=== PATIENT | male | born 1965 | race Caucasian/White ===

== ENCOUNTER 2020-09-19 09:55 | Emergency (ER) | payer OTHER, SELFPAY ==
[2020-09-19 10:03] VITALS: BP 161/82; PULSE 92; RESP 18; TEMP 36.1; O2SAT 98; BMI 37.6
--- NOTE | 2020-09-19 10:09 | ED.BACK ---
HPI - Back Pain/Injury General Chief Complaint: Extremity Injury, Lower Stated Complaint: LEG PAIN Time Seen by Provider: 09/19/20 09:57 Source: patient Mode of arrival: ambulatory Limitations: no limitations History of Present Illness HPI Narrative: 55 y/o male with history of asthma and morbid obesity who presents with non-traumatic burning left hip pain that radiates down his leg. It states it starts in his left lower back and radiates down the back and side of his leg. Worse with walking, better with rest. Had a recent telehealth visit and was started on a muscle relaxer with no improvement in the pain. He denies tingling, LE weakness, incontinence. No trauma. No lower leg pain. Ambulates with steady gait. MD elicited complaint: back pain and other (LLE pain) Onset (ago): week(s) (3) Timing: intermittent and progressively worsening Severity: severe Similar Symptoms Previously: No Quality: burning Location: left lower back Radiation: buttocks and left upper leg Exacerbating factors: movement and walking Relieving factors: immobilization Context: unknown Associated symptoms: difficulty walking Treatments prior to arrival: other medications Work related injury: No Related Data Previous Rx's Medication Instructions Recorded cyclobenzaprine 10 mg PO TID PRN #10 tab 09/19/20 lidocaine [Lidoderm] 1 patch TOPICAL DAILY #15 ea 09/19/20 naproxen 500 mg PO BID PRN #20 tab 09/19/20 tramadol 50 mg PO Q8H PRN #9 tab 09/19/20 Allergies Allergy/AdvReac Type Severity Reaction Status Date / Time No Known Allergies Allergy Verified 09/19/20 10:05 [No Known Allergies*] Review of Systems Review of Systems: Constitutional: No Fever, No Chills Cardiovascular: No Chest Pain, No SOB Respiratory: No Cough, No Sputum Gastrointestinal: No Nausea, No Vomiting, No Diarrhea, No abdominal Pain Genitourinary: No Dysuria, No Urinary Frequency, No Hematuria Musculoskeletal: + joint pain, + Myalgias Skin: No Skin Lesions, No rash Neuro: No Weakness, + Numbness, No Dizziness, No Headache Heme/Lymph: No Bruising, No Lymphadenopathy Endocrine: No Polyuria, No Polydipsia PMFSH Past Medical History Attestation statement: The following information was validated with the patient. Medical History Asthma High blood pressure Hyperlipemia Social History Social History Advance Directives: No Advance Directives Information Provided: No Physical Exam Vital Signs: Vital Signs: Last Vital Signs Temp 97.0 F 09/19/20 10:03 Pulse 92 09/19/20 10:03 Resp 18 09/19/20 10:03 BP 161/82 H 09/19/20 10:03 Pulse Ox 98 09/19/20 10:03 Body Mass Index 37.6 Appearance: Alert. Oriented X3. No acute distress. HEENT: normal inspection CVS: Normal heart rate and rhythm. Pulses normal. Respiratory: No respiratory distress. Skin: Skin warm and dry. Normal skin color. Normal skin turgor. No rashes. Extremities: Neuro: Oriented X 3. No motor deficit. No sensory deficit. Course Course Course Narrative: 55 y/o morbidly obese male presenting with left hip, leg and back pain for the last 3 weeks. history and physical consistent with sciatica. doubt DVT. Stable for d/c with treatment for sciatica. MDM - Back Pain/Injury Differential Diagnosis Differential diagnosis: Likely lumbar radiculopathy, sciatica and strain of lumbar region Critical Care Time Critical Care Time Critical Care Time: No Discharge Plan Discharge Clinical Impression: Sciatica Qualifiers: Laterality: left Qualified Code(s): M54.32 - Sciatica, left side Patient Disposition: Home, Self-Care Instructions: Sciatica (ED), Lumbar Radiculopathy (ED), Lower Back Exercises (ED) Additional Instructions: Your back and leg pain are due to a condition known as sciatica - information has been provided to you. Take the prescribed medications for pain. Follow up with your doctor this week. You would benefit from Physical Therapy. If you develop worsening pain, numbness, or develop weakness or incontinence come back to the ER for further evalution. Prescriptions: New cyclobenzaprine 10 mg tablet 10 mg PO TID PRN (Reason: muscle spasm) Qty: 10 RF: 0 lidocaine [Lidoderm] 5 % adhesive patch,medicated 1 patch topical DAILY Qty: 15 RF: 0 naproxen 500 mg tablet 500 mg PO BID PRN (Reason: pain) Qty: 20 RF: 0 tramadol 50 mg tablet 50 mg PO Q8H PRN (Reason: pain) Qty: 9 RF: 0 Interventions: ED Discharge Assessment Last Done: 09/19/20 10:34 Discharge Date/Time: 09/19/20 10:35
[2020-09-19] MEDS: Ketorolac Tromethamine 30 MG/ML VIAL IM (10:30)
== END 2020-09-19 10:35 | disposition home or self-care (01) ==
PROVIDERS: Emergency Provider Emergency Medicine; PCP Nurse Practitioner Family
DX: M54.42 Lumbago with sciatica, left side (principal); I10 Essential (primary) hypertension
CPT/HCPCS: 96372; 99282; 99284; J1885

== ENCOUNTER 2020-10-03 13:56 | Outpatient (REF) | payer OTHER, SELFPAY | END 2020-10-03 13:57 | disposition home or self-care (01) | LOC: HO.LAB 13:56 | PROVIDERS: PCP Nurse Practitioner Family; Visit Provider Internal Medicine | DX: Z20.822 Contact with and (suspected) exposure to COVID-19 (principal) | CPT/HCPCS: 36415; C9803; U0003 ==

== ENCOUNTER 2021-09-03 19:44 | Emergency (ER) | payer OTHER, SELFPAY | END 2021-09-03 23:26 | disposition left against medical advice (07) | PROVIDERS: Emergency Provider Emergency Medicine | DX: R06.02 Shortness of breath (principal); J45.909 Unspecified asthma, uncomplicated ==

== ENCOUNTER 2022-01-14 12:41 | Emergency (ER) | payer OTHER, SELFPAY ==
--- NOTE | ~2022-01-14 | XR_ITS ---
EXAMINATION: XR CHEST CLINICAL INFORMATION: Dyspnea. COMPARISON: 04/04/2020 chest radiograph. TECHNIQUE: Frontal view of the chest was obtained. FINDINGS: Asymmetric right pleural thickening is again seen without significant change. Linear markings are also seen in the right mid and lower lung vela without significant change. The left lung is clear. The heart and mediastinal structures are unremarkable. XR/XR chest 1V IMPRESSION: Chronic right pleural and parenchymal findings as detailed above without significant interval change. No acute cardiopulmonary process.
--- NOTE | 2022-01-14 12:43 | ECG_ITS ---
Test Reason : dyspnea Blood Pressure : / mmHG Vent. Rate : 099 BPM Atrial Rate : 099 BPM P-R Int : 156 ms QRS Dur : 098 ms QT Int : 342 ms P-R-T Axes : 053 040 027 degrees QTc Int : 438 ms Normal sinus rhythm Normal ECG When compared with ECG of 04-APR-2020 18:08, No significant change was found Referred By: Generic ED Physician Electronically Signed By:Manuel Reza
[2022-01-14 12:51] VITALS: BP 144/88; PULSE 99; RESP 22; TEMP 36.7; O2SAT 97; BMI 51.6
[2022-01-14 13:34] LABS: MANUAL DIFF FLAG NO
[2022-01-14 13:37] LABS: Basophils Percent Auto 0.5 % (0-2); Eosinophils Percent Auto 0.5 % (0-4); Hematocrit 43.3 % (42.0-52.0); Hemoglobin 13.8 g/dl (14.0-18.0); Imm Gran Abs Auto 0.01 X10*3/uL (0.00-0.03); Imm Gran Pct Auto 0.2 % (0.0-0.4); Lymphocytes Absolute Auto 1.6 X10*3/uL (1.2-4.9); Lymphocytes Percent Auto 34.9 % (20-40); Mean Corpuscular HGB Conc 31.9 g/dl (31.0-36.0); Mean Platelet Volume 9.4 fL (9.4-12.4); Monocytes Absolute Auto 0.9 X10*3/uL (0.1-1.2); Monocytes Percent Auto 19.6 % (2-11); Neutrophils Percent Auto 44.3 % (45-73); Platelet Count 234 X10*3/uL (160-400); Red Blood Count 4.92 X10*6/uL (4.60-5.80); White Blood Count 4.4 X10*3/uL (4.8-10.8)
[2022-01-14 13:55] LABS: Anion Gap 14 (12-20); Blood Urea Nitrogen 17 mg/dL (9-16); Calcium 9.2 mg/dL (8.4-10.2); Carbon Dioxide 23 mmol/L (22-29); Chloride 106 mmol/L (96-108); Creatinine Clr Calc Pharmacy 157.9; Estimated Glomerular Filt Rate > 60; Glucose Random 120 mg/dL (60-115); Potassium 3.9 mmol/L (3.3-5.1); Sodium 139 mmol/L (135-145)
[2022-01-14 13:59] LABS: B Type Natriuretic Peptide < 10 pg/mL (<100); Troponin-I High Sensitivity 4.7 ng/L (<3.5-35.0)
[2022-01-14 14:18] LABS: COVID-19 Test Positive (Negative)
[2022-01-14 14:25] LABS: IDNOW Serial# 08D9AD1C; Influenza A Negative (Negative); Influenza B2 Negative (Negative)
--- NOTE | 2022-01-14 15:16 | ED.SOB ---
HPI - SOB/Dyspnea General Chief Complaint: Dyspnea Stated Complaint: DIFF BREATHING Time Seen by Provider: 01/14/22 13:38 Source: patient Mode of arrival: ambulatory Limitations: no limitations History of Present Illness HPI Narrative: 56 y/o male with history of obesity, ODETTE on CPAP who presents to the ER with 6 days of SOB, productive cough of green phlegm and body aches. He reports taking an at home COVID test and he has 2 lines but he thought it was from the other germs in him with his green phlegm. He is fully vaccinated. He reports SOB with coughing an exertion but he was able to ride his bicycle here. He denies any leg swelling or pain, no chest pain. MD elicited complaint: shortness of breath and cough Onset (ago): day(s) (6) Context: recent illness Timing: intermittent Severity: moderate Exacerbating factors: lying flat, exertion and coughing Relieving factors: rest and upright position Associated symptoms: cough and sputum production Treatment prior to arrival: none Related Data Home oxygen amount: none Previous Rx's Medication Instructions Recorded cyclobenzaprine 10 mg tablet 10 mg PO TID PRN #10 tab 09/19/20 lidocaine 5 % topical patch 1 patch TOPICAL DAILY #15 ea 09/19/20 (Lidoderm) naproxen 500 mg tablet 500 mg PO BID PRN #20 tab 09/19/20 tramadol 50 mg tablet 50 mg PO Q8H PRN #9 tab 09/19/20 Allergies Allergy/AdvReac Type Severity Reaction Status Date / Time No Known Allergies Allergy Verified 01/14/22 12:58 [No Known Allergies*] Review of Systems Review of Systems: Constitutional: No Fever, No Chills ENT/Mouth: + sore throat, No Rhinorrhea Eyes: No Eye Pain, No Swelling, No Redness Cardiovascular: No Chest Pain, No SOB, No Orthopnea, No Edema Respiratory: + Cough, + Sputum, No Wheezing, + dyspnea Gastrointestinal: No Nausea, No Vomiting, No Diarrhea, No abdominal Pain Musculoskeletal: No joint pain, + Myalgias Skin: No Skin Lesions, No rash Neuro: No Weakness, No Numbness, No Dizziness, + Headache Psych: No Anxiety/Panic, No Depression Heme/Lymph: No Bruising, No Lymphadenopathy PMFSH Past Medical History Medical History (Updated 01/14/22 @ 15:24 by BALTAZAR Suero) Asthma High blood pressure High cholesterol Hyperlipemia Sleep apnea Social History Social History (Updated 01/10/22 @ 11:59 by KIRBY Reynolds) Alcohol intake: former Patient Tobacco Use Status: Former Tobacco user Advance Directives: No Advance Directives Information Provided: Yes Current occupational status: employed Current occupation: [employer] Physical Exam Vital Signs: Vital Signs: Last Vital Signs Temp 98.1 F 01/14/22 12:51 Pulse 99 01/14/22 12:51 Resp 22 H 01/14/22 12:51 BP 144/88 H 01/14/22 12:51 Pulse Ox 97 01/14/22 12:51 BMI result Body Mass Index 51.6 Appearance: Alert. Oriented X3. No acute distress. Eyes: Pupils equal, round and reactive to light. ENT: Pharynx normal. No tonsillar swelling or erythema. Neck: Normal inspection. Neck supple. CVS: Normal heart rate and rhythm. Pulses normal. Respiratory: No respiratory distress. Breath sounds normal. Abdomen: Obese, Soft and nontender. +BS x4 Skin: Skin warm and dry. Normal skin color. Normal skin turgor. No rashes. Extremities: No lower extremity edema. No calf tenderness Neuro: Oriented X 3. No motor deficit. No sensory deficit. Course Course Course Narrative: 56 y/o male with morbid obesity, ODETTE on CPAP who presents to the ER with SOB, productive cough and body aches x6 days. Slightly tachypneic on arrival w/ RR 22 but SpO2 97%. He just rode his bicycle here. He has no chest pain and otherwise appears well. Will get CXR, EKG, labs and COVID swab. Suspect all COVID with at home ++ test. Doubt DVT/PE. Reevaluation(s) Reevaluation #1: CXR with some chronic findings, nothing acute. EKG unremarkable. BNP normal. Troponin <5. COVID +. Stable for discharge home with supportive care, encouraged to get an at home pulse oximeter and monitor SPO2 at home. MDM - SOB/Dyspnea Medical Records Attestation: I reviewed the patient's medical records. Lab Data Attestation: I reviewed the patient's lab results. Result diagrams: 01/14/22 13:30 01/14/22 13:30 Labs: Lab Results 01/14/22 01/14/22 01/14/22 Range/Units 13:30 13:30 13:30 WBC 4.4 L (4.8-10.8) X10*3/uL RBC 4.92 (4.60-5.80) X10*6/uL Hgb 13.8 L (14.0-18.0) g/dl Hct 43.3 (42.0-52.0) % MCV 88.0 (80.0-98.0) fL MCH 28.0 (27.0-33.0) pg MCHC 31.9 (31.0-36.0) g/dl RDW 14.0 (11.0-16.0) % Plt Count 234 (160-400) X10*3/uL MPV 9.4 (9.4-12.4) fL Immature Gran % (Auto) 0.2 (0.0-0.4) % Neut % (Auto) 44.3 L (45-73) % Lymph % (Auto) 34.9 (20-40) % Hardy % (Auto) 19.6 H (2-11) % Eos % (Auto) 0.5 (0-4) % Baso % (Auto) 0.5 (0-2) % Lymph # (Auto) 1.6 (1.2-4.9) X10*3/uL Hardy # (Auto) 0.9 (0.1-1.2) X10*3/uL Eos # (Auto) 0.0 (0.0-0.4) X10*3/uL Baso # (Auto) 0.0 (0.0-0.2) X10*3/uL Abs Immat Gran (auto) 0.01 (0.00-0.03) X10*3/uL Absolute Neuts (auto) 2.0 (2.0-8.3) x10*3/uL Absolute Nucleated RBC 0.000 (0.0-0.012) X10*3/uL Nucleated RBC % (auto) 0.0 (0.0-0.2) /100WBC Sodium 139 (135-145) mmol/L Potassium 3.9 (3.3-5.1) mmol/L Chloride 106 (96-108) mmol/L Carbon Dioxide 23 (22-29) mmol/L Anion Gap 14 (12-20) BUN 17 H (9-16) mg/dL Creatinine 0.85 (0.5-1.4) mg/dL Estim Creat Clear Calc 157.9 Estimated GFR > 60 Random Glucose 120 H (60-115) mg/dL Calcium 9.2 (8.4-10.2) mg/dL Troponin I High Sens 4.7 (<3.5-35.0) ng/L B-Natriuretic Peptide < 10 (<100) pg/mL COVID-19 ([facility]) (Negative) COVID-19 Clin Com Influenza Type A ([facility]) (Negative) Influenza Type B ([facility]ONA) (Negative) Influenza A & B Note 01/14/22 01/14/22 Range/Units 13:56 13:56 WBC (4.8-10.8) X10*3/uL RBC (4.60-5.80) X10*6/uL Hgb (14.0-18.0) g/dl Hct (42.0-52.0) % MCV (80.0-98.0) fL MCH (27.0-33.0) pg MCHC (31.0-36.0) g/dl RDW (11.0-16.0) % Plt Count (160-400) X10*3/uL MPV (9.4-12.4) fL Immature Gran % (Auto) (0.0-0.4) % Neut % (Auto) (45-73) % Lymph % (Auto) (20-40) % Hardy % (Auto) (2-11) % Eos % (Auto) (0-4) % Baso % (Auto) (0-2) % Lymph # (Auto) (1.2-4.9) X10*3/uL Hardy # (Auto) (0.1-1.2) X10*3/uL Eos # (Auto) (0.0-0.4) X10*3/uL Baso # (Auto) (0.0-0.2) X10*3/uL Abs Immat Gran (auto) (0.00-0.03) X10*3/uL Absolute Neuts (auto) (2.0-8.3) x10*3/uL Absolute Nucleated RBC (0.0-0.012) X10*3/uL Nucleated RBC % (auto) (0.0-0.2) /100WBC Sodium (135-145) mmol/L Potassium (3.3-5.1) mmol/L Chloride (96-108) mmol/L Carbon Dioxide (22-29) mmol/L Anion Gap (12-20) BUN (9-16) mg/dL Creatinine (0.5-1.4) mg/dL Estim Creat Clear Calc Estimated GFR Random Glucose (60-115) mg/dL Calcium (8.4-10.2) mg/dL Troponin I High Sens (<3.5-35.0) ng/L B-Natriuretic Peptide (<100) pg/mL COVID-19 ([facility]) Positive A (Negative) COVID-19 Clin Com See Note Influenza Type A ([facility]) Negative (Negative) Influenza Type B ([facility]ONA) Negative (Negative) Influenza A & B Note See Note ECG Data Attestation: I personally reviewed and interpreted this ECG as follows: ECG interpretation date: 01/14/22 Interpretation: normal sinus rhythm, HR 99 bpm, normla MA interval, normal QTc, No ST segment elevations or depressions Critical Care Time Critical Care Time Critical Care Time: No Discharge Plan Discharge Clinical Impression: COVID-19 Patient Disposition: Home, Self-Care Instructions: Covid-19 Viral Syndrome and Novel Coronavirus (ED) Hey/Ath Additional Instructions: You were found to be COVID-19 POSITIVE today. Your chest x-ray did now show any pneumonia and oxygen levels were normal. Rest. Drink plenty of fluids. Do not go out in public for the next 5-7 days. Take over the counter cold/flu medications as needed for your symptoms. Take Tylenol and/or Motrin as needed for fevers and body aches. Follow up with your doctor this week. If you shortness of breath worsens, if you develop difficulty breathing or any other concerning symptom come back to the ER for further evaluation. Prescriptions: No Action cyclobenzaprine 10 mg tablet 10 mg PO TID PRN (Reason: muscle spasm) Qty: 10 0RF lidocaine [Lidoderm] 5 % adhesive patch,medicated 1 patch topical DAILY Qty: 15 0RF Rx Instructions: leave on most painful area for up to 12 hrs naproxen 500 mg tablet 500 mg PO BID PRN (Reason: pain) Qty: 20 0RF tramadol 50 mg tablet 50 mg PO Q8H PRN (Reason: pain) Qty: 9 0RF Rx Instructions: for 3 days Interventions: ED Discharge Assessment Last Done: 01/14/22 15:29 Discharge Date/Time: 01/14/22 15:35
== END 2022-01-14 15:35 | disposition home or self-care (01) ==
PROVIDERS: Physician Assistant Medical; Emergency Provider Emergency Medicine
DX: U07.1 COVID-19 (principal); R06.02 Shortness of breath; J45.909 Unspecified asthma, uncomplicated; G47.33 Obstructive sleep apnea (adult) (pediatric); E66.01 Morbid (severe) obesity due to excess calories; Z68.43 Body mass index [BMI] 50.0-59.9, adult; Z99.89 Dependence on other enabling machines and devices
CPT/HCPCS: 36415; 71045; 80048; 83880; 84484; 85025; 87502; 87635; 93005; 99283

== ENCOUNTER → 2022-05-22 10:35 | Outpatient (BNVA) | payer OTHER, SELFPAY | PROVIDERS: Visit Provider Nurse Practitioner Family | DX: R40.0 Somnolence (principal); G47.30 Sleep apnea, unspecified | CPT/HCPCS: 99202 ==

== ENCOUNTER 2022-07-13 13:43 | Outpatient (REF) | payer OTHER, SELFPAY ==
--- NOTE | ~2022-07-13 | XR_ITS ---
EXAMINATION: XR CHEST CLINICAL INFORMATION: Acute respiratory infection. COMPARISON: 01/14/2022 chest radiograph. TECHNIQUE: 2 views of the chest were obtained. FINDINGS: There is a small right pleural effusion/pleural scarring without significant change. Mild linear markings are seen in the right upper lung field. The left lung is clear. The heart and mediastinal structures are unremarkable. XR/XR chest 2V IMPRESSION: Right hip findings are similar to previous studies consistent with chronic right pleural effusion/pleural thickening and right lung linear atelectasis/scarring. No definitive new abnormality.
== END 2022-07-13 13:44 | disposition home or self-care (01) ==
LOC: HO.XRAY 13:43
PROVIDERS: Visit Provider Internal Medicine
DX: J06.9 Acute upper respiratory infection, unspecified (principal)
CPT/HCPCS: 71046

== ENCOUNTER 2022-08-30 08:55 | Emergency (ER) | payer OTHER, SELFPAY ==
--- NOTE | ~2022-08-30 | XR_ITS ---
EXAMINATION: XR CHEST CLINICAL INFORMATION: Difficulty breathing COMPARISON: Chest radiograph 07/13/[address] 08/07/2017 along with chest x-ray dating back to 01/12/2013 TECHNIQUE: Frontal view of the chest was obtained. FINDINGS: Compared to the prior study there's been no interval change. Once again noted is a normal heart and pulmonary vessels. Right-sided pleural thickening/scarring is again seen and unchanged on chest radiographs dating back to 2012. No acute infiltrates, no effusions or lung masses are seen. XR/XR chest 1V IMPRESSION: No acute intrathoracic disease. Unchanged right-sided pleural thickening.
--- NOTE | ~2022-08-30 | CT_ITS ---
EXAMINATION: CT ABDOMEN AND PELVIS WITHOUT CONTRAST CLINICAL INFORMATION: Left flank pain and hematuria COMPARISON: CT abdomen pelvis 04/18/2017 TECHNIQUE: Multidetector volumetric imaging was performed from the superior aspect of the liver through the pubic symphysis. Sagittal and coronal reformatted images were obtained on the technologist's workstation. This CT examination was performed using dose optimization techniques as appropriate, variously including the following: *Automated exposure control *Adjustment of mA and/or kV according to patient size (this includes techniques or standardized protocols for targeted exams where dose is matched to indication/reason for exam; i.e. extremities or head) *Use of iterative reconstruction technique DLP: 1583 mGy-cm FINDINGS: LUNG BASES: There is a perifissural nodules seen in the right lower lobe measuring 7 mm that is unchanged when the study from 04/18/2017 indicative of benignity. Some chronic pleural thickening is again seen with some calcifications. LIVER, GALLBLADDER, AND BILIARY TREE: The liver is normal in size, shape, and attenuation. No focal hepatic lesion or biliary ductal dilatation is present. The gallbladder is unremarkable with no evidence of radiopaque gallstones, gallbladder wall thickening, or obvious pericholecystic inflammatory changes. PANCREAS: Unremarkable. SPLEEN: Unremarkable. ADRENAL GLANDS: Unremarkable. KIDNEYS AND URETERS: The kidneys are normal in size, shape, and attenuation. There is a 3 mm calculus in the left mid kidney with smaller punctate calcification in the upper pole on the left. No right-sided calculi are seen. No hydronephrosis, hydroureter, or ureteral calculi seen. No significant perinephric stranding. BLADDER: Unremarkable. GASTROINTESTINAL TRACT: The small and large bowel are unremarkable. The appendix is unremarkable. ABDOMINAL WALL: There are tiny bilateral inguinal hernias containing only fat. LYMPH NODES: No retroperitoneal lymphadenopathy. VASCULAR: Unremarkable. PELVIC VISCERA: The prostate and seminal vesicles are unremarkable. OSSEOUS STRUCTURES: Degenerative changes are noted throughout the spine. No bony destructive lesions CT/CT abdomen pelvis wo IV con IMPRESSION: 1. Nonobstructing left renal calculi. 2. Other incidental findings as described above. Fleischner guidelines were followed.
[2022-08-30 09:03] VITALS: BP 118/73; PULSE 90; RESP 20; TEMP 35.6; O2SAT 97; BMI 54.2
--- NOTE | 2022-08-30 09:51 | ED.GENADULT ---
HPI - General Adult General Chief complaint: General Medical Stated complaint: diff breathing blood in urine Time Seen by Provider: 08/30/22 09:46 Source: patient Mode of arrival: ambulatory Limitations: no limitations History of Present Illness HPI narrative: 57-year-old male with history of morbid obesity, ODETTE on CPAP, HTN, HLD and asthma who presents to the ER c/o multiple complaints today. He reports for the last couple of days he has had a bronchitis including coughing and wheezing. He has been using nebulizer treatments before he puts on his CPAP at night. He states he is bringing up green phlegm when he coughs. Denies any fever, chills, body aches. He denies any difficulty breathing or chest pain. Patient also reports intermittent hematuria for the last 2 weeks. He has low back pain associated with this. He also reports suprapubic pain and discomfort when he urinates. He feels like he has to strain to urinate at times. He denies any nausea, vomiting, abdominal pain. He feels like he might have an infection. MD complaint: Productive cough and dysuria Onset (ago): day(s) Location: chest, back and abdomen Radiation: non-radiation Severity: moderate Quality: aching Pain Consistency: intermittent Relieving factors: none Exacerbating factors: none Associated symptoms: cough and shortness of breath Treatments prior to arrival: none Related Data Home Medications Medication Instructions Recorded Confirmed cholecalciferol (vitamin D3) 50 50 mcg PO DAILY 05/22/22 05/22/22 mcg (2,000 unit) capsule (Vitamin D3) lisinopril 10 mg tablet 10 mg PO DAILY 05/22/22 05/22/22 pravastatin 40 mg tablet 40 mg PO DAILY PRN 05/22/22 05/22/22 Previous Rx's Medication Instructions Recorded cyclobenzaprine 10 mg tablet 10 mg PO TID PRN muscle spasm #10 09/19/20 tabs naproxen 500 mg tablet 500 mg PO BID PRN pain #20 tabs 09/19/20 tramadol 50 mg tablet 50 mg PO Q8H PRN pain #9 tabs 09/19/20 benzonatate 100 mg capsule 100 mg PO TID PRN cough #30 caps 08/30/22 cefuroxime axetil 250 mg tablet 250 mg PO BID 7 days #14 tabs 08/30/22 prednisone 50 mg tablet 50 mg PO DAILY #5 tabs 08/30/22 Allergies Allergy/AdvReac Type Severity Reaction Status Date / Time No Known Allergies Allergy Verified 01/14/22 12:58 [No Known Allergies*] Review of Systems Review of Systems: Constitutional: No Fever, No Chills ENT/Mouth: No sore throat, No Rhinorrhea, No Swallowing Difficulty Eyes: No Eye Pain, No Swelling, No Redness Cardiovascular: No Chest Pain, + SOB, No Orthopnea, No Edema Respiratory: + Cough, + Sputum, +wheezing, No dyspnea Gastrointestinal: No Nausea, No Vomiting, No Diarrhea, + abdominal Pain (suprapubic) Genitourinary: + Dysuria, + Urinary Frequency, + Hematuria Musculoskeletal: No joint pain, No Myalgias Skin: No Skin Lesions, No rash Neuro: No Weakness, No Numbness, No Dizziness, No Headache Psych: No Anxiety/Panic, No Depression Heme/Lymph: No Bruising, No Lymphadenopathy PMFSH Past Medical History Medical History (Updated 08/30/22 @ 11:32 by BALTAZAR Suero) Asthma High blood pressure High cholesterol Hyperlipemia Sleep apnea Surgical History (Updated 05/22/22 @ 10:47 by KIRBY Quinn) No history of previous surgery Family History Family History Sister Seizures Sister Diabetes Mother Diabetes Father No problems noted. 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 Oriented X3. No acute distress. Eyes: Pupils equal, round and reactive to light. ENT: Pharynx normal. moist mucous membranes. Neck: Normal inspection. Neck supple. CVS: Normal heart rate and rhythm. Pulses normal. Respiratory: No respiratory distress. Breath sounds normal. Upper airway wheezing noted. speaking in complete sentences Abdomen: obese,Soft and nontender. +BS x4 No CVA tenderness bilateral Skin: Skin warm and dry. Normal skin color. Normal skin turgor. No rashes. Extremities: No lower extremity edema. Neuro: Oriented X 3. steady gait, nonfocal Course Course Course Narrative: 57-year-old male with history of morbid obesity, ODETTE on CPAP who presents to the ER for evaluation of 2 separate complaints today including bronchitis - coughing and wheezing for the last few days along with dysuria and intermittent hematuria for the last 2 weeks. on arrival to the ER he is afebrile and saturating well on room air. He is hemodynamically stable. Will check chest x-ray to rule out pneumonia. Will check basic lab workup, CT scan to rule out stones given his back pain. Will check UA, concern for UTI. He does not appear to be septic. Reevaluation(s) Reevaluation #1: Urinalysis consistent with infection. He has no leukocytosis. Renal function is normal. Ceftin and Pyridium ordered. Chest x-ray without pneumonia, negative for flu and COVID. Continues to saturate well on room air. He states he has responded well to steroids in the past when he has had similar symptoms. Will prescribe short course of prednisone. Reevaluation #2: CT scan without any evidence of pyelonephritis, no evidence of obstructing kidney stone. Comfortable discharge home with oral antibiotics and outpatient follow-up. Stable for DC. Medications Administered Discontinued Medications Generic Name Dose Route Start Last Admin Trade Name Flakita PRN Reason Stop Dose Admin Cefuroxime Axetil 500 mg 08/30/22 11:25 08/30/22 11:34 Cefuroxime Axetil 500 Mg Tablet PO 08/30/22 11:26 500 mg ONCE ONE Administration Phenazopyridine HCl 100 mg 08/30/22 11:07 08/30/22 11:34 Phenazopyridine Hcl 100 Mg Tablet PO 08/30/22 11:08 100 mg ONCE ONE Administration Medical Decision Making Lab Data Result Diagrams: 08/30/22 09:58 08/30/22 09:58 Labs: Lab Results 12/15/22 12/15/22 12/15/22 Range/Units 09:58 09:58 10:37 WBC 9.0 (4.8-10.8) X10*3/uL RBC 4.83 (4.60-5.80) X10*6/uL Hgb 14.3 (14.0-18.0) g/dl Hct 43.3 (42.0-52.0) % MCV 89.6 (80.0-98.0) fL MCH 29.6 (27.0-33.0) pg MCHC 33.0 (31.0-36.0) g/dl RDW 13.5 (11.0-16.0) % Plt Count 269 (160-400) X10*3/uL MPV 9.6 (9.4-12.4) fL Immature Gran % (Auto) 0.4 (0.0-0.4) % Neut % (Auto) 67.7 (45-73) % Lymph % (Auto) 17.0 L (20-40) % [place] % (Auto) 12.8 H (2-11) % Eos % (Auto) 1.9 (0-4) % Baso % (Auto) 0.2 (0-2) % Lymph # (Auto) 1.5 (1.2-4.9) X10*3/uL [place] # (Auto) 1.2 (0.1-1.2) X10*3/uL Eos # (Auto) 0.2 (0.0-0.4) X10*3/uL Baso # (Auto) 0.0 (0.0-0.2) X10*3/uL Abs Immat Gran (auto) 0.04 H (0.00-0.03) X10*3/uL Absolute Neuts (auto) 6.1 (2.0-8.3) x10*3/uL Absolute Nucleated RBC 0.000 (0.0-0.012) X10*3/uL Nucleated RBC % (auto) 0.0 (0.0-0.2) /100WBC Sodium 138 (135-145) mmol/L Potassium 4.7 D (3.3-5.1) mmol/L Chloride 105 (96-108) mmol/L Carbon Dioxide 24 (22-29) mmol/L Anion Gap 14 (12-20) BUN 15 (9-16) mg/dL Creatinine 0.76 (0.5-1.4) mg/dL Estim Creat Clear Calc 169.4 Estimated GFR > 60 Random Glucose 111 (60-115) mg/dL Calcium 9.2 (8.4-10.2) mg/dL AST 27 (5-37) U/L ALT 34 (0-40) U/L Alkaline Phosphatase 62 (39-117) U/L Total Protein 7.0 (6.5-8.0) g/dL Albumin 3.8 (3.5-5.0) g/dL Lipase 22 (8-78) U/L Urine Color Urine Appearance Urine pH (5.0-9.0) Ur Specific [place] (1.005-1.025) Urine Protein (Neg-Trace) mg/dL Urine Glucose (UA) (Negative) mg/dL Urine Ketones (Negative) mg/dL Urine Blood (Negative) Urine Nitrite (Negative) Ur Leukocyte Esterase (Negative) Urine RBC (0-2) /HPF Urine WBC (0-5) /HPF Ur Squamous Epith Cells (0-2) /HPF Urine Bacteria (None Seen) Hyaline Casts (0-2) /LPF COVID-19 (CAR[facility]LE) (Negative) COVID-19 Clin Com Influenza Type A (LEONA) Negative (Negative) Influenza Type B (LEONA) Negative (Negative) Influenza A & B Note See Note 08/30/22 08/30/22 Range/Units 10:37 10:37 WBC (4.8-10.8) X10*3/uL RBC (4.60-5.80) X10*6/uL Hgb (14.0-18.0) g/dl Hct (42.0-52.0) % MCV (80.0-98.0) fL MCH (27.0-33.0) pg MCHC (31.0-36.0) g/dl RDW (11.0-16.0) % Plt Count (160-400) X10*3/uL MPV (9.4-12.4) fL Immature Gran % (Auto) (0.0-0.4) % Neut % (Auto) (45-73) % Lymph % (Auto) (20-40) % [place] % (Auto) (2-11) % Eos % (Auto) (0-4) % Baso % (Auto) (0-2) % Lymph # (Auto) (1.2-4.9) X10*3/uL [place] # (Auto) (0.1-1.2) X10*3/uL Eos # (Auto) (0.0-0.4) X10*3/uL Baso # (Auto) (0.0-0.2) X10*3/uL Abs Immat Gran (auto) (0.00-0.03) X10*3/uL Absolute Neuts (auto) (2.0-8.3) x10*3/uL Absolute Nucleated RBC (0.0-0.012) X10*3/uL Nucleated RBC % (auto) (0.0-0.2) /100WBC Sodium (135-145) mmol/L Potassium (3.3-5.1) mmol/L Chloride (96-108) mmol/L Carbon Dioxide (22-29) mmol/L Anion Gap (12-20) BUN (9-16) mg/dL Creatinine (0.5-1.4) mg/dL Estim Creat Clear Calc Estimated GFR Random Glucose (60-115) mg/dL Calcium (8.4-10.2) mg/dL AST (5-37) U/L ALT (0-40) U/L Alkaline Phosphatase (39-117) U/L Total Protein (6.5-8.0) g/dL Albumin (3.5-5.0) g/dL Lipase (8-78) U/L Urine Color Yellow Urine Appearance Cloudy Urine pH 6.0 (5.0-9.0) Ur Specific [place] 1.015 (1.005-1.025) Urine Protein 100 (2+) H (Neg-Trace) mg/dL Urine Glucose (UA) Negative (Negative) mg/dL Urine Ketones Negative (Negative) mg/dL Urine Blood Large (3+) H (Negative) Urine Nitrite Positive H (Negative) Ur Leukocyte Esterase Large (3+) H (Negative) Urine RBC 6-10 H (0-2) /HPF Urine WBC >50 H (0-5) /HPF Ur Squamous Epith Cells 0-2 (0-2) /HPF Urine Bacteria 4+ (None Seen) Hyaline Casts 3-5 (0-2) /LPF COVID-19 (CAR[facility]LE) Negative (Negative) COVID-19 Clin Com See Note Influenza Type A (LEONA) (Negative) Influenza Type B (LEONA) (Negative) Influenza A & B Note Critical Care Time Critical Care Time Critical Care Time: No Discharge Plan Discharge Clinical Impression: Acute UTI, Bronchitis Patient Disposition: Home, Self-Care Instructions: Urinary Tract Infection in Men (ED), Acute Bronchitis (ED) Additional Instructions: Your chest x-ray did not show any evidence of pneumonia. Take the prescribed steroids for your lungs. Complete the entire course. Continue using her albuterol inhaler as needed. Your urine test showed evidence of infection. Take the prescribed antibiotic as directed. Your given 1st dose today in the ER. Your next dose is tonight before bedtime. Make sure you are drinking plenty of water. Your CT scan did not show any kidney stones or kidney infection. Follow-up with your primary care doctor. If you develop new or worsening symptoms call 911 or come back to the ER for further evaluation. Prescriptions: New cefuroxime axetil 250 mg tablet 250 mg PO BID 7 Days Qty: 14 0RF prednisone 50 mg tablet 50 mg PO DAILY Qty: 5 0RF benzonatate 100 mg capsule 100 mg PO TID PRN (Reason: cough) Qty: 30 0RF No Action cyclobenzaprine 10 mg tablet 10 mg PO TID PRN (Reason: muscle spasm) Qty: 10 0RF naproxen 500 mg tablet 500 mg PO BID PRN (Reason: pain) Qty: 20 0RF tramadol 50 mg tablet 50 mg PO Q8H PRN (Reason: pain) Qty: 9 0RF Rx Instructions: for 3 days cholecalciferol (vitamin D3) [Vitamin D3] 50 mcg (2,000 unit) capsule 50 mcg PO DAILY lisinopril 10 mg tablet 10 mg PO DAILY pravastatin 40 mg tablet 40 mg PO DAILY PRN Interventions: ED Discharge Assessment Last Done: 08/30/22 11:38
[2022-08-30 10:03] LABS: MANUAL DIFF FLAG NO
[2022-08-30 10:05] LABS: Basophils Percent Auto 0.2 % (0-2); Eosinophils Absolute Auto 0.2 X10*3/uL (0.0-0.4); Eosinophils Percent Auto 1.9 % (0-4); Hematocrit 43.3 % (42.0-52.0); Hemoglobin 14.3 g/dl (14.0-18.0); Imm Gran Abs Auto 0.04 X10*3/uL (0.00-0.03); Imm Gran Pct Auto 0.4 % (0.0-0.4); Lymphocytes Absolute Auto 1.5 X10*3/uL (1.2-4.9); Mean Corpuscular Hemoglobin 29.6 pg (27.0-33.0); Mean Corpuscular Volume 89.6 fL (80.0-98.0); Mean Platelet Volume 9.6 fL (9.4-12.4); Monocytes Absolute Auto 1.2 X10*3/uL (0.1-1.2); Monocytes Percent Auto 12.8 % (2-11); Neutrophils Absolute Auto 6.1 x10*3/uL (2.0-8.3); Neutrophils Percent Auto 67.7 % (45-73); Platelet Count 269 X10*3/uL (160-400); Red Blood Count 4.83 X10*6/uL (4.60-5.80); Red Cell Distribution Width 13.5 % (11.0-16.0)
[2022-08-30 10:48] LABS: Appearance Urine Cloudy; Color Urine Yellow; Glucose Urine UA Negative (Negative); Leukocyte Esterase Urine Large (3+) (Negative); Nitrite Urine Positive (Negative); Specific Gravity - Urine 1.015 (1.005-1.025); UMIC TRIGGER UACC YES; Urine Blood Large (3+) (Negative); Urine Ketones Negative (Negative); Urine Protein 100 (2+) mg/dL (Neg-Trace)
[2022-08-30 10:57] LABS: Alanine Aminotransferase 34 U/L (0-40); Albumin Level 3.8 g/dL (3.5-5.0); Alkaline Phosphatase 62 U/L (39-117); Anion Gap 14 (12-20); Aspartate Amino Transferase 27 U/L (5-37); Blood Urea Nitrogen 15 mg/dL (9-16); Calcium 9.2 mg/dL (8.4-10.2); Carbon Dioxide 24 mmol/L (22-29); Chloride 105 mmol/L (96-108); Creatinine Clr Calc Pharmacy 169.4; Estimated Glomerular Filt Rate > 60; Glucose Random 111 mg/dL (60-115); Lipase 22 U/L (8-78); Potassium 4.7 mmol/L (3.3-5.1); Sodium 138 mmol/L (135-145)
[2022-08-30 11:01] LABS: COVID-19 Test Negative (Negative); IDNOW Serial# 16C4AD1C
[2022-08-30 11:02] LABS: Bacteria Urine 4+ (None Seen); Squamous Epithelial Cell Urine 0-2 /HPF (0-2); UACC Culture Trigger YES; WBC Urine >50 /HPF (0-5)
[2022-08-30 11:06] LABS: IDNOW Serial# BCCEAD1C; Influenza A Negative (Negative); Influenza B2 Negative (Negative)
[2022-08-30] MEDS: Phenazopyridine HCL 100 MG TABLET PO (11:34)
[2022-08-30 11:49] LABS: Bilirubin Total 0.4 mg/dL (0.0-1.0)
== END 2022-08-30 11:38 | disposition home or self-care (01) ==
PROVIDERS: Emergency Provider Student in an Organized Health Care Education/Training Program
DX: J40 Bronchitis, not specified as acute or chronic (principal); R06.02 Shortness of breath; N39.0 Urinary tract infection, site not specified; Z20.822 Contact with and (suspected) exposure to COVID-19; Z79.899 Other long term (current) drug therapy
CPT/HCPCS: 36415; 71045; 74176; 80053; 81001; 83690; 85025; 87086; 87088; 87186; 87502; 87635; 99284

== ENCOUNTER 2022-09-29 15:18 | Emergency (ER) | payer OTHER, SELFPAY ==
--- NOTE | ~2022-09-29 | XR_ITS ---
EXAMINATION: XR CHEST CLINICAL INFORMATION: Shortness of breath COMPARISON: Chest x-ray 08/30/2022 TECHNIQUE: AP and lateral views of the chest was obtained. FINDINGS: No change in the small to moderate-sized loculated right pleural fluid collection and/or pleural thickening. There is hazy attenuation in the right lung likely due to pleural fluid and/or atelectasis. Some streaky scarring or subsegmental atelectasis in the right mid upper lung, unchanged. No left pleural effusion. Left lung appears clear. Normal cardiomediastinal silhouette. No evidence of pulmonary edema. No acute osseous injury identified. XR/XR chest 1V IMPRESSION: 1. No change in the small to moderate-sized loculated right pleural fluid collection and/or pleural thickening. 2. No new airspace consolidation.
[2022-09-29 15:27] VITALS: BP 193/79; PULSE 107; RESP 18; TEMP 37.7; O2SAT 97; BMI 53.8
--- NOTE | 2022-09-29 15:31 | ED.CHESTPAIN ---
HPI - Chest Pain General Chief Complaint: General Medical <BALTAZAR Nicholas - Last Filed: 09/29/22 15:35> Stated Complaint: chest pain/ sob <BALTAZAR Nicholas - Last Filed: 09/29/22 15:35> Time Seen by Provider: 09/29/22 16:30 <BALTAZAR Nicholas - Last Filed: 09/29/22 15:35> Source: patient <BALTAZAR Anderson - Last Filed: 09/29/22 22:38> Mode of arrival: ambulatory <BALTAZAR Anderson - Last Filed: 09/29/22 22:38> Limitations: no limitations <BALTAZAR Anderson Last Filed: 09/29/22 22:38> History of Present Illness HPI narrative: This is a 57-year-old male asthma, HTN, HLD presenting to the emergency department with complaints of substernal intermittent sharp chest pain nonradiating, shortness of breath both at rest and with exertion, subjective fevers and chills, discomfort/heaviness in the left shoulder, dysuria, urinary frequency and urgency x1 day. Patient tells me he is just not been feeling right. He also reports that he recently started taking Nugenix x 5 days he is not sure if this was contributing to all his new symptoms. He tells me he body it off line to get fit. Patient denies sick contacts. Denies headache, vision changes, dizziness, weakness, nausea, vomiting, abdominal pain. <BALTAZAR Anderson Last Filed: 09/29/22 22:38> Related Data Home Medications: Home Medications Medication Instructions Recorded Confirmed cholecalciferol (vitamin D3) 50 50 mcg PO DAILY 05/22/22 05/22/22 mcg (2,000 unit) capsule (Vitamin D3) lisinopril 10 mg tablet 10 mg PO DAILY 05/22/22 05/22/22 pravastatin 40 mg tablet 40 mg PO DAILY PRN 05/22/22 05/22/22 Previous Rx's Medication Instructions Recorded cyclobenzaprine 10 mg tablet 10 mg PO TID PRN muscle spasm #10 09/19/20 tabs naproxen 500 mg tablet 500 mg PO BID PRN pain #20 tabs 09/19/20 tramadol 50 mg tablet 50 mg PO Q8H PRN pain #9 tabs 09/19/20 benzonatate 100 mg capsule 100 mg PO TID PRN cough #30 caps 08/30/22 cefuroxime axetil 250 mg tablet 250 mg PO BID 7 days #14 tabs 08/30/22 prednisone 50 mg tablet 50 mg PO DAILY #5 tabs 08/30/22 cefuroxime axetil 250 mg tablet 250 mg PO BID 7 days #14 tabs 09/29/22 <BALTAZAR Nicholas - Last Filed: 09/29/22 15:35> Allergies/Adverse Reactions: Allergies Allergy/AdvReac Type Severity Reaction Status Date / Time No Known Allergies Allergy Verified 01/14/22 12:58 [No Known Allergies*] <BALTAZAR Nicholas Last Filed: 09/29/22 15:35> Review of Systems Review of Systems: Constitutional : No Weight loss, No Fever, No Chills, + Fatigue, + Malaise ENT/Mouth : No sore throat, No Rhinorrhea Eyes: No Eye Pain, No Swelling, No Redness Cardiovascular : + Chest Pain, + SOB, No Dyspnea on Exertion, No Orthopnea, No Edema, No Palpitations Respiratory : No Cough, No Sputum, No Wheezing Gastrointestinal : No Nausea, No Vomiting, No Diarrhea, No Constipation, No abdominal Pain, No Hematochezia, No Melena Genitourinary : + Dysuria, + Urinary Frequency, No Hematuria, Musculoskeletal : No joint pain, No Myalgias, No Joint Swelling Skin : No Skin Lesions, No rash Neuro : No Weakness, No Numbness, No Dizziness, No Headache Psych : No Anxiety/Panic, No Depression All other systems reviewed and are negative <BALTAZAR Anderson Last Filed: 09/29/22 22:38> Yes all other systems are reviewed and are negative <BALTAZAR Anderson Last Filed: 09/29/22 22:38> FORMERLY [facility], [facility] Past Medical History Attestation statement: The following information was validated with the patient. <BALTAZAR Anderson Last Filed: 09/29/22 22:38> Source: old records reviewed and nursing notes reviewed <BALTAZAR Anderson Last Filed: 09/29/22 22:38> Medical History: Medical History Asthma High blood pressure High cholesterol Hyperlipemia Sleep apnea <BALTAZAR Nicholas - Last Filed: 09/29/22 15:35> Surgical History: Surgical History No history of previous surgery <BALTAZAR Nicholas - Last Filed: 09/29/22 15:35> Family History Family History: Family History Sister Seizures Sister Diabetes Mother Diabetes Father No problems noted. 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 <BALTAZAR Nicholas - Last Filed: 09/29/22 15:35> Physical Exam Vital Signs: Vital Signs: Last Vital Signs Temp 98.4 F 09/29/22 22:05 Pulse 113 H 09/29/22 22:05 Resp 09/29/22 22:05 BP 141/76 H 09/29/22 22:05 Pulse Ox 97 09/29/22 22:05 O2 Del Method 09/29/22 22:05 BMI result Body Mass Index 53.8 <BALTAZAR Nicholas - Last Filed: 09/29/22 15:35> Vital Signs: Last Vital Signs Temp 98.4 F 09/29/22 22:05 Pulse 113 H 09/29/22 22:05 Resp 09/29/22 22:05 BP 141/76 H 09/29/22 22:05 Pulse Ox 97 09/29/22 22:05 O2 Del Method 09/29/22 22:05 BMI result Body Mass Index 53.8 VSS <BALTAZAR Anderson Last Filed: 09/29/22 22:38> Appearance: Alert.? Oriented X3.? No acute distress.? Head: Normocephalic, atraumatic, no step-offs or deformities Eyes: Pupils equal, round and reactive to light.? ENT: Pharynx normal.??External ears normal, TMs normal bilaterally and EAC's normal. No pain with manipulation of external ears bilaterally. No mastoid tenderness. Neck: Normal inspection.? Neck supple.? CVS: Normal heart rate and rhythm.? Pulses normal.? Respiratory: No respiratory distress.? Breath sounds normal.? Abdomen: Soft and nontender.? Skin: Skin warm and dry.? Normal skin color.? Normal skin turgor.? Extremities: No lower extremity edema.? No calf ttp. 5/5 strength to bilateral upper and lower extremities Back: No CVA tenderness bilaterally Neuro: Oriented X 3.? No motor deficit.? No sensory deficit. CN 2-12 intact <BALTAZAR Anderson Last Filed: 09/29/22 22:38> Course Course Course Narrative: RME-- 62 year old male with past medical history of asthma, HTN, HLD, c/o chest pain, SOB, subjectice fever, chills, L shoulder pain and dysuria x today. Admits started taking Nugenix x 5 days, unsure if this is related to symptoms. EKG, labs, CXR, UA ordered <BALTAZAR Nicholas - Last Filed: 09/29/22 15:35> Reevaluation(s) Reevaluation #1: CBC with slight leukocytosis 11.4, chemistry with no acute findings requiring intervention. Troponin negative, EKG nonischemic unlikely ACS. BNP within normal limits. I am unable to rule out patient using PERC criteria therefore D-dimers currently pending. UA is grossly infected with bacteria and moderate amount of white blood cells. Will start patient on Ceftin. Chest x-ray with an unchanged small to moderate size loculated right pleural fluid collection and or scarring, no new airspace consolidations. <BALTAZAR Anderson Last Filed: 09/29/22 22:38> Time: 16:45 <BALTAZAR Anderson Last Filed: 09/29/22 22:38> Reevaluation #2: D-dimer negative. Second troponin was slightly higher than the 1st however 3rd troponin flat, patient without chest pain his only concern is body aches and pains, morphine will be given. Unlikely that this is ACS. Patient denies chest pain and shortness of breath at this time. No signs of CHF. As stated previously urine infected patient will be sent home on Ceftin. Patient's COVID and influenza negative. Patient's initial EKG showing sinus tachycardia however on my re-evaluation patient's heart rate in mid 90s between 92-94, patient comfortable. Feeling slightly better. Would like to go home. No reason for hospital admission. Symptoms could be caused secondary to viral infection and/or UTI. Educated patient on diagnosis and treatment plan, answered all question, patient verbalizes understanding. At this time patient will be discharged home, advised to return with new or worsening symptoms. Educated on worrisome signs and symptoms and when to return. At this time I feel comfortable discharge home. <BALTAZAR Anderson - Last Filed: 09/29/22 22:38> Time: 22:37 <BALTAZAR Anderson - Last Filed: 09/29/22 22:38> Medications Administered Discontinued Medications Generic Name Dose Route Start Last Admin Trade Name Freq PRN Reason Stop Dose Admin Ketorolac Tromethamine 30 mg 09/29/22 16:45 09/29/22 17:47 Ketorolac Tromethamine 15 Mg/Ml Vial IM 09/29/22 16:46 30 mg ONCE ONE Administration Morphine Sulfate 4 mg 09/29/22 18:42 09/29/22 19:34 Morphine Sulfate 4 Mg/Ml Cartridge IVPUSH 09/29/22 18:43 Not Given ONCE ONE Protocol <BALTAZAR Nicholas - Last Filed: 09/29/22 15:35> Medications Administered Discontinued Medications Generic Name Dose Route Start Last Admin Trade Name Freq PRN Reason Stop Dose Admin Ketorolac Tromethamine 30 mg 09/29/22 16:45 09/29/22 17:47 Ketorolac Tromethamine 15 Mg/Ml Vial IM 09/29/22 16:46 30 mg ONCE ONE Administration Morphine Sulfate 4 mg 09/29/22 18:42 09/29/22 19:34 Morphine Sulfate 4 Mg/Ml Cartridge IVPUSH 09/29/22 18:43 Not Given ONCE ONE Protocol <BALTAZAR Anderson - Last Filed: 09/29/22 22:38> Medical Decision Making Medical Decision Making [facility] Narrative: [id number] 57-year-old male presents with with complaints of substernal intermittent sharp chest pain nonradiating, shortness of breath both at rest and with exertion, subjective fevers and chills, discomfort/heaviness in the left shoulder, dysuria, urinary frequency and urgenct x1 day. Physical exam benign. NIHSS-0 Perc score of 1 due to tachycardia Likely viral in origin. Unlikely ACS, PE,CHF or pneumonia. Plan labs, imaging, viral test <BALTAZAR Anderson - Last Filed: 09/29/22 22:38> Differential Diagnosis Differential Diagnoses: The differential diagnosis associated with the presentation includes <BALTAZAR Anderson - Last Filed: 09/29/22 22:38> Likely viral in origin. Unlikely ACS, PE,CHF or pneumonia. <BALTAZAR Anderson - Last Filed: 09/29/22 22:38> Lab Data Result Diagrams: 09/29/22 15:51 09/29/22 15:52 <BALTAZAR Nicholas - Last Filed: 09/29/22 15:35> Labs: Lab Results 09/29/22 09/29/22 09/29/22 Range/Units 15:51 15:51 15:51 WBC 11.4 H (4.8-10.8) X10*3/uL RBC 4.87 (4.60-5.80) X10*6/uL Hgb 14.1 (14.0-18.0) g/dl Hct 43.2 (42.0-52.0) % MCV 88.7 (80.0-98.0) fL MCH 29.0 (27.0-33.0) pg MCHC 32.6 (31.0-36.0) g/dl RDW 13.4 (11.0-16.0) % Plt Count 230 (160-400) X10*3/uL MPV 9.3 L (9.4-12.4) fL Immature Gran % (Auto) 0.4 (0.0-0.4) % Neut % (Auto) 72.7 (45-73) % Lymph % (Auto) 14.3 L (20-40) % [place] % (Auto) 12.2 H (2-11) % Eos % (Auto) 0.2 (0-4) % Baso % (Auto) 0.2 (0-2) % Lymph # (Auto) 1.6 (1.2-4.9) X10*3/uL [place] # (Auto) 1.4 H (0.1-1.2) X10*3/uL Eos # (Auto) 0.0 (0.0-0.4) X10*3/uL Baso # (Auto) 0.0 (0.0-0.2) X10*3/uL Abs Immat Gran (auto) 0.04 H (0.00-0.03) X10*3/uL Absolute Neuts (auto) 8.3 (2.0-8.3) x10*3/uL Absolute Nucleated RBC 0.000 (0.0-0.012) X10*3/uL Nucleated RBC % (auto) 0.0 (0.0-0.2) /100WBC D-Dimer High Sensitivty NG/ML Sodium (135-145) mmol/L Potassium (3.3-5.1) mmol/L Chloride (96-108) mmol/L Carbon Dioxide (22-29) mmol/L Anion Gap (12-20) BUN (9-16) mg/dL Creatinine (0.5-1.4) mg/dL Estim Creat Clear Calc Estimated GFR Random Glucose (60-115) mg/dL Calcium (8.4-10.2) mg/dL Magnesium (1.6-2.6) mg/dL Total Bilirubin (0.0-1.0) mg/dL Direct Bilirubin (0.0-0.5) mg/dL AST (5-37) U/L ALT (0-40) U/L Alkaline Phosphatase (39-117) U/L Troponin I High Sens 7.3 (<3.5-35.0) ng/L B-Natriuretic Peptide < 10 (<100) pg/mL Total Protein (6.5-8.0) g/dL Albumin (3.5-5.0) g/dL Urine Color Urine Appearance Urine pH (5.0-9.0) Ur Specific [place] (1.005-1.025) Urine Protein (Neg-Trace) mg/dL Urine Glucose (UA) (Negative) mg/dL Urine Ketones (Negative) mg/dL Urine Blood (Negative) Urine Nitrite (Negative) Ur Leukocyte Esterase (Negative) Urine RBC (0-2) /HPF Urine WBC (0-5) /HPF Ur Squamous Epith Cells (0-2) /HPF Urine Bacteria (None Seen) Hyaline Casts (0-2) /LPF COVID-19 (CAROLE) (Negative) COVID-19 Clin Com Influenza Type A (LEONA) (Negative) Influenza Type B (LEONA) (Negative) Influenza A & B Note 09/29/22 09/29/22 09/29/22 Range/Units 15:51 15:52 19:06 WBC (4.8-10.8) X10*3/uL RBC (4.60-5.80) X10*6/uL Hgb (14.0-18.0) g/dl Hct (42.0-52.0) % MCV (80.0-98.0) fL MCH (27.0-33.0) pg MCHC (31.0-36.0) g/dl RDW (11.0-16.0) % Plt Count (160-400) X10*3/uL MPV (9.4-12.4) fL Immature Gran % (Auto) (0.0-0.4) % Neut % (Auto) (45-73) % Lymph % (Auto) (20-40) % [place] % (Auto) (2-11) % Eos % (Auto) (0-4) % Baso % (Auto) (0-2) % Lymph # (Auto) (1.2-4.9) X10*3/uL [place] # (Auto) (0.1-1.2) X10*3/uL Eos # (Auto) (0.0-0.4) X10*3/uL Baso # (Auto) (0.0-0.2) X10*3/uL Abs Immat Gran (auto) (0.00-0.03) X10*3/uL Absolute Neuts (auto) (2.0-8.3) x10*3/uL Absolute Nucleated RBC (0.0-0.012) X10*3/uL Nucleated RBC % (auto) (0.0-0.2) /100WBC D-Dimer High Sensitivty 181 NG/ML Sodium 138 (135-145) mmol/L Potassium 4.4 (3.3-5.1) mmol/L Chloride 102 (96-108) mmol/L Carbon Dioxide 23 (22-29) mmol/L Anion Gap 17 (12-20) BUN 18 H (9-16) mg/dL Creatinine 0.85 (0.5-1.4) mg/dL Estim Creat Clear Calc 150.8 Estimated GFR > 60 Random Glucose 119 H (60-115) mg/dL Calcium 8.8 (8.4-10.2) mg/dL Magnesium 2.0 (1.6-2.6) mg/dL Total Bilirubin 0.6 (0.0-1.0) mg/dL Direct Bilirubin 0.2 (0.0-0.5) mg/dL AST 39 H (5-37) U/L ALT 27 (0-40) U/L Alkaline Phosphatase 73 (39-117) U/L Troponin I High Sens (<3.5-35.0) ng/L B-Natriuretic Peptide (<100) pg/mL Total Protein 7.1 (6.5-8.0) g/dL Albumin 4.0 (3.5-5.0) g/dL Urine Color Yellow Urine Appearance Clear Urine pH 6.5 (5.0-9.0) Ur Specific [place] 1.015 (1.005-1.025) Urine Protein Trace (Neg-Trace) mg/dL Urine Glucose (UA) Negative (Negative) mg/dL Urine Ketones Negative (Negative) mg/dL Urine Blood Negative (Negative) Urine Nitrite Negative (Negative) Ur Leukocyte Esterase Moderate (2+) H (Negative) Urine RBC 0-2 (0-2) /HPF Urine WBC 21-50 H (0-5) /HPF Ur Squamous Epith Cells 0-2 (0-2) /HPF Urine Bacteria 4+ (None Seen) Hyaline Casts 0-2 (0-2) /LPF COVID-19 (CAROLE) (Negative) COVID-19 Clin Com Influenza Type A (LEONA) (Negative) Influenza Type B (LEONA) (Negative) Influenza A & B Note 09/29/22 09/29/22 09/29/22 Range/Units 19:06 19:37 19:37 WBC (4.8-10.8) X10*3/uL RBC (4.60-5.80) X10*6/uL Hgb (14.0-18.0) g/dl Hct (42.0-52.0) % MCV (80.0-98.0) fL MCH (27.0-33.0) pg MCHC (31.0-36.0) g/dl RDW (11.0-16.0) % Plt Count (160-400) X10*3/uL MPV (9.4-12.4) fL Immature Gran % (Auto) (0.0-0.4) % Neut % (Auto) (45-73) % Lymph % (Auto) (20-40) % Talbot % (Auto) (2-11) % Eos % (Auto) (0-4) % Baso % (Auto) (0-2) % Lymph # (Auto) (1.2-4.9) X10*3/uL [place] # (Auto) (0.1-1.2) X10*3/uL Eos # (Auto) (0.0-0.4) X10*3/uL Baso # (Auto) (0.0-0.2) X10*3/uL Abs Immat Gran (auto) (0.00-0.03) X10*3/uL Absolute Neuts (auto) (2.0-8.3) x10*3/uL Absolute Nucleated RBC (0.0-0.012) X10*3/uL Nucleated RBC % (auto) (0.0-0.2) /100WBC D-Dimer High Sensitivty NG/ML Sodium (135-145) mmol/L Potassium (3.3-5.1) mmol/L Chloride (96-108) mmol/L Carbon Dioxide (22-29) mmol/L Anion Gap (12-20) BUN (9-16) mg/dL Creatinine (0.5-1.4) mg/dL Estim Creat Clear Calc Estimated GFR Random Glucose (60-115) mg/dL Calcium (8.4-10.2) mg/dL Magnesium (1.6-2.6) mg/dL Total Bilirubin (0.0-1.0) mg/dL Direct Bilirubin (0.0-0.5) mg/dL AST (5-37) U/L ALT (0-40) U/L Alkaline Phosphatase (39-117) U/L Troponin I High Sens 11.2 D (<3.5-35.0) ng/L B-Natriuretic Peptide (<100) pg/mL Total Protein (6.5-8.0) g/dL Albumin (3.5-5.0) g/dL Urine Color Urine Appearance Urine pH (5.0-9.0) Ur Specific [place] (1.005-1.025) Urine Protein (Neg-Trace) mg/dL Urine Glucose (UA) (Negative) mg/dL Urine Ketones (Negative) mg/dL Urine Blood (Negative) Urine Nitrite (Negative) Ur Leukocyte Esterase (Negative) Urine RBC (0-2) /HPF Urine WBC (0-5) /HPF Ur Squamous Epith Cells (0-2) /HPF Urine Bacteria (None Seen) Hyaline Casts (0-2) /LPF COVID-19 (CAROLE) Negative (Negative) COVID-19 Clin Com See Note Influenza Type A (LEONA) Negative (Negative) Influenza Type B (LEONA) Negative (Negative) Influenza A & B Note See Note 09/29/22 Range/Units 22:04 WBC (4.8-10.8) X10*3/uL RBC (4.60-5.80) X10*6/uL Hgb (14.0-18.0) g/dl Hct (42.0-52.0) % MCV (80.0-98.0) fL MCH (27.0-33.0) pg MCHC (31.0-36.0) g/dl RDW (11.0-16.0) % Plt Count (160-400) X10*3/uL MPV (9.4-12.4) fL Immature Gran % (Auto) (0.0-0.4) % Neut % (Auto) (45-73) % Lymph % (Auto) (20-40) % [place] % (Auto) (2-11) % Eos % (Auto) (0-4) % Baso % (Auto) (0-2) % Lymph # (Auto) (1.2-4.9) X10*3/uL [place] # (Auto) (0.1-1.2) X10*3/uL Eos # (Auto) (0.0-0.4) X10*3/uL Baso # (Auto) (0.0-0.2) X10*3/uL Abs Immat Gran (auto) (0.00-0.03) X10*3/uL Absolute Neuts (auto) (2.0-8.3) x10*3/uL Absolute Nucleated RBC (0.0-0.012) X10*3/uL Nucleated RBC % (auto) (0.0-0.2) /100WBC D-Dimer High Sensitivty NG/ML Sodium (135-145) mmol/L Potassium (3.3-5.1) mmol/L Chloride (96-108) mmol/L Carbon Dioxide (22-29) mmol/L Anion Gap (12-20) BUN (9-16) mg/dL Creatinine (0.5-1.4) mg/dL Estim Creat Clear Calc Estimated GFR Random Glucose (60-115) mg/dL Calcium (8.4-10.2) mg/dL Magnesium (1.6-2.6) mg/dL Total Bilirubin (0.0-1.0) mg/dL Direct Bilirubin (0.0-0.5) mg/dL AST (5-37) U/L ALT (0-40) U/L Alkaline Phosphatase (39-117) U/L Troponin I High Sens 9.4 (<3.5-35.0) ng/L B-Natriuretic Peptide (<100) pg/mL Total Protein (6.5-8.0) g/dL Albumin (3.5-5.0) g/dL Urine Color Urine Appearance Urine pH (5.0-9.0) Ur Specific [place] (1.005-1.025) Urine Protein (Neg-Trace) mg/dL Urine Glucose (UA) (Negative) mg/dL Urine Ketones (Negative) mg/dL Urine Blood (Negative) Urine Nitrite (Negative) Ur Leukocyte Esterase (Negative) Urine RBC (0-2) /HPF Urine WBC (0-5) /HPF Ur Squamous Epith Cells (0-2) /HPF Urine Bacteria (None Seen) Hyaline Casts (0-2) /LPF COVID-19 (CAROLE) (Negative) COVID-19 Clin Com Influenza Type A (LEONA) (Negative) Influenza Type B (LEONA) (Negative) Influenza A & B Note <BALTAZAR Nicholas - Last Filed: 09/29/22 15:35> Lab Results 09/29/22 09/29/22 09/29/22 Range/Units 15:51 15:51 15:51 WBC 11.4 H (4.8-10.8) X10*3/uL RBC 4.87 (4.60-5.80) X10*6/uL Hgb 14.1 (14.0-18.0) g/dl Hct 43.2 (42.0-52.0) % MCV 88.7 (80.0-98.0) fL MCH 29.0 (27.0-33.0) pg MCHC 32.6 (31.0-36.0) g/dl RDW 13.4 (11.0-16.0) % Plt Count 230 (160-400) X10*3/uL MPV 9.3 L (9.4-12.4) fL Immature Gran % (Auto) 0.4 (0.0-0.4) % Neut % (Auto) 72.7 (45-73) % Lymph % (Auto) 14.3 L (20-40) % [place] % (Auto) 12.2 H (2-11) % Eos % (Auto) 0.2 (0-4) % Baso % (Auto) 0.2 (0-2) % Lymph # (Auto) 1.6 (1.2-4.9) X10*3/uL [place] # (Auto) 1.4 H (0.1-1.2) X10*3/uL Eos # (Auto) 0.0 (0.0-0.4) X10*3/uL Baso # (Auto) 0.0 (0.0-0.2) X10*3/uL Abs Immat Gran (auto) 0.04 H (0.00-0.03) X10*3/uL Absolute Neuts (auto) 8.3 (2.0-8.3) x10*3/uL Absolute Nucleated RBC 0.000 (0.0-0.012) X10*3/uL Nucleated RBC % (auto) 0.0 (0.0-0.2) /100WBC D-Dimer High Sensitivty NG/ML Sodium (135-145) mmol/L Potassium (3.3-5.1) mmol/L Chloride (96-108) mmol/L Carbon Dioxide (22-29) mmol/L Anion Gap (12-20) BUN (9-16) mg/dL Creatinine (0.5-1.4) mg/dL Estim Creat Clear Calc Estimated GFR Random Glucose (60-115) mg/dL Calcium (8.4-10.2) mg/dL Magnesium (1.6-2.6) mg/dL Total Bilirubin (0.0-1.0) mg/dL Direct Bilirubin (0.0-0.5) mg/dL AST (5-37) U/L ALT (0-40) U/L Alkaline Phosphatase (39-117) U/L Troponin I High Sens 7.3 (<3.5-35.0) ng/L B-Natriuretic Peptide < 10 (<100) pg/mL Total Protein (6.5-8.0) g/dL Albumin (3.5-5.0) g/dL Urine Color Urine Appearance Urine pH (5.0-9.0) Ur Specific [place] (1.005-1.025) Urine Protein (Neg-Trace) mg/dL Urine Glucose (UA) (Negative) mg/dL Urine Ketones (Negative) mg/dL Urine Blood (Negative) Urine Nitrite (Negative) Ur Leukocyte Esterase (Negative) Urine RBC (0-2) /HPF Urine WBC (0-5) /HPF Ur Squamous Epith Cells (0-2) /HPF Urine Bacteria (None Seen) Hyaline Casts (0-2) /LPF COVID-19 (CAROLE) (Negative) COVID-19 Clin Com Influenza Type A (LEONA) (Negative) Influenza Type B (LEONA) (Negative) Influenza A & B Note 09/29/22 09/29/22 09/29/22 Range/Units 15:51 15:52 19:06 WBC (4.8-10.8) X10*3/uL RBC (4.60-5.80) X10*6/uL Hgb (14.0-18.0) g/dl Hct (42.0-52.0) % MCV (80.0-98.0) fL MCH (27.0-33.0) pg MCHC (31.0-36.0) g/dl RDW (11.0-16.0) % Plt Count (160-400) X10*3/uL MPV (9.4-12.4) fL Immature Gran % (Auto) (0.0-0.4) % Neut % (Auto) (45-73) % Lymph % (Auto) (20-40) % [place] % (Auto) (2-11) % Eos % (Auto) (0-4) % Baso % (Auto) (0-2) % Lymph # (Auto) (1.2-4.9) X10*3/uL [place] # (Auto) (0.1-1.2) X10*3/uL Eos # (Auto) (0.0-0.4) X10*3/uL Baso # (Auto) (0.0-0.2) X10*3/uL Abs Immat Gran (auto) (0.00-0.03) X10*3/uL Absolute Neuts (auto) (2.0-8.3) x10*3/uL Absolute Nucleated RBC (0.0-0.012) X10*3/uL Nucleated RBC % (auto) (0.0-0.2) /100WBC D-Dimer High Sensitivty 181 NG/ML Sodium 138 (135-145) mmol/L Potassium 4.4 (3.3-5.1) mmol/L Chloride 102 (96-108) mmol/L Carbon Dioxide 23 (22-29) mmol/L Anion Gap 17 (12-20) BUN 18 H (9-16) mg/dL Creatinine 0.85 (0.5-1.4) mg/dL Estim Creat Clear Calc 150.8 Estimated GFR > 60 Random Glucose 119 H (60-115) mg/dL Calcium 8.8 (8.4-10.2) mg/dL Magnesium 2.0 (1.6-2.6) mg/dL Total Bilirubin 0.6 (0.0-1.0) mg/dL Direct Bilirubin 0.2 (0.0-0.5) mg/dL AST 39 H (5-37) U/L ALT 27 (0-40) U/L Alkaline Phosphatase 73 (39-117) U/L Troponin I High Sens (<3.5-35.0) ng/L B-Natriuretic Peptide (<100) pg/mL Total Protein 7.1 (6.5-8.0) g/dL Albumin 4.0 (3.5-5.0) g/dL Urine Color Yellow Urine Appearance Clear Urine pH 6.5 (5.0-9.0) Ur Specific [place] 1.015 (1.005-1.025) Urine Protein Trace (Neg-Trace) mg/dL Urine Glucose (UA) Negative (Negative) mg/dL Urine Ketones Negative (Negative) mg/dL Urine Blood Negative (Negative) Urine Nitrite Negative (Negative) Ur Leukocyte Esterase Moderate (2+) H (Negative) Urine RBC 0-2 (0-2) /HPF Urine WBC 21-50 H (0-5) /HPF Ur Squamous Epith Cells 0-2 (0-2) /HPF Urine Bacteria 4+ (None Seen) Hyaline Casts 0-2 (0-2) /LPF COVID-19 (CAROLE) (Negative) COVID-19 Clin Com Influenza Type A (LEONA) (Negative) Influenza Type B (LEONA) (Negative) Influenza A & B Note 09/29/22 09/29/22 09/29/22 Range/Units 19:06 19:37 19:37 WBC (4.8-10.8) X10*3/uL RBC (4.60-5.80) X10*6/uL Hgb (14.0-18.0) g/dl Hct (42.0-52.0) % MCV (80.0-98.0) fL MCH (27.0-33.0) pg MCHC (31.0-36.0) g/dl RDW (11.0-16.0) % Plt Count (160-400) X10*3/uL MPV (9.4-12.4) fL Immature Gran % (Auto) (0.0-0.4) % Neut % (Auto) (45-73) % Lymph % (Auto) (20-40) % [place] % (Auto) (2-11) % Eos % (Auto) (0-4) % Baso % (Auto) (0-2) % Lymph # (Auto) (1.2-4.9) X10*3/uL [place] # (Auto) (0.1-1.2) X10*3/uL Eos # (Auto) (0.0-0.4) X10*3/uL Baso # (Auto) (0.0-0.2) X10*3/uL Abs Immat Gran (auto) (0.00-0.03) X10*3/uL Absolute Neuts (auto) (2.0-8.3) x10*3/uL Absolute Nucleated RBC (0.0-0.012) X10*3/uL Nucleated RBC % (auto) (0.0-0.2) /100WBC D-Dimer High Sensitivty NG/ML Sodium (135-145) mmol/L Potassium (3.3-5.1) mmol/L Chloride (96-108) mmol/L Carbon Dioxide (22-29) mmol/L Anion Gap (12-20) BUN (9-16) mg/dL Creatinine (0.5-1.4) mg/dL Estim Creat Clear Calc Estimated GFR Random Glucose (60-115) mg/dL Calcium (8.4-10.2) mg/dL Magnesium (1.6-2.6) mg/dL Total Bilirubin (0.0-1.0) mg/dL Direct Bilirubin (0.0-0.5) mg/dL AST (5-37) U/L ALT (0-40) U/L Alkaline Phosphatase (39-117) U/L Troponin I High Sens 11.2 D (<3.5-35.0) ng/L B-Natriuretic Peptide (<100) pg/mL Total Protein (6.5-8.0) g/dL Albumin (3.5-5.0) g/dL Urine Color Urine Appearance Urine pH (5.0-9.0) Ur Specific [place] (1.005-1.025) Urine Protein (Neg-Trace) mg/dL Urine Glucose (UA) (Negative) mg/dL Urine Ketones (Negative) mg/dL Urine Blood (Negative) Urine Nitrite (Negative) Ur Leukocyte Esterase (Negative) Urine RBC (0-2) /HPF Urine WBC (0-5) /HPF Ur Squamous Epith Cells (0-2) /HPF Urine Bacteria (None Seen) Hyaline Casts (0-2) /LPF COVID-19 (CAROLE) Negative (Negative) COVID-19 Clin Com See Note Influenza Type A (LEONA) Negative (Negative) Influenza Type B (LEONA) Negative (Negative) Influenza A & B Note See Note 09/29/22 Range/Units 22:04 WBC (4.8-10.8) X10*3/uL RBC (4.60-5.80) X10*6/uL Hgb (14.0-18.0) g/dl Hct (42.0-52.0) % MCV (80.0-98.0) fL MCH (27.0-33.0) pg MCHC (31.0-36.0) g/dl RDW (11.0-16.0) % Plt Count (160-400) X10*3/uL MPV (9.4-12.4) fL Immature Gran % (Auto) (0.0-0.4) % Neut % (Auto) (45-73) % Lymph % (Auto) (20-40) % [place] % (Auto) (2-11) % Eos % (Auto) (0-4) % Baso % (Auto) (0-2) % Lymph # (Auto) (1.2-4.9) X10*3/uL [place] # (Auto) (0.1-1.2) X10*3/uL Eos # (Auto) (0.0-0.4) X10*3/uL Baso # (Auto) (0.0-0.2) X10*3/uL Abs Immat Gran (auto) (0.00-0.03) X10*3/uL Absolute Neuts (auto) (2.0-8.3) x10*3/uL Absolute Nucleated RBC (0.0-0.012) X10*3/uL Nucleated RBC % (auto) (0.0-0.2) /100WBC D-Dimer High Sensitivty NG/ML Sodium (135-145) mmol/L Potassium (3.3-5.1) mmol/L Chloride (96-108) mmol/L Carbon Dioxide (22-29) mmol/L Anion Gap (12-20) BUN (9-16) mg/dL Creatinine (0.5-1.4) mg/dL Estim Creat Clear Calc Estimated GFR Random Glucose (60-115) mg/dL Calcium (8.4-10.2) mg/dL Magnesium (1.6-2.6) mg/dL Total Bilirubin (0.0-1.0) mg/dL Direct Bilirubin (0.0-0.5) mg/dL AST (5-37) U/L ALT (0-40) U/L Alkaline Phosphatase (39-117) U/L Troponin I High Sens 9.4 (<3.5-35.0) ng/L B-Natriuretic Peptide (<100) pg/mL Total Protein (6.5-8.0) g/dL Albumin (3.5-5.0) g/dL Urine Color Urine Appearance Urine pH (5.0-9.0) Ur Specific [place] (1.005-1.025) Urine Protein (Neg-Trace) mg/dL Urine Glucose (UA) (Negative) mg/dL Urine Ketones (Negative) mg/dL Urine Blood (Negative) Urine Nitrite (Negative) Ur Leukocyte Esterase (Negative) Urine RBC (0-2) /HPF Urine WBC (0-5) /HPF Ur Squamous Epith Cells (0-2) /HPF Urine Bacteria (None Seen) Hyaline Casts (0-2) /LPF COVID-19 (CAROLE) (Negative) COVID-19 Clin Com Influenza Type A (LEONA) (Negative) Influenza Type B (LEONA) (Negative) Influenza A & B Note <BALTAZAR Anderson - Last Filed: 09/29/22 22:38> Critical Care Time Critical Care Time Critical Care Time: No <BALTAZAR Anderson - Last Filed: 09/29/22 22:38> Discharge Plan Discharge Clinical Impression: Chest pain, Shortness of breath, Acute UTI, Viral illness <BALTAZAR Nicholas - Last Filed: 09/29/22 15:35> Patient Disposition: Home, Self-Care <BALTAZAR Nicholas - Last Filed: 09/29/22 15:35> Instructions: Chest Pain (ED), Urinary Tract Infection in Men (ED), Shortness of Breath (ED) <BALTAZAR Nicholas Last Filed: 09/29/22 15:35> Additional Instructions: Take your medications as prescribed. If you were prescribed antibiotics today, it is important that you take your medication to their entirety, do not skip any doses, do not finish them early. Follow-up with your primary care provider this week. If symptoms persist you can follow-up with cardiology Return to the emergency department with new or worsening symptoms. Such as fevers, chills, chest pain, shortness of breath, nausea, vomiting, dizziness, headache, vision changes, lethargy In case of emergency call 911 Please stop taking the medication you bought off line, this could be dangerous your kidneys and liver. Take antibiotics for urinary tract infection. For body aches and pains you can take ibuprofen every 6 hours, Tylenol every 4, you can also take this for fevers. Do not exceed maximum daily dose as listed on package. <BALTAZAR Nicholas Last Filed: 09/29/22 15:35> Prescriptions: New cefuroxime axetil 250 mg tablet 250 mg PO BID 7 Days Qty: 14 0RF No Action cyclobenzaprine 10 mg tablet 10 mg PO TID PRN (Reason: muscle spasm) Qty: 10 0RF naproxen 500 mg tablet 500 mg PO BID PRN (Reason: pain) Qty: 20 0RF tramadol 50 mg tablet 50 mg PO Q8H PRN (Reason: pain) Qty: 9 0RF Rx Instructions: for 3 days cefuroxime axetil 250 mg tablet 250 mg PO BID 7 Days Qty: 14 0RF prednisone 50 mg tablet 50 mg PO DAILY Qty: 5 0RF benzonatate 100 mg capsule 100 mg PO TID PRN (Reason: cough) Qty: 30 0RF cholecalciferol (vitamin D3) [Vitamin D3] 50 mcg (2,000 unit) capsule 50 mcg PO DAILY lisinopril 10 mg tablet 10 mg PO DAILY pravastatin 40 mg tablet 40 mg PO DAILY PRN <BALTAZAR Nicholas Last Filed: 09/29/22 15:35> Referrals: [facility] [Provider Group] - 2 days ED Physician,[facility] [Physician] - Center,[facility], [facility] [Primary Care Provider] - 2 days <BALTAZAR Nicholas - Last Filed: 09/29/22 15:35> Stand Alone Forms: Work/School Release <BALTAZAR Nicholas - Last Filed: 09/29/22 15:35>
--- NOTE | 2022-09-29 15:32 | ECG_ITS ---
Test Reason : CP Blood Pressure : / mmHG Vent. Rate : 107 BPM Atrial Rate : 107 BPM P-R Int : 150 ms QRS Dur : 100 ms QT Int : 318 ms P-R-T Axes : 052 040 026 degrees QTc Int : 424 ms Sinus tachycardia Otherwise normal ECG When compared with ECG of 14-JAN-2022 12:41, No significant change was found Referred By: Sharon Mai Electronically Signed By:Manuel Reza
[2022-09-29 16:10] LABS: MANUAL DIFF FLAG NO
[2022-09-29 16:16] LABS: Basophils Percent Auto 0.2 % (0-2); Eosinophils Percent Auto 0.2 % (0-4); Hematocrit 43.2 % (42.0-52.0); Hemoglobin 14.1 g/dl (14.0-18.0); Imm Gran Abs Auto 0.04 X10*3/uL (0.00-0.03); Imm Gran Pct Auto 0.4 % (0.0-0.4); Lymphocytes Absolute Auto 1.6 X10*3/uL (1.2-4.9); Lymphocytes Percent Auto 14.3 % (20-40); Mean Corpuscular HGB Conc 32.6 g/dl (31.0-36.0); Mean Corpuscular Volume 88.7 fL (80.0-98.0); Mean Platelet Volume 9.3 fL (9.4-12.4); Monocytes Absolute Auto 1.4 X10*3/uL (0.1-1.2); Monocytes Percent Auto 12.2 % (2-11); Neutrophils Absolute Auto 8.3 x10*3/uL (2.0-8.3); Neutrophils Percent Auto 72.7 % (45-73); Platelet Count 230 X10*3/uL (160-400); Red Blood Count 4.87 X10*6/uL (4.60-5.80); Red Cell Distribution Width 13.4 % (11.0-16.0); White Blood Count 11.4 X10*3/uL (4.8-10.8)
[2022-09-29 16:21] LABS: Appearance Urine Clear; Color Urine Yellow; Glucose Urine UA Negative (Negative); Leukocyte Esterase Urine Moderate (2+) (Negative); Nitrite Urine Negative (Negative); PH 6.5 (5.0-9.0); Specific Gravity - Urine 1.015 (1.005-1.025); UMIC TRIGGER UACC YES; Urine Blood Negative (Negative); Urine Ketones Negative (Negative); Urine Protein Trace mg/dL (Neg-Trace)
[2022-09-29 16:23] LABS: Bacteria Urine 4+ (None Seen); Hyaline Casts Urine 0-2 /LPF (0-2); RBC Urine 0-2 /HPF (0-2); Squamous Epithelial Cell Urine 0-2 /HPF (0-2); UACC Culture Trigger YES; WBC Urine 21-50 /HPF (0-5)
[2022-09-29 16:36] LABS: Alanine Aminotransferase 27 U/L (0-40); Alkaline Phosphatase 73 U/L (39-117); Anion Gap 17 (12-20); Aspartate Amino Transferase 39 U/L (5-37); Bilirubin Direct 0.2 mg/dL (0.0-0.5); Bilirubin Total 0.6 mg/dL (0.0-1.0); Blood Urea Nitrogen 18 mg/dL (9-16); Calcium 8.8 mg/dL (8.4-10.2); Carbon Dioxide 23 mmol/L (22-29); Chloride 102 mmol/L (96-108); Creatinine Clr Calc Pharmacy 150.8; Estimated Glomerular Filt Rate > 60; Glucose Random 119 mg/dL (60-115); Potassium 4.4 mmol/L (3.3-5.1); Sodium 138 mmol/L (135-145); Total Protein 7.1 g/dL (6.5-8.0)
[2022-09-29 16:41] LABS: B Type Natriuretic Peptide < 10 pg/mL (<100)
[2022-09-29 16:42] LABS: Troponin-I High Sensitivity 7.3 ng/L (<3.5-35.0)
[2022-09-29] MEDS: Ketorolac Tromethamine 15 MG/ML VIAL 30 MG IM (17:47)
[2022-09-29 17:50] VITALS: BP 122/69; PULSE 101; RESP 20; TEMP 37.3; O2SAT 94
[2022-09-29 19:09] VITALS: BP 129/88; PULSE 89; RESP 16; TEMP 37.1; O2SAT 99
[2022-09-29 19:27] LABS: D Dimer High Sensitivity 181 NG/ML
[2022-09-29 19:42] LABS: Troponin-I High Sensitivity 11.2 ng/L (<3.5-35.0)
--- NOTE | 2022-09-29 19:42 | PC.NURSE ---
pt resting on bedside chair at this time, no apparent distress at this time, awaiting lab work
[2022-09-29 20:01] LABS: COVID-19 Test Negative (Negative); IDNOW Serial# 16C4AD1C; IDNOW Serial# BCCEAD1C; Influenza A Negative (Negative); Influenza B2 Negative (Negative)
[2022-09-29 22:05] VITALS: BP 141/76; PULSE 113; RESP 19; TEMP 36.9; O2SAT 97
[2022-09-29 22:32] LABS: Troponin-I High Sensitivity 9.4 ng/L (<3.5-35.0)
[2022-09-29] MEDS: 0.9 % Sodium Chloride 1,000 ML 999 ML IV (22:36)
[2022-09-29] MEDS: Morphine Sulfate 2 MG/ML CARTRIDGE IVPUSH (22:36)
--- NOTE | 2022-09-29 22:40 | PC.NURSE ---
pt reporting he is feeling unwell, BALTAZAR Mckeon aware, fluids and morphine given per MAR
== END 2022-09-29 23:37 | disposition home or self-care (01) ==
PROVIDERS: Physician Assistant; Emergency Provider Internal Medicine
DX: B34.9 Viral infection, unspecified (principal); R07.9 Chest pain, unspecified; R06.02 Shortness of breath; R00.0 Tachycardia, unspecified; N39.0 Urinary tract infection, site not specified; B96.20 Unspecified Escherichia coli [E. coli] as the cause of diseases classified elsewhere; Z20.822 Contact with and (suspected) exposure to COVID-19; I10 Essential (primary) hypertension; E78.5 Hyperlipidemia, unspecified; Z87.891 Personal history of nicotine dependence; Z79.899 Other long term (current) drug therapy; Z79.02 Long term (current) use of antithrombotics/antiplatelets
CPT/HCPCS: 36415; 71045; 80048; 80076; 81001; 83735; 83880; 84484; 85025; 85379; 87086; 87088; 87186; 87502; 87635; 93005; 96361; 96372; 96374; 99284; 99285; J1885; J2270

== ENCOUNTER → 2022-11-30 09:23 | Outpatient (REF) | payer OTHER, SELFPAY | LOC: HO.SL 09:23 | PROVIDERS: Visit Provider Nurse Practitioner Family | DX: G47.33 Obstructive sleep apnea (adult) (pediatric) (principal); R40.0 Somnolence | CPT/HCPCS: 95806 ==

== ENCOUNTER → 2023-01-10 19:30 | Outpatient (REF) | payer OTHER, SELFPAY | LOC: HO.SL 19:30 | PROVIDERS: Visit Provider Nurse Practitioner Family | DX: G47.33 Obstructive sleep apnea (adult) (pediatric) (principal); G47.61 Periodic limb movement disorder | CPT/HCPCS: 95811 ==

== ENCOUNTER 2023-04-10 11:15 | Outpatient (AMB) | payer OTHER, SELFPAY ==
--- NOTE | 2023-04-10 11:21 | MHC.OFFVIS ---
Intake Intake Visit Reasons: Recurrent UTI/frequency Intake Note: New Patient presents for uti Urology Medication:none Blood Thinner: none PVR:11ml's Gmat Instructor Required: No Accompanied by: Self / Same As Patient Allergies No Known Allergies [No Known Allergies*] Allergy (Verified 04/10/23 22:03) Medication List - Last Reconciled 04/10/23 by JUSTA Chino albuterol sulfate 90 mcg/actuation 2 inhalations inhalation Q4-6H PRN benzonatate 100 mg PO TID PRN buspirone 5 mg PO BID cholecalciferol (vitamin D3) (Vitamin D3) 50 mcg PO DAILY cyclobenzaprine 10 mg PO TID PRN lisinopril 10 mg PO DAILY naproxen 500 mg PO BID PRN pravastatin 40 mg PO DAILY PRN sertraline 150 mg PO DAILY tramadol 50 mg PO Q8H PRN HPI HPI Comments History of Present Illness Details Hiram is a very pleasant 58-year-old male patient of Dr. Childs. He has a past medical history of asthma, hypertension, hypercholesteremia, hyperlipidemia, and sleep apnea. He presents to the office today as a new patient for recent urinary tract infection. In discussion with the patient today he reports having had a UTI approximately 2 months ago at which time he was treated with antibiotic therapy that he has since completed. He reports this to have been his only urinary tract infection that he knows of. When asked he denies any issues with his urination. He denies urinary urgency, urinary frequency, incontinence, nocturia, hematuria, dysuria, foul smelling urine, changes to urinary stream, flank pain, fever, and or chills. He is happy with his current voiding parameters. In office urinalysis results reviewed with the patient today. PVR 11 mL. Discussed at length potential causes for urinary tract infection. HASEEB offered however declined. [facility] Medical History (Updated 04/10/23 @ 11:47 by JUSTA Chino) Asthma High blood pressure High cholesterol Hyperlipemia Sleep apnea Surgical History No history of previous surgery Family History Sister Seizures Sister Diabetes Mother Diabetes Father No problems noted. 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 Review of Systems Const Reports as per HPI Eyes Reports no additional complaints ENT Reports no additional complaints Card Reports as per HPI Resp Reports as per HPI GI Reports no additional complaints Reports as per HPI Neuro Reports no additional complaints Psych Reports no additional complaints Endo Reports no additional complaints Physical Exam Const General: cooperative, comfortable, no acute distress, well developed, alert and awake Nutritional Appearance: overweight Orientation/consciousness: patient oriented x3 Limitations: no limitations HEENT Head: Yes normal to inspection, Yes normocephalic and Yes atraumatic Ears: hearing grossly normal bilaterally Eyes General: appearance normal, both eyes and all related structures Neck Neck: Yes normal visual inspection and Yes trachea midline Chest Chest palpation & inspection: normal inspection of the chest Resp Effort & Inspection: normal respiratory effort and able to speak in complete sentences Cardio Rate: regular rate GI Inspection: Yes normal to inspection General: Yes no CVA tenderness Back/Spine/Pelvis Back: no CVA tenderness Skin General skin exam: no rashes or lesions noted Neuro General: patient oriented x3 Extrem General: Yes normal to inspection Psych Appearance: grossly normal and well kempt Mental Status: mental status grossly normal Speech and movement: Normal speech and movement present and Clear speech present Affect: normal affect Attitude: cooperative Thought process: Normal thought process present Thought content: Normal thought content present Insight: Fair insight present (Psych) Judgement: Fair judgement present (Psych) Results AMB Urinalysis, Automated UA Leukoctes 0 Aaron/uL Last Edit by [employer] on 04/10/23 11:38 UA Nitrite Last Edit by [employer] on 04/10/23 11:38 UA Urobilinogen 0.2 mg/dL Last Edit by [employer] on 04/10/23 11:38 UA Protein 0 mg/dL Last Edit by [employer] on 04/10/23 11:38 UA pH 6.0 Last Edit by [employer] on 04/10/23 11:38 UA Blood 0 Willard/uL Last Edit by [employer] on 04/10/23 11:38 UA Specific [place] 1.010 Last Edit by Darryl Bearden on 04/10/23 11:38 UA Ketone Last Edit by Darryl Reddingallen on 04/10/23 11:38 UA Bilirubin 0 mg/dL Last Edit by Darryl Reddingallen on 04/10/23 11:38 UA Glucose 0 mg/dL Last Edit by Darryl Reddingallen on 04/10/23 11:38 Results Reviewed Results Reviewed: Laboratory Last Values Urine pH (Auto) 6.0 04/10/23 11:34 Specific [place] (Auto) 1.010 04/10/23 11:34 Urine Protein (Auto) 0 mg/dL 04/10/23 11:34 Glucose (UA)(Auto) 0 mg/dL 04/10/23 11:34 Urine Blood (Auto) 0 Iwllard/uL 04/10/23 11:34 Urine Bilirubin (Auto) 0 mg/dL 04/10/23 11:34 Urine Urobilinogen (Auto) 0.2 mg/dL 04/10/23 11:34 Leukocyte Esterase (Auto) 0 Aaron/uL 04/10/23 11:34 Assessment & Plan Assessment & Plan (1) Recurrent UTI: Code(s): N39.0 - Urinary tract infection, site not specified Plan In office urinalysis results reviewed with the patient today; as noted above. PVR 11 mL. Discussed at length potential causes for urinary tract infections in male patients. Discussed obtaining retroperitoneal ultrasound for further assessment evaluation. HASEEB offered however decline. Will obtain PSA for further assessment evaluation. Patient denies any bothersome urinary issues or concerns at this time. Follow-up in 1-2 months with imaging and lab to be completed prior; or sooner with any issues, concerns, and or questions. Orders: Orders Prostate Specific Antigen Today N40.0 - Benign prostatic hyperplasia without lower urinary tract symptoms US retroperitoneal comp Today N39.0 - Urinary tract infection, site not specified AMB Urinalysis Automated Today Z13.9 - Encounter for screening, unspecified Patient Instructions: The patient had an opportunity to ask questions regarding the treatment plan. All questions were answered. Physical exam, labs, and imaging were discussed and reviewed in detail. As well as risks, benefits, and discussion of treatment choices. No major barriers to understanding were identified. The patient expressed understanding and agreement with the above treatment plan. The patient was made aware they should contact our office by phone for worsening of their current condition, the appearance of new symptoms, or with any questions or concerns. Compliance is encouraged with any medications and follow up testing that is ordered. It is a privilege to be allowed the opportunity to participate in? your urological care.? Again, if you have any questions or concerns If you have any questions or concerns please do not hesitate to contact me. The office is [phone]. This note is constructed using voice recognition software. While every effort has been made to ensure accuracy manager furniture errors may have been included. Yours sincerely, JUSTA Chino Coding Level of Care Code New Pt Level 3 (07616) Diagnoses Recurrent UTI N39.0
== END 2023-04-10 11:50 | disposition home or self-care (01) ==
PROVIDERS: Visit Provider Nurse Practitioner Family
DX: N39.0 Urinary tract infection, site not specified (principal)
CPT/HCPCS: 99203

== ENCOUNTER → 2023-04-10 11:15 | Outpatient (BNVA) | payer OTHER, SELFPAY | PROVIDERS: Visit Provider Nurse Practitioner Family | DX: N39.0 Urinary tract infection, site not specified (principal) | CPT/HCPCS: 99202 ==

== ENCOUNTER 2023-04-15 12:36 | Outpatient (REF) | payer OTHER, SELFPAY ==
[2023-04-15 15:02] LABS: Prostate Specific Antigen 0.29 ng/mL (<0.05-4.0)
== END 2023-04-15 12:37 | disposition home or self-care (01) ==
LOC: HO.LAB 12:36
PROVIDERS: Visit Provider Nurse Practitioner Family
DX: Z12.5 Encounter for screening for malignant neoplasm of prostate (principal); N40.0 Benign prostatic hyperplasia without lower urinary tract symptoms
CPT/HCPCS: 36415; 84153

== ENCOUNTER 2023-05-15 10:03 | Outpatient (REF) | payer OTHER, SELFPAY ==
--- NOTE | ~2023-05-15 | US_ITS ---
EXAMINATION: US RETROPERITONEAL COMPLETE (RENAL) CLINICAL INFORMATION: Urinary tract infection, site not specified. COMPARISON: CT abdomen and pelvis 08/30/2022 and 04/18/2017. X-ray abdomen KUB 06/05/2017. Ultrasound abdomen 02/19/2014 and 09/27/2009. TECHNIQUE: Real-time imaging of the kidneys and bladder. FINDINGS: RIGHT KIDNEY: 12.3 x 7.0 x 6.4 cm (SAG x AP x TRV). The kidney is normal in size, contour, and echogenicity. Renal cortical thickness is normal. No calculi or focal parenchymal lesions. No hydronephrosis. LEFT KIDNEY: 12.6 x 6.5 x 5.8 cm (SAG x AP x TRV). The kidney is normal in size, contour, and echogenicity. Renal cortical thickness is normal. There are several cystic areas in the region of the renal pyramids, consistent with pelvicaliectasis. There are occasional echogenic foci measuring up to 10 mm, suspicious for nonobstructing intrarenal calculi. An exophytic cyst is seen anteriorly measuring 8 x 8 x 7 mm. BLADDER: Well distended and normal. Bilateral ureteral jets are demonstrated. Prevoid bladder volume is 162.4 mL. Postvoid bladder volume is 5.3 mL. Prostate volume 38.6 mL. US/US retroperitoneal comp IMPRESSION: There is chronic pelvocaliectasis in the left kidney, with evidence of scattered nonobstructing intrarenal calculi. The right kidney appears normal.
== END 2023-05-15 10:04 | disposition home or self-care (01) ==
LOC: HO.US 10:03
PROVIDERS: PCP Nurse Practitioner Primary Care; Visit Provider Nurse Practitioner Family
DX: N39.0 Urinary tract infection, site not specified (principal)
CPT/HCPCS: 76770

== ENCOUNTER 2023-06-04 10:19 | Outpatient (AMB) | payer OTHER, SELFPAY ==
--- NOTE | 2023-06-04 10:19 | MHC.OFFVIS ---
Intake Intake Visit Reasons: follow up/US/Labs(SET) Intake Note: Patient presents for tele visit follow up recurrent uti/ultrasound/PSA lab (imaging 05/15/23) (PSA 0.29) Urology Medication:none Blood Thinner: none Mental Health Technician Required: No Allergies No Known Allergies [No Known Allergies*] Allergy (Verified 06/04/23 10:58) Medication List - Last Reconciled 06/04/23 by AURELIA Chino albuterol sulfate 90 mcg/actuation 2 inhalations inhalation Q4-6H PRN cholecalciferol (vitamin D3) (Vitamin D3) 50 mcg PO DAILY lisinopril 10 mg PO DAILY pravastatin 40 mg PO DAILY PRN semaglutide (Ozempic) mg subcut sertraline 150 mg PO DAILY sildenafil (Viagra) 50 - 100 mg PO DAILY PRN HPI HPI Comments History of Present Illness Details Hiram is a very pleasant 58-year-old male patient of Dr. Childs. He has a past medical history of asthma, hypertension, hypercholesteremia, hyperlipidemia, and sleep apnea. He is being followed up on today via telehealth for his recent urinary tract infection. Of note, patient was seen approximately 2 months ago at which time a retroperitoneal ultrasound and PSA were ordered for further assessment evaluation. These results reviewed with the patient today. Right kidney with no calculi, lesions, and or hydronephrosis noted. Left kidney with echogenic foci measuring up to 10 mm, suspicious for nonobstructing intrarenal calculi. An exophytic cyst is seen anteriorly measuring 8 x 8 x 7 mm. The bladder is well distended and normal. Pre void bladder volume is approximately 160 mL. Postvoid bladder volume is approximately 5 mL. Prostate volume is approximately 39 mL. When asked patient denies having any urinary issues at this time. He denies any UTI like symptoms. He denies urinary urgency, urinary frequency, incontinence, nocturia, hematuria, dysuria, foul smelling urine, changes to urinary stream, flank pain, fever, and or chills. He is happy with his current voiding parameters. Discussed at length potential causes for urinary tract infection as well as nephrolithiasis. Patient discusses his previous surgical history for renal stones. Discussed obtaining CT KUB for further assessment evaluation. He otherwise offers no other issues or concerns at this time. PSA 04/07--0.3. PENDING SALE TO [facility] Medical History High cholesterol Sleep apnea Hyperlipemia High blood pressure Asthma Surgical History No history of previous surgery Family History Sister Seizures Sister Diabetes Mother Diabetes Father No problems noted. 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 Review of Systems Const Reports as per HPI Eyes Reports no additional complaints ENT Reports no additional complaints Card Reports as per HPI Resp Reports as per HPI GI Reports no additional complaints Reports as per HPI Neuro Reports no additional complaints Psych Reports no additional complaints Endo Reports no additional complaints Physical Exam Const General: cooperative Orientation/consciousness: No oriented to place and patient oriented x3 Resp Effort & Inspection: able to speak in complete sentences Neuro General: No oriented to place and patient oriented x3 Psych Mental Status: mental status grossly normal Speech and movement: Clear speech present Affect: normal affect Attitude: cooperative Thought process: Normal thought process present Thought content: Normal thought content present Insight: Fair insight present (Psych) Judgement: Fair judgement present (Psych) Results Reviewed Results Reviewed: Date of Service: 05/15/23 EXAMINATION: US RETROPERITONEAL COMPLETE (RENAL) FINDINGS: RIGHT KIDNEY: 12.3 x 7.0 x 6.4 cm (SAG x AP x TRV). The kidney is normal in size, contour, and echogenicity. Renal cortical thickness is normal. No calculi or focal parenchymal lesions. No hydronephrosis. LEFT KIDNEY: 12.6 x 6.5 x 5.8 cm (SAG x AP x TRV). The kidney is normal in size, contour, and echogenicity. Renal cortical thickness is normal. There are several cystic areas in the region of the renal pyramids, consistent with pelvicaliectasis. There are occasional echogenic foci measuring up to 10 mm, suspicious for nonobstructing intrarenal calculi. An exophytic cyst is seen anteriorly measuring 8 x 8 x 7 mm. BLADDER: Well distended and normal. Bilateral ureteral jets are demonstrated. Prevoid bladder volume is 162.4 mL. Postvoid bladder volume is 5.3 mL. Prostate volume 38.6 mL. IMPRESSION: There is chronic pelvocaliectasis in the left kidney, with evidence of scattered nonobstructing intrarenal calculi. The right kidney appears normal. Assessment & Plan Assessment & Plan (1) Nephrolithiasis: Code(s): N20.0 - Calculus of kidney (2) Renal cyst: Code(s): N28.1 - Cyst of kidney, acquired Plan Recent retroperitoneal ultrasound results reviewed with the patient today; as noted above. Discussed at length potential causes of recurrent urinary tract infections as well as nephrolithiasis. Start vitamin B6 as discussed and prescribed. Discussed obtaining CT KUB for further assessment evaluation. Patient denies any bothersome urinary issues or concerns at this time. Patient reports to be happy with current voiding parameters. Discussed at length importance of drinking plenty of water daily. Discussed adding 1 oz of lemon juice to water daily. Follow-up in 1 month with imaging to be completed prior; or sooner with any issues, concerns, and or questions. Orders: Orders CT kidney stone Today N20.0 - Calculus of kidney, N28.1 - Cyst of kidney, acquired Medications: New pyridoxine (vitamin B6) 100 mg PO DAILY 90 tabs 1RF 90 days N20.0 - Calculus of kidney Patient Instructions: The patient had an opportunity to ask questions regarding the treatment plan. All questions were answered. Physical exam, labs, and imaging were discussed and reviewed in detail. As well as risks, benefits, and discussion of treatment choices. No major barriers to understanding were identified. The patient expressed understanding and agreement with the above treatment plan. The patient was made aware they should contact our office by phone for worsening of their current condition, the appearance of new symptoms, or with any questions or concerns. Compliance is encouraged with any medications and follow up testing that is ordered. It is a privilege to be allowed the opportunity to participate in? your urological care.? Again, if you have any questions or concerns If you have any questions or concerns please do not hesitate to contact me. The office is [phone]. This note is constructed using voice recognition software. While every effort has been made to ensure accuracy hide and skin fleshing machine operator errors may have been included. Yours sincerely, Jimena Chatman [facility] Telehealth Telehealth Location of provider rendering services: practice address Location of patient: address on file Patient Identification confirmed using: Name, : Yes Telehealth method: voice only Patient verbally consented to treatment: Yes Patient verbally consented to billing insurance company: Yes Patient informed of any privacy concerns related to visit: Yes Minutes spent on Phone/Video with Pt.: 15 Coding Level of Care Code Tele Est Pt Level 4 (98724) Diagnoses Nephrolithiasis N20.0 Renal cyst N28.1 Time Spent (min) 15
== END 2023-06-04 16:21 | disposition home or self-care (01) ==
LOC: HO.HUSH 10:19
PROVIDERS: PCP Nurse Practitioner Primary Care; Visit Provider Nurse Practitioner Family
DX: N20.0 Calculus of kidney (principal); N28.1 Cyst of kidney, acquired
CPT/HCPCS: 99442

== ENCOUNTER → 2023-06-04 10:19 | Outpatient (BNVA) | payer OTHER, SELFPAY | PROVIDERS: PCP Nurse Practitioner Primary Care; Visit Provider Nurse Practitioner Family ==

== ENCOUNTER 2023-07-05 08:57 | Outpatient (REF) | payer OTHER, SELFPAY ==
--- NOTE | ~2023-07-05 | CT_ITS ---
STUDY: Unenhanced CT of the abdomen and pelvis INDICATION: Calculus of kidney COMPARISON: 05/15/2023 renal ultrasound, 08/30/[address] TECHNIQUE: Continuous helical imaging obtained through the abdomen and pelvis without IV contrast. Reconstructed images performed in coronal and sagittal planes. This CT examination was performed using dose optimization techniques as appropriate, variously including the following: *Automated exposure control *Adjustment of mA and/or kV according to patient size (this includes techniques or standardized protocols for targeted exams where dose is matched to indication/reason for exam; i.e. extremities or head) *Use of iterative reconstruction technique TOTAL EXAM DLP: 1178 mGy-cm FINDINGS: Supervisor Joiners: Nonobstructive bowel pattern. Midline lower pelvic surgical clip. Lower thorax: Nonenlarged heart. No pericardial effusion. Calcified right pleural thickening. Mild right base atelectasis. Hepatobiliary: Liver is normal in size, shape and attenuation. No hepatic lesions. Decompressed gallbladder. No intra or extrahepatic biliary ductal dilatation. Spleen, pancreas and adrenal glands are unremarkable. Kidneys, ureters and bladder: Kidneys are normal in size, shape and position. Right kidney measures 13.3 cm in longest sagittal projection, left measures 14.1 cm. 8 mm nonobstructing left midpole calculus. Punctate nonobstructing calculus left upper pole. No right renal calculi. No change renal collecting system fullness. 8 mm exophytic left renal cyst seen on recent ultrasound not definitively reproduced on this noncontrast study. No hydroureteronephrosis. Mild nonspecific perinephric stranding. Under distended but otherwise unremarkable urinary bladder. Vessels: Nonaneurysmal aorta with mild atherosclerotic calcifications. Normal caliber inferior vena cava. GASTROINTESTINAL: Under distended stomach. Nonobstructive bowel pattern. Unremarkable appendix. No colonic pathology. Pelvic organs: Unremarkable. Abdominal wall: Tiny fat filled umbilical hernia. Assess filled inguinal hernias, right larger than left. Bones: Multilevel vacuum disc phenomena, degenerative changes. No suspicious osseous lesions. CT/CT kidney stone IMPRESSION: Chronic left pelvocaliectasis. Nonobstructive left renal calculi. Chronic calcified right pleural thickening.
== END 2023-07-05 08:58 | disposition home or self-care (01) ==
LOC: HO.CT 08:57
PROVIDERS: PCP Nurse Practitioner Primary Care; Visit Provider Nurse Practitioner Family
DX: N20.0 Calculus of kidney (principal); N28.1 Cyst of kidney, acquired
CPT/HCPCS: 74176

== ENCOUNTER 2023-07-22 13:19 | Outpatient (AMB) | payer OTHER, SELFPAY ==
--- NOTE | 2023-07-22 13:23 | A.OFFVIS_ITS ---
Intake Intake Visit Reasons: Recurrent UTI- follow up/CTKUB(set) Intake Note: Patient presents for follow up nephrolithiasis/renal cyst/ct scan (imaging 07/05/23) Urology Medication: Vitamin B6, Sildenafil Blood Thinner: none Casting Agent Required: No Accompanied by: Self / Same As Patient Allergies No Known Allergies [No Known Allergies*] Allergy (Verified 07/22/23 13:37) Medication List - Last Reconciled 07/22/23 by AURELIA Chino albuterol sulfate 90 mcg/actuation 2 inhalations inhalation Q4-6H PRN atorvastatin 20 mg PO DAILY buspirone 5 mg PO BID cholecalciferol (vitamin D3) (Vitamin D3) 50 mcg PO DAILY lisinopril 10 mg PO DAILY pravastatin 40 mg PO DAILY PRN pyridoxine (vitamin B6) 100 mg PO DAILY 90 days semaglutide (Ozempic) mg subcut sertraline 150 mg PO DAILY sildenafil (Viagra) 50 - 100 mg PO DAILY PRN HPI HPI Comments History of Present Illness Details Hiram is a very pleasant 58-year-old male patient of Dr. Childs. He has a past medical history of asthma, hypertension, hypercholesteremia, hyperlipidemia, and sleep apnea. He presents to the office today for follow-up of his urinary tract infections and nephrolithiasis. Recent CT KUB results reviewed with the patient today. 8 mm nonobstructing left mid pole calculus. Punctate nonobstructing calculus left upper pole. No right renal calculi noted. 8 mm exophytic left renal cyst seen on recent ultrasound not definitively reproduced on this noncontrast study. No hydroureteronephrosis. When asked patient denies having any urinary issues at this time. He denies any UTI like symptoms. He denies urinary urgency, urinary frequency, incontinence, nocturia, hematuria, dysuria, foul smelling urine, changes to urinary stream, flank pain, fever, and or chills. He is happy with his current voiding parameters. Discussed at length potential causes for urinary tract infection as well as nephrolithiasis. Discussed surgical intervention of nonobstructing 8 mm left mid pole calculus versus surveillance monitoring. Discussed risks and benefits of surgical intervention verses surveillance monitoring. Patient discusses his previous surgical history for renal stones. He otherwise offers no other issues or concerns at this time. PSA 04/07--0.3. In office urinalysis results reviewed with the patient today. [facility] Medical History High cholesterol Sleep apnea Hyperlipemia High blood pressure Asthma Surgical History No history of previous surgery Family History Sister Seizures Sister Diabetes Mother Diabetes Father No problems noted. 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 Review of Systems Const Reports as per HPI Eyes Reports no additional complaints ENT Reports no additional complaints Card Reports as per HPI Resp Reports as per HPI GI Reports no additional complaints Reports as per HPI Neuro Reports no additional complaints Psych Reports no additional complaints Endo Reports no additional complaints Physical Exam Const General: cooperative, comfortable, no acute distress, well developed, alert and awake Nutritional Appearance: obese Orientation/consciousness: oriented to place and patient oriented x3 Limitations: no limitations HEENT Head: Yes normal to inspection, Yes normocephalic and Yes atraumatic Ears: hearing grossly normal bilaterally Eyes General: appearance normal, both eyes and all related structures Neck Neck: Yes normal visual inspection and Yes trachea midline Chest Chest palpation & inspection: normal inspection of the chest Resp Effort & Inspection: able to speak in complete sentences Cardio Rate: regular rate GI Inspection: Yes normal to inspection General: Yes no CVA tenderness Back/Spine/Pelvis Back: no CVA tenderness Skin General skin exam: no rashes or lesions noted Neuro General: oriented to place and patient oriented x3 Extrem General: Yes normal to inspection Psych Appearance: grossly normal and well kempt Mental Status: mental status grossly normal Speech and movement: Clear speech present Affect: normal affect Attitude: cooperative Thought process: Normal thought process present Thought content: Normal thought content present Insight: Fair insight present (Psych) Judgement: Fair judgement present (Psych) Results AMB Urinalysis, Automated UA Leukoctes 0 Aaron/uL Last Edit by Darryl Bearden on 07/22/23 13:51 UA Nitrite Negative Last Edit by Darryl Bearden on 07/22/23 13:51 UA Urobilinogen 0.2 mg/dL Last Edit by Darryl Bearden on 07/22/23 13:51 UA Protein 0 mg/dL Last Edit by Darryl Bearden on 07/22/23 13:51 UA pH 6.0 Last Edit by Darryl Bearden on 07/22/23 13:51 UA Blood 0 Willard/uL Last Edit by Darryl Bearden on 07/22/23 13:51 UA Specific [place] 1.020 Last Edit by Darryl Bearden on 07/22/23 13:51 UA Ketone Negative Last Edit by Darryl Bearden on 07/22/23 13:51 UA Bilirubin 0 mg/dL Last Edit by Darryl Bearden on 07/22/23 13:51 UA Glucose 0 mg/dL Last Edit by Darryl Bearden on 07/22/23 13:51 Results Reviewed Results Reviewed: Date of Service: 07/05/23 Procedure(s): CT kidney stone FINDINGS: Pediatric Physician Assistant: Nonobstructive bowel pattern. Midline lower pelvic surgical clip. Lower thorax: Nonenlarged heart. No pericardial effusion. Calcified right pleural thickening. Mild right base atelectasis. Hepatobiliary: Liver is normal in size, shape and attenuation. No hepatic lesions. Decompressed gallbladder. No intra or extrahepatic biliary ductal dilatation. Spleen, pancreas and adrenal glands are unremarkable. Kidneys, ureters and bladder: Kidneys are normal in size, shape and position. Right kidney measures 13.3 cm in longest sagittal projection, left measures 14.1 cm. 8 mm nonobstructing left midpole calculus. Punctate nonobstructing calculus left upper pole. No right renal calculi. No change renal collecting system fullness. 8 mm exophytic left renal cyst seen on recent ultrasound not definitively reproduced on this noncontrast study. No hydroureteronephrosis. Mild nonspecific perinephric stranding. Under distended but otherwise unremarkable urinary bladder. Vessels: Nonaneurysmal aorta with mild atherosclerotic calcifications. Normal caliber inferior vena cava. GASTROINTESTINAL: Under distended stomach. Nonobstructive bowel pattern. Unremarkable appendix. No colonic pathology. Pelvic organs: Unremarkable. Abdominal wall: Tiny fat filled umbilical hernia. Assess filled inguinal hernias, right larger than left. Bones: Multilevel vacuum disc phenomena, degenerative changes. No suspicious osseous lesions. IMPRESSION: Chronic left pelvocaliectasis. Nonobstructive left renal calculi. Chronic calcified right pleural thickening. Assessment & Plan Assessment & Plan (1) Nephrolithiasis: Code(s): N20.0 - Calculus of kidney (2) Recurrent UTI: Code(s): N39.0 - Urinary tract infection, site not specified (3) Renal cyst: Code(s): N28.1 - Cyst of kidney, acquired Plan In office urinalysis results reviewed with the patient today; as noted above. Patient denies any bothersome urinary issues or concerns at this time. Patient reports be happy with current voiding parameters. Recent CT KUB results reviewed with the patient today; as noted above. Discussed at length potential causes of nephrolithiasis and recurrent urinary tract infections. Discussed surveillance monitoring versus surgical intervention of left-sided 8 mm nonobstructing renal calculi identified on CT KUB; discussed risks and benefits of these interventions. Discussed, educated, encouraged on the importance of drinking plenty of water daily. Discussed further nephrolithiasis workup with 24 hour urine collection and labs Renal ultrasound in 6 months; for surveillance monitoring of nephrolithiasis as well as renal cyst Follow-up in 6 months with imaging to be completed prior; or sooner with any issues, concerns, and or questions. Orders: Orders US renal BI 6 Months N20.0 - Calculus of kidney, N28.1 - Cyst of kidney, acquired AMB Urinalysis Automated Today Z13.9 - Encounter for screening, unspecified Patient Instructions: The patient had an opportunity to ask questions regarding the treatment plan. All questions were answered. Physical exam, labs, and imaging were discussed and reviewed in detail. As well as risks, benefits, and discussion of treatment choices. No major barriers to understanding were identified. The patient expressed understanding and agreement with the above treatment plan. The patient was made aware they should contact our office by phone for worsening of their current condition, the appearance of new symptoms, or with any questions or concerns. Compliance is encouraged with any medications and follow up testing that is ordered. It is a privilege to be allowed the opportunity to participate in? your urological care.? Again, if you have any questions or concerns If you have any questions or concerns please do not hesitate to contact me. The office is [phone]. This note is constructed using voice recognition software. While every effort has been made to ensure accuracy strategic planning analyst errors may have been included. Yours sincerely, AIDE Chino-BC Coding Level of Care Code Est Pt Level 3 (76643) Diagnoses Nephrolithiasis N20.0 Recurrent UTI N39.0 Renal cyst N28.1
== END 2023-07-22 13:53 | disposition home or self-care (01) ==
LOC: HO.HUSH 13:19
PROVIDERS: PCP Nurse Practitioner Primary Care; Visit Provider Nurse Practitioner Family
DX: N20.0 Calculus of kidney (principal); N39.0 Urinary tract infection, site not specified; N28.1 Cyst of kidney, acquired; Z13.9 Encounter for screening, unspecified
CPT/HCPCS: 99213

== ENCOUNTER → 2023-07-22 13:19 | Outpatient (BNVA) | payer OTHER, SELFPAY | PROVIDERS: PCP Nurse Practitioner Primary Care; Visit Provider Nurse Practitioner Family | DX: N20.0 Calculus of kidney (principal); N28.1 Cyst of kidney, acquired; N39.0 Urinary tract infection, site not specified | CPT/HCPCS: 81003; 99212 ==

== ENCOUNTER 2023-09-08 01:03 | Emergency (ER) | payer OTHER, SELFPAY ==
[2023-09-08 01:24] VITALS: BP 145/106; PULSE 79; RESP 19; TEMP 36.8; O2SAT 98; BMI 53.7
--- NOTE | 2023-09-08 01:40 | ED_ITS ---
HPI - Abdominal Pain General Chief Complaint: Abdominal Pain Stated Complaint: ABD PAIN Time Seen by Provider: 09/08/23 01:40 Source: patient Mode of arrival: ambulatory Limitations: no limitations History of Present Illness HPI narrative: Patient obese with history of sleep apnea COPD hypertension morbidly obese on Ozempic for last 6 months complaining of pain in abdomen for last couple of months had a CT scan done on 07/05/2023 which was negative for acute had nonobstructive kidney stone comes here for pain getting worse is diffuse pain with nausea no vomiting no diarrhea no fever or chills has strong odor in the urine Related Data Home Medications Medication Instructions Recorded Confirmed cholecalciferol (vitamin D3) 50 50 mcg PO DAILY 05/22/22 07/22/23 mcg (2,000 unit) capsule (Vitamin D3) lisinopril 10 mg tablet 10 mg PO DAILY 05/22/22 07/22/23 pravastatin 40 mg tablet 40 mg PO DAILY PRN 05/22/22 07/22/23 sertraline 100 mg tablet 150 mg PO DAILY 04/10/23 07/22/23 semaglutide 0.25 mg or 0.5 mg (2 mg subcut 06/04/23 07/22/23 mg/3 mL) subcutaneous pen injector (Ozempic) sildenafil 100 mg tablet (Viagra) 50 - 100 mg PO DAILY PRN 06/04/23 07/22/23 atorvastatin 20 mg tablet 20 mg PO DAILY 07/22/23 07/22/23 buspirone 5 mg tablet 5 mg PO BID 07/22/23 07/22/23 Previous Rx's Medication Instructions Recorded albuterol sulfate 90 mcg/actuation 2 inh inhalation Q4-6H PRN 09/29/22 breath activated powder inhaler shortness of breath or wheezing #1 ea pyridoxine (vitamin B6) 100 mg 100 mg PO DAILY 90 days #90 tabs 06/04/23 tablet dicyclomine 20 mg tablet 20 mg PO Q8-10H PRN abdominal 09/08/23 pain #20 tabs Allergies Allergy/AdvReac Type Severity Reaction Status Date / Time No Known Allergies Allergy Verified 07/22/23 13:37 [No Known Allergies*] Review of Systems Review of Systems Yes all other systems are reviewed and are negative PMFSH Past Medical History Medical History High cholesterol Sleep apnea Hyperlipemia High blood pressure Asthma Surgical History No history of previous surgery Family History Family History Sister Seizures Sister Diabetes Mother Diabetes Father No problems noted. 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 Oriented X3. No acute distress. Eyes: No pallor or icterus ENT: Pharynx normal. Oral Mucosa moist Neck: Normal inspection. Neck supple. CVS: Normal heart rate and rhythm. Pulses normal. Respiratory: No respiratory distress. Equal air entry bilateral, no wheezing/rales/rhonchi Abdomen: Soft and nontender. Bowel sounds are present, no mass palpable, no CVA tenderness Skin: Skin warm and dry. Normal skin color. Normal skin turgor. Extremities: No lower extremity edema. No calf tenderness Neuro: Oriented X 3. Medical Decision Making Medical Decision Making MDM Narrative: Patient nonspecific abdominal pain with recent CT scan negative for acute urine negative labs are stable likely patient has possible IBS discharge patient home on dicyclomine Lab Data [facility] Lab Attestation statement: I reviewed the patient's lab results. 09/08/23 01:49 09/08/23 01:49 Labs: Lab Results 09/08/23 09/08/23 Range/Units 01:49 02:37 WBC 6.6 (4.8-10.8) X10*3/uL RBC 4.73 (4.60-5.80) X10*6/uL Hgb 13.9 L (14.0-18.0) g/dl Hct 41.9 L (42.0-52.0) % MCV 88.6 (80.0-98.0) fL MCH 29.4 (27.0-33.0) pg MCHC 33.2 (31.0-36.0) g/dl RDW 13.4 (11.0-16.0) % Plt Count 225 (160-400) X10*3/uL MPV 9.0 L (9.4-12.4) fL Immature Gran % (Auto) 0.2 (0.0-0.4) % Neut % (Auto) 56.7 (45-73) % Lymph % (Auto) 30.9 (20-40) % [place] % (Auto) 10.5 (2-11) % Eos % (Auto) 1.4 (0-4) % Baso % (Auto) 0.3 (0-2) % Lymph # (Auto) 2.0 (1.2-4.9) X10*3/uL [place] # (Auto) 0.7 (0.1-1.2) X10*3/uL Eos # (Auto) 0.1 (0.0-0.4) X10*3/uL Baso # (Auto) 0.0 (0.0-0.2) X10*3/uL Abs Immat Gran (auto) 0.01 (0.00-0.03) X10*3/uL Absolute Neuts (auto) 3.7 (2.0-8.3) x10*3/uL Absolute Nucleated RBC 0.000 (0.0-0.012) X10*3/uL Nucleated RBC % (auto) 0.0 (0.0-0.2) /100WBC Sodium 139 (135-145) mmol/L Potassium 4.2 (3.3-5.1) mmol/L Chloride 105 (96-108) mmol/L Carbon Dioxide 24 (22-29) mmol/L Anion Gap 14 (12-20) BUN 23 H (9-16) mg/dL Creatinine 0.85 (0.5-1.4) mg/dL Estim Creat Clear Calc 148.8 Estimated GFR > 60 Random Glucose 109 (60-115) mg/dL Calcium 9.4 D (8.4-10.2) mg/dL Total Bilirubin 0.2 (0.0-1.0) mg/dL Direct Bilirubin < 0.2 (0.0-0.5) mg/dL AST 30 (5-37) U/L ALT 44 H (0-40) U/L Alkaline Phosphatase 71 (39-117) U/L Total Protein 7.2 (6.5-8.0) g/dL Albumin 4.1 (3.5-5.0) g/dL Lipase 24 (8-78) U/L Urine Color Yellow Urine Appearance Clear Urine pH 6.0 (5.0-9.0) Ur Specific [place] 1.020 (1.005-1.025) Urine Protein Negative (Neg-Trace) mg/dL Urine Glucose (UA) Negative (Negative) mg/dL Urine Ketones Negative (Negative) mg/dL Urine Blood Negative (Negative) Urine Nitrite Negative (Negative) Ur Leukocyte Esterase Negative (Negative) Medications Administered Discontinued Medications Generic Name Dose Route Start Last Admin Trade Name Freq PRN Reason Stop Dose Admin Dicyclomine HCl 20 mg 09/08/23 02:38 09/08/23 02:41 Dicyclomine Hcl 10 Mg Capsule PO 09/08/23 02:39 20 mg ONCE ONE Administration Discharge Plan Discharge Clinical Impression: Abdominal pain Patient Disposition: Home, Self-Care Instructions: Chronic Abdominal Pain (ED) Additional Instructions: Drink plenty of fluid Take pain medication as prescribed Follow with PCP Prescriptions: New dicyclomine 20 mg tablet 20 mg PO Q8-10H PRN (Reason: abdominal pain) Qty: 20 0RF No Action albuterol sulfate 90 mcg/actuation aerosol powdr breath activated 2 inh inhalation Q4-6H PRN (Reason: shortness of breath or wheezing) Qty: 1 0RF cholecalciferol (vitamin D3) [Vitamin D3] 50 mcg (2,000 unit) capsule 50 mcg PO DAILY lisinopril 10 mg tablet 10 mg PO DAILY pravastatin 40 mg tablet 40 mg PO DAILY PRN sildenafil [Viagra] 100 mg tablet 50 - 100 mg PO DAILY PRN Ozempic 0.25 mg or 0.5 mg (2 mg/3 mL) pen injector subcut pyridoxine (vitamin B6) 100 mg tablet 100 mg PO DAILY 90 Days Qty: 90 1RF atorvastatin 20 mg tablet 20 mg PO DAILY buspirone 5 mg tablet 5 mg PO BID sertraline 100 mg tablet 150 mg PO DAILY
[2023-09-08 01:42] VITALS: BP 141/78; PULSE 78; RESP 19; TEMP 36.4; O2SAT 97
[2023-09-08 01:53] LABS: MANUAL DIFF FLAG NO
[2023-09-08 01:54] LABS: Basophils Percent Auto 0.3 % (0-2); Eosinophils Absolute Auto 0.1 X10*3/uL (0.0-0.4); Eosinophils Percent Auto 1.4 % (0-4); Hematocrit 41.9 % (42.0-52.0); Hemoglobin 13.9 g/dl (14.0-18.0); Imm Gran Abs Auto 0.01 X10*3/uL (0.00-0.03); Imm Gran Pct Auto 0.2 % (0.0-0.4); Lymphocytes Percent Auto 30.9 % (20-40); Mean Corpuscular HGB Conc 33.2 g/dl (31.0-36.0); Mean Corpuscular Hemoglobin 29.4 pg (27.0-33.0); Mean Corpuscular Volume 88.6 fL (80.0-98.0); Monocytes Absolute Auto 0.7 X10*3/uL (0.1-1.2); Monocytes Percent Auto 10.5 % (2-11); Neutrophils Absolute Auto 3.7 x10*3/uL (2.0-8.3); Neutrophils Percent Auto 56.7 % (45-73); Platelet Count 225 X10*3/uL (160-400); Red Blood Count 4.73 X10*6/uL (4.60-5.80); Red Cell Distribution Width 13.4 % (11.0-16.0); White Blood Count 6.6 X10*3/uL (4.8-10.8)
[2023-09-08 02:13] LABS: Alanine Aminotransferase 44 U/L (0-40); Albumin Level 4.1 g/dL (3.5-5.0); Alkaline Phosphatase 71 U/L (39-117); Anion Gap 14 (12-20); Aspartate Amino Transferase 30 U/L (5-37); Bilirubin Direct < 0.2 mg/dL (0.0-0.5); Bilirubin Total 0.2 mg/dL (0.0-1.0); Blood Urea Nitrogen 23 mg/dL (9-16); Calcium 9.4 mg/dL (8.4-10.2); Carbon Dioxide 24 mmol/L (22-29); Chloride 105 mmol/L (96-108); Creatinine Clr Calc Pharmacy 148.8; Estimated Glomerular Filt Rate > 60; Glucose Random 109 mg/dL (60-115); Lipase 24 U/L (8-78); Potassium 4.2 mmol/L (3.3-5.1); Sodium 139 mmol/L (135-145); Total Protein 7.2 g/dL (6.5-8.0)
[2023-09-08 02:18] VITALS: BP 128/72; PULSE 72; RESP 14; TEMP 36.7; O2SAT 98
[2023-09-08] MEDS: Dicyclomine HCl 10 MG CAPSULE 20 MG PO (02:41)
[2023-09-08 03:01] LABS: Appearance Urine Clear; Color Urine Yellow; Glucose Urine UA Negative (Negative); Leukocyte Esterase Urine Negative (Negative); Nitrite Urine Negative (Negative); Urine Blood Negative (Negative); Urine Ketones Negative (Negative); Urine Protein Negative (Neg-Trace)
== END 2023-09-08 03:25 | disposition home or self-care (01) ==
PROVIDERS: Emergency Provider Internal Medicine; PCP Nurse Practitioner Primary Care
DX: R10.9 Unspecified abdominal pain (principal); I10 Essential (primary) hypertension; J44.9 Chronic obstructive pulmonary disease, unspecified; E66.01 Morbid (severe) obesity due to excess calories
CPT/HCPCS: 36415; 80048; 80076; 81003; 83690; 85025; 99283; 99284

== ENCOUNTER 2023-09-26 09:59 | Outpatient (AMB) | payer OTHER, SELFPAY ==
--- NOTE | 2023-09-26 10:05 | A.OFFVIS_ITS ---
Intake Vital Signs 09/26/23 10:07 Height 5 ft 9 in Weight 361 lb 8.929 oz BMI 53.4 BP 131/65 Blood Pressure Location Lt brachial Position Sitting Pulse 80 Intake Visit Reasons: Chronic Constipation Intake Note: Hiram presents in the office as a new patient chronic constipation. CC: He is having pains in the stomach and constipation. Pains in the stomach started when he started Ozempic and he has this pain in his shoulder and neck a nd feels like a lump is in there. Optometric Technologist Required: No Allergies No Known Allergies [No Known Allergies*] Allergy (Verified 09/26/23 10:07) Medication List - Last Reconciled 09/26/23 by Jo Ann Alaniz PA-C albuterol sulfate 90 mcg/actuation 2 inhalations inhalation Q4-6H PRN atorvastatin 20 mg PO DAILY buspirone 10 mg PO BID cholecalciferol (vitamin D3) (Vitamin D3) 50 mcg PO DAILY dicyclomine 20 mg PO Q8-10H PRN lisinopril 10 mg PO DAILY melatonin mg PO pravastatin 40 mg PO DAILY PRN psyllium husk (aspartame) 3.4 gram (Metamucil Fiber Singles) PO pyridoxine (vitamin B6) 100 mg PO DAILY 90 days sertraline 150 mg PO DAILY sildenafil (Viagra) 50 - 100 mg PO DAILY PRN HPI HPI Comments History of Present Illness Details 58-year-old male referred for chronic co nstipation, he has abdominal cramping he notes began once he started Ozempic for weight loss- about 6 months ago-.He also has left shoulder pain- and numbness- he has a massage machine-PCP Dinora Childs- d/cd Ozempic a few days back- He expresses his desire to get more healthy he is [place]- abdominal pain has improved since stopped ozempic- but has cramps before BM- resolves shortly after BM-no rectal bleeding Passing gas, has not been a problem. He does not eat fiber - Colonoscopy ay [facility] about 3 years ago= normal no polyps No nausea, vomiting, hematemesis, hematochezia fever or chills PFSH Medical History High cholesterol Sleep apnea Hyperlipemia High blood pressure Asthma Surgical History No history of previous surgery Family History Sister Seizures Sister Diabetes Mother Diabetes Father No problems noted. 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 Review of Systems Const All systems reviewed & are unremarkable except as noted in HPI and below Reports body aches, Denies chills, Reports daytime sleepiness, Reports difficulty sleeping and Denies fever(s) Card Denies chest pain and Denies dyspnea Resp Denies dyspnea GI Reports abdominal pain, Reports constipation, Denies heartburn, Reports nausea (intermittent) and Denies vomiting Psych Reports anxiety, Reports depression, Denies homicidal ideation and Denies suicidal ideation Physical Exam Vital Signs: Last Vital Signs Pulse 80 09/26/23 10:07 BP 131/65 09/26/23 10:07 BMI result Body Mass Index 53.4 Const General: cooperative, comfortable and no acute distress Nutritional Appearance: obese Orientation/consciousness: patient oriented x3 Limitations: no limitations Eyes Sclerae: sclerae normal Resp Effort & Inspection: normal respiratory effort and able to speak in complete sentences Auscultation: clear to auscultation bilaterally (Distant breath sounds), no rales, no rhonchi and no wheezes Cardio Rate: regular rate Rhythm: regular rhythm Heart sounds: S1 normal heart sound present and S2 normal heart sound present GI Other: Difficult to assess due to body habitus Soft nontender Palpation (GI): Soft to palpation, nontender and no guarding Percussion: Yes normal to percussion Auscultation: normal bowel sounds Skin General skin exam: no rashes or lesions noted Neuro General: patient oriented x3 Extrem General: Yes full ROM Psych Mental Status: mental status grossly normal Speech and movement: Clear speech present Affect: normal affect Attitude: cooperative Thought process: Normal thought process present Thought content: Normal thought content present Results Reviewed Results Reviewed: CT/CT kidney stone IMPRESSION: Chronic left pelvocaliectasis. Nonobstructive left renal calculi. Chronic calcified right pleural thickening. 09/08/23- labs- Assessment & Plan Assessment & Plan (1) Chronic constipation: Comment: Needs consistent bowel regimen Stay well hydrated High-fiber Code(s): K59.09 - Other constipation Plan: Consistent bowel regimen HFD Good hydration (2) Nephrolithiasis: Comment: HX- Code(s): N20.0 - Calculus of kidney Plan: CT- (3) Abdominal pain: Comment: Nontender on exam Good bowel sounds all 4 quadrants Code(s): R10.9 - Unspecified abdominal pain Plan: CBC Plan CBC Bowel regimen worsening sx- ED F/U progress Orders: Orders Complete Blood Count Auto Diff Today R10.9 - Unspecified abdominal pain Ferritin Today D64.9 - Anemia, unspecified Medications: New bisacodyl (Dulcolax (bisacodyl)) 10 mg [place] DAILY PRN 20 ea 0RF constipation polyethylene glycol 3350 (Miralax) 17 grams PO DAILY 510 grams 6RF sennosides (senna) 8.6 mg PO DAILY 30 caps 1RF constipation 30 days Patient Instructions: CBC Consistent Bowel regimen Stay well hydrated High-fiber diet worsening sx- ED F/U progress Coding Level of Care Code New Pt Level 3 (87792) Diagnoses Chronic constipation K59.09 Nephrolithiasis N20.0 Abdominal pain R10.9 Time Spent (min) 35
[2023-09-26 10:07] VITALS: BP 131/65; PULSE 80; BMI 53.4
== END 2023-09-26 10:42 | disposition home or self-care (01) ==
PROVIDERS: PCP Nurse Practitioner Primary Care; Visit Provider Physician Assistant
DX: K59.09 Other constipation (principal); N20.0 Calculus of kidney; R10.9 Unspecified abdominal pain
CPT/HCPCS: 99203

== ENCOUNTER 2023-09-26 09:59 | Outpatient (REF) | payer OTHER, SELFPAY ==
[2023-09-26 11:13] LABS: MANUAL DIFF FLAG NO
[2023-09-26 11:59] LABS: Basophils Percent Auto 0.2 % (0-2); Eosinophils Absolute Auto 0.1 X10*3/uL (0.0-0.4); Eosinophils Percent Auto 1.3 % (0-4); Hematocrit 43.3 % (42.0-52.0); Hemoglobin 14.3 g/dl (14.0-18.0); Imm Gran Abs Auto 0.02 X10*3/uL (0.00-0.03); Imm Gran Pct Auto 0.3 % (0.0-0.4); Lymphocytes Absolute Auto 2.1 X10*3/uL (1.2-4.9); Lymphocytes Percent Auto 35.8 % (20-40); Mean Corpuscular Hemoglobin 29.4 pg (27.0-33.0); Mean Corpuscular Volume 89.1 fL (80.0-98.0); Mean Platelet Volume 9.6 fL (9.4-12.4); Monocytes Absolute Auto 0.7 X10*3/uL (0.1-1.2); Monocytes Percent Auto 10.9 % (2-11); Neutrophils Absolute Auto 3.1 x10*3/uL (2.0-8.3); Neutrophils Percent Auto 51.5 % (45-73); Platelet Count 247 X10*3/uL (160-400); Red Blood Count 4.86 X10*6/uL (4.60-5.80); Red Cell Distribution Width 13.4 % (11.0-16.0)
[2023-09-26 13:02] LABS: Ferritin 67 ng/mL (20-250)
== END 2023-09-26 10:00 | disposition home or self-care (01) ==
LOC: HO.LAB 09:59
PROVIDERS: PCP Nurse Practitioner Primary Care; Visit Provider Physician Assistant
DX: R10.9 Unspecified abdominal pain (principal); K59.09 Other constipation; N20.0 Calculus of kidney; D64.9 Anemia, unspecified
CPT/HCPCS: 36415; 82728; 85025; 99202

== ENCOUNTER 2023-10-29 09:41 | Emergency (ER) | payer OTHER, SELFPAY ==
--- NOTE | ~2023-10-29 | XR_ITS ---
EXAMINATION: XR CHEST CLINICAL INFORMATION: SOB COMPARISON: None available. TECHNIQUE: 2 views of the chest were obtained. FINDINGS: The lungs are well-expanded with mild haziness right lung base with blunting of CP angle and soft tissue density along the right lateral lung likely loculated effusion. Minimal right basilar atelectasis suspected. Heart size and pulmonary vascularity is normal. No gross bony abnormality seen. XR/XR chest 2V IMPRESSION: 1. Suspect loculated right pleural effusion with minimal right basilar atelectasis. 2. No acute pneumonic process seen.
[2023-10-29 09:53] VITALS: BP 124/76; PULSE 85; RESP 20; TEMP 35.6; O2SAT 97; BMI 55.2
--- NOTE | 2023-10-29 10:02 | ECG_ITS ---
Test Reason : sob Blood Pressure : / mmHG Vent. Rate : 078 BPM Atrial Rate : 078 BPM P-R Int : 168 ms QRS Dur : 098 ms QT Int : 362 ms P-R-T Axes : 039 030 017 degrees QTc Int : 412 ms Normal sinus rhythm Normal ECG When compared with ECG of 29-SEP-2022 15:41, No significant change was found Referred By: Generic ED Physician Electronically Signed By:Manuel Reza
[2023-10-29 10:26] LABS: MANUAL DIFF FLAG NO
[2023-10-29 10:33] LABS: Basophils Percent Auto 0.4 % (0-2); Eosinophils Absolute Auto 0.1 X10*3/uL (0.0-0.4); Eosinophils Percent Auto 1.8 % (0-4); Hematocrit 42.8 % (42.0-52.0); Imm Gran Abs Auto 0.01 X10*3/uL (0.00-0.03); Imm Gran Pct Auto 0.2 % (0.0-0.4); Lymphocytes Absolute Auto 1.8 X10*3/uL (1.2-4.9); Lymphocytes Percent Auto 32.4 % (20-40); Mean Corpuscular HGB Conc 32.7 g/dl (31.0-36.0); Mean Corpuscular Hemoglobin 29.4 pg (27.0-33.0); Mean Corpuscular Volume 89.9 fL (80.0-98.0); Mean Platelet Volume 9.1 fL (9.4-12.4); Monocytes Absolute Auto 0.6 X10*3/uL (0.1-1.2); Monocytes Percent Auto 11.2 % (2-11); Platelet Count 241 X10*3/uL (160-400); Red Blood Count 4.76 X10*6/uL (4.60-5.80); Red Cell Distribution Width 13.4 % (11.0-16.0); White Blood Count 5.5 X10*3/uL (4.8-10.8)
[2023-10-29 10:48] LABS: Alanine Aminotransferase 31 U/L (0-40); Albumin Level 3.8 g/dL (3.5-5.0); Alkaline Phosphatase 69 U/L (39-117); Anion Gap 10 (12-20); Aspartate Amino Transferase 23 U/L (5-37); Bilirubin Direct 0.2 mg/dL (0.0-0.5); Bilirubin Total 0.3 mg/dL (0.0-1.0); Blood Urea Nitrogen 16 mg/dL (9-16); Calcium 9.1 mg/dL (8.4-10.2); Carbon Dioxide 27 mmol/L (22-29); Chloride 109 mmol/L (96-108); Creatinine Clr Calc Pharmacy 181.1; Estimated Glomerular Filt Rate > 60; Glucose Random 114 mg/dL (60-115); Lipase 23 U/L (8-78); Potassium 3.9 mmol/L (3.3-5.1); Sodium 142 mmol/L (135-145); Total Protein 6.9 g/dL (6.5-8.0)
[2023-10-29 10:51] LABS: B Type Natriuretic Peptide 15 pg/mL (<100)
[2023-10-29 10:59] LABS: Troponin-I High Sensitivity < 2.7 ng/L (<3.5-35.0)
[2023-10-29 11:01] LABS: IDNOW Serial# 9DB6401D; Influenza A Negative (Negative); Influenza B2 Negative (Negative)
== END 2023-10-29 14:16 | disposition left against medical advice (07) ==
PROVIDERS: Emergency Provider Emergency Medicine; PCP Nurse Practitioner Primary Care
DX: R06.02 Shortness of breath (principal); M54.2 Cervicalgia; Z79.899 Other long term (current) drug therapy
CPT/HCPCS: 71046; 80048; 80076; 83690; 83880; 84484; 85025; 87502; 93005; 99283

== ENCOUNTER → 2023-10-29 10:02 | Outpatient (BNV) | payer OTHER, SELFPAY | PROVIDERS: Emergency Provider Emergency Medicine; PCP Nurse Practitioner Primary Care; Visit Provider Internal Medicine Cardiovascular Disease | DX: R06.02 Shortness of breath (principal) | CPT/HCPCS: 93010 ==

== ENCOUNTER 2023-11-21 10:54 | Outpatient (REF) | payer OTHER, SELFPAY ==
--- NOTE | ~2023-11-21 | XR_ITS ---
EXAMINATION: XR SHOULDER, LEFT CLINICAL INFORMATION: Pain in left shoulder. COMPARISON: Chest of 10/29/2023. TECHNIQUE: 4 views of the left shoulder. FINDINGS: Mild degenerative changes in the acromioclavicular joint with joint space narrowing and hypertrophic change. Degenerative changes with hypertrophic change along the glenoid. Degenerative changes in the imaged upper thoracic spine. XR/XR shoulder LT min 2V IMPRESSION: Mild degenerative changes in the acromioclavicular joint.
== END 2023-11-21 10:55 | disposition home or self-care (01) ==
LOC: HO.XRAY 10:54
PROVIDERS: PCP Nurse Practitioner Primary Care; Visit Provider Physician Assistant
DX: M25.512 Pain in left shoulder (principal)
CPT/HCPCS: 73030; 99212

== ENCOUNTER 2023-11-21 10:54 | Outpatient (AMB) | payer OTHER, SELFPAY ==
--- NOTE | 2023-11-21 11:06 | MHC.OFFVIS ---
Intake Vital Signs 11/21/23 11:15 Height 5 ft 9 in Weight 363 lb 12.203 oz BMI 53.7 BP 141/81 H Blood Pressure Location Lt brachial Position Sitting Pulse 84 Intake Visit Reasons: 8 week follow up Intake Note: Hiram presents in the office as a 8 week follow up. CC: States hes gets pains in his stomach and in his left shoulder. When he eats he gets lot of nausea. Pulmonary Function Technologist Required: No Allergies No Known Allergies [No Known Allergies*] Allergy (Verified 11/21/23 11:16) Medication List - Last Reconciled 11/21/23 by Jo Ann Alaniz PA-C albuterol sulfate 90 mcg/actuation 2 inhalations inhalation Q4-6H PRN atorvastatin 20 mg PO DAILY bisacodyl (Dulcolax (bisacodyl)) 10 mg DC DAILY PRN buspirone 10 mg PO BID cholecalciferol (vitamin D3) (Vitamin D3) 50 mcg PO DAILY dicyclomine 20 mg PO Q8-10H PRN docusate sodium 100 mg PO BID fluticasone propionate 220 mcg/actuation inhalation lisinopril 10 mg PO DAILY loratadine 10 mg PO DAILY melatonin mg PO melatonin mg PO BEDTIME polyethylene glycol 3350 (Miralax) 17 grams PO DAILY pravastatin 40 mg PO DAILY PRN psyllium husk (aspartame) 3.4 gram (Metamucil Fiber Singles) PO pyridoxine (vitamin B6) 100 mg PO DAILY 90 days sennosides (senna) 8.6 mg PO DAILY 30 days sertraline 150 mg PO DAILY sildenafil (Viagra) 50 - 100 mg PO DAILY PRN HPI HPI Comments History of Present Illness Details 58-year-old male Hong , seen initially with chronic constipation, nausea, left shoulder pain follows up for progress He was using a massage machine for the shoulder We had discussed and plan may a bowel regimen encouraged him to be consistent. Here today for follow-up he continues to complain of nausea QD- pepto no better, typically does not eat greasy foods denies acid reflux, no vomiting-chronic left shoulder pain- disrupts his sleep-he associates all sx to to Hong-was prescribed for wt loss-seeing pcp this month- not eating greasy He expresses his dislike for Ozempic he never should have taken it this is what he knows this caused all his problems. No heartburn- Constipation resolved with regimen- [facility] Medical History High cholesterol Sleep apnea Hyperlipemia High blood pressure Asthma Surgical History No history of previous surgery Family History Sister Seizures Sister Diabetes Mother Diabetes Father No problems noted. 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 Review of Systems Const All systems reviewed & are unremarkable except as noted in HPI and below Card Denies chest pain and Denies dyspnea Resp Denies dyspnea GI Denies abdominal pain, Denies hematochezia, Denies change in bowel habits, Denies early satiety, Denies heartburn, Denies diarrhea, Reports nausea and Denies vomiting Musc Denies abnormal gait and Reports other (Left shoulder) Neuro Denies abnormal gait Physical Exam Vital Signs: Last Vital Signs Pulse 84 11/21/23 11:15 BP 141/81 H 11/21/23 11:15 BMI result Body Mass Index 53.7 Const General: cooperative and no acute distress Nutritional Appearance: obese Orientation/consciousness: patient oriented x3 Limitations: no limitations Eyes Sclerae: sclerae normal Resp Effort & Inspection: normal respiratory effort and able to speak in complete sentences Auscultation: clear to auscultation bilaterally, no rales, no rhonchi and no wheezes Cardio Rate: regular rate Rhythm: regular rhythm Heart sounds: S1 normal heart sound present and S2 normal heart sound present GI Inspection: Yes Abdominal panniculus present and Yes obesity Palpation (GI): Soft to palpation and nontender Auscultation: normal bowel sounds Neuro General: patient oriented x3 Extrem Left lower extremity: full ROM; no cyanosis and no edema Psych Speech and movement: Clear speech present Affect: Animated affect present Attitude: cooperative Thought process: Normal thought process present Thought content: Normal thought content present Assessment & Plan Assessment & Plan (1) Left shoulder pain: Comment: Has upcoming appointment with PCP however will schedule as very in hopes this offer some reassurance Physical exam full ROM Code(s): M25.512 - Pain in left shoulder Plan: In left shoulder x-ray will sent to PCP (2) Chronic nausea: Comment: Nausea intermittent, associates with shoulder pain Code(s): R11.0 - Nausea Plan: Ondansetron p.r.n. Try to identify culprits Plan Abdominal ultrasound, assess gallbladder as well as liver likely fatty liver Shoulder x-ray will send PCP, will call with results Orders: Orders XR shoulder LT min 2V Today M25.512 - Pain in left shoulder US abdomen complete Today R11.0 - Nausea Medications: New ondansetron 4 mg PO DAILY 20 tabs 0RF Patient Instructions: Left shoulder x-ray Schedule abdominal ultrasound assess gallbladder Give trial to ondansetron Try to identify culprits Any worsening symptoms go to ED Follow-up with PCP as scheduled Coding Level of Care Code Est Pt Level 3 (80469) Diagnoses Left shoulder pain M25.512 Chronic nausea R11.0 Time Spent (min) 30
[2023-11-21 11:15] VITALS: BP 141/81; PULSE 84; BMI 53.7
== END 2023-11-21 11:52 | disposition home or self-care (01) ==
PROVIDERS: PCP Nurse Practitioner Primary Care; Visit Provider Physician Assistant
DX: M25.512 Pain in left shoulder (principal); R11.0 Nausea
CPT/HCPCS: 99213

== ENCOUNTER 2023-12-13 08:54 | Outpatient (REF) | payer OTHER, SELFPAY ==
--- NOTE | ~2023-12-13 | US_ITS ---
EXAMINATION: US ABDOMEN COMPLETE CLINICAL INFORMATION: Nausea. COMPARISON: CT abdomen and pelvis 07/05/2023, ultrasound renal 05/15/2023. TECHNIQUE: Real-time imaging of the abdominal viscera. FINDINGS: PANCREAS: The pancreas appears unremarkable, without masses or ductal dilatation, with the exception of the tail which is obscured by bowel gas. ABDOMINAL AORTA: The proximal, mid, and distal segments are normal in caliber. INFERIOR VENA CAVA: There is a linear echogenic structure in the IVC of questionable significance which could only be seen in the supine position and not in the decubitus position. I suspect that this is artifactual. No abnormality was seen in the IVC with the patient in the decubitus position. LIVER: The liver is normal in size. The liver contour is normal. There is diffuse increased liver parenchymal echogenicity, consistent with hepatic steatosis. No focal hepatic lesion. There is no intrahepatic biliary duct dilatation seen. GALLBLADDER: The gallbladder is physiologically distended without evidence of stones, sludge, polyps, wall thickening or pericholecystic fluid. COMMON BILE DUCT: Normal in caliber measuring 0.6 cm in diameter. LEFT KIDNEY: There is an echogenic focus in the mid kidney measuring 7 x 6 x 8 mm that is consistent with a nonobstructing calculus seen on the 07/05/2023 CT scan. There is some mild prominence of the collecting system similar to the prior CT but no gross hydronephrosis. No focal parenchymal lesions. The kidney measures 14.1 cm in maximum dimension. RIGHT KIDNEY: Normal. No hydronephrosis. A benign 0.8 cm mid renal Bosniak class I renal cyst is noted which requires no additional imaging or followup. No solid renal masses are seen. No renal calculi. The kidney measures 12.0 cm in maximum dimension. SPLEEN: The spleen is mildly enlarged measuring 12.6 cm in maximum dimension. FREE FLUID: None. US/US abdomen complete IMPRESSION: 1. Hepatic steatosis. 2. Nonobstructing left renal calculus. 3. Mild splenomegaly.
== END 2023-12-13 08:55 | disposition home or self-care (01) ==
LOC: HO.US 08:54
PROVIDERS: PCP Nurse Practitioner Primary Care; Visit Provider Physician Assistant
DX: R11.0 Nausea (principal)
CPT/HCPCS: 76700

== ENCOUNTER 2024-01-21 10:02 | Outpatient (AMB) | payer OTHER, SELFPAY ==
--- NOTE | 2024-01-21 10:15 | MHC.OFFVIS ---
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 Required: No Accompanied by: Self / Same As Patient Allergies No Known Allergies [No Known Allergies*] Allergy (Verified 01/21/24 11:00) Medication List - Last Reconciled 01/21/24 by AURELIA Chino albuterol sulfate 90 mcg/actuation 2 inhalations inhalation Q4-6H PRN atorvastatin 20 mg PO DAILY bisacodyl (Dulcolax (bisacodyl)) 10 mg AR DAILY PRN buspirone 10 mg PO BID cholecalciferol (vitamin D3) (Vitamin D3) 50 mcg PO DAILY dicyclomine 20 mg PO Q8-10H PRN docusate sodium 100 mg PO BID fluticasone propionate 220 mcg/actuation inhalation lisinopril 10 mg PO DAILY loratadine 10 mg PO DAILY melatonin mg PO melatonin mg PO BEDTIME ondansetron 4 mg PO DAILY polyethylene glycol 3350 (Miralax) 17 grams PO DAILY pravastatin 40 mg PO DAILY PRN psyllium husk (aspartame) 3.4 gram (Metamucil Fiber Singles) PO pyridoxine (vitamin B6) 100 mg PO DAILY 90 days sennosides (senna) 8.6 mg PO DAILY 30 days sertraline 150 mg PO DAILY sildenafil (Viagra) 50 - 100 mg PO DAILY PRN HPI Comments Details: Hiram is a very pleasant 58-year-old male patient of Dr. Childs. He has a past medical history of asthma, hypertension, hypercholesteremia, hyperlipidemia, and sleep apnea. He presents to the office today for follow-up of his urinary tract infections and nephrolithiasis. Renal ultrasound was ordered for further assessment evaluation however patient did not have this completed as he has had recent abdominal ultrasound due to ongoing nausea he has been experiencing since starting Ozempic. He reports following up with Gastroenterology. He has since stopped Ozempic. Bilateral kidneys with no hydronephrosis. Left kidney with 7 mm nonobstructing calculus. No right renal calculi noted. He currently denies any bothersome urinary issues or concerns. When asked patient denies having any urinary issues at this time. He denies any UTI like symptoms. He denies urinary urgency, urinary frequency, incontinence, nocturia, hematuria, dysuria, foul smelling urine, changes to urinary stream, flank pain, fever, and or chills. He is happy with his current voiding parameters. Discussed at length potential causes for urinary tract infection as well as nephrolithiasis. Discussed surgical intervention of nonobstructing 87mm left mid pole calculus versus surveillance monitoring. Discussed risks and benefits of surgical intervention verses surveillance monitoring. Patient discusses his previous surgical history for renal stones. He otherwise offers no other issues or concerns at this time. PSA 04/07--0.3. In office urinalysis results reviewed with the patient today. [facility] Medical History High cholesterol Sleep apnea Hyperlipemia High blood pressure Asthma Surgical History No history of previous surgery Family History Sister Seizures Sister Diabetes Mother Diabetes Father No problems noted. 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 Review of Systems Const Reports as per HPI Eyes Reports no additional complaints ENT Reports no additional complaints Card Reports as per HPI Resp Reports as per HPI GI Reports no additional complaints Reports as per HPI Neuro Reports no additional complaints Psych Reports no additional complaints Endo Reports no additional complaints Physical Exam Const General: cooperative, comfortable, no acute distress, well developed, alert and awake Nutritional Appearance: obese Orientation/consciousness: patient oriented x3 Limitations: no limitations HEENT Head: Yes normal to inspection, Yes normocephalic and Yes atraumatic Ears: hearing grossly normal bilaterally Eyes General: appearance normal, both eyes and all related structures Neck Neck: Yes normal visual inspection and Yes trachea midline Chest Chest palpation & inspection: normal inspection of the chest Resp Effort & Inspection: able to speak in complete sentences Cardio Rate: regular rate GI Inspection: Yes normal to inspection General: Yes no CVA tenderness Back/Spine/Pelvis Back: no CVA tenderness Skin General skin exam: no rashes or lesions noted Neuro General: patient oriented x3 Extrem General: Yes normal to inspection Psych Appearance: grossly normal and well kempt Mental Status: mental status grossly normal Speech and movement: Clear speech present Affect: normal affect Attitude: cooperative Thought process: Normal thought process present Thought content: Normal thought content present Insight: Fair insight present (Psych) Judgement: Fair judgement present (Psych) Results AMB Urinalysis, Automated UA Leukoctes 0 Aaron/uL Last Edit by ArthaYantra on 01/21/24 10:38 UA Nitrite Last Edit by ArthaYantra on 01/21/24 10:38 UA Urobilinogen 0.2 mg/dL Last Edit by ArthaYantra on 01/21/24 10:38 UA Protein 15 mg/dL Last Edit by ArthaYantra on 01/21/24 10:38 UA pH 7.0 Last Edit by ArthaYantra on 01/21/24 10:38 UA Blood 0 Willard/uL Last Edit by ArthaYantra on 01/21/24 10:38 UA Specific [place] 1.015 Last Edit by ArthaYantra on 01/21/24 10:38 UA Ketone Last Edit by ArthaYantra on 01/21/24 10:38 UA Bilirubin 0 mg/dL Last Edit by ArthaYantra on 01/21/24 10:38 UA Glucose 0 mg/dL Last Edit by ArthaYantra on 01/21/24 10:38 Results Reviewed Results Reviewed: Laboratory Last Values Urine pH (Auto) 7.0 01/21/24 10:18 Specific [place] (Auto) 1.015 01/21/24 10:18 Urine Protein (Auto) 15 mg/dL 01/21/24 10:18 Glucose (UA)(Auto) 0 mg/dL 01/21/24 10:18 Urine Blood (Auto) 0 Willard/uL 01/21/24 10:18 Urine Bilirubin (Auto) 0 mg/dL 01/21/24 10:18 Urine Urobilinogen (Auto) 0.2 mg/dL 01/21/24 10:18 Leukocyte Esterase (Auto) 0 Aaron/uL 01/21/24 10:18 Date of Service: 12/13/23 EXAMINATION: US ABDOMEN COMPLETE FINDINGS: PANCREAS: The pancreas appears unremarkable, without masses or ductal dilatation, with the exception of the tail which is obscured by bowel gas. ABDOMINAL AORTA: The proximal, mid, and distal segments are normal in caliber. INFERIOR VENA CAVA: There is a linear echogenic structure in the IVC of questionable significance which could only be seen in the supine position and not in the decubitus position. I suspect that this is artifactual. No abnormality was seen in the IVC with the patient in the decubitus position. LIVER: The liver is normal in size. The liver contour is normal. There is diffuse increased liver parenchymal echogenicity, consistent with hepatic steatosis. No focal hepatic lesion. There is no intrahepatic biliary duct dilatation seen. GALLBLADDER: The gallbladder is physiologically distended without evidence of stones, sludge, polyps, wall thickening or pericholecystic fluid. COMMON BILE DUCT: Normal in caliber measuring 0.6 cm in diameter. LEFT KIDNEY: There is an echogenic focus in the mid kidney measuring 7 x 6 x 8 mm that is consistent with a nonobstructing calculus seen on the 07/05/2023 CT scan. There is some mild prominence of the collecting system similar to the prior CT but no gross hydronephrosis. No focal parenchymal lesions. The kidney measures 14.1 cm in maximum dimension. RIGHT KIDNEY: Normal. No hydronephrosis. A benign 0.8 cm mid renal Bosniak class I renal cyst is noted which requires no additional imaging or followup. No solid renal masses are seen. No renal calculi. The kidney measures 12.0 cm in maximum dimension. SPLEEN: The spleen is mildly enlarged measuring 12.6 cm in maximum dimension. FREE FLUID: None. IMPRESSION: 1. Hepatic steatosis. 2. Nonobstructing left renal calculus. 3. Mild splenomegaly. Assessment & Plan Assessment & Plan (1) Nephrolithiasis: Comment: HX- Code(s): N20.0 - Calculus of kidney Category: Medical (2) Recurrent UTI: Code(s): N39.0 - Urinary tract infection, site not specified Category: Medical (3) Renal cyst: Code(s): N28.1 - Cyst of kidney, acquired Category: Medical Plan In office urinalysis results reviewed with the patient today; as noted above. Patient denies any bothersome urinary issues or concerns at this time. Patient reports be happy with current voiding parameters. Recent abdominal ultrasound results reviewed with the patient today; as noted above. Discussed at length potential causes of nephrolithiasis and recurrent urinary tract infections. Discussed surveillance monitoring versus surgical intervention of left-sided 7 mm nonobstructing renal calculi Discussed, educated, encouraged on the importance of drinking plenty of water daily. Discussed further nephrolithiasis workup with 24 hour urine collection and labs; however patient declines at this time. Renal ultrasound in 6 months; for surveillance monitoring of nephrolithiasis as well as renal cyst Follow-up in 6 months with imaging to be completed prior; or sooner with any issues, concerns, and or questions. Orders: Orders AMB Urinalysis Automated Today Z13.9 - Encounter for screening, unspecified Patient Instructions: The patient had an opportunity to ask questions regarding the treatment plan. All questions were answered. Physical exam, labs, and imaging were discussed and reviewed in detail. As well as risks, benefits, and discussion of treatment choices. No major barriers to understanding were identified. The patient expressed understanding and agreement with the above treatment plan. The patient was made aware they should contact our office by phone for worsening of their current condition, the appearance of new symptoms, or with any questions or concerns. Compliance is encouraged with any medications and follow up testing that is ordered. It is a privilege to be allowed the opportunity to participate in? your urological care.? Again, if you have any questions or concerns If you have any questions or concerns please do not hesitate to contact me. The office is [phone]. This note is constructed using voice recognition software. While every effort has been made to ensure accuracy talent acquisition operations manager errors may have been included. Yours sincerely, JUSTA Chino Coding Level of Care Code Est Pt Level 3 (10546) Diagnoses Nephrolithiasis N20.0 Recurrent UTI N39.0 Renal cyst N28.1
== END 2024-01-21 11:05 | disposition home or self-care (01) ==
PROVIDERS: PCP Nurse Practitioner Primary Care; Visit Provider Nurse Practitioner Family
DX: N20.0 Calculus of kidney (principal); N39.0 Urinary tract infection, site not specified; N28.1 Cyst of kidney, acquired; Z13.9 Encounter for screening, unspecified
CPT/HCPCS: 99213

== ENCOUNTER → 2024-01-21 10:02 | Outpatient (BNVA) | payer OTHER, SELFPAY | PROVIDERS: PCP Nurse Practitioner Primary Care; Visit Provider Nurse Practitioner Family | DX: N20.0 Calculus of kidney (principal); N39.0 Urinary tract infection, site not specified; N28.1 Cyst of kidney, acquired | CPT/HCPCS: 81003; 99212 ==

== ENCOUNTER → 2024-04-15 07:55 | Outpatient (REF) | payer OTHER, SELFPAY ==
--- NOTE | ~2024-04-15 | NM_ITS ---
EXAMINATION: HI RADIONUCLIDE SOLID FOOD GASTRIC EMPTYING 4-HOUR STUDY CLINICAL INFORMATION: Persistent nausea for 6 months. Worse with eating. COMPARISON: Abdominal ultrasound done on 12/13/2023. TECHNIQUE: A standard meal consisting of 4 oz of Egg Beaters brand tagged with 9:30 microcuries Tc-99m Sulfur Colloid, 8 oz water and 2 slices of toast with jelly was administered orally to the patient. Images were obtained using a dual head gamma camera in the anterior and posterior projections over of the stomach immediately post ingestion and at hourly intervals up to 4 hours post ingestion. The anterior and posterior counts at each time interval were averaged using the geometric mean and expressed as percentage of the immediate post ingestion counts. FINDINGS: There is good visualization of activity in the stomach immediately post ingestion. As the study progresses, there is good clearance of activity from the stomach and visualization of progressively increasing small bowel activity. By the end of the study, there is almost no retention noted in the stomach. Retention in the stomach at each time interval was: 1 hour 74% (normal 37%-90%) 2 hours 52% (normal 30%-60%) 3 hours 29% 4 hours 2% (normal 0%-10%) HI/HI gastric emptying study IMPRESSION: Normal 4-hour solid food gastric emptying study. For solid meal, rapid gastric emptying is less than 30% at 60 minutes. Delayed gastric emptying criteria is more than 60% remaining at 120 minutes or more than 10% at 240 minutes. The 4-hour value is the best discriminator of a normal or abnormal result). Gastric emptying study grading per JNMT Consensus Recommendations in 2008 (https://tech.snmjournals.org/content/36/44) Grade 1 (mild retention): 11-20% at 4h Grade 2 (moderate retention): 21-35% at 4h Grade 3 (severe retention): 36-50% at 4h Grade 4 (very severe retention): >50% retention at 4h
== END ==
LOC: HO.NUCMED 07:55
PROVIDERS: PCP Nurse Practitioner Primary Care; Visit Provider Family Medicine
DX: R10.84 Generalized abdominal pain (principal)
CPT/HCPCS: 78264; A9541

== ENCOUNTER 2024-05-23 07:10 | Emergency (ER) | payer OTHER, SELFPAY ==
--- NOTE | ~2024-05-23 | XR_ITS ---
EXAMINATION: XR CHEST CLINICAL INFORMATION: Cough COMPARISON: Previous chest x-rays with last chest x-ray of 10/29/2023 TECHNIQUE: Frontal view of the chest was obtained. FINDINGS: Cardiomediastinal silhouette is stable and within normal limits for given technique. Pleural widening along the right lateral chest wall with blunting of the right lateral costophrenic sulcus and tenting of the right hemidiaphragm laterally and chronic stable findings. There is stable chronic findings of right lung volume loss. Streaky densities in the right mid lung zone are again noted likely reflecting scarring/chronic atelectasis. No focal consolidation, changes of congestion, left pleural effusion or pneumothorax are seen. XR/XR chest 1V IMPRESSION: No convincing radiographic evidence of pneumonia. Stable chronic findings in the right hemithorax. No acute pulmonary process. Electronically signed by: Sheila Dewitt MD 05/23/2024 08:20 AM EDT
[2024-05-23 07:20] VITALS: BP 143/77; PULSE 88; RESP 20; TEMP 36.4; O2SAT 97; BMI 53.8
[2024-05-23 07:29] VITALS: BP 143/77; PULSE 88; RESP 20; TEMP 36.4; O2SAT 97
[2024-05-23 07:34] VITALS: O2SAT 97
--- NOTE | 2024-05-23 07:38 | PC.NURSE ---
Pt comes to ED today with c/o SOB and productive cough x7 days. States he took COVID tests at home, all negative. Reports Hx of Bronchitis on an annual basis and is usually treated with steroids and Abx. VSS, A&Ox3, and afebrile. Pt sats at 97% RA. CXR completed--results pending.
--- NOTE | 2024-05-23 07:55 | ED.URI ---
HPI - URI/Sore Throat General Chief Complaint: Upper Respiratory Symptoms Stated Complaint: bronchitis Time Seen by Provider: 05/23/24 07:42 Source: patient Mode of arrival: ambulatory Limitations: no limitations History of Present Illness ED Provider: Dr. Otis Mckeon HPI Narrative: 59-year-old male with a history of asthma who presents emergency department for evaluation of cough, chest tightness, headache, hot and cold flashes, shortness of breath x2 days. Patient states he has a cough which is productive of thick yellow sputum with no blood in his sputum. He states he has been using his inhaler and nebulizer frequently with no relief his symptoms. He denied nausea, vomiting, diarrhea, myalgias arthralgias. Related Data Home Medications ?Medication ?Instructions ?Recorded ?Confirmed cholecalciferol (vitamin D3) 50 50 mcg PO DAILY 05/22/22 07/22/23 mcg (2,000 unit) capsule (Vitamin D3) lisinopril 10 mg tablet 10 mg PO DAILY 05/22/22 07/22/23 pravastatin 40 mg tablet 40 mg PO DAILY PRN 05/22/22 07/22/23 sertraline 100 mg tablet 150 mg PO DAILY 04/10/23 07/22/23 sildenafil 100 mg tablet (Viagra) 50 - 100 mg PO DAILY PRN 06/04/23 07/22/23 atorvastatin 20 mg tablet 20 mg PO DAILY 07/22/23 07/22/23 buspirone 10 mg tablet 10 mg PO BID 09/26/23 melatonin 5 mg tablet mg PO 09/26/23 psyllium husk (aspartame) 3.4 gram PO 09/26/23 oral powder packet (Metamucil Fiber Singles) docusate sodium 100 mg capsule 100 mg PO BID 11/21/23 fluticasone propionate 220 inhalation 11/21/23 mcg/actuation HFA aerosol inhaler loratadine 10 mg tablet 10 mg PO DAILY 11/21/23 melatonin 10 mg tablet mg PO BEDTIME 11/21/23 Previous Rx's ?Medication ?Instructions ?Recorded albuterol sulfate 90 mcg/actuation 2 inh inhalation Q4-6H PRN 09/29/22 breath activated powder inhaler shortness of breath or wheezing #1 ea dicyclomine 20 mg tablet 20 mg PO Q8-10H PRN abdominal 09/08/23 pain #20 tabs bisacodyl 10 mg rectal suppository 10 mg UT DAILY PRN constipation 09/26/23 (Dulcolax (bisacodyl)) #20 ea polyethylene glycol 3350 17 17 g PO DAILY #510 grams 09/26/23 gram/dose oral powder (Miralax) sennosides 8.6 mg capsule (senna) 8.6 mg PO DAILY constipation 30 09/26/23 days #30 caps ondansetron 4 mg disintegrating 4 mg PO DAILY #20 tabs 12/18/23 tablet amoxicillin 500 mg capsule 1,000 mg (2 x 500 mg) PO TID 5 05/23/24 days #30 caps doxycycline hyclate 100 mg tablet 100 mg PO Q12H 10 days #20 tabs 05/23/24 prednisone 20 mg tablet 60 mg (3 x 20 mg) PO DAILY 5 days 05/23/24 #15 tabs pyridoxine (vitamin B6) 100 mg 100 mg PO DAILY 90 days #90 tabs 05/25/24 tablet Allergies Allergy/AdvReac Type Severity Reaction Status Date / Time No Known Allergies Allergy Verified 05/23/24 07:21 [No Known Allergies*] Review of Systems Review of Systems: Yes all other systems are reviewed and are negative [facility] Past Medical History [facility] Narrative: Social history: He denies tobacco, alcohol and drug use Medical History High cholesterol Sleep apnea Hyperlipemia High blood pressure Asthma Surgical History No history of previous surgery Family History Family History Sister Seizures Sister Diabetes Mother Diabetes Father No problems noted. Social History Social History Household Members: Spouse Household Members Other:: , pet dog Alcohol intake: former Patient Tobacco Use Status: Former Tobacco user Smoked in Last 30 Days: No Use of substances other than those prescribed or required for medical reasons: No Advance Directives: No Advance Directives Information Provided: No Do you have a plan to hurt others: No Plan Current occupational status: employed Current occupation: [employer] Physical Exam Vital Signs: Vital Signs: Last Vital Signs Temp 97.6 F 05/23/24 08:20 Pulse 78 05/23/24 08:20 Resp 20 05/23/24 08:20 BP 147/68 H 05/23/24 08:20 Pulse Ox 97 05/23/24 08:20 O2 Del Method Room Air 05/23/24 08:20 BMI result Body Mass Index 53.8 Vital signs revealed an elevated blood pressure of 147/68 and an elevated respiratory rate of 20, otherwise unremarkable Exam: General: Awake, alert in no distress Head: Normocephalic, atraumatic EENT: PERRL, Lids normal, sclera normal, conjunctiva normal, nose normal , ears normal, throat without erythema or exudates Neck: Supple, no adenopathy Lung: breath sounds symmetric, no wheezing, rales or rhonchi Chest: symmetric movement, nontender Heart: regular rate and rhythm, normal S1, S2 no murmurs or rubs Abdomen: soft, non-tender, nondistended, normal bowel sounds Back: no vertebral tenderness, no CVAT Extremities: no deformities, moves all extremities symmetrically Neuro: Awake, alert, oriented, normal speech, cranial nerves intact, moves all extremities symmetrically Psych: Pleasant, cooperative Medications Administered Discontinued Medications Generic Name Dose Route Start Last Admin Trade Name Freq PRN Reason Stop Dose Admin Amoxicillin 1,000 mg 05/23/24 07:58 05/23/24 08:18 Amoxicillin 500 Mg Capsule PO 05/23/24 07:59 1,000 mg ONCE ONE Administration Doxycycline Monohydrate 100 mg 05/23/24 07:58 05/23/24 08:18 Doxycycline Monohydrate 100 Mg Capsule PO 05/23/24 07:59 100 mg ONCE ONE Administration Medical Decision Making Medical Decision Making [facility] Narrative: 59-year-old male with a history of asthma who presents emergency department for evaluation of cough, chest tightness, headache, hot and cold flashes, shortness of breath x2 days. Patient states he has a cough which is productive of thick yellow sputum with no blood in his sputum. He states he has been using his inhaler and nebulizer frequently with no relief his symptoms. He denied nausea, vomiting, diarrhea, myalgias arthralgias. Patient's vital signs revealed an elevated blood pressure otherwise unremarkable. Physical examination was unremarkable. Differential diagnosis: ?Includes but is not limited to acute bronchitis, pneumonia, asthma exacerbation, COVID-19, RSV, influenza Following evaluation was ordered: Chest x-ray one view, COVID-19, RSV, influenza Patient was initially treated with the following: Amoxicillin 1000 mg orally, doxycycline 100 mg orally Course: Patient's chest x-ray did reveal an elevated right hemidiaphragm with a very subtle right lower lobe infiltrate. Given the patient's present rotation and symptoms I suspect the patient has an early pneumonia and I did discuss this with him. Patient was started on amoxicillin 1000 mg 3 times a day for 5 days and doxycycline 100 mg 3 times a day for 5 days. He was given printed and verbal instructions and discharged home. Lab Data MDM Lab Attestation statement: I reviewed the patient's lab results. My interpretation patient's laboratory evaluation is as follows: COVID-19, influenza and RSV were negative Labs: Lab Results 05/23/24 Range/Units 07:47 Influenza Type A (PCR) NEGATIVE (Negative) Influenza Type B (PCR) NEGATIVE (Negative) RSV RNA Qual (PCR) NEGATIVE (Negative) SARS-CoV-2 RNA (RT-PCR) NEGATIVE (Negative) Independent Interpretation I performed an independent interpretation of an: Plain X-Ray Interpretation: My independent interpretation of the patient's one-view chest x-ray is as follows, elevated right hemidiaphragm which is chronic, patient has a subtle right lower lobe infiltrate Radiology Impression Discussion of test interpretation with radiology: I have reviewed the radiologist's reading. Radiologist Impression: XR chest 1V IMPRESSION: No convincing radiographic evidence of pneumonia. Stable chronic findings in the right hemithorax. No acute pulmonary process. Electronically signed by: Sheila Dewitt MD 05/23/2024 08:20 AM EDT Dictated By: Sheila Dewitt MD Prescription Management I considered prescription management with: Antibiotic (Amoxicillin and doxycycline) Chronic Conditions Patient?s care impacted by: Other (Asthma) Discharge Plan Discharge Clinical Impression: Pneumonia Patient Disposition: Home, Self-Care Instructions: Community Acquired Pneumonia (ED) Additional Instructions: Your symptoms and chest x-ray are consistent with pneumonia. Take amoxicillin 500 mg pills, 2 pills, every 6 hours (3 times a day) for 5 days. Take doxycycline 100 mg, 1 pill every 12 hours for 7 days Take prednisone 20 mg pills, 3 pills once a day for 5 days. While you ?are taking prednisone, do not take any NSAIDs (Motrin, Advil, ibuprofen, Aleve, naproxen). Continue to use your inhalers and nebulizer machine as prescribed by your provider. Take Tylenol (acetaminophen) 500 mg pills, 2 pills every 6 hours as needed for pain or fever. Follow-up with your doctor in 2 days. Please return to the emergency department if your symptoms get worse or if you develop any symptoms that are concerning to you. I will call you with your COVID-19, RSV and influenza results. Prescriptions: New amoxicillin 500 mg capsule 1,000 mg PO TID 5 Days Qty: 30 0RF prednisone 20 mg tablet 60 mg PO DAILY 5 Days Qty: 15 0RF doxycycline hyclate 100 mg tablet 100 mg PO Q12H 10 Days Qty: 20 0RF No Action ondansetron 4 mg tablet,disintegrating 4 mg PO DAILY Qty: 20 0RF pyridoxine (vitamin B6) 100 mg tablet 100 mg PO DAILY 90 Days Qty: 90 1RF albuterol sulfate 90 mcg/actuation aerosol powdr breath activated 2 inh inhalation Q4-6H PRN (Reason: shortness of breath or wheezing) Qty: 1 0RF dicyclomine 20 mg tablet 20 mg PO Q8-10H PRN (Reason: abdominal pain) Qty: 20 0RF cholecalciferol (vitamin D3) [Vitamin D3] 50 mcg (2,000 unit) capsule 50 mcg PO DAILY lisinopril 10 mg tablet 10 mg PO DAILY pravastatin 40 mg tablet 40 mg PO DAILY PRN sildenafil [Viagra] 100 mg tablet 50 - 100 mg PO DAILY PRN atorvastatin 20 mg tablet 20 mg PO DAILY buspirone 10 mg tablet 10 mg PO BID melatonin 5 mg tablet PO Metamucil Fiber Singles 3.4 gram powder in packet PO bisacodyl [Dulcolax (bisacodyl)] 10 mg suppository 10 mg UT DAILY PRN (Reason: constipation) Qty: 20 0RF polyethylene glycol 3350 [Miralax] 17 gram/dose powder 17 g PO DAILY Qty: 510 6RF senna 8.6 mg capsule 8.6 mg PO DAILY 30 Days Qty: 30 1RF fluticasone propionate 220 mcg/actuation HFA aerosol inhaler inhalation melatonin 10 mg tablet PO BEDTIME loratadine 10 mg tablet 10 mg PO DAILY docusate sodium 100 mg capsule 100 mg PO BID sertraline 100 mg tablet 150 mg PO DAILY Interventions: ED Discharge Assessment Last Done: 05/23/24 08:20 Discharge Date/Time: 05/23/24 08:22 Print Language: Kiswahili
[2024-05-23] MEDS: Amoxicillin 500 MG CAPSULE 1000 MG PO (08:18)
[2024-05-23] MEDS: Doxycycline Monohydrate 100 MG CAPSULE PO (08:18)
[2024-05-23 08:20] VITALS: BP 147/68; PULSE 78; RESP 20; TEMP 36.4; O2SAT 97
[2024-05-23 08:28] LABS: Influenza A PCR NEGATIVE (Negative); Influenza B PCR NEGATIVE (Negative); Resp Syncy Virus RNA Qual PCR NEGATIVE (Negative); SARS COV2 PCR INHOUSE NEGATIVE (Negative)
== END 2024-05-23 08:22 | disposition home or self-care (01) ==
LOC: HO.ED 08:08
PROVIDERS: Emergency Provider Emergency Medicine Emergency Medical Services; PCP Nurse Practitioner Primary Care
DX: J18.9 Pneumonia, unspecified organism (principal); Z03.818 Encounter for observation for suspected exposure to other biological agents ruled out; J45.909 Unspecified asthma, uncomplicated; E78.5 Hyperlipidemia, unspecified; Z87.891 Personal history of nicotine dependence
CPT/HCPCS: 0241U; 71045; 99283; 99284

== ENCOUNTER 2024-07-17 12:19 | Outpatient (REF) | payer OTHER, SELFPAY | END 2024-07-17 12:20 | disposition home or self-care (01) | LOC: HO.US 12:19 | PROVIDERS: PCP Nurse Practitioner Primary Care; Visit Provider Nurse Practitioner Family | DX: N20.0 Calculus of kidney (principal) | CPT/HCPCS: 76775 ==

== ENCOUNTER 2024-07-20 14:09 | Outpatient (REF) | payer OTHER, SELFPAY ==
--- NOTE | ~2024-07-20 | XR_ITS ---
EXAMINATION: XR KNEE, RIGHT CLINICAL INFORMATION: Right knee pain. COMPARISON: Right knee radiographs dated 12/18/2016. TECHNIQUE: AP, oblique, and lateral views of the right knee. FINDINGS: No acute fracture or dislocation. Moderate tricompartmental joint space narrowing with marginal osteophytes. No osseous erosion. No abnormal soft tissue calcification. Moderate joint effusion. Loose body within the popliteal tendon sheath measuring up to 1.1 cm. XR/XR knee RT 2V IMPRESSION: Moderate tricompartmental osteoarthritis, progressed when compared to the prior radiographs. Moderate joint effusion. Loose body within the popliteal tendon sheath measuring up to 1.1 cm. Electronically signed by: Ayden Hare MD 07/20/2024 04:00 PM [facility]
== END 2024-07-20 14:10 | disposition home or self-care (01) ==
LOC: HO.HHCX 14:09
PROVIDERS: Visit Provider Nurse Practitioner Primary Care
DX: M17.11 Unilateral primary osteoarthritis, right knee (principal)
CPT/HCPCS: 73560

== ENCOUNTER 2024-08-02 20:31 | Emergency (ER) | payer OTHER, SELFPAY ==
[2024-08-02 20:35] VITALS: BP 144/90; BP 152/82; PULSE 81; PULSE 82; RESP 18; TEMP 36.6; O2SAT 98; O2SAT 99; BMI 54.0
[2024-08-02 20:45] VITALS: BP 109/59; PULSE 78; RESP 16; TEMP 36.8; O2SAT 98
[2024-08-02] MEDS: Lidocaine HCl 1%/Epi 1:100,000 10 ML VIAL INFILTRATI (21:01)
--- NOTE | 2024-08-02 21:22 | ED.WOUNDLAC ---
HPI - Wound/Laceration General Chief Complaint: Wound/Laceration Stated Complaint: laceration to RUQ Time Seen by Provider: 08/02/24 20:47 Source: patient Limitations: no limitations History of Present Illness ED Provider: Lindsey Snell PA-C HPI narrative: 59-year-old man presents with laceration. Patient states he was attempting to cut an apple, he was holding the fruit against his abdomen, the knife slipped and he lacerated the skin. Wound not bleeding, tetanus is up-to-date. Related Data Home Medications ?Medication ?Instructions ?Recorded ?Confirmed cholecalciferol (vitamin D3) 50 50 mcg PO DAILY 05/22/22 07/22/23 mcg (2,000 unit) capsule (Vitamin D3) lisinopril 10 mg tablet 10 mg PO DAILY 05/22/22 07/22/23 pravastatin 40 mg tablet 40 mg PO DAILY PRN 05/22/22 07/22/23 sertraline 100 mg tablet 150 mg PO DAILY 04/10/23 07/22/23 sildenafil 100 mg tablet (Viagra) 50 - 100 mg PO DAILY PRN 06/04/23 07/22/23 atorvastatin 20 mg tablet 20 mg PO DAILY 07/22/23 07/22/23 buspirone 10 mg tablet 10 mg PO BID 09/26/23 melatonin 5 mg tablet mg PO 09/26/23 psyllium husk (aspartame) 3.4 gram PO 09/26/23 oral powder packet (Metamucil Fiber Singles) docusate sodium 100 mg capsule 100 mg PO BID 11/21/23 fluticasone propionate 220 inhalation 11/21/23 mcg/actuation HFA aerosol inhaler loratadine 10 mg tablet 10 mg PO DAILY 11/21/23 melatonin 10 mg tablet mg PO BEDTIME 11/21/23 Previous Rx's ?Medication ?Instructions ?Recorded albuterol sulfate 90 mcg/actuation 2 inh inhalation Q4-6H PRN 09/29/22 breath activated powder inhaler shortness of breath or wheezing #1 ea dicyclomine 20 mg tablet 20 mg PO Q8-10H PRN abdominal 09/08/23 pain #20 tabs bisacodyl 10 mg rectal suppository 10 mg IA DAILY PRN constipation 09/26/23 (Dulcolax (bisacodyl)) #20 ea polyethylene glycol 3350 17 17 g PO DAILY #510 grams 09/26/23 gram/dose oral powder (Miralax) sennosides 8.6 mg capsule (senna) 8.6 mg PO DAILY constipation 30 09/26/23 days #30 caps ondansetron 4 mg disintegrating 4 mg PO DAILY #20 tabs 12/18/23 tablet amoxicillin 500 mg capsule 1,000 mg (2 x 500 mg) PO TID 5 05/23/24 days #30 caps doxycycline hyclate 100 mg tablet 100 mg PO Q12H 10 days #20 tabs 05/23/24 prednisone 20 mg tablet 60 mg (3 x 20 mg) PO DAILY 5 days 05/23/24 #15 tabs pyridoxine (vitamin B6) 100 mg 100 mg PO DAILY 90 days #90 tabs 06/17/24 tablet Allergies Allergy/AdvReac Type Severity Reaction Status Date / Time No Known Allergies Allergy Verified 08/02/24 20:40 [No Known Allergies*] Review of Systems Review of Systems: Yes all other systems are reviewed and are negative Constitutional: Constitutional: Denies fatigue and Denies fever(s) Endocrine: Endocrine: Denies fatigue [facility] Past Medical History Attestation statement: The following information was validated with the patient. Medical History High cholesterol Sleep apnea Hyperlipemia High blood pressure Asthma Surgical History No history of previous surgery Family History Family History Sister Seizures Sister Diabetes Mother Diabetes Father No problems noted. Social History Social History Household Members: Spouse Household Members Other:: , pet dog Alcohol intake: former Patient Tobacco Use Status: Former Tobacco user Smoked in Last 30 Days: No Use of substances other than those prescribed or required for medical reasons: No Advance Directives: No Advance Directives Information Provided: No Do you have a plan to hurt others: No Plan Current occupational status: employed Current occupation: [employer] Physical Exam Vital Signs: Vital Signs: Last Vital Signs Temp 98.3 F 08/02/24 20:45 Pulse 78 08/02/24 20:45 Resp 16 08/02/24 20:45 BP 109/59 L 08/02/24 20:45 Pulse Ox 98 08/02/24 20:45 O2 Del Method Room Air 08/02/24 20:45 BMI result Body Mass Index 54.0 Const: Other: Alert, well-appearing Orientation/consciousness: patient oriented x3 Resp: Other: Nonlabored respiration Cardio: Other: Normal peripheral perfusion Skin: Other: 3 cm linear superficial laceration noted over left upper abdominal wall, not bleeding Neuro: General: patient oriented x3, no focal motor deficits and CN's II-XI intact bilaterally Psych: Other: Calm cooperative Medications Administered Discontinued Medications Generic Name Dose Route Start Last Admin Trade Name Freq PRN Reason Stop Dose Admin Lidocaine/Epinephrine 10 ml 08/02/24 20:54 08/02/24 21:01 Lidocaine Hcl 1%/Epi 1:100,000 10 Ml Vial INFILTRATI 08/02/24 20:55 10 ml ONCE ONE Administration Medical Decision Making Medical Decision Making MDM Narrative: 59-year-old man presents with laceration. Patient states he was attempting to cut an apple, he was holding the fruit against his abdomen, the knife slipped and he lacerated the skin. Wound not bleeding, tetanus is up-to-date. No relevant chronic issues History: Per patient I have considered the following differential diagnoses: Laceration, puncture wound, abrasion, contusion Plan: Laceration will require simple repair no indication for labs or imaging Procedures Laceration Laceration 1: Site: other (Abdomen) Side (If applicable): left Size (cm): 3 Description: linear and clean Depth: simple, single layer Local Anesthetic: lidocaine 1% and with epi Amount of anesthesia used (mL): 5 Pre-repair: irrigated extensively Skin layer closed with: nylon Size (cm): 3-0 Number of sutures: 6 Technique: simple, interrupted Discharge Plan Discharge Clinical Impression: Laceration of abdominal wall Patient Disposition: Home, Self-Care Instructions: Laceration (ED) Additional Instructions: The laceration was repaired with 6 stitches. They can be removed in 7 days, you can return to the emergency department to do so. Keep the area clean and dry, do not go in a pool, hot tub or sit in a tub. You can shower normally. Watch for signs of infection which would include redness, swelling or pus draining from the site or fever. Prescriptions: No Action ondansetron 4 mg tablet,disintegrating 4 mg PO DAILY Qty: 20 0RF pyridoxine (vitamin B6) 100 mg tablet 100 mg PO DAILY 90 Days Qty: 90 1RF albuterol sulfate 90 mcg/actuation aerosol powdr breath activated 2 inh inhalation Q4-6H PRN (Reason: shortness of breath or wheezing) Qty: 1 0RF dicyclomine 20 mg tablet 20 mg PO Q8-10H PRN (Reason: abdominal pain) Qty: 20 0RF amoxicillin 500 mg capsule 1,000 mg PO TID 5 Days Qty: 30 0RF prednisone 20 mg tablet 60 mg PO DAILY 5 Days Qty: 15 0RF doxycycline hyclate 100 mg tablet 100 mg PO Q12H 10 Days Qty: 20 0RF cholecalciferol (vitamin D3) [Vitamin D3] 50 mcg (2,000 unit) capsule 50 mcg PO DAILY lisinopril 10 mg tablet 10 mg PO DAILY pravastatin 40 mg tablet 40 mg PO DAILY PRN sildenafil [Viagra] 100 mg tablet 50 - 100 mg PO DAILY PRN atorvastatin 20 mg tablet 20 mg PO DAILY buspirone 10 mg tablet 10 mg PO BID melatonin 5 mg tablet PO Metamucil Fiber Singles 3.4 gram powder in packet PO bisacodyl [Dulcolax (bisacodyl)] 10 mg suppository 10 mg IA DAILY PRN (Reason: constipation) Qty: 20 0RF polyethylene glycol 3350 [Miralax] 17 gram/dose powder 17 g PO DAILY Qty: 510 6RF senna 8.6 mg capsule 8.6 mg PO DAILY 30 Days Qty: 30 1RF fluticasone propionate 220 mcg/actuation HFA aerosol inhaler inhalation melatonin 10 mg tablet PO BEDTIME loratadine 10 mg tablet 10 mg PO DAILY docusate sodium 100 mg capsule 100 mg PO BID sertraline 100 mg tablet 150 mg PO DAILY Print Language: Irish
[2024-08-02 21:40] VITALS: BP 109/59; PULSE 78; RESP 16; TEMP 36.8; O2SAT 98
== END 2024-08-02 21:41 | disposition home or self-care (01) ==
PROVIDERS: Emergency Provider Emergency Medicine Emergency Medical Services; PCP Nurse Practitioner Primary Care
DX: S31.110A Laceration without foreign body of abdominal wall, right upper quadrant without penetration into peritoneal cavity, initial encounter (principal); W26.0XXA Contact with knife, initial encounter; Y93.89 Activity, other specified; Y92.89 Other specified places as the place of occurrence of the external cause; Y99.8 Other external cause status
CPT/HCPCS: 12032; 99284; J2004

== ENCOUNTER 2024-10-08 09:29 | Outpatient (REF) | payer OTHER, SELFPAY ==
--- NOTE | ~2024-10-08 | XR_ITS ---
EXAMINATION: XR CHEST CLINICAL INFORMATION: 1-week duration of cough and congestion. COMPARISON: 05/23/2024, 10/29/2023. TECHNIQUE: 2 views of the chest were obtained. FINDINGS: The cardiac, hilar, and mediastinal contours are normal. Mild prominence of the aortic root is likely from mild right rotation. Lungs demonstrate stable parenchymal scarring and pleural thickening/calcification in the right hemithorax with mild volume loss. This has a stable appearance from multiple prior radiographs. The left lung is clear. No new definite effusions or pneumothoraces. There is no focal osseous or soft tissue abnormality. Mild spinal degenerative changes. XR/XR chest 2V IMPRESSION: No active pulmonary disease. Chronic findings right lung and pleural without significant interval change. Electronically signed by: Eliazar Pace MD 10/08/2024 10:14 AM [facility]
== END 2024-10-08 09:30 | disposition home or self-care (01) ==
LOC: HO.HHCX 09:29
PROVIDERS: Visit Provider Family Medicine
DX: J06.9 Acute upper respiratory infection, unspecified (principal)
CPT/HCPCS: 71046

== ENCOUNTER → 2024-10-08 09:29 | Outpatient (BNV) | payer OTHER, SELFPAY | PROVIDERS: Visit Provider Radiology Diagnostic Radiology | DX: R05.9 Cough, unspecified (principal); R09.89 Other specified symptoms and signs involving the circulatory and respiratory systems | CPT/HCPCS: 71046 ==

== ENCOUNTER 2024-11-26 13:40 | Outpatient (REF) | payer OTHER, SELFPAY ==
--- NOTE | ~2024-11-26 | XR_ITS ---
EXAMINATION: XR LUMBOSACRAL SPINE CLINICAL INFORMATION: worsening L lower leg pain COMPARISON: 09/30/2019. TECHNIQUE: Three views of the lumbosacral spine. FINDINGS: Study somewhat limited by patient habitus. No scoliosis. Mild straightening of the normal lordosis. No fracture, compression deformity, or suspicious bone lesion. There is a minimal degenerative type retrolisthesis of L1 on L2. There is a trace degenerative anterolisthesis of L3 on L4. Severe multilevel disc degeneration is present with relative sparing of L3-4. There is associated disc osteophytic spurring. There is normal facet alignment. There are multilevel degenerative facet changes, most notable L3-S1. Sacrum and SI joints appear normal. No discrete soft tissue abnormality. XR/XR lumbar spine 2-3V IMPRESSION: 1. Moderate to advanced multilevel spondylosis. No acute findings. Electronically signed by: Eliazar aPce MD 11/27/2024 08:23 AM EDT
--- NOTE | ~2024-11-26 | US_ITS ---
EXAMINATION: US LOWER EXTREMITY VEINS LIMITED FOLLOW UP LEFT HISTORY: Left lower leg swelling and pain, r/o DVT COMPARISON: There are no prior studies for comparison. TECHNIQUE: Duplex and color Doppler sonographic examination of the deep venous system of the left lower extremity was performed. FINDINGS: The common femoral, superficial femoral, and popliteal veins are patent demonstrating normal compressibility, spontaneous flow, and augmentation. There is a normal color and spectral Doppler waveform appearance of the visualized deep venous system above the knee. The posterior tibial veins are patent. The peroneal veins are not well visualized. US/US venous duplex LE LT IMPRESSION: No evidence of acute DVT in the left lower extremity. Electronically signed by: Ian Angela MD 11/26/2024 02:46 PM EDT
--- OUTSIDE RECORDS SUMMARY | 2024-11-26 17:16 | XMS_ITS | Data Portability ---
Author Organization [facility], Or in - N(i)² Address [address] [place] [address] Care Team Providers Care System Operation Superintendent Name Role Phone [facility] Referring Provider [facility] Referring Provider Assessment Encounter Date Assessment Date Assessment LastModified by Organization Details LastModified Time 01/21/2023 01/21/2023 Mr. Hiram Castro is a 57yoM who is seen today for further evaluation of dysuria. Mr. Castro reports that he was diagnosed with a UTI in December (chart review 01/06) and given a 3 day course of bactrim, which he completed. He states that he has had ongoing dysuria, suprapubic pressure/pain , and frequency that has not resolved. He endorses mild b/l flank pain but denies fevers, nausea/vomiti ng, or any other concerns. VSS. Field Case Manager on site reports mild b/l flank pain. Urine dip with + LE, + blood. Review of chart shows culture with + e.coli most sensitive to bactrim. Will trial longer course of bactrim and reculture. Encouraged patient to f/u with PCP to ensure improvement. Primary team, Mr. Castro would benefit from f/u in the next 7-10 days to make sure he's improving. [email or web address] Not available 01/21/2023 17:42:41 Plan of Treatment Reminders Order Date Submit Date Provider Last Modified By Organization Details Last Modified Time Details Appointments None recorded. Lab culture, urine - clean catch urine 2022 023 KIMMIE [facility] (Centralized Electronic Ordering - All Locations), Patient Can Go To The Location Of Their Choice, [id number] 08:07:30 Referral None recorded. Procedures None recorded. Surgeries None recorded. Imaging None recorded. Medication Orders ketorolac 15 mg/mL injection solution 2023 024 [facility], [address], [place], [id number], 4 15:43:09 cyclobenzap rine 5 mg tablet 2023 024 [facility], [address], [place], [id number], 4 17:25:27 diclofenac 1 % topical gel 2023 024 [facility], [address], [place], [id number], 4 17:25:27 Bactrim DS 800 mg-160 mg tablet 2022 023 [facility], [address] [place] [address], [id number], 3 17:51:28 Patient TargetsNo targets recorded. Patient InstructionsNo instructions recorded. Reason for Referral None Reported. Results Created Date Observation Date Name Description Value Unit Range Abnormal Flag Note LastModifiedBy Organization Detail LastModifiedTime 01/22/2001/22/2023 URINE CULTU RE specimen description URINE Not Available [facility] (Centralized Electronic Ordering - All Locations) Patient Can Go To The Location Of Their Choice, 01/24/2023 08:07:30 01/22/2001/22/2023 URINE CULTU RE special requests NONE Not Available [facility] (Centralized Electronic Ordering - All Locations) Patient Can Go To The Location Of Their Choice, 01/24/2023 08:07:30 01/22/2001/24/2023 URINE CULTU RE culture abnormal 10-50 ,000 COL/M L ESCHE REUBEN A COLI This isola te was ident ified using Maldi -TOF syste m These AST resul ts were perfo rmed on the Micro scan ID and AST syste m Not Available [facility] (Centralized Electronic Ordering - All Locations) Patient Can Go To The Location Of Their Choice, 01/24/2023 08:07:30 01/22/2001/24/2023 URINE CULTU RE report status FINAL 2022 Not Available [facility] (Centralized Electronic Ordering - All Locations) Patient Can Go To The Location Of Their Choice, 01/24/2023 08:07:30 01/22/2001/24/2023 URINE CULTU RE organism ORGAN ISM 10-50 ,000 COL/M L ESCHE REUBEN A COLI This isola te was ident ified using Maldi -TOF syste m These AST resul ts were perfo rmed on the Micro scan ID and AST syste m Not Available [facility] (Centralized Electronic Ordering - All Locations) Patient Can Go To The Location Of Their Choice, 01/24/2023 08:07:30 01/22/2001/24/2023 URINE CULTU RE method METHOD MIN. INHIB. CONC. (MCG/M L) Not Available [facility] (Centralized Electronic Ordering - All Locations) Patient Can Go To The Location Of Their Choice, 01/24/2023 08:07:30 01/22/2001/24/2023 URINE CULTU RE ampicillin AMPICI LLIN SUSCEP TIBLE susceptib le Not Available [facility] (Centralized Electronic Ordering - All Locations) Patient Can Go To The Location Of Their Choice, 01/24/2023 08:07:30 01/22/2001/24/2023 URINE CULTU RE ampicillin/s ulbactam AMPICI LLIN/S ULBACT AM SUSCEP TIBLE susceptib le Not Available [facility] (Centralized Electronic Ordering - All Locations) Patient Can Go To The Location Of Their Choice, 01/24/2023 08:07:30 01/22/2001/24/2023 URINE CULTU RE amoxicillin/ clavulanic acid AMOXIC ILLIN/ CLAVUL AN SUSCEP TIBLE susceptib le Not Available [facility] (Centralized Electronic Ordering - All Locations) Patient Can Go To The Location Of Their Choice, 01/24/2023 08:07:30 01/22/2001/24/2023 URINE CULTU RE cefazolin CEFAZO ENEIDA SUSCEP TIBLE susceptib le Not Available [facility] (Centralized Electronic Ordering - All Locations) Patient Can Go To The Location Of Their Choice, 01/24/2023 08:07:30 01/22/20 01/24/2023 URINE CULTU RE cefepime CEFEPI ME SUSCEP TIBLE susceptib le Not Available [facility] (Centralized Electronic Ordering - All Locations) Patient Can Go To The Location Of Their Choice, 01/24/2023 08:07:30 01/22/2001/24/2023 URINE CULTU RE ceftriaxone CEFTRI AXONE SUSCEP TIBLE susceptib le Not Available [facility] (Centralized Electronic Ordering - All Locations) Patient Can Go To The Location Of Their Choice, 01/24/2023 08:07:30 01/22/2001/24/2023 URINE CULTU RE ciprofloxaci n CIPROF LOXACI N SUSCEP TIBLE susceptib le Not Available [facility] (Centralized Electronic Ordering - All Locations) Patient Can Go To The Location Of Their Choice, 01/24/2023 08:07:30 01/22/2001/24/2023 URINE CULTU RE ertapenem ERTAPE NEM SUSCEP TIBLE susceptib le Not Available [facility] (Centralized Electronic Ordering - All Locations) Patient Can Go To The Location Of Their Choice, 01/24/2023 08:07:30 01/22/2001/24/2023 URINE CULTU RE gentamicin GENTAM ICIN SUSCEP TIBLE susceptib le Not Available [facility] (Centralized Electronic Ordering - All Locations) Patient Can Go To The Location Of Their Choice, 01/24/2023 08:07:30 01/22/2001/24/2023 URINE CULTU RE levofloxacin LEVOFL OXACIN SUSCEP TIBLE susceptib le Not Available [facility] (Centralized Electronic Ordering - All Locations) Patient Can Go To The Location Of Their Choice, 01/24/2023 08:07:30 01/22/2001/24/2023 URINE CULTU RE meropenem MEROPE NEM SUSCEP TIBLE susceptib le Not Available [facility] (Centralized Electronic Ordering - All Locations) Patient Can Go To The Location Of Their Choice, 01/24/2023 08:07:30 01/22/2001/24/2023 URINE CULTU RE nitrofuranto in NITROF URANTO IN SUSCEP TIBLE susceptib le Not Available [facility] (Centralized Electronic Ordering - All Locations) Patient Can Go To The Location Of Their Choice, 01/24/2023 08:07:30 01/22/2001/24/2023 URINE CULTU RE piperacillin /tazobactam PIPERA CILLIN /TAZOB AC SUSCEP TIBLE susceptib le Not Available [facility] (Centralized Electronic Ordering - All Locations) Patient Can Go To The Location Of Their Choice, 01/24/2023 08:07:30 01/22/2001/24/2023 URINE CULTU RE trimeth/sulf amethox TRIMET H/SULF AMETHO X SUSCEP TIBLE susceptib le Not Available [facility] (Centralized Electronic Ordering - All Locations) Patient Can Go To The Location Of Their Choice, 01/24/2023 08:07:30 01/22/2001/24/2023 URINE CULTU RE tetracycline TETRAC YCLINE SUSCEP TIBLE susceptib le Not Available [facility] (Centralized Electronic Ordering - All Locations) Patient Can Go To The Location Of Their Choice, 01/24/2023 08:07:30 Result Notes None recorded. Medical Equipment None Reported. Medications Name Sig Start Date Stop Date Status Note LastModified by Organization Details LastModified Time ketorolac 15 mg/mL injection solution 15 mgIM x1 now 2023 active Not Available Not Available Not Avai lable amoxicillin 500 mg capsule TAKE 1 CAPSULE BY MOUTH 3 TIMES A DAY FOR 4 DAYS active Not Available Not Available N ot Available buspirone 5 mg tablet TAKE 1 TABLET BY MOUTH TWICE DAILY NEEDED FOR ANXIETY active Not Available Not Available No t Available cefuroxime axetil 250 mg tablet TAKE 1 TABLET BY MOUTH TWICE A DAY active Not Available Not Available No t Available atorvastatin 20 mg tablet TAKE 1 TABLET BY MOUTH ONCE DAILY DIRECTED. active Not Available Not Available No t Available albuterol sulfate 2.5 mg/3 mL (0.083 %) solution for nebulization INHALE 1 AMPULE USING A NEBULIZER THREE TIMES DAILY active Not Available Not Available No t Available trazodone 50 mg tablet TAKE 1 TABLET BY MOUTH AT BEDTIME active Not Available Not Available No t Available azithromycin 250 mg tablet TAKE 2 TABLETS BY MOUTH ON DAY 1, THEN TAKE 1 TABLET DAILY ON DAYS 2-5 active Not Available Not Available No t Available pravastatin 40 mg tablet TAKE 1 TABLET BY MOUTH AT BEDTIME active Not Available Not Available No t Available senna 8.6 mg tablet TAKE 1 TABLET BY MOUTH EVERY DAY FOR CONSTIPATIO N active Not Available Not Available No t Available prednisone 20 mg tablet TAKE 2 TABLETS BY MOUTH EVERY MORNING FOR 5 DAYS active Not Available Not Available No t Available sertraline 100 mg tablet TAKE 2 TABLETS BY MOUTH EVERY DAY active Not Available Not Available No t Available ciprofloxaci n 250 mg tablet TAKE 1 TABLET BY MOUTH TWICE DAILY FOR 5 DAYS active Not Available Not Available No t Available sulfamethoxa zole 800 mg-trimethop rim 160 mg tablet TAKE 1 TABLET BY MOUTH EVERY TWELVE HOURS FOR 10 DAYS active Not Available Not Available No t Available acetaminophe n 500 mg tablet TAKE 2 TABLETS BY MOUTH THREE TIMES A DAY NEEDED FOR PAIN active Not Available Not Available No t Available dicyclomine 20 mg tablet TAKE 1 TABLET ORALLY EVERY 8 TO 10 HOURS NEEDED FOR ABDOMINAL PAIN active Not Available Not Available No t Available Proctozone-H C 2.5 % topical cream perineal applicator APPLY RECTALLY TWICE DAILY DIRECTED FOR UP TO 7 DAYS active Not Available Not Available No t Available bisacodyl 10 mg rectal suppository INSERT 1 SUPPOSITORY RECTALLY DAILY NEEDED FOR CONSTIPATIO N active Not Available Not Available No t Available pantoprazole 40 mg tablet,delay ed release TAKE 1 TABLET BY MOUTH EVERY MORNING active Not Available Not Available No t Available buspirone 10 mg tablet TAKE 1 TABLET BY MOUTH TWICE DAILY NEEDED FOR ANXIETY active Not Available Not Available No t Available clotrimazole -betamethaso ne 1 %-0.05 % topical cream APPLY TO THE AFFECTED AREA(S) EVERY TWELVE HOURS active Not Available Not Available No t Available lisinopril 10 mg tablet TAKE 1 TABLET BY MOUTH EVERY DAY active Not Available Not Available No t Available prednisone 50 mg tablet TAKE 1 TABLET BY MOUTH EVERY DAY active Not Available Not Available No t Available ibuprofen 200 mg tablet TAKE 2 TABLETS BY MOUTH EVERY 8 HOURS NEEDED FOR PAIN active Not Available Not Available No t Available docusate sodium 100 mg capsule TAKE 1 CAPSULE BY MOUTH TWICE DAILY active Not Available Not Available No t Available sertraline 25 mg tablet TAKE 1 TABLET BY MOUTH EVERY DAY active Not Available Not Available No t Available Banophen 25 mg capsule TAKE 2 CAPSULES BY MOUTH EVERY 4 TO 6 HOURS NEEDED FOR ITCHING active Not Available Not Available No t Available pyridoxine (vitamin B6) 100 mg tablet TAKE 1 TABLET BY MOUTH EVERY DAY active Not Available Not Available No t Available gabapentin 100 mg capsule TAKE 2 CAPSULES BY MOUTH THREE TIMES DAILY active Not Available Not Available Not Available nystatin 100,000 unit/gram topical powder APPLY TO THE AFFECTED AREA(S) TOPICALLY TWICE DAILY active Not Available Not Available Not Available Viagra 100 mg tablet TAKE 1/2 TO 1 TABLET BY MOUTH EVERY DAY NEEDED active Not Available Not Available No t Available sertraline 50 mg tablet TAKE 1 TABLET BY MOUTH EVERY DAY active Not Available Not Available No t Available loratadine 10 mg tablet TAKE 1 TABLET BY MOUTH EVERY DAY NEEDED active Not Available Not Available No t Available amoxicillin 875 mg-potassium clavulanate 125 mg tablet TAKE 1 TABLET BY MOUTH EVERY 12 HOURS FOR 7 DAYS active Not Available Not Available N ot Available Ventolin HFA 90 mcg/actuatio n aerosol inhaler INHALE 2 PUFFS BY MOUTH FOUR TIMES DAILY active Not Available Not Available Not Available bupropion HCl SR 200 mg tablet,12 hr sustained-re lease TAKE 1 TABLET BY MOUTH TWICE DAILY active Not Available Not Available No t Available cyclobenzapr ine 5 mg tablet TAKE 1 TABLET BY MOUTH EVERY DAY AT BEDTIME FOR 10 DAYS active Not Available Not Available No t Available Flovent HFA 110 mcg/actuatio n aerosol inhaler INHALE 2 PUFFS BY MOUTH TWICE DAILY. RINSE MOUTH AFTER USING. active Not Available Not Available No t Available Flovent HFA 220 mcg/actuatio n aerosol inhaler INHALE 1 PUFF BY MOUTH TWICE DAILY RINSE MOUTH AFTER USING. active Not Available Not Available No t Available diclofenac 1 % topical gel APPLY 2 GRAMS TOPICALLY TO THE AFFECTED AREA FOUR TIMES A DAY FOR 10 DAYS active Not Available Not Available Not Available melatonin 5 mg tablet TAKE 2 TABLETS (10mg) BY MOUTH EVERY DAY AT BEDTIME NEEDED FOR SLEEP active Not Available Not Available No t Available Gavilax 17 gram/dose oral powder MIX 17G WITH 8 OUNCES OF FLUID AND DRINK DAILY active Not Available Not Available Not Available Metamucil Fiber Singles 3.4 gram oral powder packet MIX 1 PACKET WITH 8 OUNCES OF WATER AND DRINK EVERY MORNING active Not Available Not Available No t Available Vitamin D3 50 mcg (2,000 unit) capsule TAKE 1 CAPSULE BY MOUTH EVERY DAY active Not Available Not Available No t Available lidocaine 5 % topical ointment APPLY TO THE AFFECTED AREA(S) 1-4 TIMES PER DAY NEEDED active Not Available Not Available No t Available Ozempic 0.25 mg or 0.5 mg (2 mg/3 mL) subcutaneous pen injector INJECT 0.5 MG SUBCUTANEOU SLY ONCE PER WEEK active Not Available Not Available No t Available Vitals Date Recorded Oxygen saturation Oxygen saturation in Arterial blood by Pulse oximetry Heart rate Respiratory rate Systolic blood pressure Diastolic blood pressure Provider Name and Address Organization Details Last Updated DateTime 4 98 % 98 % 97 /min 18 /min 128 mm[Hg] 72 mm[Hg] Not Available [facility] 4 15:37:29 Date Recorded Body temperature Heart rate Respiratory rate Oxygen saturation Oxygen saturation in Arterial blood by Pulse oximetry Systolic blood pressure Diastolic blood pressure Provider Name and Address Organization Details Last Updated DateTime 2 98.4 [degF] 78 /min 18 /min 95.99 % 95.99 % 144 mm[Hg] 84 mm[Hg] Toshia Morris MD [address] [place] [address],[address], [place], [phone] [place] [address] [facility] 2 22:08:32 Date Recorded Oxygen saturation Oxygen saturation in Arterial blood by Pulse oximetry Body weight Heart rate Body temperature Respiratory rate Systolic blood pressure Diastolic blood pressure Provider Name and Address Organization Details Last Updated DateTime 3 99 % 99 % 740840. 08 g 86 /min 96.6 [degF] 16 /min 130 mm[Hg] 86 mm[Hg] Not Available [email or web address] [email or web address] 3 17:24:50 Social History None recorded. Functional Status None recorded. Mental Status None recorded. Family History Nothing Reported. Medical History No medical history recorded. Past Encounters Encounter ID Performer Location Encounter Start Date Encounter Closed Date Diagnosis/Indication Diagnosis SNOMED-CT Code Diagnosis ICD10 Code Diagnosis Note [id number] Toshia Morris MD [facility] N(i)² [address] [place] [phone] 12/11/2021 18:54:22 05/08/2022 16:02:06 Exposure to carbon monoxide 86065367 Z77.128 Patient and evaluated for intermitte nt symptoms in conjunctio n with CO detector alarm sounding periodical ly. Alarm currently not sounding, patient currently asymptomat ic and vital signs are normal on today's evaluation . Counseling provided regarding safety steps if alarm should sound again in the future. In interim patient is safe to remain at home. [id number] Josee Meadows MD [facility] [address] [place] [phone] 01/21/2023 17:24:44 01/22/2023 13:18:43 Acute urinary tract infection 891123277 N39.0 [id number] ERYN MONTES MD [facility] [address] [place] [phone] 10/08/2023 15:37:26 10/08/2023 22:18:45 Neck pain 11096366 M54.2 Evaluation in the field was performed by my special events manager colleague, as noted above, I provided real-time direction and supervisio n for this visit. The evaluation revealed a 58-year-ol d male who was taking Ozempic for weight loss, denying diabetes, and developed what he believes are side effects of Ozempic. The patient reports that on 08/22, he developed left shoulder pain with radiation to the neck and muscle tightness in his neck. He sought medical attention at [facility], where no interventi on was provided. Subsequent ly, he discontinu ed Ozempic and initiated self-treat ment with Ibuprofen and Tylenol, but experience d no relief, prompting him to discontinu e them as well.The patient describes the pain originatin g in the left shoulder, accompanie d by pruritus but no rash. The discomfort travels up the left side of the neck, and he reports feeling like he has a knot in his neck. He denies chest pain, shortness of breath, and any associatio n with exertion. The pain is disruptive to his sleep at night.Left shoulder with FROM. Denies numbness on the arm, hand. Impression :Muscular vs radiculopa thy neck and left shoulder pain Plan:Ketor olac 15 mg IM x1 now. Advised not to take any Advil, ibuprofen, Aleve, Motrin at least until tomorrowTr ial of flexeril for muscle spasms.He will benefit for cervical spine/ left shoulder imaging and possible Physical therapy. Primary care, consider: Please consider cervical spine imaging and PT if pain doesn't improve or worse. Dispositio n: We discussed the diagnostic uncertaint y of home visits and the risk associated with this. In this case, the patient and I felt this to be an acceptable and reasonable amount of risk given the benefit of avoiding an ED visit. We discussed the need to seek care urgently/e mergently in the setting of any new or worsening serious symptoms, particular ly CP, SOB, weakness or any other concerns. Health Concerns Section Related Observation LastModified by Organization Detai ls LastModified Time None Recorded Concern Status LastModified by Organization Details LastModified Time None Recorded Advance Directives Directive None Recorded Payers Encounter Date Sequence Insurance Name Policy Number Policy Ortiz Covered Member ID Ortiz Member ID Guarantor Name 12/11/2021 1 [facility] - DOS PRIOR TO 2022 - DUAL ELIGIBLE (MEDICARE REPLACEMENT/AD VANTAGE - HMO) Hiram Castro [id number] Hiram Castro 01/21/2023 1 [facility] - DOS PRIOR TO 2022 - DUAL ELIGIBLE (MEDICARE REPLACEMENT/AD VANTAGE - HMO) Hiram Castro [id number] Hiram Castro 10/08/2023 1 [facility] - DOS ON OR AFTER 2022 - DUAL ELIGIBLE - LONG-TERM OPTIONS AND ONE CARE (MEDICARE REPLACEMENT/AD VANTAGE - HMO) Hiram Castro [id number] Hiram Castro Notes Date Note Type Note Provider Name and Address Organization Details Recorded Time 12/11/2021 text/html Request notes:Evaluate patient for reported nausea, headache and weakness. Patient concerned with housing as cause of exposure to something causing symptoms. Per special events manager evaluation, noted to have intermittent symptoms for months, in concert with who is also having the same symptoms, that seem correlated to the carbon monoxide detector alarming periodically. Toshia Morris MD [address] [place] [address],[address], [place], [phone], [facility] 12/11/2021 22:11:23 01/21/2023 text/html HPI: ALLERGIES; None known. Hx prediabetes. Treated 01/07/23 Urine + Nitrates , Leukocytes 1+, Bacteria (many)20-40 Trace protein. Given Bactrim DS 1 PO BID x three days. Started 01/11-01/14 per note. Final Culture > 100K per [facility] resulted 01/10/23. Remains symptomatic at this time. Pain in lower pelvis painful urination and pressure. Home evaluation and treatment for unresolved UTI symptoms. Completed 3 day course of Bactrim DS BID with no effect. ................... ................... ................... ................... ................... ................... ................... ........ CRC Nursing Assessment: Comments: CRC RN did not require any additional information to process this visit. ................... ................... ................... ................... ................... ................... ................... ........ Field Case Manager Note From Rosendo Waters: pt requesting f/u after being treated twice for a complex uti that has been on going for approximately 4 months according to the pt. pt able to produce urine upon arrival, urine dip performed and culture. urine dip was positive for HAYLEY/PRO/BLO. Vitals assessed. Pt states he has painful urination, burning sensation when urinating, pressure in the bladder as well as flank pain. Pt denies n/v/d/t/sob/cp. Pt was previously on bactrim for 3 days with no effect. [facility] contacted. [facility] prescribed bactrim for 10 days. [facility] special events manager gave pt first dose at visit. Pt educated on s/s warranting a 911 call/trip to the hospital. pt advised to f/u with PCP. ................... ................... ................... ................... ................... ................... ................... ........ Disposition: Dustin Meadows MD [address] [facility],[address], [place], [phone], [employer] 01/21/2023 18:08:48 10/08/2023 text/html HPI: HX sleep apnea and hyperlipidemia. Patient with 3 day history or left sided neck pain. No accident or injury. No chest pain no numbness. Feels a tight ball in the back of the neck that comes and goes . ................... ................... ................... ................... ................... ................... ................... ........ CRC Nurse Triage Notes (Vimal Glass): Comments: HPI was reviewed by this literary writer - No further information needed at this time. Ghada CHRISTIANSEN ................... ................... ................... ................... ................... ................... ................... ........ Field Case Manager Note From Miriam Kearns: Upon arrival it was lying in bed. A/O x4, pt stated he? s been having neck pain since he started taking a weight loss drug. Pt stopped his weight loss medication on August 22 but the neck pain still has not subsided. Pt is pink/warm/dry and not in any immediate respiratory distress. Pt denies CP, dizziness, and SOB but states he has had some nausea. Pt pain is located in his left shoulder that radiates to his neck. Pt describes it as a lightening feeling or numbness. No pain upon palpation. Pt also states the area intensely itches. Complete range of motion is in tact. Pt stated he went to [facility] for the same issue and ? they didn? t do nothing.? Vitals as noted. [facility] contacted and pt was administered 15mg of toradol in left arm w/o incident. Pt was sent prescription for flexeril. Pt was told that is he became SOB or starting feeling pain in his chest, to immediately call 911. Pt stated he understood. Call was then cleared. ................... ................... ................... ................... ................... ................... ................... ........ Disposition: Dustin MONTES MD [address] [facility],[address], [place], [phone], [facility] 10/08/2023 16:05:27
--- OUTSIDE RECORDS SUMMARY | 2024-11-26 17:16 | XMS_ITS | Encounter Summary ---
Author Organization [employer] Address 75 [facility] 7t [place] [address] Care Team Providers Care Court Manager Name Role Phone Dinora Childs Primary Care Provider [phone] Reason for Visit * Reason Comments Med Refill Encounter Details Date Type Department Care Team (Late st Contact Info) Description 05/23/2023 Refill [facility] MED[facility] [address] [place] [address] Dinora Childs ANP [address] [place] [address] [phone] Prediabetes; BMI 50.0-59.9, adult (CMS/HCC); Class 3 severe obesity with serious comorbidity and body mass index (BMI) of 50.0 to 59.9 in adult, unspecified obesity type (CMS/HCC) Social History Tobacco Use Types Packs/Day Years Used Date Smoking Tobacco: Never Smokeless Tobacco: Never Alcohol Use Standard Drinks/Week Comments Not Currently 0 (1 standard drink = 0.6 oz pur e alcohol) Depression Answer Date Recorded Patient Health Questionnaire-9 Score 9 02/18/2023 Depression Answer Date Recorded Patient Health Questionnaire-2 Score 2 02/18/2023 Sex and Gender Information Value Date Recorded Sex Assigned at Male 07/16/2022 10:19 AM EDT Legal Sex Male 10:19 AM EDT Gender Identity Male 07/16/2022 10:19 AM EDT Sexual Orientation Straight 07/16/2022 10 :19 AM EDT documented as of this encounter Plan of Treatment Upcoming Encounters Date Type Department Care Team (Late st Contact Info) Description 12/22/2024 11:15 AM EDT Office Visit [facility] [address] [place] [address] Dinora Childs ANP [address] [place] [address] documented as of this encounter Visit Diagnoses Diagnosis Prediabetes Other abnormal glucose BMI 50.0-59.9, adult (CMS/[facility]) Class 3 severe obesity with serious comorbidity and body mass index (BMI) of 50.0 to 59.9 in adult, unspecified obesity type ([facility]) documented in this encounter Additional Health Concerns Assessment Noted Time PHQ-9 Depression Total Score: 9 02/19/20 23 1:40 PM EDT documented as of this encounter Care Teams Court Manager Relationship Specialty Start Date End Date Dinora Childs ANP [address] [place] [address] PCP - General Family Medicine 10/04/21 documented as of this encounter
--- OUTSIDE RECORDS SUMMARY | 2024-11-26 17:16 | XMS_ITS | Encounter Summary ---
Author Organization [employer] Address 75 [facility] 7t [place] [address] Care Team Providers Care Trial Examiner Name Role Phone Dinora Childs Primary Care Provider [phone] Reason for Visit * Reason Comments Med Refill Encounter Details Date Type Department Care Team ([facility] st Contact Info) Description 07/13/2023 Refill [facility] [address] [place] [address] Dinora Childs ANP [address] [place] [address] Social History Tobacco Use Types Packs/Day Years Used Date Smoking Tobacco: Former Cigarettes Smokeless Tobacco: Never Alcohol Use Standard Drinks/Week Comments Not Currently 0 (1 standard drink = 0.6 oz pur e alcohol) Depression Answer Date Recorded Patient Health Questionnaire-9 Score 9 02/18/2023 Housing Stability Answer Date Recorded What is your housing situation today? I have andrewlissette patterson 07/10/[address] you li ve. Do you have problems with any of the following? None of the above 07/10/2023 Food Insecurity Answer Date Recorded Within the past 12 months, y ou worried that your food would run out before you got money to buy more: Never True 07/10/2023 Within the past 12 months,th e food you bought just didn't last and you didn't have enough money to get more: Never True Transportation Answer Date Recorded In the past 12 months, has l ack of transportation kept you from medical appts, meetings, work or from getting things needed for daily living? No 07/10/2023 Utilities Answer Date Recorded In the past 12 months, has t he electric, gas, oil or water company threatened to shut off services in your home? No 07/10/2023 Depression Answer Date Recorded Patient Health Questionnaire-2 [...] Description 12/22/2024 11:15 AM EDT Office Visit [facility] [address] [place] [address] Dinora Childs ANP [address] [place] [address] documented as of this encounter Visit Diagnoses Not on filedocumented in this encounter Additional Health Concerns Assessment Noted Time PHQ-9 Depression Total Score: 9 02/19/20 23 1:40 PM EDT documented as of this encounter Care Teams Trial Examiner Relationship Specialty Start Date End Date Dinora Childs ANP [address] [place] [address] PCP - General Family Medicine 10/04/21 documented as of this encounter
--- OUTSIDE RECORDS SUMMARY | 2024-11-26 17:16 | XMS_ITS | Encounter Summary ---
Author Organization [employer] [facility] Address 75 [facility] 7t [place] [address] Care Team Providers Care Cnc Grinder Name Role Phone Dinora Childs Primary Care Provider [phone] Reason for Visit * Reason Comments Med Refill Encounter Details Date Type Department Care Team (Late st Contact Info) Description 06/19/2023 Refill [facility] MED[facility] [address] [place] [address] Dinora Childs ANP [address] [place] [address] Hemorrhoids, unspecified hemorrhoid type Social History Tobacco Use Types Packs/Day Years [...] Description 12/22/2024 11:15 AM EDT Office Visit [facility] MED[facility] [address] [place] [address] Dinora Childs ANP [address] [place], [place] [phone] documented as of this encounter Visit Diagnoses Diagnosis Hemorrhoids, unspecified hemorrhoid type documented in this encounter Additional Health Concerns Assessment Noted Time PHQ-9 Depression Total Score: 9 02/19/20 23 1:40 PM EDT documented as of this encounter Care Teams Cnc Grinder Relationship Specialty Start Date End Date Dinora Childs ANP [address] [place] [address] PCP - General Family Medicine 10/04/21 documented as of this encounter
--- OUTSIDE RECORDS SUMMARY | 2024-11-26 17:17 | XMS_ITS | Encounter Summary ---
Author Organization [employer] Address 75 [facility] 7t [place] [address] Care Team Providers Care Crusher Tender Name Role Phone Dinora Childs Primary Care Provider [phone] Encounter Details Date Type Department Care Team (Late st Contact Info) Description 01/11/2023 Orders Only [facility] MED[facility]INE [address] [place] [address] Vida Burgos MD [address] [place] [address] [phone] Social History Tobacco Use Types Packs/Day Years Used Date Smoking Tobacco: Never Smokeless Tobacco: Never Alcohol Use Standard Drinks/Week Comments Not Currently 0 (1 standard drink = 0.6 oz pur e alcohol) Sex and Gender Information Value Date Recorded Sex Assigned at Male 07/16/2022 10:19 AM EDT Legal Sex Male 10:19 AM EDT Gender Identity Male 07/16/2022 10:19 AM EDT Sexual Orientation Straight 07/16/2022 10 :19 AM EDT COVID-19 Exposure Response Date Recorded In the last 10 days, have yo u been in contact with someone who was confirmed or suspected to have Coronavirus/COVID-19? No / Unsure 01/07/2023 2:09 PM EDT documented as of this encounter Plan of Treatment Upcoming Encounters Date Type Department Care Team (Late st Contact Info) Description 12/22/2024 11:15 AM EDT Office Visit [facility] [address] [place] [address] Dinora Childs ANP [address] [place], [place] [phone] documented as of this encounter Visit Diagnoses Not on filedocumented in this encounter Care Teams Crusher Tender Relationship Specialty Start Date End Date Dinora Childs ANP [address] [place] [address] PCP - General Family Medicine 10/04/21 documented as of this encounter
--- OUTSIDE RECORDS SUMMARY | 2024-11-26 17:17 | XMS_ITS | Encounter Summary ---
Author Organization [employer] Address 75 [facility] 7t [place] [address] Care Team Providers Care Asphalt Layer Name Role Phone Dinora Childs [place] Primary Care Provider [phone] Reason for Referral * Imaging (Routine) - Authorized Specialty Diagnoses / Procedures Referred By Jordy bartlett Referred To Contact Cardiology Diagnoses Left leg pain Procedures Vascular US lower extremity arterial duplex bilateral with EM Dotty Troy DO [address] [place] [address] Phone: tel: fax: [address] Phone: tel: fax: Referral ID Status Reason Start Date Expiration Date Visits Requested Visits Authorized [id number] Authorized Perform Procedure 11/26/2024 11/26/2025 1 1 * Neurology (Routine) - Authorized Specialty Diagnoses / Procedures Referred By Jordy bartlett Referred To Contact Diagnoses Left leg pain Procedures Nerve conduction test Dotty Troy DO [address] [place] [address] Phone: tel: fax: [address] Phone: tel: fax: Referral ID Status Reason Start Date Expiration Date V isits Requested Visits Authorized [id number] Authorized 11/26/2024 11/26/2025 1 1 * Neurology (Routine) - Authorized Specialty Diagnoses / Procedures Referred By Contac t Referred To Contact Diagnoses Left leg pain Procedures EMG Dotty Troy DO [address] [place] [address] Phone: tel: fax: [address] Phone: tel: fax: Referral ID Status Reason Start Date Expiration Date V isits Requested Visits Authorized [id number] Authorized 11/26/2024 11/26/2025 1 1 * Imaging (STAT) - Closed Specialty Diagnoses / Procedures Referred By Contac t Referred To Contact Cardiology Diagnoses Left leg pain Procedures VASC US Lower Extremity Venous Duplex Left Dotty Troy DO [address] [place] [address] Phone: tel: fax: [address] Phone: tel: fax: Referral ID Status Reason Start Date Expiration Date V isits Requested Visits Authorized [id number] Closed Perform Procedure 11/26/2024 11/26/2025 1 1 Reason for Visit * Reason Comments Leg Pain Back Pain Encounter Details Date Type Department Care Team (Late st Contact Info) Description 11/26/2024 9:20 AM EDT Office Visit [facility] [address] [place] [address] Left leg pain (Primary Dx); Essential hypertension; Pain Social History Tobacco Use Types Packs/Day Years Used Date Smoking Tobacco: Former Cigarettes Smokeless Tobacco: Never Alcohol Use Standard Drinks/Week Comments Not Currently 0 (1 standard drink = 0.6 oz pur e alcohol) Depression Answer Date Recorded Patient Health Questionnaire-9 Score 0 02/04/2024 Patient Health Questionnaire-9 Score 0 02/04/2024 Last PHQ-9: Questionnaire Data Not on file 0 02/04/2024 Housing Stability Answer Date Recorded What is your housing situation today? I have andrew patterson 11/28/[address] you li ve. Do you have problems with any of the following? Pests such as bugs, ants, or mice 11/28/2023 Food Insecurity Answer Date Recorded Within the past 12 months, y ou worried that your food would run out before you got money to buy more: Often true 11/28/2023 Within the past 12 months,th e food you bought just didn't last and you didn't have enough money to get more: Often true Transportation Answer Date Recorded In the past [...] Answer Date Recorded Patient Health Questionnaire-2 Score 0 02/04/2024 Internet Access Answer Date Recorded Internet Access Q1 Yes 07/09/2024 Internet Access Q2 Not on file 07/09/2024 Sex and Gender Information Value Date Recorded Sex Assigned at Male 07/16/2022 10:19 AM EDT Legal Sex Male 10:19 AM EDT Gender Identity Male 07/16/2022 10:19 AM EDT Sexual Orientation Straight 07/16/2022 10 :19 AM EDT documented as of this encounter Last Filed Vital Signs Vital Sign Reading Time Taken Comments Blood Pressure 156/96 11/26/2024 9:19 AM EDT Pulse 87 11/26/2024 9:19 AM EDT Temperature 36.7 ??C (98 ??F) 11/26/2024 9:19 AM EDT Respiratory Rate 20 11/26/2024 9:19 AM EDT Oxygen Saturation 98% 11/26/2024 9:19 AM EDT Inhaled Oxygen Concentration - - Weight 165 kg (364 lb) 11/26/2024 9:19 AM EDT Height - - Body Mass Index 53.75 07/20/2024 1:13 PM EST documented in this encounter Plan of Treatment Upcoming Encounters Date Type Department Care Team (Late st Contact Info) Description 12/22/2024 11:15 AM EDT Office Visit [facility] MEDICINE [address] [place] [address] Dinora Childs ANP [address] [place] [address] Scheduled Orders Name Type Priority Associated Diagnoses Orde r Schedule XR Lumbar Spine 2-3 Views Imaging Routine Left leg pain Expected: 11/26/2024, Expires: 11/26/2025 EMG Neurology Routine Left leg pain Expected: 11/26/2024 (Approximate), Expires: 11/26/2025 Nerve conduction test Neurology Routine Left leg pain Expected: 11/26/2024 (Approximate), Expires: 11/26/2025 documented as of this encounter Visit Diagnoses Diagnosis Left leg pain- Primary Pain in soft tissues of limb Essential hypertension Unspecified essential hypertension Pain Generalized pain documented in this encounter Additional Health Concerns Assessment Noted Time PHQ-9 Depression Total Score: 0 02/04/20 24 11:04 AM EDT documented as of this encounter Care Teams Asphalt Layer Relationship Specialty Start Date End Date Dinora Childs ANP [address] [place] [address] PCP - General Family Medicine 10/04/21 documented as of this encounter
--- OUTSIDE RECORDS SUMMARY | 2024-11-26 17:17 | XMS_ITS | Encounter Summary ---
Author Organization [employer] Address 75 [facility] 7t [place] [address] Care Team Providers Care Lead Oxide Mill Tender Name Role Phone Dinora Childs Primary Care Provider Reason for Visit * Reason Onset Date Comments Med Refill 11/09/2024 Encounter Details Date Type Department Care Team (Late st Contact Info) Description 11/09/2024 Refill [facility] & PED[facility] [address] [place], [place] [phone] Dinora Childs ANP [address] [place] [address] Vitamin D deficiency; Morbid obesity with BMI of 50.0-59.9, adult (CMS/HCC) Social History Tobacco Use Types Packs/Day [...] AM EDT documented as of this encounter Miscellaneous Notes * Telephone Encounter - [place]IN Calero - 11/09/2024 5:25 PM EST Zepbound dose increase documented in this encounter Plan of Treatment Upcoming Encounters Date Type Department Care Team (Late st Contact Info) Description 12/22/2024 11:15 AM EDT Office Visit [facility] MEDICINE [address] [place] [address] Dinora Childs ANP [address] [place] [address] documented as of this encounter Visit Diagnoses Diagnosis Vitamin D deficiency Morbid obesity with BMI of 50.0-59.9, adult (CMS/HCC) documented in this encounter Additional Health Concerns Assessment Noted Time PHQ-9 Depression Total Score: 0 02/04/20 11:04 AM EDT documented as of this encounter Care Teams Lead Oxide Mill Tender Relationship Specialty Start Date End Date Dinora Childs ANP [address] [place] [address] PCP - General Family Medicine 10/04/21 documented as of this encounter
--- OUTSIDE RECORDS SUMMARY | 2024-11-26 17:17 | XMS_ITS | Encounter Summary ---
Author Organization [employer] Address 75 [facility] 7t [place] [address] Care Team Providers Care Medical Doctor Nuclear Medicine Name Role Phone Dinora Childs Primary Care Provider [phone] Encounter Details Date Type Department Care Team (Late st Contact Info) Description 10/02/2022 Orders Only [facility] [address] [place] [address] Dotty Herron LPN Social History Tobacco Use Types Packs/Day Years Used Date Smoking Tobacco: Never Assessed Sex and Gender Information Value Date Recorded Sex Assigned at Male 07/16/2022 10:19 AM EDT Legal Sex Male 10:19 AM EDT Gender Identity Male 07/16/2022 10:19 AM EDT Sexual Orientation Straight 07/16/2022 10 :19 AM EDT documented as of this encounter Plan of Treatment Upcoming Encounters Date Type Department Care Team (Late st Contact Info) Description 12/22/2024 11:15 AM EDT Office Visit [facility] [address] [place] [address] Dinora Childs ANP [address] [place] [address] documented as of this encounter Visit Diagnoses Not on filedocumented in this encounter Care Teams Medical Doctor Nuclear Medicine Relationship Specialty Start Date End Date Dinora Childs ANP [address] [place] [address] PCP - General Family Medicine 10/04/21 documented as of this encounter
--- OUTSIDE RECORDS SUMMARY | 2024-11-26 17:17 | XMS_ITS | Encounter Summary ---
Author Organization [email or web address] Address [address] [facility] [address] 7t [place] [address] Care Team Providers Care Surveillance Agent Name Role Phone Dinora Childs Primary Care Provider [phone] Encounter Details Date Type Department Care Team (Late st Contact Info) Description 11/26/2024 Orders Only [facility] MEDICINE [address] [place], [place] [phone] Dotty Troy DO [address] [place], [place] [phone] Social History Tobacco Use Types Packs/Day Years [...] Description 12/22/2024 11:15 AM EDT Office Visit [facility] [address] [place] [address] Dinora Childs ANP [address] [place] [address] documented as of this encounter Procedures Procedure Name Priority Date/Time Associated Diagnosis Comments US VENOUS DUPLEX LE LT Routine 11/26/2024 2:12 PM EDT documented in this encounter Results * US VENOUS DUPLEX LE LT (11/26/2024 2:12 PM EDT) Anatomical Region Laterality Modality Abdomen Ultrasound 11/26/2024 2:12 PM EDT Narrative 11/26/2024 2:49 PM EDT ? [facility] ?[address] ?[place] [address] ? Ultrasound Report ? Signed ? Patient: Matthew,Melo ?MR#: [id number] ?? [id number] ? : 1965 ?Acct:[id number] ? Age/Sex: 59 / M ?ADM Date: 03/13/25 ? Loc: HO.US ? Attending Dr: Dotty Troy DO ? Ordering Physician: Dotty Troy DO ?? Date of Service: 11/26/24 ?? Procedure(s): US venous duplex LE LT ?? Accession Number(s): [id number] ? cc: Dotty Troy DO ? EXAMINATION: ??US LOWER EXTREMITY VEINS LIMITED FOLLOW UP LEFT ? HISTORY: Left lower leg swelling and pain, r/o DVT ? COMPARISON: There are no prior studies for comparison. ? TECHNIQUE: ??Duplex and color Doppler sonographic examination of the ?? deep venous system of the left lower extremity was performed. ? FINDINGS: ? The common femoral, superficial femoral, and popliteal veins are patent ?? demonstrating normal compressibility, spontaneous flow, and ?? augmentation. ??There is a normal color and spectral Doppler waveform ?? appearance of the visualized deep venous system above the knee. ??The ?? posterior tibial veins are patent. The peroneal veins are not well ?? visualized. ? / venous duplex LE LT ?? IMPRESSION: ?? No evidence of acute DVT in the left lower extremity. ? Electronically signed by: ??Ian Angela MD ??11/26/2024 02:46 PM EDT ? Dictated By: ?Ian Angela MD ? Signed By: ?<Electronically signed by Ian Angela MD in OV> ?11/26/24 1446 ? DD/ 1412 ? TD/TT: 11/26/24 1424 ? Aqua Ammonia Operator: ? Procedure Note Dajuan, Image - 11/26/2024 [place] [id number] Ultrasound Report Signed Patient: Hiram Castro LMR#: [id number] : 1965Acct:[id number] Age/Sex: 59 / MADM Date: 11/26/24 Loc: HO.US Attending Dr: Dotty Troy DO Ordering Physician: Dotty Troy DO Date of Service: 11/26/24 Procedure(s): US venous duplex LE LT Accession Number(s): [id number] cc: Dotty Troy DO EXAMINATION: US LOWER EXTREMITY VEINS LIMITED FOLLOW UP LEFT HISTORY: Left lower leg swelling and pain, r/o DVT COMPARISON: There are no prior studies for comparison. TECHNIQUE: Duplex and color Doppler sonographic examination of the deep venous system of the left lower extremity was performed. FINDINGS: The common femoral, superficial femoral, and popliteal veins are patent demonstrating normal compressibility, spontaneous flow, and augmentation. There is a normal color and spectral Doppler waveform appearance of the visualized deep venous system above the knee. The posterior tibial veins are patent. The peroneal veins are not well visualized. US/US venous duplex LE LT IMPRESSION: No evidence of acute DVT in the left lower extremity. Electronically signed by: Ian Angela MD 11/26/2024 02:46 PM EDT RP Dictated By: Ian Angela MD Signed By: <Electronically signed by Ian Angela MD in OV> 11/26/24 1446 DD/ 1412 TD/TT: 11/26/24 1424 Aqua Ammonia Operator: us Dotty Troy DO IMG US PROCEDURES Edited Res ult - Final documented in this encounter Visit Diagnoses Not on filedocumented in this encounter Additional Health Concerns Assessment Noted Time PHQ-9 Depression Total Score: 0 02/04/20 24 11:04 AM EDT documented as of this encounter Care Teams Surveillance Agent Relationship Specialty Start Date End Date Dinora Childs ANP [address] [place] [address] PCP - General Family Medicine 10/04/21 documented as of this encounter
--- OUTSIDE RECORDS SUMMARY | 2024-11-26 17:17 | XMS_ITS | Encounter Summary ---
Author Organization [employer] Address [address] [facility] [address] 7t [place] [address] Care Team Providers Care Director Of Extension Work Name Role Phone Dinora Childs Primary Care Provider [phone] Reason for Visit * Reason Comments Med Refill Encounter Details Date Type Department Care Team ([facility] st Contact Info) Description 09/11/2024 Refill [facility] [address] [place], [place] [phone] Dinora Childs ANP [address] [place] [address] Wheezing Social History Tobacco Use Types Packs/Day Years [...] Description 12/22/2024 11:15 AM EDT Office Visit [facility] MED[facility]INE [address] [place] [address] Dinora Childs ANP [address] [place] [address] documented as of this encounter Visit Diagnoses Diagnosis Wheezing documented in this encounter Additional Health Concerns Assessment Noted Time PHQ-9 Depression Total Score: 0 02/04/20 11:04 AM EDT documented as of this encounter Care Teams Director Of Extension Work Relationship Specialty Start Date End Date Dinora Childs ANP [address] [place] [address] PCP - General Family Medicine 10/04/21 documented as of this encounter
--- OUTSIDE RECORDS SUMMARY | 2024-11-26 17:17 | XMS_ITS | Encounter Summary ---
Author Organization [employer] Address 75 [facility] 7t [place] [address] Care Team Providers Care E Tailer Name Role Phone Dinora Childs Primary Care Provider [phone] Encounter Details Date Type Department Care Team (Late Contact Info) Description 11/12/2022 Orders Only [facility] [address] [place] [address] Dotty Herron LPN Social History Tobacco Use [...] suspected to have Coronavirus/COVID-19? No / Unsure 10/16/2022 10:45 AM EST documented as of this encounter Plan of Treatment Upcoming Encounters Date Type Department Care Team (Late st Contact Info) Description 12/22/2024 11:15 AM EDT Office Visit [facility] [address] [place] [address] Dinora Childs ANP [address] [place] [address] documented as of this encounter Visit Diagnoses Not on filedocumented in this encounter Care Teams E Tailer Relationship Specialty Start Date End Date Dinora Childs ANP [address] [place] [address] PCP - General Family Medicine 10/04/21 documented as of this encounter
--- OUTSIDE RECORDS SUMMARY | 2024-11-26 17:17 | XMS_ITS | Encounter Summary ---
Author Organization [employer] Address [address] [facility] [address] [place] [address] Care Team Providers Care Anesthetic Assistant Name Role Phone Dinora Childs Primary Care Provider [phone] Reason for Visit * Reason Comments Med Refill Encounter Details Date Type Department Care Team ([facility] st Contact Info) Description 06/05/2024 Refill [facility] [address] [place] [address] Dinora Childs ANP [address] [place] [address] Social History Tobacco Use Types Packs/Day Years [...] Recorded Patient Health Questionnaire-2 Score 0 02/04/2024 Sex and Gender Information Value Date Recorded Sex Assigned at Male 07/16/2022 10:19 AM EDT Legal Sex Male 10:19 AM EDT Gender Identity Male 07/16/2022 10:19 AM EDT Sexual Orientation Straight 07/16/2022 10 :19 AM EDT documented as of this encounter Plan of Treatment Upcoming Encounters Date Type Department Care Team (Late st Contact Info) Description 12/22/2024 11:15 AM EDT Office Visit [facility] [address] [place] [phone] Dinora Childs ANP [address] [place] [address] documented as of this encounter Visit Diagnoses Not on filedocumented in this encounter Additional Health Concerns Assessment Noted Time PHQ-9 Depression Total Score: 0 02/04/20 24 11:04 AM EDT documented as of this encounter Care Teams Anesthetic Assistant Relationship Specialty Start Date End Date Dinora Childs ANP [address] [place] [phone] PCP - General Family Medicine 10/04/21 documented as of this encounter
--- OUTSIDE RECORDS SUMMARY | 2024-11-26 17:17 | XMS_ITS | Encounter Summary ---
Author Organization [employer] Address [address] [facility] [address] [place] [address] Care Team Providers Care Door Builder Name Role Phone Dinora Childs Primary Care Provider [phone] Reason for Visit * Reason Onset Date Comments call back 10/22/2022 Encounter Details Date Type Department Care Team (Late Contact Info) Description 10/22/2022 Telephone [facility] [address] [place] [address] Dinora Childs ANP [address] [place] [address] call back Social History Tobacco Use Types Packs/Day Years [...] AM EST documented as of this encounter Miscellaneous Notes * Telephone Encounter - Deejay Whittaker - 10/22/2022 10:23 AM EST Tc from pt returning call. Pt is requesting a call back documented in this encounter Plan of Treatment Upcoming Encounters Date Type Department Care Team (Late st Contact Info) Description 12/22/2024 11:15 AM EDT Office Visit [facility] [address] [place] [address] Dinora Childs ANP [address] [place] [address] documented as of this encounter Visit Diagnoses Not on filedocumented in this encounter Care Teams Door Builder Relationship Specialty Start Date End Date Dinora Childs ANP [address] [place] [address] PCP - General Family Medicine 10/04/21 documented as of this encounter
--- OUTSIDE RECORDS SUMMARY | 2024-11-26 17:17 | XMS_ITS | Clinical Summary ---
Author Organization [employer] Address [address] [facility] [address] [place] [address] Care Team Providers Care Digital Research Analyst Name Role Phone Dinora Childs Primary Care Provider [phone] Allergies No known active allergies Medications * This document contains information received from the source organization and may not represent a complete record from that organization. busPIRone (Buspar) 5 MG tablet TAKE 1 TABLET BY MOUTH TWICE DAILY FOR ANXIETY 023 Active melatonin 5 MG tablet TAKE 2 TABLETS BY MOUTH AT BEDTIME NEEDED FOR SLEEP 023 Active sertraline (Zoloft) 100 MG tablet TAKE 1 AND 1/2 TABLETS BY MOUTH EVERY DAY 023 Active albuterol (2.5 MG/3ML) 0.083% nebulizer solutionIndicati ons:Mild persistent asthma without complication INHALE 1 AMPULE USING A NEBULIZER THREE TIMES DAILY 90 mL 023 Active Proctozone-HC 2.5 % rectal creamIndications :Hemorrhoids, unspecified hemorrhoid type APPLY RECTALLY TWICE DAILY DIRECTED FOR UP TO 7 DAYS 30 g 2 023 Active diphenhydrAMINE (Banophen) 25 MG capsule TAKE 2 CAPSULES BY MOUTH EVERY 4 TO 6 HOURS NEEDED FOR ITCHING Active atorvastatin (Lipitor) 20 MG tabletIndication s:Hyperlipidemia , unspecified hyperlipidemia type TAKE 1 TABLET BY MOUTH ONCE DAILY DIRECTED. 30 tablet 11 024 Active Nebulizer misc 1 each Every 4-6 hours as needed (SOB, wheezing). 1 each 024 Active docusate sodium (Colace) 100 MG capsule Take 1 capsule (100 mg) by mouth 2 times daily. 60 capsule 11 024 Active polycarbophil (FiberCon) 625 MG tablet Take 1 tablet (625 mg) by mouth 2 times daily. 60 tablet 11 024 2024 Active polyethylene glycol, PEG, 3350 (MiraLax) 17 GM/SCOOP powder Take 17 g by mouth if needed each day (constipation). 527 g 3 024 2024 Active budesonide-formo terol (Symbicort) 160-4.5 MCG/ACT inhalerIndicatio ns:Moderate persistent asthma without complication Inhale 2 puffs in the morning and at bedtime. Rinse mouth with water after use to reduce aftertaste and incidence of candidiasis. Do not swallow. 1 each 11 024 2024 Active Spacer/Aero-Hold ing Chambers (OptiChamber Criss) misc 1 each every 4 (four) hours if needed (asthma). 1 each 024 Active loratadine (Claritin) 10 MG tablet TAKE 1 TABLET BY MOUTH EVERY DAY NEEDED 90 tablet 024 Active senna (Senokot) 8.6 MG tablet Take 1 tablet (8.6 mg) by mouth at bedtime. 120 tablet 024 Active ondansetron (Zofran) 4 MG tablet TAKE 1 TABLET BY MOUTH EVERY 8 HOURS NEEDED FOR NAUSEA AND VOMITING 20 tablet 1 024 Active naproxen (Naprosyn) 500 MG tabletIndication s:Primary osteoarthritis of right knee TAKE 1 TABLET BY MOUTH TWICE DAILY 60 tablet 024 Active traZODone (Desyrel) 50 MG tablet TAKE 1/2 TO 1 TABLET BY MOUTH AT BEDTIME NEEDED for SLEEP 024 Active buPROPion (Wellbutrin) 75 MG tablet TAKE 1 TABLET BY MOUTH EVERY MORNING FOR DEPRESSION 024 Active busPIRone (Buspar) 10 MG tablet TAKE 1 TABLET BY MOUTH TWICE DAILY FOR ANXIETY Active Ventolin HFA 108 (90 Base) MCG/ACT inhalerIndicatio ns:Wheezing INHALE 2 PUFFS BY MOUTH EVERY 4 HOURS NEEDED FOR WHEEZING OR SHORTNESS OF BREATH 18 g 2 024 Active lisinopril 10 MG tabletIndication s:Essential hypertension TAKE 1 TABLET BY MOUTH EVERY DAY 90 tablet 3 025 Active sildenafil (Viagra) 100 MG tabletIndication s:Erectile dysfunction, unspecified erectile dysfunction type TAKE 1/2 TO 1 TABLET BY MOUTH EVERY DAY 30 MINUTES BEFORE SEXUAL ACTIVITY 20 tablet 1 025 Active pantoprazole (ProtoNix) 40 MG EC tabletIndication s:Generalized abdominal pain TAKE 1 TABLET BY MOUTH EVERY MORNING 30 tablet 1 025 Active cholecalciferol (D3 Super Strength) 50 MCG (2000 UT) capsuleIndicatio ns:Vitamin D deficiency Take 1 capsule (50 mcg) by mouth Once per day. 30 capsule 11 025 Active Tirzepatide-Weig ht Management (Zepbound) 7.5 MG/0.5ML solution auto-injectorInd ications:Morbid obesity with BMI of 50.0-59.9, adult (CMS/[facility]) Inject 0.5 mL (7.5 mg) under the skin 1 (one) time per week. 2 mL 025 Active gabapentin (Neurontin) 300 MG capsule Take 1 capsule (300 mg) by mouth 3 times daily. 90 capsule 3 025 2025 Active baclofen (Lioresal) 10 MG tablet Take 1 tablet (10 mg) by mouth if needed in the morning, at noon, and at bedtime for muscle spasms. 60 tablet 3 025 2025 Active acetaminophen (Tylenol 8 Hour) 650 MG ER tablet Take 1 tablet (650 mg) by mouth every 8 (eight) hours if needed for mild pain. Do not crush, chew, or split. 40 tablet 1 025 2024 Active Diclofenac Sodium 1 % gelIndications:P ain Apply 2 g topically if needed in the morning, at noon, in the evening, and at bedtime (pain). 150 g 3 Active traMADol (Ultram) 50 MG tabletIndication s:Left leg pain Take 1 tablet (50 mg) by mouth every 6 (six) hours if needed for severe pain for up to 5 days. 15 tablet 025 2024 Active Diclofenac Sodium 1 % gelIndications:P ain APPLY 2 GRAMS AFFECTED AREA(S) FOUR TIMES DAILY 100 g 2 03/21/2 023 2024 Discontinued(R eorder (will not trigger notification to Pharmacy)) gabapentin (Neurontin) 100 MG capsule Take 2 capsules by mouth 3 times daily. 2024 Discontinued cholecalciferol (D3 Super Strength) 50 MCG (2000 UT) capsuleIndicatio ns:Vitamin D deficiency Take 1 capsule (50 mcg) by mouth in the morning. 30 capsule 11 024 2024 Discontinued(R eorder (will not trigger notification to Pharmacy)) azithromycin (Zithromax) 250 MG tabletIndication s:Acute cough 500 mg on day 1, 250 mg day 2 through 5 6 tablet 024 2024 Discontinued pantoprazole (ProtoNix) 40 MG EC tabletIndication s:Generalized abdominal pain TAKE 1 TABLET BY MOUTH EVERY DAY IN THE MORNING 30 tablet 1 024 2024 Discontinued Zepbound 5 MG/0.5ML solution auto-injectorInd ications:Morbid obesity with BMI of 50.0-59.9, adult ([facility]) INJECT 5 MG SUBCUTANEOUSLY EVERY WEEK 2 mL 1 024 2024 Discontinued(D ose adjustment) Active Problems Problem Noted Date Diagnosed Date GERD (gastroesophageal reflux disease) Migraine headache 12/18/2023 Morbid obesity with BMI of 50.0-59.9, adult 11/2023 Swelling of knee joint 01/04/2023 Mild persistent asthma without complication 09/18 Assessment & Plan (12/18/2023 12:58 PM EDT): -tx with prednisone daily x 5 days -change flovent to asmanex BID -cont albuterol prn -advised RTC or go to ED if no improvement or sx worsen Primary osteoarthritis of right knee 01/08/2018 Essential hypertension 06/30/2015 Hyperlipidemia 06/30/2015 Obstructive sleep apnea syndrome 06/30/2015 Impaired glucose tolerance 06/30/2015 Lung nodule, solitary 06/30/2015 Erectile dysfunction 06/30/2015 Encounters Date Type Department Care Team Description 11/26/2024 9:20 AM EDT Office Visit [facility] [address] [phone] Left leg pain (Primary Dx); Essential hypertension; Pain 11/26/2024 Orders Only [facility] [address] [place] [phone] Dotty Troy DO 11/09/2024 Telephone [facility] [address] [place] [phone] Dinora Childs ANP Med Refill 11/09/2024 Refill [facility] [address] [place] [address] Dinora Childs ANP Vitamin D deficiency; Morbid obesity with BMI of 50.0-59.9, adult ([facility]) 11/04/2024 Refill [facility] [address] [place] [phone] Dinora Childs ANP Generalized abdominal pain 11/02/2024 Refill [facility] [address] [place] [phone] Dinora Childs ANP Morbid obesity with BMI of 50.0-59.9, adult ([facility]) 10/19/2024 Refill [facility] [address] [place] [phone] Dinora Childs ANP Essential hypertension; Erectile dysfunction, unspecified erectile dysfunction type 10/08/2024 8:40 AM EST Office Visit [facility] [address] [place] [phone] Hasmukh Truong MD Viral URI with cough 09/14/2024 Telephone [facility] [address] [place] [phone] Kiah Jackson [place] reschedule appt (Tried calling pt to reschedule todays visit ,seem like pt hung up ,tried to call again but no answer.) 09/11/2024 Refill [facility] [address] [place] [phone] Dinora Childs ANP Morbid obesity with BMI of 50.0-59.9, adult ([facility]) 09/11/2024 Refill [facility] [address] [place] [phone] Dinora Childs ANP Wheezing 09/10/2024 Telephone [facility] [address] [place] [phone] Dorothy Juan RN Results 09/10/2024 Orders Only [facility] [address] [facility] [place] [address] Dinora Childs ANP Loose body in knee, right knee (Primary Dx) 09/09/2024 Refill [facility] [address] [facility] [place] [address] Dinora Childs ANP Generalized abdominal pain from Last 3 Months Immunizations Name Administration Dates Next Due Hep A, Adult 02/24/2018,03/12/2016 Hep B, adult 09/17/2018,02/24/2018,03/12/2016 Influenza Injectable Quadriv alant Preservative Free IIV4 MDCK 05/18/2022,09/30/2020,05/21/2019 Influenza injectable quadriv alent IIV4 with preservative 05/31/2016,05/31/2015 Influenza injectable quadriv alent preservative free 06/28/2023,10/16/2022,06/23/2021,10/06,06/09/2018 Influenza, IIV3, injectable 07/23/2014, 1,11/24/2009 Influenza, Injectable, MDCK, preservative free 06/08/2024 Influenza, Split (incl. korey fied surface antigen) 06/15/2013,05/29/2012 Influenza, seasonal, injecta ble, preservative free 05/06/2017 Moderna Covid-19 Vaccine 12+ 08/17/2021,11/25/19 21,10/28/2020 Pneumococcal Conjugate PCV 20 07/20/2024 Pneumococcal Polysaccharide PPSV23 02/03/2007 TD (adult), 2 Lf tetanus tox oid, preservative free, adsorbed 07/20/2024,02/03/2007 Td (adult), 5 Lf tetanus tox oid, preservative free, adsorbed 07/28/2014 Tdap 05/29/2012 Zoster, Recombinant 04/07/2020,10/06/2019 Family History Medical History Relation Name Comments Diabetes Mother Hypertension Mother Brain cancer Sister Diabetes Sister Hypertension Sister Seizures Sister Stroke Sister Relation Name Status Comments Mother Sister Social History Tobacco Use Types Packs/Day Years [...] Orientation Straight 07/16/2022 10 :19 AM EDT Last Filed Vital Signs Vital Sign Reading Time Taken Comments Blood Pressure 156/96 11/26/2024 9:19 AM EDT Pulse 87 11/26/2024 9:19 AM EDT Temperature 36.7 ??C (98 ??F) 11/26/2024 9:19 AM EDT Respiratory Rate 20 11/26/2024 9:19 AM EDT Oxygen Saturation 98% 11/26/2024 9:19 AM EDT Inhaled Oxygen Concentration - - Weight 165 kg (364 lb) 11/26/2024 9:19 AM EDT Height 175.3 cm (5' 9 ) 07/20/2024 1:13 PM EST Body Mass Index 53.75 07/20/2024 1:13 PM EST Plan of Treatment Upcoming Encounters Date Type Department Care Team (Late st Contact Info) Description 12/22/2024 11:15 AM EDT Office Visit [facility] [address] [place] [phone] Dinora Childs, ANP [address] [place] [address] Health Maintenance Due Date Last Done Comments CT Colonography 1967 FIT DNA/Cologuard 1967 FIT 1967 FOBT 1965 Sigmoidoscopy 1967 Alcohol/Substance Use Screening 1979 Hepatitis C Screening 1985 SDOH Screening 11/27/2024 11/28/2023 Depression Screening 02/03/2025 02/04/2024, 02/04/20 24 Tobacco Screening 08/03/2025 08/03/2024 Lipid Panel 02/23/2028 02/22/2023, 09/18, 10/31/2021, Additional history exists Colonoscopy 04/17/2028 04/17/2018 Colorectal Cancer Screening 04/17/2028 DTaP/Tdap/Td Vaccines (4 - Td or Tdap) 07/20/2034 07/20/2024, 07/28/2014, 05/29/2012, Additional history exists RSV Patients and Patients Aged 60 years or older (1 - 1-dose 75+ series) 2042 Hepatitis A Vaccines Completed 02/24/2018, 03/12/20 16 Hepatitis B Vaccines Completed 09/17/2018, 02/24/2018, 03/12/2016 Zoster Vaccines Completed 04/07/2020, 10/06/2019 HIV Screening Completed 10/16/2022, 10/27/2019 COVID-19 Vaccine Completed 06/08/2024, , 06/13/2022, Additional history exists Influenza Vaccine Completed 06/08/2024, , 10/16/2022, Additional history exists Pneumococcal Vaccine: 50+ Years Completed 07/20/2024, 02/03/2007 HIB Vaccines Aged Out No longer eligi ble based on patient's age to complete this topic HPV Vaccines Aged Out No longer eligi ble based on patient's age to complete this topic IPV Vaccines Aged Out No longer eligi ble based on patient's age to complete this topic Meningococcal Vaccine Aged Out No teofilo tia eligible based on patient's age to complete this topic RSV under 20 months Aged Out No longe r eligible based on patient's age to complete this topic Rotavirus Vaccines Aged Out No longer eligible based on patient's age to complete this topic Procedures Procedure Name Priority Date/Time Associated Diagnosis Comments US VENOUS DUPLEX LE LT Routine 11/26/2024 2:12 PM EDT XR CHEST 2 VIEWS Routine 10/08/2024 9:29 AM EST Viral URI with cough POCT INFLUENZA B (ID NOW RAPID MOLECULAR) Routine 10/08/2024 9:14 AM EST Viral URI with cough POCT INFLUENZA A (ID NOW RAPID MOLECULAR) Routine 10/08/2024 9:14 AM EST Viral URI with cough POCT RAPID COVID ANTIGEN Routine 10/08/2024 8:54 AM EST Viral URI with cough LIPID PANEL, STANDARD Routine 02/22/2023 9:43 AM EDT Hyperlipidemia, unspecified hyperlipidemia type HIV 1/2 ANTIGEN/ANTIBODY, FOURTH GENERATION W/RFL Routine 10/16/2022 12:51 PM EST Numbness and tingling of both legs HM COLONOSCOPY Routine 04/17/2018 from Last 3 Months or Most Recently Relevant to Health Maintenance Results * US VENOUS DUPLEX LE LT (11/26/2024 2:12 PM EDT) Anatomical Region Laterality Modality Abdomen Ultrasound 11/26/2024 2:12 PM EDT Narrative 11/26/2024 2:49 PM EDT ? [facility] ?[address] ?[place] [address] ? Ultrasound Report ? Signed ? Patient: Matthew,Melo ?MR#: [id number] ?? [id number] ? : 1965 ?Acct:[id number] ? Age/Sex: 59 / M ?ADM Date: 11/26/24 ? Loc: HO.US ? Attending Dr: Dotty Troy DO ? Ordering Physician: Dotty Troy DO ?? Date of Service: 11/26/24 ?? Procedure(s): US venous duplex LE LT ?? Accession Number(s): [id number] ? cc: Dotty Troy DO ? EXAMINATION: [...] veins are not well ?? visualized. ? US/US venous duplex LE LT ?? IMPRESSION: ?? No evidence of acute DVT in the left lower extremity. ? Electronically signed by: ??Ian Angela MD ??11/26/2024 02:46 PM EDT ?? RP ? Dictated By: ?Ian Angela MD ? Signed By: ?<Electronically signed by Ian Angela MD in OV> ?11/26/24 1446 ? DD/ 1412 ? TD/TT: 11/26/24 1424 ? Scientific Process Operator: ? Procedure Note Dajuan, Image - 11/26/[address] [address] Ultrasound Report Signed Patient: Hiram Castro LMR#: [id number] : 1965Acct:[id number] Age/Sex: 59 / MADM Date: 11/26/24 Loc: HO.US Attending Dr: Dotty Troy DO Ordering Physician: Dotty Troy DO Date of Service: 11/26/24 Procedure(s): US venous duplex LE LT Accession Number(s): [id number] cc: Dotty Troy DO EXAMINATION: US LOWER [...] Ian Angela MD 11/26/2024 02:46 PM EDT Dictated By: Ian Angela MD Signed By: <Electronically signed by Ian Angela MD in OV> 11/26/24 1446 DD/ 1412 TD/TT: 11/26/24 1424 Scientific Process Operator: us Dotty Troy DO IMG US PROCEDURES Edited Res ult - Final * XR Chest 2 Views (10/08/2024 9:29 AM EST) Anatomical Region Laterality Modality Chest Radiographic Yessenia ging 10/08/2024 9:29 AM EST Narrative 10/08/2024 10:16 AM EST ?[place] [facility] ?[address] ?[place] [address] ?XRay Report ? Signed ? Patient: Matthew,Melo ?MR#: [id number] ?? [id number] ? : 1965 ?Acct:[id number] ? Age/Sex: 59 / M ?ADM Date: 10/08/24 ? Loc: HO.HHCX ? Attending Dr: Hasmukh Truong MD ? Ordering Physician: Hasmukh Truong MD ?? Date of Service: 10/08/24 ?? Procedure(s): XR chest 2V ?? Accession Number(s): [id number] ? cc: Hasmukh Truong MD ? EXAMINATION: ?? XR CHEST ? CLINICAL INFORMATION: ?? 1-week duration of cough and congestion. ? COMPARISON: ?? 05/23/2024, 10/29/2023. ? TECHNIQUE: ?? 2 views of the chest were obtained. ? FINDINGS: ?? The cardiac, hilar, and mediastinal contours are normal. Mild ?? prominence of the aortic root is likely from mild right rotation. ? Lungs demonstrate stable parenchymal scarring and pleural ?? thickening/calcification in the right hemithorax with mild volume loss. ?? This has a stable appearance from multiple prior radiographs. ?? The left lung is clear. ?? No new definite effusions or pneumothoraces. ? There is no focal osseous or soft tissue abnormality. Mild spinal ?? degenerative changes. ? XR/XR chest 2V ?? IMPRESSION: ?? No active pulmonary disease. Chronic findings right lung and pleural ?? without significant interval change. ? Electronically signed by: ??Eliazar Pace MD ??10/08/2024 10:14 AM EST RP ?? Workstation: [id number] ? Dictated By: ?Eliazar Pace MD ? Signed By: ?<Electronically signed by Eliazar Pace MD in OV> ?10/08/24 1014 ? DD/ 09 ? TD/TT: 10/08/24 0950 ? Scientific Process Operator: ? Procedure Note Andrea Graff - 10/08/[address] [address] XRay Report Signed Patient: Hiram Castro R#: [id number] : 1965Acct:[id number] Age/Sex: 59 / MADM Date: 10/08/24 Loc: HO.HHCX Attending Dr: Hasmukh Truong MD Ordering Physician: Hasmukh Truong MD Date of Service: 10/08/24 Procedure(s): XR chest 2V Accession Number(s): [id number] cc: Hasmukh Truong MD EXAMINATION: XR CHEST CLINICAL INFORMATION: 1-week duration of cough and congestion. COMPARISON: 05/23/2024, 10/29/2023. TECHNIQUE: 2 views of the chest were obtained. FINDINGS: The cardiac, hilar, and mediastinal contours are normal. Mild prominence of the aortic root is likely from mild right rotation. Lungs demonstrate stable parenchymal scarring and pleural thickening/calcification in the right hemithorax with mild volume loss. This has a stable appearance from multiple prior radiographs. The left lung is clear. No new definite effusions or pneumothoraces. There is no focal osseous or soft tissue abnormality. Mild spinal degenerative changes. XR/XR chest 2V IMPRESSION: No active pulmonary disease. Chronic findings right lung and pleural without significant interval change. Electronically signed by: Eliazar Pace MD 10/08/2024 10:14 AM EST Dictated By: Eliazar Pace MD Signed By: <Electronically signed by Eliazar Pace MD in OV> 10/08/24 1014 DD/ 0929 TD/TT: 10/08/24 0950 Scientific Process Operator: Hasmukh Truong MD IMG XR PROCEDURES Final Result * Influenza B (ID NOW Rapid Molecular) (10/08/2024 9:14 AM EST) Influenza B Negative Negative, Indeterminate [facility] Swab 10/08/2024 9:14 AM EST Hasmukh Truong MD POINT OF CARE TEST ENTER/EDIT OR DERABLES Final Result [facility] [address] [place] [phone] * Influenza A (ID NOW Rapid Molecular) (10/08/2024 9:14 AM EST) Influenza A Negative Negative, Indeterminate [facility] Swab 10/08/2024 9:14 AM EST us Hasmukh Truong MD POINT OF CARE TEST ENTER/EDIT OR DERABLES Final Result [facility] [address] [place] [phone] * POCT Rapid COVID Ag (10/08/2024 8:54 AM EST) [facility] Rapid COVID Ag Negative Swab 10/08/2024 8:54 AM EST Hasmukh Truong MD POINT OF CARE TEST ENTER/EDIT OR DERABLES Final Result * Lipid Panel, Standard (02/22/2023 9:43 AM EDT) [facility] Cholesterol, Total 127 <200 mg/dL [facility] HDL Cholesterol 46 > OR = 40 mg/dL [facility] Triglycerides 71 <150 mg/dL [facility] LDL Cholesterol 66 mg/dL (calc) [facility] Comment: Reference range: <100 Desirable range <100 mg/dL for primary prevention; ?? <70 mg/dL for patients with CHD or diabetic patients with > or = 2 CHD risk factors. LDL-C is now calculated using the Telma calculation, which is a validated novel method providing better accuracy than the Friedewald equation in the estimation of LDL-C. Lazaro CHINO et al. ALVARADO. 2013;310(19): 8491-7109 (http://education.Screenz.[employer]/faq/PLA841) Chol/HDLC Ratio 2.8 <5.0 (calc) [facility] Non-HDL Cholesterol 81 <130 mg/dL (calc) [facility] Comment: For patients with diabetes plus 1 major ASCVD risk factor, treating to a non-HDL-C goal of <100 mg/dL (LDL-C of <70 mg/dL) is considered a therapeutic option. Blood Venous blood specimen / Unknown 02/22/2023 9:43 AM EDT 02/22/2023 9:44 AM EDT Narrative [facility] - 02/23/2023 10:15 AM EDT FASTING:YES FASTING: YES us Dinora Childs ANP LAB BLOOD ORDERABLES Final Resul t Performing Organization Address [facility] de Phone Number [address] [phone] [facility] [address] * HIV-1/2 Antigen and Antibodies, Fourth Generation, with Reflexes (10/16/2022 12:51 PM EST) [facility] HIV Antigen/Antibody, 4th Generation NON-REAC TIVE NON-REAC TIVE [facility] Comment: HIV-1 antigen and HIV-1/HIV-2 antibodies were not detected. There is no laboratory evidence of HIV infection. PLEASE NOTE: This information has been disclosed to you from records whose confidentiality may be protected by state law. ??If your state requires such protection, then the state law prohibits you from making any further disclosure of the information without the specific written consent of the person to whom it pertains, or as otherwise permitted by law. A general authorization for the release of medical or other information is NOT sufficient for this purpose. ?? For additional information please refer to http://education.StreamBase Systems/faq/BJR570 (This link is being provided for informational/ educational purposes only.) The performance of this assay has not been clinically validated in patients less than 2 years old. Blood Venous blood specimen / Unknown 10/16/2022 12:51 PM EST 10/16/2022 12:52 PM EST Narrative [facility] - 10/17/2022 9:18 AM EST FASTING:NO FASTING: NO us Dinora Childs ANP LAB BLOOD ORDERABLES Final Resul t Performing Organization Address [facility]/ZIP Co de Phone Number [address] [place] [address] [facility] [address] ([address]) [place] [address] * Colonoscopy (04/17/2018) Colonoscopy Normal Normal us Historical Provider MD HEALTH MAINTENANCE Final Result from Last 3 Months or Most Recently Relevant to Health Maintenance Insurance [facility] Care Teams Digital Research Analyst Relationship Specialty Start Date End Date Dinora Childs ANP [address] [place] [address] PCP - General Family Medicine 10/04/21
--- OUTSIDE RECORDS SUMMARY | 2024-11-26 17:17 | XMS_ITS | Encounter Summary ---
Author Organization [email or web address] Address [address] [facility] 7t [place] [address] Care Team Providers Care Clay Artisan Name Role Phone Dinora Childs Primary Care Provider [phone] Reason for Visit * Reason Comments Med Refill Encounter Details Date Type Department Care Team ([facility] st Contact Info) Description 11/04/[address] [facility] [address] [place], [place] [phone] Dinora Childs ANP [address] [place] [address] Generalized abdominal pain Social History Tobacco Use Types Packs/Day Years [...] Description 12/22/2024 11:15 AM EDT Office Visit [facility] [address] [place] [phone] Dinora Childs ANP [address] [place] [address] documented as of this encounter Visit Diagnoses Diagnosis Generalized abdominal pain Abdominal pain, generalized documented in this encounter Additional Health Concerns Assessment Noted Time PHQ-9 Depression Total Score: 0 02/04/20 11:04 AM EDT documented as of this encounter Care Teams Clay Artisan Relationship Specialty Start Date End Date Dinora Childs ANP [address] [place] [address] PCP - General Family Medicine 10/04/21 documented as of this encounter
--- OUTSIDE RECORDS SUMMARY | 2024-11-26 17:17 | XMS_ITS | Encounter Summary ---
Author Organization [employer] [facility] Address [address] [facility] 7t [place] [address] Care Team Providers Care Head Bander And Liner Operator Name Role Phone Dinora Childs Primary Care Provider [phone] Encounter Details Date Type Department Care Team (Late st Contact Info) Description 09/14/2022 Orders Only [facility] 230 [place] [address] Johanny Garza, ЕЛЕНА Social History Tobacco Use Types Packs/Day Years [...] Description 12/22/2024 11:15 AM EDT Office Visit [facility] [address] [place] [address] Dinora Childs ANP 230 [place] [address] documented as of this encounter Visit Diagnoses Not on filedocumented in this encounter Care Teams Head Bander And Liner Operator Relationship Specialty Start Date End Date Dinora Childs ANP [address] [place] [address] PCP - General Family Medicine 10/04/21 documented as of this encounter
--- OUTSIDE RECORDS SUMMARY | 2024-11-26 17:17 | XMS_ITS | Encounter Summary ---
Author Organization [employer] Address [address] [facility] 7t [place] [address] Care Team Providers Care Chicken Vaccinator Name Role Phone Dinora Childs Primary Care Provider [phone] Reason for Visit * Reason Onset Date Comments Med Refill 11/09/2024 Encounter Details Date Type Department Care Team ([facility] st Contact Info) Description 11/09/2024 Telephone [facility] 230 [place] [address] Dinora Childs ANP [address] [place] [address] Med Refill Social History Tobacco Use Types Packs/Day Years [...] encounter Miscellaneous Notes * Telephone Encounter - Zuleyma Garza LPN - 11/09/2024 12:58 PM EST Duplicate request * Telephone Encounter - Jose Lui - 11/09/2024 12:56 PM EST TC from pt requesting medication refill. Medications needing refill :Zepbound 5 MG/0.5ML solution auto-injector To be sent to: [facility] pharmacy documented in this encounter Plan of Treatment Upcoming Encounters Date Type Department Care Team (Late st Contact Info) Description 12/22/2024 11:15 AM EDT Office Visit [facility] [address] [place] [address] Dinora Chilsd ANP [address] [place] [address] documented as of this encounter Visit Diagnoses Not on filedocumented in this encounter Additional Health Concerns Assessment Noted Time PHQ-9 Depression Total Score: 0 02/04/20 11:04 AM EDT documented as of this encounter Care Teams Chicken Vaccinator Relationship Specialty Start Date End Date Dinora Childs ANP [address] [place] [address] PCP - General Family Medicine 10/04/21 documented as of this encounter
--- OUTSIDE RECORDS SUMMARY | 2024-11-26 17:17 | XMS_ITS | Encounter Summary ---
Author Organization [employer] Address [address] [facility] 7t [place] [address] Care Team Providers Care Straight Cutter Machine Name Role Phone Dinora Childs Primary Care Provider [phone] Reason for Visit * Reason Comments Med Refill Encounter Details Date Type Department Care Team ([facility] st Contact Info) Description 11/02/2024 Refill [facility] 230 [place], [place] [phone] Dinora Childs ANP [address] [place] [address] Morbid obesity with BMI of 50.0-59.9, adult (CMS/[facility]) Social History Tobacco Use Types Packs/Day Years [...] Description 12/22/2024 11:15 AM EDT Office Visit [facility] [address] [place] [address] Dinora Childs ANP [address] [place] [address] documented as of this encounter Visit Diagnoses Diagnosis Morbid obesity with BMI of 50.0-59.9, adult (CMS/HCC) documented in this encounter Additional Health Concerns Assessment Noted Time PHQ-9 Depression Total Score: 0 02/04/20 24 11:04 AM EDT documented as of this encounter Care Teams Straight Cutter Machine Relationship Specialty Start Date End Date Dinora Childs ANP [address] [place] [address] PCP - General Family Medicine 10/04/21 documented as of this encounter
--- OUTSIDE RECORDS SUMMARY | 2024-11-26 17:17 | XMS_ITS | Encounter Summary ---
Author Organization [employer] Address [address] [facility] 7t [place] [address] Care Team Providers Care Graphics Manager Name Role Phone Dinora Childs Primary Care Provider [phone] Encounter Details Date Type Department Care Team (Late st Contact Info) Description 12/27/2022 Orders Only [facility] [address] [place] [address] Dotty Herron LPN Social History Tobacco Use [...] Description 12/22/2024 11:15 AM EDT Office Visit [facility] [address] [place] [address] Dinora Childs ANP [address] [place] [address] documented as of this encounter Visit Diagnoses Not on filedocumented in this encounter Care Teams Graphics Manager Relationship Specialty Start Date End Date Dinora Childs ANP [address] [place] [address] PCP - General Family Medicine 10/04/21 documented as of this encounter
--- OUTSIDE RECORDS SUMMARY | 2024-11-26 17:17 | XMS_ITS | Encounter Summary ---
Author Organization [employer] [facility] Address [address] [facility] 7t [place] [address] Care Team Providers Care Consulting Technical Manager Name Role Phone Dinora Childs Primary Care Provider [phone] Encounter Details Date Type Department Care Team (Late st Contact Info) Description 09/26/[address] [facility] [address] [place] [address] Zuleyma Garza LPN Social History Tobacco Use Types Packs/Day [...] 12/22/2024 11:15 AM EDT Office [address] [facility] [address] [place] [address] Dinora Childs ANP [address] [place] [address] documented as of this encounter Visit Diagnoses Not on filedocumented in this encounter Care Teams Consulting Technical Manager Relationship Specialty Start Date End Date Dinora Childs ANP [address] [place] [address] PCP - General Family Medicine 10/04/21 documented as of this encounter
== END 2024-11-26 13:41 | disposition home or self-care (01) ==
LOC: HO.US 13:40
PROVIDERS: PCP Family Medicine; Visit Provider Family Medicine
DX: M47.26 Other spondylosis with radiculopathy, lumbar region (principal); M79.605 Pain in left leg
CPT/HCPCS: 72100; 93971

== ENCOUNTER → 2024-11-26 14:12 | Outpatient (BNV) | payer OTHER, SELFPAY | PROVIDERS: PCP Family Medicine; Visit Provider Radiology Diagnostic Radiology | DX: M79.605 Pain in left leg (principal) | CPT/HCPCS: 72100; 93971 ==

== ENCOUNTER 2024-12-08 09:09 | Outpatient (REF) | payer OTHER, SELFPAY ==
--- NOTE | 2024-12-08 09:12 | EMG_ITS ---
Left tibial and peroneal motor studies were performed. Left superficial peroneal, sural, and median and lateral mixed plantar sensory studies were performed. Tibial H-reflex was obtained and paraspinal muscles were tested with a needle. IMPRESSION: Moderately severe axonal sensory motor peripheral neuropathy. MD CLAUS Hernandez/MOL / [id number]
--- OUTSIDE RECORDS SUMMARY | 2024-12-08 10:07 | XMS_ITS | Data Portability ---
Author Organization [employer] Address [address] [place] [phone] Care Team Providers Care Store Clerk Cashier Name Role Phone [facility] Referring Provider [facility] Referring Provider [phone] Assessment Encounter Date Assessment Date Assessment LastModified [...] nausea/vomiti ng, or any other concerns. VSS. Template Fitter on site reports mild b/l flank pain. [...] Go To The Location Of Their Choice, [address] 08:07:30 Referral None recorded. Procedures None recorded. Surgeries None recorded. Imaging None recorded. Medication Orders ketorolac 15 mg/mL injection solution 2023 024 [facility], [address] [place], [place], [id number], 4 15:43:09 cyclobenzap rine 5 mg tablet 2023 024 [facility], [address] [place], [place], [id number], 4 17:25:27 diclofenac 1 % topical gel 2023 024 [facility], [address] [place], [place], [id number], 4 17:25:27 Bactrim DS 800 mg-160 mg tablet 2022 023 [facility], [address] [place] [address], [id number], 3 17:51:28 Patient TargetsNo targets recorded. Patient [...] 144 mm[Hg] 84 mm[Hg] Toshia Morris MD [address] [place] [address],[address], [place], [phone] [place] [address] [employer] [facility] 2 22:08:32 Date Recorded Oxygen saturation Oxygen saturation in Arterial blood by Pulse oximetry Body weight Heart rate Body temperature Respiratory rate Systolic blood pressure Diastolic blood pressure Provider Name and Address Organization Details Last Updated DateTime 3 99 % 99 % 210824. 08 g 86 /min 96.6 [degF] 16 /min 130 mm[Hg] 86 mm[Hg] Not Available [employer] 3 17:24:50 Social History None recorded. Functional Status None recorded. Mental Status None recorded. Family History Nothing Reported. Medical History No medical history recorded. Past Encounters Encounter ID Performer Location Encounter Start Date Encounter Closed Date Diagnosis/Indication Diagnosis SNOMED-CT Code Diagnosis ICD10 Code Diagnosis Note [id number] Toshia Morris MD [facility] [employer] [address] [place] [phone] 12/11/2021 18:54:22 05/08/2022 16:02:06 Exposure to carbon monoxide 46712815 Z77.128 Patient and evaluated for intermitte nt symptoms in conjunctio n with CO detector alarm sounding periodical ly. Alarm currently not sounding, patient currently asymptomat ic and vital signs are normal on today's evaluation . Counseling provided regarding safety steps if alarm should sound again in the future. In interim patient is safe to remain at home. [id number] Josee Meadows MD [facility] [address] [place] [phone] 01/21/2023 17:24:44 01/22/2023 13:18:43 Acute urinary tract infection 954868199 N39.0 [id number] ERYN MONTES MD [facility] [address] [place] [phone] 10/08/2023 15:37:26 10/08/2023 22:18:45 Neck pain 81550202 M54.2 Evaluation in the field was performed by my professor of economics colleague, as noted above, I provided real-time [...] his neck. He sought medical attention at [place] [facility], where no interventi on was provided. [...] Ortiz Member ID Guarantor Name 12/11/[address] [facility] - DOS PRIOR TO 2022 - DUAL ELIGIBLE (MEDICARE REPLACEMENT/AD VANTAGE - HMO) Hiram Castro [id number] Hiram Catsro 01/21/[address] [facility] - DOS PRIOR TO 2022 - DUAL ELIGIBLE (MEDICARE REPLACEMENT/AD VANTAGE - HMO) Hiram Castro [id number] Hiram Castro 10/08/2023 1 [facility] - DOS ON OR AFTER 2022 - DUAL ELIGIBLE - PENITENTIARY OPTIONS AND ONE CARE (MEDICARE REPLACEMENT/AD VANTAGE - HMO) Hiram Castro [id number] Hiram Castro Notes Date Note Type Note Provider Name and Address Organization Details Recorded Time 12/11/2021 text/html Request notes:Evaluate patient for reported nausea, headache and weakness. Patient concerned with housing as cause of exposure to something causing symptoms. Per professor of economics evaluation, noted to have intermittent symptoms for months, in concert with who is also having the same symptoms, that seem correlated to the carbon monoxide detector alarming periodically. Toshia Morris MD [address] [place] [address],[address], [place], [phone], [employer] 12/11/2021 22:11:23 01/21/2023 text/html HPI: ALLERGIES; None [...] ................... ................... ................... ................... ................... ................... ........ Template Fitter Note From Rosendo Waters: pt requesting f/u [...] bactrim for 3 days with no effect. [facility] contacted. [facility] prescribed bactrim for 10 days. [facility] professor of economics gave pt first dose at visit. Pt educated on s/s warranting a 911 call/trip to the hospital. pt advised to f/u with PCP. ................... ................... ................... ................... ................... ................... ................... ........ Disposition: Dustin Meadows MD [address] [facility],[address], [place], [phone], [employer] 01/21/2023 18:08:48 10/08/2023 text/html HPI: HX sleep [...] Glass): Comments: HPI was reviewed by this teletypewriter operator - No further information needed at this time. Ghada CHRISTIANSEN ................... ................... ................... ................... ................... ................... ................... ........ Template Fitter Note From Miriam Kearns: Upon arrival it [...] in tact. Pt stated he went to [facility] for the same issue and ? they didn? t do nothing.? Vitals as noted. [facility] contacted and pt was administered 15mg of toradol in left arm w/o incident. Pt was sent prescription for flexeril. Pt was told that is he became SOB or starting feeling pain in his chest, to immediately call 911. Pt stated he understood. Call was then cleared. ................... ................... ................... ................... ................... ................... ................... ........ Disposition: Dustin MONTES MD [address] [facility],[address], [place], [phone], [employer] 10/08/2023 16:05:27
== END 2024-12-08 09:10 | disposition home or self-care (01) ==
LOC: HO.NEURO 09:09
PROVIDERS: PCP Nurse Practitioner Primary Care; Visit Provider Family Medicine
DX: M79.605 Pain in left leg (principal)
CPT/HCPCS: 95886; 95910

== ENCOUNTER 2024-12-09 11:12 | Outpatient (AMB) | payer OTHER, SELFPAY ==
--- NOTE | 2024-12-09 11:14 | A.OFFVIS_ITS ---
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 Required: No Accompanied by: Self / Same As Patient Allergies No Known Allergies [No Known Allergies*] Allergy (Verified 12/09/24 11:30) Medication List - Last Reconciled 12/09/24 by AIDE [place]- albuterol sulfate 90 mcg/actuation 2 inhalations inhalation Q4-6H PRN amoxicillin 1,000 mg (2 x 500 mg) PO TID 5 days atorvastatin 20 mg PO DAILY bisacodyl (Dulcolax (bisacodyl)) 10 mg HI DAILY PRN buspirone 10 mg PO BID cholecalciferol (vitamin D3) (Vitamin D3) 50 mcg PO DAILY dicyclomine 20 mg PO Q8-10H PRN docusate sodium 100 mg PO BID doxycycline hyclate 100 mg PO Q12H 10 days fluticasone propionate 220 mcg/actuation inhalation lisinopril 10 mg PO DAILY loratadine 10 mg PO DAILY melatonin mg PO melatonin mg PO BEDTIME ondansetron 4 mg PO DAILY polyethylene glycol 3350 (Miralax) 17 grams PO DAILY pravastatin 40 mg PO DAILY PRN prednisone 60 mg (3 x 20 mg) PO DAILY 5 days psyllium husk (aspartame) 3.4 gram (Metamucil Fiber Singles) PO pyridoxine (vitamin B6) 100 mg PO DAILY 90 days sennosides (senna) 8.6 mg PO DAILY 30 days sertraline 150 mg PO DAILY sildenafil (Viagra) 50 - 100 mg PO DAILY PRN HPI Comments Details: Hiram is a very pleasant 59-year-old male patient of Dr. Childs. He has a past medical history of asthma, hypertension, hypercholesteremia, hyperlipidemia, and sleep apnea. He presents to the office today for follow-up of his urinary tract infections, nephrolithiasis, and ED. In discussion with the patient today he reports having recently follow-up with a provider regarding ongoing low-back pain that radiates to his left leg. He denies having had any bothersome urinary issues or concerns since his last office visit here. He reports feeling p.r.n. sildenafil has been helpful in maintaining his erections. Recent renal imaging results reviewed with the patient today. 08/09 right kidney with no hydronephrosis or renal calculi. Left kidney with redemonstration of mild left pelviectasis. Nonobstructing Left renal 6 mm and 4 mm calculi. He denies having had any UTIs and or UTI like symptoms since his last office visit here. He reports compliance with vitamin B6 daily as well as drinking plenty of water daily. He denies urinary urgency, urinary frequency, incontinence, nocturia, hematuria, dysuria, foul smelling urine, changes to urinary stream, flank pain, fever, and or chills. He is happy with his current voiding parameters. Discussed at length potential causes for urinary tract infection,nephrolithiasis and erectile dysfunction. In office urinalysis r esults reviewed with the patient today. We discussed the importance of weight loss in relation to ED as well as overall health and well-being. PSA 04/07 0.3. Plan Management for left renal calculi involves hydration, vitamin B6 supplementation, and dietary lemon to inhibit stone growth. A metabolic workup with a home-based 24-hour urine collection will further assess risk factors for targeted prevention. Regarding erectile dysfunction, medications remain effective though usage is selective due to partner health. The patient is informed of potential effects and consents to ongoing monitoring of his condition, with follow-up scheduled to reassess progress and treatment efficacy. Patient was informed and verbally consented to the use of an ambient scribe for clinic note documentation during this visit. Discussion Notes I reviewed with the patient the confirmed diagnosis of left renal calculi per ultrasound results and the plan to initiate a 24-hour urine collection to guide future prevention efforts. The rationale for conservative management given the calculi size was explained, with emphasis placed on lifestyle modifications including diet and hydration. Regarding erectile dysfunction, we discussed the use of medications, their efficacy, and the importance of usage being aligned with personal circumstances. The patient expressed understanding and agreement with the management plan and consented to future follow-ups to monitor and adjust treatment as required. FORMERLY [facility] Medical History High cholesterol Sleep apnea Hyperlipemia High blood pressure Asthma Surgical History No history of previous surgery Family History Sister Seizures Sister Diabetes Mother Diabetes Father No problems noted. 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 Review of Systems Const Reports as per HPI Eyes Reports no additional complaints ENT Reports no additional complaints Card Reports as per HPI Resp Reports as per HPI GI Reports no additional complaints Reports as per HPI Neuro Reports no additional complaints Psych Reports no additional complaints Endo Reports no additional complaints Physical Exam Const General: cooperative, comfortable, no acute distress, well developed, alert and awake Nutritional Appearance: obese Orientation/consciousness: patient oriented x3 Limitations: no limitations HEENT Head: Yes normal to inspection, Yes normocephalic and Yes atraumatic Ears: hearing grossly normal bilaterally Eyes General: appearance normal, both eyes and all related structures Neck Neck: Yes normal visual inspection and Yes trachea midline Chest Chest palpation & inspection: normal inspection of the chest Resp Effort & Inspection: able to speak in complete sentences Cardio Rate: regular rate GI Inspection: Yes normal to inspection General: Yes no CVA tenderness Back/Spine/Pelvis Back: no CVA tenderness Skin General skin exam: no rashes or lesions noted Neuro General: patient oriented x3 Extrem General: Yes normal to inspection Psych Appearance: grossly normal and well kempt Mental Status: mental status grossly normal Speech and movement: Clear speech present Affect: normal affect Attitude: cooperative Thought process: Normal thought process present Thought content: Normal thought content present Insight: Fair insight present (Psych) Judgement: Fair judgement present (Psych) Results AMB Urinalysis, Automated UA Leukoctes 0 Aaron/uL Last Edit by Rachel Concepcion on 12/09/24 11:27 UA Nitrite Negative Last Edit by Rachel Concepcion on 12/09/24 11:27 UA Urobilinogen 17 mg/dL Last Edit by Rachel Concepcion on 12/09/24 11:27 UA Protein 0.3 mg/dL Last Edit by Rachel Concepcion on 12/09/24 11:27 UA pH 6.0 Last Edit by Rachel Concepcion on 12/09/24 11:27 UA Blood 0 Willard/uL Last Edit by Rachel Concepcion on 12/09/24 11:27 UA Specific [place] 1.025 Last Edit by Rachel Concepcion on 12/09/24 11:27 UA Ketone Positive Last Edit by Rachel Concepcion on 12/09/24 11:27 UA Bilirubin 17 mg/dL Last Edit by Rachel Concepcion on 12/09/24 11:27 UA Glucose 0 mg/dL Last Edit by Rachel Concepcion on 12/09/24 11:27 Results Reviewed Results Reviewed: Laboratory Last Values Urine pH (Auto) 6.0 12/09/24 11:13 Specific [place] (Auto) 1.025 12/09/24 11:13 Urine Protein (Auto) 0.3 mg/dL 12/09/24 11:13 Glucose (UA)(Auto) 0 mg/dL 12/09/24 11:13 Urine Ketones (Auto) Positive 12/09/24 11:13 Urine Blood (Auto) 0 [place]/uL 12/09/24 11:13 Urine Nitrite (Auto) Negative 12/09/24 11:13 Urine Bilirubin (Auto) 17 mg/dL 12/09/24 11:13 Urine Urobilinogen (Auto) 17 mg/dL 12/09/24 11:13 Leukocyte Esterase (Auto) 0 Aaron/uL 12/09/24 11:13 Date of Service: 07/17/24 Procedure(s): US renal BI FINDINGS: RIGHT KIDNEY: 0.3 x 5.6 x 6.1 cm (SAG x AP x TRV). No hydronephrosis. No renal calculi. Renal cortical thickness is normal. Limited visualization. LEFT KIDNEY: 12.4 x 7.3 x 4.0 cm (SAG x AP x TRV). Redemonstration of mild LEFT pelvocaliectasis. LEFT renal 0.6 cm mid pole and 0.4 cm upper pole calculi. Renal cortical thickness is normal. Limited visualization. US/US renal BI IMPRESSION: Redemonstration of mild LEFT pelvocaliectasis. LEFT renal 0.6 cm mid pole and 0.4 cm upper pole calculi. Assessment & Plan Assessment & Plan (1) Nephrolithiasis: Comment: HX- Code(s): N20.0 - Calculus of kidney Category: Medical (2) Recurrent UTI: Code(s): N39.0 - Urinary tract infection, site not specified Category: Medical (3) Renal cyst: Code(s): N28.1 - Cyst of kidney, acquired Category: Medical Plan In office urinalysis results reviewed with the patient today; as noted above. Patient denies any bothersome urinary issues or concerns at this time. Patient reports be happy with current voiding parameters. Recent renal ultrasound results reviewed with the patient today; as noted above. Discussed at length potential causes of nephrolithiasis, recurrent urinary tract infections, and erectile dysfunction. We discussed further metabolic workup to include 24 hour urine collection. Continue vitamin B6 Discussed, educated, encouraged on the importance of drinking plenty of water daily. We discussed importance of weight loss in relation to erectile dysfunction as well as overall health and well-being. Follow-up in 3 months with imaging to be completed prior; or sooner with any issues, concerns, and or questions. Orders: Orders AMB Post Void Residual by ultrasound Today N39.0 - Urinary tract infection, site not specified AMB Urinalysis Automated Today Z13.9 - Encounter for screening, unspecified Medications: Discontinued doxycycline hyclate Discontinued Reason: Patient Completed Course 100 mg PO Q12H 10 days 20 tabs 0RF amoxicillin Discontinued Reason: Patient Completed Course 1,000 mg (2 x 500 mg) PO TID 5 days 30 caps 0RF prednisone Discontinued Reason: Patient Completed Course 60 mg (3 x 20 mg) PO DAILY 5 days 15 tabs 0RF Patient Instructions: The patient had an opportunity to ask questions regarding the treatment plan. All questions were answered. Physical exam, labs, and imaging were discussed and reviewed in detail. As well as risks, benefits, and discussion of treatment choices. No major barriers to understanding were identified. The patient expressed understanding and agreement with the above treatment plan. The patient was made aware they should contact our office by phone for worsening of their current condition, the appearance of new symptoms, or with any questions or concerns. Compliance is encouraged with any medications and follow up testing that is ordered. It is a privilege to be allowed the opportunity to participate in? your urological care.? Again, if you have any questions or concerns If you have any questions or concerns please do not hesitate to contact me. The office is [phone]. This note is constructed using voice recognition software. While every effort has been made to ensure accuracy product merchandiser errors may have been included. Yours sincerely, JUSTA [place] Coding Level of Care Code Est Pt Level 3 (42843) Diagnoses Nephrolithiasis N20.0 Recurrent UTI N39.0 Renal cyst N28.1
--- OUTSIDE RECORDS SUMMARY | 2024-12-09 13:28 | XMS_ITS | Encounter Summary ---
Author Organization [employer] Address [address] [facility] [address] [place] [address] Care Team Providers Care Chick Sexer Name Role Phone Dinora Childs [place] Primary Care Provider [phone] Reason for Referral * Imaging (Routine) - Authorized Specialty Diagnoses / Procedures Referred By Jordy bartlett Referred To Contact Cardiology Diagnoses Left leg pain Procedures Vascular US lower extremity arterial duplex bilateral with EM Dotty Troy DO [address] [place] [address] Phone: tel: fax: [address] Phone: tel: fax: Referral ID Status Reason Start Date Expiration Date Visits Requested Visits Authorized [id number] Authorized Perform Procedure 11/26/2024 11/26/2025 1 1 * Neurology (Routine) - Closed Specialty Diagnoses / Procedures Referred By Jordy bartlett Referred To Contact Diagnoses Left leg pain Procedures Nerve conduction test Dotty Troy DO [address] [place] [address] Phone: tel: fax: [address] Phone: tel: fax: Referral ID Status Reason Start Date Expiration Date Visits Re quested Visits Authorized [id number] Closed 11/26/2024 11/26/2025 1 1 * Neurology (Routine) - Closed Specialty Diagnoses / Procedures Referred By Contac t Referred To Contact Diagnoses Left leg pain Procedures EMG Dotty Troy DO [address] [place] [address] Phone: tel: fax: [address] Phone: tel: fax: Referral ID Status Reason Start Date Expiration Date Visits Re quested Visits Authorized [id number] Closed 11/26/2024 11/26/2025 1 * Imaging (STAT) - Closed Specialty Diagnoses / Procedures Referred By Contac t Referred To Contact Cardiology Diagnoses Left leg pain Procedures VASC US Lower Extremity Venous Duplex Left Dotty Troy DO [address] [place] [address] Phone: tel: fax: [address] Phone: tel: fax: Referral ID Status Reason Start Date Expiration Date V isits Requested Visits Authorized [id number] Closed Perform Procedure 11/26/2024 11/26/2025 1 1 Reason for Visit * Reason Comments Leg Pain Back Pain Encounter Details Date Type Department Care Team (Late st Contact Info) Description 11/26/2024 9:20 AM EDT Office Visit [facility] [address] [place] [address] Left leg pain (Primary Dx); Essential hypertension; [...] Description 12/22/2024 11:15 AM EDT Office Visit [facility] [address] [facility] [place] [address] Dinora Childs ANP [address] [facility] [place] [address] Scheduled Orders Name Type Priority Associated Diagnoses Orde r Schedule EMG Neurology Routine Left leg pain Expected: 11/26/2024 (Approximate), Expires: 11/26/2025 Nerve conduction test Neurology Routine Left leg pain Expected: 11/26/2024 (Approximate), Expires: 11/26/2025 documented as of this encounter Procedures Procedure Name Priority Date/Time Associated Diagnosis Comments XR LUMBAR SPINE 2-3 VIEWS Routine 11/26/2024 2:34 PM EDT Left leg pain documented in this encounter Results * XR Lumbar Spine 2-3 Views (11/26/2024 2:34 PM EDT) Anatomical Region Laterality Modality Spine, L-spine Radiographic Yessenia ging 11/26/2024 2:34 PM EDT Narrative 11/27/2024 8:26 AM EDT ? [facility] ?[address] ?[place] [address] ?XRay Report ? Signed ? Patient: Matthew,Melo ?MR#: [id number] ?? [id number] ? : 1965 ?Acct:[id number] ? Age/Sex: 59 / M ?ADM Date: 11/26/24 ? Loc: HO.US ? Attending Dr: Dotty Troy DO ? Ordering Physician: Dotty Troy DO ?? Date of Service: 11/26/24 ?? Procedure(s): XR lumbar spine 2-3V ?? Accession Number(s): [id number] ? cc: Dotty Troy DO ? EXAMINATION: ?? XR LUMBOSACRAL SPINE ? CLINICAL INFORMATION: ?? worsening L lower leg pain ? COMPARISON: ?? 09/30/2019. ? TECHNIQUE: ?? Three views of the lumbosacral spine. ? FINDINGS: ?? Study somewhat limited by patient habitus. ?? No scoliosis. Mild straightening of the normal lordosis. ?? No fracture, compression deformity, or suspicious bone lesion. ?? There is a minimal degenerative type retrolisthesis of L1 on L2. There ?? is a trace degenerative anterolisthesis of L3 on L4. ?? Severe multilevel disc degeneration is present with relative sparing of ?? L3-4. There is associated disc osteophytic spurring. ?? There is normal facet alignment. There are multilevel degenerative ?? facet changes, most notable L3-S1. ? Sacrum and SI joints appear normal. ?? No discrete soft tissue abnormality. ? XR/XR lumbar spine 2-3V ?? IMPRESSION: ?? 1. Moderate to advanced multilevel spondylosis. No acute findings. ? Electronically signed by: ??Eliazar Pace MD ??11/27/2024 08:23 AM EDT RP ?? Work[facility]: [id number] ? Dictated By: ?Eliazar Pace MD ? Signed By: ?<Electronically signed by Eliazar Pace MD in OV> ?11/27/24 0823 ? DD/ 1434 ? TD/TT: 11/26/24 1444 ? Traffic Engineering Director: ? Procedure Note Dajuan, Image - 11/27/2024 [place] [address] XRay Report Signed Patient: Hiram Castro LMR#: [id number] : 1965Acct:[id number] Age/Sex: 59 / MADM Date: 11/26/24 Loc: HO.US Attending Dr: Dotty Troy DO Ordering Physician: Dotty Troy DO Date of Service: 11/26/24 Procedure(s): XR lumbar spine 2-3V Accession Number(s): [id number] cc: Dotty Troy DO EXAMINATION: XR LUMBOSACRAL SPINE CLINICAL INFORMATION: worsening L lower leg pain COMPARISON: 09/30/2019. TECHNIQUE: Three views of the lumbosacral spine. FINDINGS: Study somewhat limited by patient habitus. No scoliosis. Mild straightening of the normal lordosis. No fracture, compression deformity, or suspicious bone lesion. There is a minimal degenerative type retrolisthesis of L1 on L2. There is a trace degenerative anterolisthesis of L3 on L4. Severe multilevel disc degeneration is present with relative sparing of L3-4. There is associated disc osteophytic spurring. There is normal facet alignment. There are multilevel degenerative facet changes, most notable L3-S1. Sacrum and SI joints appear normal. No discrete soft tissue abnormality. XR/XR lumbar spine 2-3V IMPRESSION: 1. Moderate to advanced multilevel spondylosis. No acute findings. Electronically signed by: Eliazar Pace MD 11/27/2024 08:23 AM EDT RP Dictated By: Eliazar Pace MD Signed By: <Electronically signed by Eliazar Pace MD in OV> 11/27/24 0823 DD/ 1434 TD/TT: 11/26/24 1444 Traffic Engineering Director: Dotty Troy DO IMG XR PROCEDURES Final Resu lt documented in this encounter Visit Diagnoses Diagnosis Left leg pain- Primary Pain in soft tissues of limb Essential hypertension Unspecified essential hypertension Pain Generalized pain documented in this encounter Additional Health Concerns Assessment Noted Time PHQ-9 Depression Total Score: 0 02/04/20 24 11:04 AM EDT documented as of this encounter Care Teams Chick Sexer Relationship Specialty Start Date End Date Dinora Childs ANP [address] [place] [id number] PCP - General Family Medicine 10/04/21 documented as of this encounter
--- OUTSIDE RECORDS SUMMARY | 2024-12-09 13:28 | XMS_ITS | Data Portability ---
Author Organization [employer] Address [address] [place] [address] Care Team Providers Care Mysql Developer Name Role Phone [facility] Referring Provider [facility] Referring Provider [phone] Assessment Encounter Date Assessment Date Assessment LastModified [...] nausea/vomiti ng, or any other concerns. VSS. Network Design Architect on site reports mild b/l flank pain. [...] Go To The Location Of Their Choice, [address] 08:07:30 Referral None recorded. Procedures None recorded. Surgeries None recorded. Imaging None recorded. Medication Orders ketorolac 15 mg/mL injection solution 2023 024 [facility], [address] [place], [place], [id number], 4 15:43:09 cyclobenzap rine 5 mg tablet 2023 024 [facility], [address] [place], [place], [id number], 4 17:25:27 diclofenac 1 % topical gel 2023 024 [facility], [address] [place], [place], [id number], 4 17:25:27 Bactrim DS 800 mg-160 mg tablet 2022 023 [facility], [address] [place] [address], [id number], 3 17:51:28 Patient TargetsNo targets recorded. Patient [...] 144 mm[Hg] 84 mm[Hg] Toshia Morris MD [address] [place] [address],[address], [place], [phone] [place] [address] [facility] 2 22:08:32 Date Recorded Oxygen saturation Oxygen saturation in Arterial blood by Pulse oximetry Body weight Heart rate Body temperature Respiratory rate Systolic blood pressure Diastolic blood pressure Provider Name and Address Organization Details Last Updated DateTime 3 99 % 99 % 201411. 08 g 86 /min 96.6 [degF] 16 /min 130 mm[Hg] 86 mm[Hg] Not Available [employer] [facility] [employer] 3 17:24:50 Social History None recorded. Functional Status None recorded. Mental Status None recorded. Family History Nothing Reported. Medical History No medical history recorded. Past Encounters Encounter ID Performer Location Encounter Start Date Encounter Closed Date Diagnosis/Indication Diagnosis SNOMED-CT Code Diagnosis ICD10 Code Diagnosis Note [id number] Toshia Morris MD [facility] [employer] [address] [place] [phone] 12/11/2021 18:54:22 05/08/2022 16:02:06 Exposure to carbon monoxide 65063180 Z77.128 Patient and evaluated for intermitte nt symptoms in conjunctio n with CO detector alarm sounding periodical ly. Alarm currently not sounding, patient currently asymptomat ic and vital signs are normal on today's evaluation . Counseling provided regarding safety steps if alarm should sound again in the future. In interim patient is safe to remain at home. [id number] Josee Meadows MD [facility] [address] [place] [phone] 01/21/2023 17:24:44 01/22/2023 13:18:43 Acute urinary tract infection 952129557 N39.0 [id number] ERYN MONTES MD [facility] [address] [place] [id number] 10/08/2023 15:37:26 10/08/2023 22:18:45 Neck pain 44990775 M54.2 Evaluation in the field was performed by my steel tier colleague, as noted above, I provided real-time [...] his neck. He sought medical attention at [facility], where no interventi on was provided. [...] Ortiz Member ID Guarantor Name 12/11/2021 1 [facility] - DOS PRIOR TO 2022 - DUAL ELIGIBLE (MEDICARE REPLACEMENT/AD VANTAGE - HMO) Hiram Castro [id number] Hiram Castro 01/21/2023 1 [facility] - DOS PRIOR TO 2022 - DUAL ELIGIBLE (MEDICARE REPLACEMENT/AD VANTAGE - HMO) Hiram Castro [id number] Hiram Castro 10/08/2023 1 [facility] - DOS ON OR AFTER 2022 - DUAL ELIGIBLE - INTERMEDIATE OPTIONS AND ONE CARE (MEDICARE REPLACEMENT/AD VANTAGE - HMO) Hiram Castro [id number] Hiram Castro Notes Date Note Type Note Provider Name and Address Organization Details Recorded Time 12/11/2021 text/html Request notes:Evaluate patient for reported nausea, headache and weakness. Patient concerned with housing as cause of exposure to something causing symptoms. Per steel tier evaluation, noted to have intermittent symptoms for months, in concert with who is also having the same symptoms, that seem correlated to the carbon monoxide detector alarming periodically. Toshia Morris MD [address] [place] [address],[address], [place], [phone], [employer] 12/11/2021 22:11:23 01/21/2023 text/html HPI: ALLERGIES; None [...] ................... ................... ................... ................... ................... ................... ........ Network Design Architect Note From Rosendo Waters: pt requesting f/u [...] bactrim for 3 days with no effect. [facility] contacted. [facility] prescribed bactrim for 10 days. [facility] steel tier gave pt first dose at visit. Pt educated on s/s warranting a 911 call/trip to the hospital. pt advised to f/u with PCP. ................... ................... ................... ................... ................... ................... ................... ........ Disposition: Dustin Meadows MD [address] [facility],[address], [place], [phone], [employer] [facility]?REL 01/21/2023 18:08:48 10/08/2023 text/html HPI: HX sleep [...] Glass): Comments: HPI was reviewed by this service writer - No further information needed at this time. Ghada CHRISTIANSEN ................... ................... ................... ................... ................... ................... ................... ........ Network Design Architect Note From Miriam Kearns: Upon arrival it [...] in tact. Pt stated he went to [facility] for the same issue and ? they didn? t do nothing.? Vitals as noted. [facility] contacted and pt was administered 15mg of toradol in left arm w/o incident. Pt was sent prescription for flexeril. Pt was told that is he became SOB or starting feeling pain in his chest, to immediately call 911. Pt stated he understood. Call was then cleared. ................... ................... ................... ................... ................... ................... ................... ........ Disposition: Dustin MONTES MD [address] [facility],[address], [place], [address], [employer] 10/08/2023 16:05:27
--- OUTSIDE RECORDS SUMMARY | 2024-12-09 13:28 | XMS_ITS | Encounter Summary ---
Author Organization [employer] Address [address] [facility] [facility] [address] 7[address] [place] [address] Care Team Providers Care Transit Bus Operator Name Role Phone Dinora Childs Primary Care Provider Encounter Details Date Type Department Care Team (Late st Contact Info) Description 11/26/2024 Orders Only [facility] [address] [place], [place] [phone] Dotty Troy DO [address] [place], [place] [phone] Social History Tobacco Use Types Packs/Day Years [...] Description 12/22/2024 11:15 AM EDT Office Visit [facility] [address] [place] [address] Dinroa Childs ANP [address] [place] [address] documented as of this encounter Procedures Procedure Name Priority Date/Time Associated Diagnosis Comments US VENOUS DUPLEX LE LT Routine 11/26/2024 2:12 PM EDT documented in this encounter Results * US VENOUS DUPLEX LE LT (11/26/2024 2:12 PM EDT) Anatomical Region Laterality Modality Abdomen Ultrasound 11/26/2024 2:12 PM EDT Narrative 11/26/2024 2:49 PM EDT ? [facility] ?[address] ?[place] [address] ? Ultrasound Report ? Signed ? Patient: Matthew,Melo ?MR#: [id number] ?? [id number] ? : 1965 ?Acct:[id number] ? Age/Sex: 59 / M ?ADM Date: 03/13/25 ? Loc: HO.US ? Attending Dr: Dotty Troy DO ? Ordering Physician: Dotty Troy DO ?? Date of Service: 11/26/24 ?? Procedure(s): US venous duplex LE LT ?? Accession Number(s): [id number] ? cc: Dotty Troy DO ? EXAMINATION: [...] DD/ 1412 ? TD/TT: 11/26/24 1424 ? Tax Examining Technician: ? Procedure Note Dajuan, Image - 11/26/2024 [place] [address] Ultrasound Report Signed Patient: Hiram Castro LMR#: [id number] : 1965Acct:[id number] Age/Sex: 59 / MADM Date: 11/26/24 Loc: HO.US Attending Dr: Dotty Troy DO Ordering Physician: Dotty Troy DO Date of Service: 11/26/24 Procedure(s): US venous duplex LE LT Accession Number(s): [id number] cc: Dotty Troy DO EXAMINATION: US LOWER [...] 02:46 PM EDT RP Dictated By: Ian Anglea MD Signed By: <Electronically signed by Ian Angela MD in OV> 11/26/24 1446 DD/ 1412 TD/TT: 11/26/24 1424 Tax Examining Technician: us Dotty Troy DO IMG US PROCEDURES Edited Res ult - Final documented in this encounter Visit Diagnoses Not on filedocumented in this encounter Additional Health Concerns Assessment Noted Time PHQ-9 Depression Total Score: 0 02/04/20 24 11:04 AM EDT documented as of this encounter Care Teams Transit Bus Operator Relationship Specialty Start Date End Date Dinora Childs ANP [address] [place] [phone] PCP - General Family Medicine 10/04/21 documented as of this encounter
--- OUTSIDE RECORDS SUMMARY | 2024-12-09 13:28 | XMS_ITS | Encounter Summary ---
Author Organization [employer] Address [address] [facility] 7t [place] [address] Care Team Providers Care Contact Lens Inspector Name Role Phone Dinora Childs Primary Care Provider [phone] Reason for Visit * Reason Onset Date Comments Med Refill 11/09/2024 Encounter Details Date Type Department Care Team ([facility] st Contact Info) Description 11/09/2024 Telephone [facility] MEDICINE [address] [place] [address] Dinora Childs ANP [address] [place] [address] Med Refill Social History Tobacco Use Types [...] MG/0.5ML solution auto-injector To be sent to: [facility] pharmacy documented in this encounter Plan of Treatment Upcoming Encounters Date Type Department Care Team (Late st Contact Info) Description 12/22/2024 11:15 AM EDT Office Visit [facility] MED[facility]INE [address] [place] [address] Dinora Childs ANP [address] [place] [address] documented as of this encounter Visit Diagnoses Not on filedocumented in this encounter Additional Health Concerns Assessment Noted Time PHQ-9 Depression Total Score: 0 02/04/20 11:04 AM EDT documented as of this encounter Care Teams Contact Lens Inspector Relationship Specialty Start Date End Date Dinora Childs ANP [address] [place] [address] PCP - General Family Medicine 10/04/21 documented as of this encounter
--- OUTSIDE RECORDS SUMMARY | 2024-12-09 13:28 | XMS_ITS | Encounter Summary ---
Author Organization [employer] Address [address] [facility] 7t [place] [address] Care Team Providers Care Car Icer Name Role Phone Dinora Childs Primary Care Provider [phone] Reason for Visit * Reason Onset Date Comments Med Refill 11/09/2024 Encounter Details Date Type Department Care Team (Late st Contact Info) Description 11/09/2024 Refill [facility] MED & PEDS [address] [place], [place] [phone] Dinora Childs ANP [address] [place] [address] Vitamin D deficiency; Morbid obesity with BMI [...] 11:15 AM EDT Office Visit [facility] MEDICINE [address] [place] [address] Dinora Childs ANP [address] [place] [address] documented as of this encounter Visit Diagnoses Diagnosis Vitamin D deficiency Morbid obesity with BMI of 50.0-59.9, adult (CMS/HCC) documented in this encounter Additional Health Concerns Assessment Noted Time PHQ-9 Depression Total Score: 0 02/04/20 11:04 AM EDT documented as of this encounter Care Teams Car Icer Relationship Specialty Start Date End Date Dinora Childs ANP [address] [place] [phone] PCP - General Family Medicine 10/04/21 documented as of this encounter
--- OUTSIDE RECORDS SUMMARY | 2024-12-09 13:28 | XMS_ITS | Encounter Summary ---
Author Organization [employer] [facility] Address [address] [facility] 7t [place] [address] Care Team Providers Care Broom Bundler Name Role Phone Dinora Childs Primary Care Provider [phone] Reason for Visit * Reason Comments Med Refill Encounter Details Date Type Department Care Team (Late st Contact Info) Description 06/19/2023 Refill [facility] MEDICINE [address] [place] [address] Dinora Childs ANP [address] [place] [address] Hemorrhoids, unspecified hemorrhoid type Social History Tobacco [...] Description 12/22/2024 11:15 AM EDT Office Visit [facility] [address] [place] [address] Dinora Childs ANP [address] [place], [place] [phone] documented as of this encounter Visit Diagnoses Diagnosis Hemorrhoids, unspecified hemorrhoid type documented in this encounter Additional Health Concerns Assessment Noted Time PHQ-9 Depression Total Score: 9 02/19/20 23 1:40 PM EDT documented as of this encounter Care Teams Broom Bundler Relationship Specialty Start Date End Date Dinora Childs ANP [address] [place] [address] PCP - General Family Medicine 10/04/21 documented as of this encounter
--- OUTSIDE RECORDS SUMMARY | 2024-12-09 13:28 | XMS_ITS | Encounter Summary ---
Author Organization [employer] Address [address] [facility] 7t [place] [address] Care Team Providers Care Environmental Services Tech Name Role Phone Dinora Childs Primary Care Provider [phone] Reason for Visit * Reason Comments Med Refill Encounter Details Date Type Department Care Team ([facility] st Contact Info) Description 07/13/2023 Refill [facility] MEDICINE [address] [place] [address] Dinora Childs ANP [address] [place] [address] Social History Tobacco Use Types Packs/Day Years [...] Description 12/22/2024 11:15 AM EDT Office Visit [facility] MEDICINE [address] [place] [address] Dinora Childs ANP [address] [place] [address] documented as of this encounter Visit Diagnoses Not on filedocumented in this encounter Additional Health Concerns Assessment Noted Time PHQ-9 Depression Total Score: 9 02/19/20 23 1:40 PM EDT documented as of this encounter Care Teams Environmental Services Tech Relationship Specialty Start Date End Date Dinora Childs ANP [address] [place] [address] PCP - General Family Medicine 10/04/21 documented as of this encounter
--- OUTSIDE RECORDS SUMMARY | 2024-12-09 13:28 | XMS_ITS | Encounter Summary ---
Author Organization [employer] Address [address] [facility] 7t [place] [address] Care Team Providers Care Grinding Operator Name Role Phone Dinora Childs Primary Care Provider [phone] Reason for Visit * Reason Comments Med Refill Encounter Details Date Type Department Care Team ([facility] st Contact Info) Description 11/02/2024 Refill [facility] MEDICINE [address] [place], [place] [phone] Dinora Chidls ANP [address] [place] [address] Morbid obesity with BMI of 50.0-59.9, adult (CMS/[facility]) Social History Tobacco Use Types Packs/Day [...] 11:15 AM EDT Office Visit [facility] MEDICINE [address] [place] [address] Dinora Childs ANP [address] [place] [address] documented as of this encounter Visit Diagnoses Diagnosis Morbid obesity with BMI of 50.0-59.9, adult (CMS/HCC) documented in this encounter Additional Health Concerns Assessment Noted Time PHQ-9 Depression Total Score: 0 02/04/20 24 11:04 AM EDT documented as of this encounter Care Teams Grinding Operator Relationship Specialty Start Date End Date Dinora Childs ANP [address] [place] [address] PCP - General Family Medicine 10/04/21 documented as of this encounter
--- OUTSIDE RECORDS SUMMARY | 2024-12-09 13:28 | XMS_ITS | Encounter Summary ---
Author Organization [employer] Address [address] [facility] 7t [place] [address] Care Team Providers Care Dust Puller Name Role Phone Dinora Childs Primary Care Provider [phone] Reason for Visit * Reason Comments Med Refill Encounter Details Date Type Department Care Team (Late st Contact Info) Description 05/23/2023 Refill [facility] MEDICINE [address] [place] [address] Dinora Childs ANP [address] [place] [phone] Prediabetes; BMI 50.0-59.9, adult (CMS/HCC); Class 3 [...] 11:15 AM EDT Office Visit [facility] MEDICINE [address] [place] [address] Dinora Childs ANP [address] [place] [address] documented as of this encounter Visit Diagnoses Diagnosis Prediabetes Other abnormal glucose BMI 50.0-59.9, adult (CMS/[facility]) Class 3 severe obesity with serious comorbidity and body mass index (BMI) of 50.0 to 59.9 in adult, unspecified obesity type ([facility]) documented in this encounter Additional Health Concerns Assessment Noted Time PHQ-9 Depression Total Score: 9 02/19/20 23 1:40 PM EDT documented as of this encounter Care Teams Dust Puller Relationship Specialty Start Date End Date Dinora Childs ANP [address] [place] [address] PCP - General Family Medicine 10/04/21 documented as of this encounter
--- OUTSIDE RECORDS SUMMARY | 2024-12-09 13:29 | XMS_ITS | Encounter Summary ---
Author Organization [employer] Address [address] [facility] 7t [place] [address] Care Team Providers Care Mutual Fund Sales Agent Name Role Phone Dinora Childs Primary Care Provider [phone] Encounter Details Date Type Department Care Team (Late st Contact Info) Description 12/27/2022 Orders Only [facility] MED & PEDS [address] [place] [address] Dotty Herron LPN Social History Tobacco Use [...] Description 12/22/2024 11:15 AM EDT Office Visit [facility] MEDICINE [address] [place] [address] Dinora Childs ANP [address] [place] [address] documented as of this encounter Visit Diagnoses Not on filedocumented in this encounter Care Teams Mutual Fund Sales Agent Relationship Specialty Start Date End Date Dinora Childs ANP [address] [place] [address] PCP - General Family Medicine 10/04/21 documented as of this encounter
--- OUTSIDE RECORDS SUMMARY | 2024-12-09 13:29 | XMS_ITS | Encounter Summary ---
Author Organization [employer] Address [address] [facility] 7t [place] [address] Care Team Providers Care Agriculture Inspector Name Role Phone Dinora Childs Primary Care Provider [phone] Reason for Visit * Reason Comments Med Refill Encounter Details Date Type Department Care Team ([facility] st Contact Info) Description 06/05/[address] [facility] MEDICINE [address] [place] [address] Dinora Childs ANP [address] [place] [address] Social History Tobacco Use Types Packs/Day Years [...] 11:15 AM EDT Office Visit [facility] MEDICINE [address] [place] [address] Dinora Childs ANP [address] [place] [address] documented as of this encounter Visit Diagnoses Not on filedocumented in this encounter Additional Health Concerns Assessment Noted Time PHQ-9 Depression Total Score: 0 02/04/20 24 11:04 AM EDT documented as of this encounter Care Teams Agriculture Inspector Relationship Specialty Start Date End Date Dinora Childs ANP [address] [place] [address] PCP - General Family Medicine 10/04/21 documented as of this encounter
--- OUTSIDE RECORDS SUMMARY | 2024-12-09 13:29 | XMS_ITS | Encounter Summary ---
Author Organization [employer] Address [address] [facility] [address]t [place] [address] Care Team Providers Care Hanger Name Role Phone Dinora Childs Primary Care Provider [phone] Reason for Visit * Reason Comments Med Refill Encounter Details Date Type Department Care Team ([facility] st Contact Info) Description 09/11/2024 Refill [facility] [address] [place], [place] [phone] Dinora Childs ANP [address] [place] [address] Wheezing Social History Tobacco Use Types Packs/Day [...] Description 12/22/2024 11:15 AM EDT Office Visit [facility] MEDICINE [address] [place] [address] Dinora Childs ANP [address] [place] [address] documented as of this encounter Visit Diagnoses Diagnosis Wheezing documented in this encounter Additional Health Concerns Assessment Noted Time PHQ-9 Depression Total Score: 0 02/04/20 11:04 AM EDT documented as of this encounter Care Teams Hanger Relationship Specialty Start Date End Date Dinora Childs ANP [address] [place] [phone] PCP - General Family Medicine 10/04/21 documented as of this encounter
--- OUTSIDE RECORDS SUMMARY | 2024-12-09 13:29 | XMS_ITS | Clinical Summary ---
Author Organization [employer] Address 75 [facility] 7t [place] [address] Care Team Providers Care Principle Software Engineer Name Role Phone Dinora Childs Primary Care Provider [phone] Allergies No known active allergies Medications * [...] TO 6 HOURS NEEDED FOR ITCHING Active Nebulizer misc 1 each Every 4-6 [...] of candidiasis. Do not swallow. 1 each 024 2024 Active Spacer/Aero-Hold ing Chambers (OptiChamber [...] MINUTES BEFORE SEXUAL ACTIVITY 20 tablet 1 10/20/2 025 Active pantoprazole (ProtoNix) 40 MG EC tabletIndication s:Generalized abdominal pain TAKE 1 TABLET BY MOUTH EVERY MORNING 30 tablet 025 Active cholecalciferol (D3 Super Strength) 50 MCG (2000 UT) capsuleIndicatio ns:Vitamin D deficiency Take 1 capsule (50 mcg) by mouth Once per day. 30 capsule 025 Active gabapentin (Neurontin) 300 MG capsule Take 1 capsule (300 mg) by mouth 3 times daily. 90 capsule 025 2025 Active baclofen (Lioresal) 10 MG tablet Take 1 tablet (10 mg) by mouth if needed in the morning, at noon, and at bedtime for muscle spasms. 60 tablet 2025 Active acetaminophen (Tylenol 8 Hour) 650 MG ER tablet Take 1 tablet (650 mg) by mouth every 8 (eight) hours if needed for mild pain. Do not crush, chew, or split. 40 tablet 025 2024 Active Diclofenac Sodium 1 % gelIndications:P ain Apply 2 g topically if needed in the morning, at noon, in the evening, and at bedtime (pain). 150 g Active atorvastatin (Lipitor) 20 MG tabletIndication s:Hyperlipidemia , unspecified hyperlipidemia type TAKE 1 TABLET BY MOUTH EVERY DAY DIRECTED 30 tablet 025 Active Zepbound 7.5 MG/0.5ML solution auto-injectorInd ications:Morbid obesity with BMI of 50.0-59.9, adult (CMS/[facility]) INJECT ONE PEN (=7.5MG) SUBCUTANEOUSLY ONCE A WEEK DIRECTED 2 mL 025 Active Diclofenac Sodium 1 % gelIndications:P ain APPLY 2 GRAMS AFFECTED AREA(S) FOUR TIMES DAILY 100 g 2 023 2024 Discontinued(R eorder (will not trigger notification to Pharmacy)) gabapentin (Neurontin) 100 MG capsule Take 2 capsules by mouth 3 times daily. 2024 Discontinued atorvastatin (Lipitor) 20 MG tabletIndication s:Hyperlipidemia , unspecified hyperlipidemia type TAKE 1 TABLET BY MOUTH ONCE DAILY DIRECTED. 30 tablet 024 2024 Discontinued azithromycin (Zithromax) 250 MG tabletIndication s:Acute cough 500 mg on day 1, 250 mg day 2 through 5 6 tablet 024 2024 Discontinued Tirzepatide-Weig ht Management (Zepbound) 7.5 MG/0.5ML solution auto-injectorInd ications:Morbid obesity with BMI of 50.0-59.9, adult ([facility]) Inject 0.5 mL (7.5 mg) under the skin 1 (one) time per week. 2 mL 025 2024 Discontinued traMADol (Ultram) 50 MG tabletIndication s:Left leg pain Take 1 tablet (50 mg) by mouth every 6 (six) hours if needed for severe pain for up to 5 days. 15 tablet 025 2024 Active Problems Problem Noted Date Diagnosed Date [...] Encounters Date Type Department Care Team Description 12/07/2024 Refill [facility] [address] [place] [address] Dinora Childs ANP Hyperlipidemia, unspecified hyperlipidemia type; Morbid obesity with BMI of 50.0-59.9, adult ([facility]) 11/26/2024 9:20 AM EDT Office Visit [facility] [address] [place] [address] Left leg pain (Primary Dx); Essential hypertension; Pain 11/26/2024 Orders Only [facility] [address] [place] [phone] Dotty Troy DO 11/09/2024 Telephone [facility] [address] [place] [address] Dinora Childs ANP Med Refill 11/09/2024 Refill [facility] [address] [place] [address] Dinora Childs ANP Vitamin D deficiency; Morbid obesity with BMI of 50.0-59.9, adult ([facility]) 11/04/2024 Refill [facility] [address] [place] [address] Dinora Childs ANP Generalized abdominal pain 11/02/2024 Refill [facility] [address] [place] [address] Dinora Childs ANP Morbid obesity with BMI of 50.0-59.9, adult ([facility]) 10/19/2024 Refill [facility] [address] [place] [address] Dinora Childs ANP Essential hypertension; Erectile dysfunction, unspecified erectile dysfunction type 10/08/2024 8:40 AM EST Office Visit [facility] [address] [place] [address] Hasmukh Truong MD Viral URI with cough 09/14/2024 Telephone [facility] [address] [place] [phone] Kiah Jackson [place] reschedule appt (Tried calling pt to reschedule todays visit ,seem like pt hung up ,tried to call again but no answer.) 09/11/2024 Refill [facility] [address] [place] [address] Dinora Childs ANP Morbid obesity with BMI of 50.0-59.9, adult ([facility]) 09/11/2024 Refill [facility] [address] [place] [address] Dinora Childs ANP Wheezing 09/10/2024 Telephone [facility] [address] [place] [address] [phone] Dorothy Juan RN Results 09/10/2024 Orders Only [facility] [address] [facility] [place], [place] [address] Dinora Childs ANP Loose body in knee, right knee (Primary Dx) from Last 3 Months Immunizations Name Administration [...] Description 12/22/2024 11:15 AM EDT Office Visit [facility] [address] [place] [address] Dinora Childs ANP [address] [place] [address] Health Maintenance Due Date Last Done Comments [...] 11/26/2024 2:34 PM EDT Left leg pain US VENOUS DUPLEX LE LT Routine 11/26/2024 [...] Recently Relevant to Health Maintenance Results * XR Lumbar Spine 2-3 Views (11/26/2024 2:34 PM EDT) Anatomical Region Laterality Modality Spine, L-spine Radiographic Yessenia ging 11/26/2024 2:34 PM EDT Narrative 11/27/2024 8:26 AM EDT ? [facility] ?[address] ?[place] [address] ?XRay Report ? Signed ? Patient: Matthew,Melo ?MR#: [id number] ?? [id number] ? : 1965 ?Acct:[id number] ? Age/Sex: 59 / M ?ADM Date: 11/26/24 ? Loc: HO.US ? Attending Dr: Dotty Troy DO ? Ordering Physician: Dotty Troy DO ?? Date of Service: 11/26/24 ?? Procedure(s): XR lumbar spine 2-3V ?? Accession Number(s): [id number] ? cc: Dotty Troy DO ? EXAMINATION: [...] Pace MD ??11/27/2024 08:23 AM EDT RP ? Dictated By: ?Eliazar Pace MD ? Signed By: ?<Electronically signed by Eliazar Pace MD in OV> ?11/27/24 0823 ? DD/ 1434 ? TD/TT: 11/26/24 1444 ? Patternmaker Grader: ? Procedure Note Dajuan, Image - 11/27/[address] [address] XRay Report Signed Patient: Hiram Castro LMR#: [id number] : 1965Acct:[id number] Age/Sex: 59 / MADM Date: 11/26/24 Loc: HO.US Attending Dr: Dotty Troy DO Ordering Physician: Dotty Troy DO Date of Service: 11/26/24 Procedure(s): XR lumbar spine 2-3V Accession Number(s): [id number] cc: Dotty Troy DO EXAMINATION: XR LUMBOSACRAL [...] Eliazar Pace MD 11/27/2024 08:23 AM EDT Dictated By: Eliazar Pace MD Signed By: <Electronically signed by Eliazar Pace MD in OV> 11/27/24 0823 DD/ 1434 TD/TT: 11/26/24 1444 Patternmaker Grader: us Dotty Troy DO IMG XR PROCEDURES Final Resu lt * US VENOUS DUPLEX LE LT (11/26/2024 2:12 PM EDT) Anatomical Region Laterality Modality Abdomen Ultrasound 11/26/2024 2:12 PM EDT Narrative 11/26/2024 2:49 PM EDT ? [facility] ?[address] ?[place] [address] ? Ultrasound Report ? Signed ? Patient: Matthew,Melo ?MR#: [id number] ?? [id number] ? : 1965 ?Acct:[id number] ? Age/Sex: 59 / M ?ADM Date: 11/26/24 ? Loc: HO.US ? Attending Dr: Dotty Troy DO ? Ordering Physician: Dotty Troy DO ?? Date of Service: 11/26/24 ?? Procedure(s): US venous duplex LE LT ?? Accession Number(s): [id number] ? cc: Dotty Troy DO ? EXAMINATION: [...] DD/ 1412 ? TD/TT: 11/26/24 1424 ? Patternmaker Grader: ? Procedure Note Andrea Graff - 11/26/[address] [place] [address] Ultrasound Report Signed Patient: Hiram Castro LMR#: [id number] : 1965Acct:[id number] Age/Sex: 59 / MADM Date: 11/26/24 Loc: .US Attending Dr: Dotty Troy DO Ordering Physician: Dotty Troy DO Date of Service: 11/26/24 Procedure(s): US venous duplex LE LT Accession Number(s): [id number] cc: Dotty Troy DO EXAMINATION: US LOWER [...] 11/26/24 1446 DD/ 1412 TD/TT: 11/26/24 1424 Patternmaker Grader: us Dotty Troy DO IMG US PROCEDURES Edited Res ult - Final * XR Chest 2 Views (10/08/2024 9:29 AM EST) Anatomical Region Laterality Modality Chest Radiographic Yessenia ging 10/08/2024 9:29 AM EST Narrative 10/08/2024 10:16 AM EST ?[place] [facility] ?[address] ?[place] [address] ?XRay Report ? Signed ? Patient: Matthew,Melo ?MR#: [id number] ?? [id number] ? : 1965 ?Acct:[id number] ? Age/Sex: 59 / M ?ADM Date: 10/08/24 ? Loc: HO.HHCX ? Attending Dr: Hasmukh Truong MD ? Ordering Physician: Hasmukh Truong MD ?? Date of Service: 10/08/24 ?? Procedure(s): XR chest 2V ?? Accession Number(s): [id number] ? cc: Hasmukh Truong MD ? EXAMINATION: [...] ??10/08/2024 10:14 AM EST RP ?? Workstation: [id number] ? Dictated By: ?Eliazar Pace MD ? Signed By: ?<Electronically signed by Eliazar Pace MD in OV> ?10/08/24 1014 ? DD/ 0929 ? TD/TT: 10/08/24 0950 ? Patternmaker Grader: ? Procedure Note Andrea Graff - 10/08/2024 [facility] [address] [place] [address] XRay Report Signed Patient: Hiram Castro LMR#: [id number] : 1965Acct:[id number] Age/Sex: 59 / MADM Date: 10/08/24 Loc: HO.HHCX Attending Dr: Hasmukh Truong MD Ordering Physician: Hasmukh Truong MD Date of Service: 10/08/24 Procedure(s): XR chest 2V Accession Number(s): [id number] cc: Hasmukh Truong MD EXAMINATION: XR CHEST [...] 10/08/24 1014 DD/ 0929 TD/TT: 10/08/24 0950 Patternmaker Grader: Hasmukh Truong MD IMG XR PROCEDURES Final Result * Influenza B (ID NOW Rapid Molecular) (10/08/2024 9:14 AM EST) Influenza B Negative Negative, Indeterminate [facility] Swab 10/08/2024 9:14 AM EST Hasmukh Truong MD POINT OF CARE TEST ENTER/EDIT OR DERABLES Final Result [facility] [address] [place] [phone] * Influenza A (ID NOW Rapid Molecular) (10/08/2024 9:14 AM EST) Influenza A Negative Negative, Indeterminate [facility] Swab 10/08/2024 9:14 AM EST us Hasmukh Truong MD POINT OF CARE TEST ENTER/EDIT OR DERABLES Final Result Performing Organization Address City/State/[facility] Co de Phone Number [facility] [address] [place] [phone] * POCT Rapid COVID Ag (10/08/2024 8:54 AM EST) [facility] Rapid COVID Ag Negative Swab 10/08/2024 8:54 AM EST Hamsukh Truong MD POINT OF CARE TEST ENTER/EDIT OR DERABLES Final Result * Lipid Panel, Standard (02/22/2023 9:43 AM EDT) [facility] Cholesterol, Total 127 <200 mg/dL [facility] HDL Cholesterol 46 > OR = 40 mg/dL [facility] Triglycerides 71 <150 mg/dL [facility] LDL Cholesterol 66 mg/dL (calc) [facility] Comment: Reference range: <100 Desirable range <100 mg/dL for primary prevention; ?? <70 mg/dL for patients with CHD or diabetic patients with > or = 2 CHD risk factors. LDL-C is now calculated using the Telma calculation, which is a validated novel method providing better accuracy than the Friedewald equation in the estimation of LDL-C. Lazaro SS et al. ALVARADO. 2013;310(19): 7381-8113 (http://education.[employer]/faq/EMK456) Chol/HDLC Ratio 2.8 <5.0 (calc) [facility] Non-HDL Cholesterol 81 <130 mg/dL (calc) [facility] Comment: For patients with diabetes plus 1 major ASCVD risk factor, treating to a non-HDL-C goal of <100 mg/dL (LDL-C of <70 mg/dL) is considered a therapeutic option. Blood Venous blood specimen / Unknown 02/22/2023 9:43 AM EDT 02/22/2023 9:44 AM EDT Narrative [facility] - 02/23/2023 10:15 AM EDT FASTING:YES FASTING: YES us Dinora Childs [facility] LAB BLOOD ORDERABLES Final Resul t Performing Organization Address [facility] de Phone Number [address], [place] [address] [facility] [employer] [address] [place] [address] * HIV-1/2 Antigen and Antibodies, Fourth Generation, with Reflexes (10/16/2022 12:51 PM EST) HIV Antigen/Antibody, 4th Generation NON-REAC TIVE NON-REAC TIVE [facility] Comment: HIV-1 antigen and HIV-1/HIV-2 antibodies were [...] ?? For additional information please refer to http://education.[employer]/faq/EVZ106 (This link is being provided for informational/ educational purposes only.) The performance of this assay has not been clinically validated in patients less than 2 years old. Blood Venous blood specimen / Unknown 10/16/2022 12:51 PM EST 10/16/2022 12:52 PM EST Narrative [facility] - 10/17/2022 9:18 AM EST FASTING:NO FASTING: NO us Dinora [facility] LAB BLOOD ORDERABLES Final Resul t Performing Organization Address [facility]/State/ZIP Co de Phone Number [facility] [address] [facility], [address]rd [address], [place] [address] [facility] [address] [facility], (N[address]) [place] [address] * Colonoscopy (04/17/2018) Colonoscopy Normal Normal us Historical Provider MD HEALTH MAINTENANCE Final Result from Last 3 Months or Most Recently Relevant to Health Maintenance Insurance Care Teams Principle Software Engineer Relationship Specialty Start Date End Date Dinora Childs ANP [address] [place], [place] PCP - General Family Medicine 10/04/21
--- OUTSIDE RECORDS SUMMARY | 2024-12-09 13:29 | XMS_ITS | Encounter Summary ---
Author Organization [employer] Address [address] [facility] 7t [place] [address] Care Team Providers Care Unindentured Apprentice Name Role Phone Dinora Childs Primary Care Provider [phone] Encounter Details Date Type Department Care Team (Late Contact Info) Description 11/12/2022 Orders Only [facility] [address] [place] [address] Dotty Herron LPN Social History Tobacco Use [...] Description 12/22/2024 11:15 AM EDT Office Visit [facility] [address] [place] [address] Dinora Childs ANP [address] [place] [address] documented as of this encounter Visit Diagnoses Not on filedocumented in this encounter Care Teams Unindentured Apprentice Relationship Specialty Start Date End Date Dinora Childs ANP [address] [place] [address] PCP - General Family Medicine 10/04/21 documented as of this encounter
--- OUTSIDE RECORDS SUMMARY | 2024-12-09 13:29 | XMS_ITS | Encounter Summary ---
Author Organization [employer] [facility] Address [address] [facility] 7t [place] [address] Care Team Providers Care Manufacturing Maintenance Technician Name Role Phone Dinora Childs Primary Care Provider [phone] Encounter Details Date Type Department Care Team (Late st Contact Info) Description 09/14/2022 Orders Only [facility] [address] [place] [address] Johanny Garza, ЕЛЕНА Social History Tobacco Use [...] Description 12/22/2024 11:15 AM EDT Office Visit [facility] [address] [place] [address] Dinora Childs ANP [address] [place] [address] documented as of this encounter Visit Diagnoses Not on filedocumented in this encounter Care Teams Manufacturing Maintenance Technician Relationship Specialty Start Date End Date Dinora Childs ANP [address] [place] [address] PCP - General Family Medicine 10/04/21 documented as of this encounter
--- OUTSIDE RECORDS SUMMARY | 2024-12-09 13:29 | XMS_ITS | Encounter Summary ---
Author Organization [employer] [facility] Address [address] [facility] 7t [place] [address] Care Team Providers Care Diesel Retrofit Designer Name Role Phone Dinora Childs Primary Care Provider Encounter Details Date Type Department Care Team (Late st Contact Info) Description 09/26/2022 Orders Only [facility] [address] [place] [address] Zuleyma Garza LPN Social History Tobacco Use [...] Description 12/22/2024 11:15 AM EDT Office Visit [facility] [address] [place] [address] Dinora Childs ANP [address] [place] [address] documented as of this encounter Visit Diagnoses Not on filedocumented in this encounter Care Teams Diesel Retrofit Designer Relationship Specialty Start Date End Date Dinora Childs ANP [address] [place] [address] PCP - General Family Medicine 10/04/21 documented as of this encounter
--- OUTSIDE RECORDS SUMMARY | 2024-12-09 13:29 | XMS_ITS | Encounter Summary ---
Author Organization [employer] Address [address] [facility] 7t [place] [address] Care Team Providers Care Roll Trucker Name Role Phone Dinora Childs Primary Care Provider [phone] Encounter Details Date Type Department Care Team (Late st Contact Info) Description 10/02/2022 Orders Only [facility] [address] [place] [address] Dotty Herron LPN Social History Tobacco Use [...] Description 12/22/2024 11:15 AM EDT Office Visit [facility] [address] [place] [address] Dinora Childs ANP [address] [place] [address] documented as of this encounter Visit Diagnoses Not on filedocumented in this encounter Care Teams Roll Trucker Relationship Specialty Start Date End Date Dinora Childs ANP [address] [place] [address] PCP - General Family Medicine 10/04/21 documented as of this encounter
--- OUTSIDE RECORDS SUMMARY | 2024-12-09 13:29 | XMS_ITS | Encounter Summary ---
Author Organization [employer] Address [address] [facility] 7t [place] [address] Care Team Providers Care Collar Setter Overlock Name Role Phone Dinora Childs Primary Care Provider [phone] Encounter Details Date Type Department Care Team (Late st Contact Info) Description 01/11/2023 Orders Only [facility] [address] [place] [address] [phone] Vida Burgos MD [address] [place] [address] [phone] Social History Tobacco Use Types Packs/Day Years [...] Description 12/22/2024 11:15 AM EDT Office Visit [facility] [address] [place] [address] Dinora Childs ANP [address] [place], [place] [phone] documented as of this encounter Visit Diagnoses Not on filedocumented in this encounter Care Teams Collar Setter Overlock Relationship Specialty Start Date End Date Dinora Childs ANP [address] [place] [address] PCP - General Family Medicine 10/04/21 documented as of this encounter
--- OUTSIDE RECORDS SUMMARY | 2024-12-09 13:29 | XMS_ITS | Encounter Summary ---
Author Organization [employer] Address [address] [facility] 7t [place] [address] Care Team Providers Care Qa Software Tester Name Role Phone Dinora Childs Primary Care Provider [phone] Reason for Visit * Reason Onset Date Comments call back 10/22/2022 Encounter Details Date Type Department Care Team (Late Contact Info) Description 10/22/2022 Telephone [facility] [address] [place] [address] Dinora Childs ANP [address] [place] [address] call back Social History Tobacco Use Types [...] 11:15 AM EDT Office Visit [facility] [address] [place] [address] Dinora Childs ANP [address] [place] [address] documented as of this encounter Visit Diagnoses Not on filedocumented in this encounter Care Teams Qa Software Tester Relationship Specialty Start Date End Date Dinora Childs ANP [address] [place] [address] PCP - General Family Medicine 10/04/21 documented as of this encounter
--- OUTSIDE RECORDS SUMMARY | 2024-12-09 13:29 | XMS_ITS | Encounter Summary ---
Author Organization [employer] Address [address] [facility] 7t [place] [address] Care Team Providers Care Parenting Skills Instructor Name Role Phone Dinora Childs Primary Care Provider [phone] Reason for Visit * Reason Comments Med Refill Encounter Details Date Type Department Care Team ([facility] st Contact Info) Description 12/07/2024 Refill [facility] [address] [place] [address] Dinora Childs ANP [address] [place] [address] Hyperlipidemia, unspecified hyperlipidemia type; Morbid obesity with [...] 12/22/2024 11:15 AM EDT Office Visit [facility] [address] [place] [phone] Dinora Childs ANP [address] [place] [address] documented as of this encounter Visit Diagnoses Diagnosis Hyperlipidemia, unspecified hyperlipidemia type Morbid obesity with BMI of 50.0-59.9, adult (CMS/HCC) documented in this encounter Additional Health Concerns Assessment Noted Time PHQ-9 Depression Total Score: 0 02/04/20 24 11:04 AM EDT documented as of this encounter Care Teams Parenting Skills Instructor Relationship Specialty Start Date End Date Dinora Childs ANP [address] [place] [phone] PCP - General Family Medicine 10/04/21 documented as of this encounter
== END 2024-12-09 11:49 | disposition home or self-care (01) ==
LOC: HO.HUSH 11:12
PROVIDERS: PCP Nurse Practitioner Primary Care; Visit Provider Nurse Practitioner Family
DX: N20.0 Calculus of kidney (principal); N39.0 Urinary tract infection, site not specified; N28.1 Cyst of kidney, acquired; Z13.9 Encounter for screening, unspecified
CPT/HCPCS: 99213

== ENCOUNTER → 2024-12-09 11:12 | Outpatient (BNVA) | payer OTHER, SELFPAY | PROVIDERS: PCP Nurse Practitioner Primary Care; Visit Provider Nurse Practitioner Family | DX: N20.0 Calculus of kidney (principal); N39.0 Urinary tract infection, site not specified; N28.1 Cyst of kidney, acquired | CPT/HCPCS: 81003; 99212 ==

== ENCOUNTER 2024-12-18 13:47 | Outpatient (REF) | payer OTHER, SELFPAY ==
--- NOTE | ~2024-12-18 | US_ITS ---
EXAMINATION: Noninvasive assessment of the bilateral lower extremities with ARTERIAL DUPLEX, ANKLE BRACHIAL INDICES (ABIs), and PULSE VOLUME RECORDINGS (PVRs). CLINICAL INFORMATION: Left lower extremity pain and worsening with ambulation. TECHNIQUE: Duplex Doppler techniques with waveform analysis and measurement of velocities in the bilateral common femoral, profunda femoris, superficial femoral, popliteal and tibial arteries were performed. Additionally, ankle pulse volume recordings, ankle pressure measurements and ankle brachial indices were obtained of the lower extremity arterial system bilaterally. The study was performed only at rest. COMPARISON: None FINDINGS: DIRECT DUPLEX DOPPLER FINDINGS: RIGHT LEG: Common femoral artery: 85 cm/s, phasicity: Triphasic. Profunda femoris artery: 72 cm/s, phasicity: Triphasic. Superficial femoral artery (proximal): 96 cm/s, phasicity: Triphasic. Superficial femoral artery (mid): 98 cm/s, phasicity: Triphasic. Superficial femoral artery (distal): 59 cm/s, phasicity: Triphasic. Popliteal artery: 70 cm/s, phasicity: Triphasic. Posterior tibial artery: 119 cm/s, phasicity: Triphasic. Peroneal artery: 71 cm/s, phasicity: Triphasic. Anterior tibial artery: 84 cm/s, phasicity: Triphasic. Dorsalis pedis artery: 40 cm/s, phasicity:Triphasic. LEFT LEG: Common femoral artery: 106 cm/s, phasicity: Triphasic. Profunda femoris artery: 81 cm/s, phasicity: Triphasic. Superficial femoral artery (proximal): 78 cm/s, phasicity: Triphasic. Superficial femoral artery (mid): 81 cm/s, phasicity: Triphasic. Superficial femoral artery (distal): 39 cm/s, phasicity: Biphasic. Popliteal artery: 86 cm/s, phasicity: Triphasic. Posterior tibial artery: 118 cm/s, phasicity: Triphasic. Peroneal artery: 61 cm/s, phasicity: Triphasic. Anterior tibial artery: 95 cm/s, phasicity: Triphasic. Dorsalis pedis artery: 37 cm/s, phasicity: Monophasic. BRACHIAL PRESSURES: Right: 143 Left: 158 ANKLE PRESSURES: Right: PT 189, DP 200 Left: PT 184, DP 193 ANKLE-BRACHIAL INDEX: Right: 1.27 Left: 1.22 ANKLE PVR WAVEFORMS: Right: Normal. Left: Normal. US/US arterial duplex BI w/ EM IMPRESSION: Right leg: Normal patency and triphasic waveforms. Left leg: Inflow disease versus diseased left dorsalis base artery. EM Reference: - >1.4 = calcified vessels - 0.9 - 1.4 = normal - no significant arterial disease - 0.7 - 0.89 = mild peripheral arterial disease - 0.51 - 0.69 = moderate peripheral arterial disease - d 0.50 = severe peripheral arterial disease - < .30 = critical arterial disease Electronically signed by: Ben Salomon MD 12/21/2024 12:59 PM EDT
--- NOTE | ~2024-12-18 | XR_ITS ---
EXAMINATION: XR CHEST, 2 views. CLINICAL INFORMATION: Cough x 3 days. COMPARISON: Chest x-ray 10/08/2024. FINDINGS: The heart size and the great vessels are normal caliber. There is persistent right lateral and basilar pleural thickening and/or loculated effusion similar to previous exam. There is scarring atelectasis right upper lung. The left lung remains clear and expanded. No gross bony abnormality seen. XR/XR chest 2V IMPRESSION: Persistent right lateral pleural and basilar pleural opacity likely loculated effusion or thickening. It is unchanged to 10/08/2024. Right upper lobe scarring is stable as well. There are no new findings. Electronically signed by: Dominik Hartman MD 12/21/2024 11:11 AM EDT
--- OUTSIDE RECORDS SUMMARY | 2024-12-18 15:34 | XMS_ITS | Data Portability ---
Author Organization [employer] Address [address] [place] [address] Care Team Providers Care Account Resolution Expert Name Role Phone [facility] Referring Provider [facility] Referring Provider Assessment Encounter Date [...] nausea/vomiti ng, or any other concerns. VSS. Machine Driller on site reports mild b/l flank pain. [...] Go To The Location Of Their Choice, [id number] 08:07:30 Referral None recorded. Procedures None recorded. Surgeries None recorded. Imaging None recorded. Medication Orders ketorolac 15 mg/mL injection solution [address] [facility], [address], [place], [id number], 4 15:43:09 cyclobenzap rine 5 mg tablet 2023 024 [facility], [address], [place], [id number], 4 17:25:27 diclofenac 1 % topical gel 2023 024 [facility], [address], [place], [id number], 4 17:25:27 Bactrim DS 800 mg-160 mg tablet 2022 023 [facility], [address] [place] [address], [id number], 3 17:51:28 Patient TargetsNo targets recorded. Patient [...] 144 mm[Hg] 84 mm[Hg] Toshia Morris MD [address] [place] [address],[address], [place], [address] [place] [address] [employer] [facility] 2 22:08:32 Date Recorded Oxygen saturation Oxygen saturation in Arterial blood by Pulse oximetry Body weight Heart rate Body temperature Respiratory rate Systolic blood pressure Diastolic blood pressure Provider Name and Address Organization Details Last Updated DateTime 3 99 % 99 % 583108. 08 g 86 /min 96.6 [degF] 16 /min 130 mm[Hg] 86 mm[Hg] Not Available [email or web address] [facility] [employer] 3 17:24:50 Social History None recorded. Functional Status None recorded. Mental Status None recorded. Family History Nothing Reported. Medical History No medical history recorded. Past Encounters Encounter ID Performer Location Encounter Start Date Encounter Closed Date Diagnosis/Indication Diagnosis SNOMED-CT Code Diagnosis ICD10 Code Diagnosis Note [id number] Toshia Morris MD [facility] [employer] [address] [place] [id number] 12/11/2021 18:54:22 05/08/2022 16:02:06 Exposure to carbon monoxide 49492610 Z77.128 Patient and evaluated for intermitte nt symptoms in conjunctio n with CO detector alarm sounding periodical ly. Alarm currently not sounding, patient currently asymptomat ic and vital signs are normal on today's evaluation . Counseling provided regarding safety steps if alarm should sound again in the future. In interim patient is safe to remain at home. [id number] Josee Meadows MD [facility] [address] [place] [id number] 01/21/2023 17:24:44 01/22/2023 13:18:43 Acute urinary tract infection [id number] N39.0 [id number] ERYN MONTES MD [facility] [address] [place] [id number] 10/08/2023 15:37:26 10/08/2023 22:18:45 Neck pain 63378940 M54.2 Evaluation in the field was performed by my security management specialist colleague, as noted above, I provided real-time [...] his neck. He sought medical attention at [place] [facility], where no interventi on was provided. [...] Ortiz Member ID Guarantor Name 12/11/2021 1 [facility] - DOS PRIOR TO 2022 - DUAL ELIGIBLE (MEDICARE REPLACEMENT/AD VANTAGE - HMO) Hiram Castro [id number] Hiram Castro 01/21/2023 1 [facility] - DOS PRIOR TO 2022 - DUAL ELIGIBLE (MEDICARE REPLACEMENT/AD VANTAGE - HMO) Hiram Castro [id number] Hiram Castro 10/08/2023 1 [facility] - DOS ON OR AFTER 2022 - DUAL ELIGIBLE - HALF-WAY OPTIONS AND ONE CARE (MEDICARE REPLACEMENT/AD VANTAGE - HMO) Hiram Castro [id number] Hiram Castro Notes Date Note Type Note Provider Name and Address Organization Details Recorded Time 12/11/2021 text/html Request notes:Evaluate patient for reported nausea, headache and weakness. Patient concerned with housing as cause of exposure to something causing symptoms. Per security management specialist evaluation, noted to have intermittent symptoms for months, in concert with who is also having the same symptoms, that seem correlated to the carbon monoxide detector alarming periodically. Toshia Morris MD [address] [place] [address],[address], [place], [phone], [employer] 12/11/2021 22:11:23 01/21/2023 text/html HPI: ALLERGIES; None [...] ................... ................... ................... ................... ................... ................... ........ Machine Driller Note From Rosendo Waters: pt requesting f/u [...] bactrim for 3 days with no effect. [facility] contacted. [facility] prescribed bactrim for 10 days. [facility] security management specialist gave pt first dose at visit. Pt educated on s/s warranting a 911 call/trip to the hospital. pt advised to f/u with PCP. ................... ................... ................... ................... ................... ................... ................... ........ Disposition: Dustin Meadows MD [address] [facility],[address], [place], [address], [employer] 01/21/2023 18:08:48 10/08/2023 text/html HPI: HX sleep [...] Glass): Comments: HPI was reviewed by this junior copywriter - No further information needed at this time. Ghada CHRISTIANSEN ................... ................... ................... ................... ................... ................... ................... ........ Machine Driller Note From Miriam Kearns: Upon arrival it [...] in tact. Pt stated he went to [facility] for the same issue and ? they didn? t do nothing.? Vitals as noted. [facility] contacted and pt was administered 15mg of toradol in left arm w/o incident. Pt was sent prescription for flexeril. Pt was told that is he became SOB or starting feeling pain in his chest, to immediately call 911. Pt stated he understood. Call was then cleared. ................... ................... ................... ................... ................... ................... ................... ........ Disposition: Dustin MONTES MD [address] [facility],[address], [place], [address], [employer] 10/08/2023 16:05:27
--- OUTSIDE RECORDS SUMMARY | 2024-12-18 15:34 | XMS_ITS | Encounter Summary ---
Author Organization [employer] Address [address] [facility] 7t [place] [address] Care Team Providers Care Leather Goods Assembler Name Role Phone Dinora Childs Primary Care Provider [phone] Reason for Visit * Reason Onset Date Comments call back 10/22/2022 Encounter Details Date Type Department Care Team (Late Contact Info) Description 10/22/2022 Telephone [facility] [address] [place] [address] Dinora Childs ANP [address] [place] [address] call back Social History Tobacco Use Types [...] EDT Office Visit [facility] [address] [place] [address] Dinora Childs ANP [address] [place] [address] documented as of this encounter Visit Diagnoses Not on filedocumented in this encounter Care Teams Leather Goods Assembler Relationship Specialty Start Date End Date Dinora Childs ANP [address] [place] [address] PCP - General Family Medicine 10/04/21 documented as of this encounter
--- OUTSIDE RECORDS SUMMARY | 2024-12-18 15:34 | XMS_ITS | Encounter Summary ---
Author Organization [employer] Address [address] [facility] 7t [place] [address] Care Team Providers Care Coil Tier Name Role Phone Dinora Childs Primary Care Provider [phone] Encounter Details Date Type Department Care Team (Late st Contact Info) Description 01/11/2023 Orders Only [facility] [address] [place] [address] Vida Burgos MD [address] [place], [place] [phone] Social History Tobacco Use Types Packs/Day Years [...] Description 12/22/2024 11:15 AM EDT Office Visit [facility] [address] [place] [address] Dinora Childs ANP [address] [place], [place] [phone] documented as of this encounter Visit Diagnoses Not on filedocumented in this encounter Care Teams Coil Tier Relationship Specialty Start Date End Date Dinora Childs ANP [address] [place] [address] PCP - General Family Medicine 10/04/21 documented as of this encounter
--- OUTSIDE RECORDS SUMMARY | 2024-12-18 15:34 | XMS_ITS | Encounter Summary ---
Author Organization [employer] Address [address] [facility] [address] [place] [address] Care Team Providers Care Dietitian Research Name Role Phone Dinora Childs Primary Care Provider [phone] Encounter Details Date Type Department Care Team (Late st Contact Info) Description 10/02/2022 Orders Only [facility] [address] [place] [address] Dotty Herron LPN Social History Tobacco Use [...] Description 12/22/2024 11:15 AM EDT Office Visit [facility] [address] [place] [address] Dinora Childs ANP [address] [place] [address] documented as of this encounter Visit Diagnoses Not on filedocumented in this encounter Care Teams Dietitian Research Relationship Specialty Start Date End Date Dinora Childs ANP [address] [place] [address] PCP - General Family Medicine 10/04/21 documented as of this encounter
--- OUTSIDE RECORDS SUMMARY | 2024-12-18 15:34 | XMS_ITS | Encounter Summary ---
Author Organization [employer] Address [address] [facility] 7[address] [place] [address] Care Team Providers Care Research Assistant Professor Name Role Phone Dinora Childs Primary Care Provider [phone] Reason for Visit * Reason Comments Med Refill Encounter Details Date Type Department Care Team ([facility] st Contact Info) Description 11/02/2024 Refill [facility] [address] [place], [place] [phone] Dinora Childs ANP [address] [place] [address] Morbid obesity with BMI of 50.0-59.9, adult (CMS/[facility]) Social History Tobacco Use Types Packs/Day [...] Description 12/22/2024 11:15 AM EDT Office Visit [facility] [address] [place] [address] Dinora Childs ANP [address] [place] [address] documented as of this encounter Visit Diagnoses Diagnosis Morbid obesity with BMI of 50.0-59.9, adult (CMS/HCC) documented in this encounter Additional Health Concerns Assessment Noted Time PHQ-9 Depression Total Score: 0 02/04/20 24 11:04 AM EDT documented as of this encounter Care Teams Research Assistant Professor Relationship Specialty Start Date End Date Dinora Childs ANP [address] [place] [address] PCP - General Family Medicine 10/04/21 documented as of this encounter
--- OUTSIDE RECORDS SUMMARY | 2024-12-18 15:34 | XMS_ITS | Encounter Summary ---
Author Organization [employer] Address [address] [facility] [address] [place] [address] Care Team Providers Care Associate Director Finance Name Role Phone Dinora Childs Primary Care Provider [phone] Reason for Visit * Reason Comments Med Refill Encounter Details Date Type Department Care Team ([facility] st Contact Info) Description 09/11/2024 Refill [facility] [address] [place], [place] [phone] Dinora Childs ANP [address] [place] [address] Wheezing Social History Tobacco Use Types Packs/Day [...] 12/22/2024 11:15 AM EDT Office Visit [facility] [address] [place] [address] Dinora Childs ANP [address] [place] [address] documented as of this encounter Visit Diagnoses Diagnosis Wheezing documented in this encounter Additional Health Concerns Assessment Noted Time PHQ-9 Depression Total Score: 0 02/04/20 11:04 AM EDT documented as of this encounter Care Teams Associate Director Finance Relationship Specialty Start Date End Date Dinora Childs ANP [address] [place] [address] PCP - General Family Medicine 10/04/21 documented as of this encounter
--- OUTSIDE RECORDS SUMMARY | 2024-12-18 15:34 | XMS_ITS | Encounter Summary ---
Author Organization [facility] Address [address] [facility] 7[address] [place] [address] Care Team Providers Care Toll Mechanic Name Role Phone Dinora Childs Primary Care Provider [phone] Encounter Details Date Type Department Care Team (Late st Contact Info) Description 09/14/2022 Orders Only [facility] [address] [place] [address] Johanny Garza, ЕЛЕНА Social History Tobacco Use [...] EDT Office Visit [facility] [address] [place] [address] Dinora Childs ANP [address] [place] [address] documented as of this encounter Visit Diagnoses Not on filedocumented in this encounter Care Teams Toll Mechanic Relationship Specialty Start Date End Date Dinora Childs ANP [address] [place] [address] PCP - General Family Medicine 10/04/21 documented as of this encounter
--- OUTSIDE RECORDS SUMMARY | 2024-12-18 15:34 | XMS_ITS | Encounter Summary ---
Author Organization [facility] Address [address] [facility] 7t [place] [address] Care Team Providers Care Grey Goods Marker Name Role Phone Dinora Childs Primary Care Provider [phone] Encounter Details Date Type Department Care Team (Late st Contact Info) Description 09/26/2022 Orders Only [facility] [address] [place] [address] Zuleyma Garza LPN Social History Tobacco Use [...] Description 12/22/2024 11:15 AM EDT Office Visit [facility] [address] [place] [address] Dinora Childs ANP [address] [place] [address] documented as of this encounter Visit Diagnoses Not on filedocumented in this encounter Care Teams Grey Goods Marker Relationship Specialty Start Date End Date Dinora Childs ANP [address] [place] [address] PCP - General Family Medicine 10/04/21 documented as of this encounter
--- OUTSIDE RECORDS SUMMARY | 2024-12-18 15:34 | XMS_ITS | Clinical Summary ---
Author Organization [employer] Address [address] [facility] 7t [place] [address] Care Team Providers Care Columnist/Commentator Name Role Phone Dinora Childs Primary Care Provider [phone] Allergies No known active allergies Medications * [...] times daily. 60 capsule 11 024 Active budesonide-formo terol (Symbicort) 160-4.5 MCG/ACT inhalerIndicatio ns:Moderate persistent asthma without complication Inhale 2 puffs in the morning and at bedtime. Rinse mouth with water after use to reduce aftertaste and incidence of candidiasis. Do not swallow. 1 each 024 2024 Active Spacer/Aero-Hold ing Chambers (OptiChamber Criss) misc 1 each every 4 (four) hours if needed (asthma). 1 each Active loratadine (Claritin) 10 MG tablet TAKE [...] by mouth Once per day. 30 capsule Active gabapentin (Neurontin) 300 MG capsule Take [...] BY MOUTH EVERY DAY DIRECTED 30 tablet Active Zepbound 7.5 MG/0.5ML solution auto-injectorInd ications:Morbid obesity with BMI of 50.0-59.9, adult ([facility]) INJECT ONE PEN (=7.5MG) SUBCUTANEOUSLY ONCE A WEEK DIRECTED 2 mL Active Diclofenac Sodium 1 % gelIndications:P ain [...] DAILY DIRECTED. 30 tablet 024 2024 Discontinued polycarbophil (FiberCon) 625 MG tablet Take 1 tablet (625 mg) by mouth 2 times daily. 60 tablet 024 2024 polyethylene glycol, PEG, 3350 (MiraLax) 17 GM/SCOOP powder Take 17 g by mouth if needed each day (constipation). 527 g 024 2024 azithromycin (Zithromax) 250 MG tabletIndication s:Acute cough 500 mg on day 1, 250 mg day 2 through 5 6 tablet 024 2024 Discontinued Tirzepatide-Weig ht Management (Zepbound) 7.5 MG/0.5ML solution auto-injectorInd ications:Morbid obesity with BMI of 50.0-59.9, adult ([facility]) Inject 0.5 mL (7.5 mg) under the [...] Morbid obesity with BMI of 50.0-59.9, adult 0411/2023 Swelling of knee joint 01/04/2023 Mild persistent [...] Encounters Date Type Department Care Team Description 12/15/2024 Refill [facility] [address] [place], [place] [phone] Dotty [place] DO 12/07/2024 Refill [facility] [address] [place], [place] [phone] Dinora Childs ANP Hyperlipidemia, unspecified hyperlipidemia type; Morbid obesity with BMI of 50.0-59.9, adult ([facility]) 11/26/2024 9:20 AM EDT Office Visit [facility] [address] [place] [phone] Left leg pain (Primary Dx); Essential hypertension; Pain 11/26/2024 Orders Only [facility] [address] [place] [address] Dotty [place], 11/09/2024 Telephone [facility] [address] [place] [address] Dinora Childs ANP Med Refill 11/09/2024 Refill [facility] [address] [place] [address] Dinora Childs ANP Vitamin D deficiency; Morbid obesity with BMI of 50.0-59.9, adult ([facility]) 11/04/2024 Refill [facility] [address] [place] [address] Dinora Childs ANP Generalized abdominal pain 11/02/2024 Refill [facility] [address] [place] [address] Dinora Childs ANP Morbid obesity with BMI of 50.0-59.9, adult ([facility]) 10/19/2024 Refill [facility] [address] [place] [address] Dinora Childs ANP Essential hypertension; Erectile dysfunction, unspecified erectile dysfunction type 10/08/2024 8:40 AM EST Office Visit [facility] [address] [place] [address] Hasmukh Truong MD Viral URI with cough from Last 3 Months Immunizations Name Administration [...] EDT Office Visit [facility] [address] [place] [address] Dinora Childs, ANP [address] [place] [address] Health Maintenance Due Date Last Done Comments [...] EDT Narrative 11/27/2024 8:26 AM EDT ? [facility] ?[address] ?[place] [address] ?XRay Report ? Signed ? Patient: Matthew,Melo ?MR#: [id number] ?? [id number] ? : 1965 ?Acct:[id number] ? Age/Sex: 59 / M ?ADM Date: 03/13/25 ? Loc: HO.US ? Attending Dr: Dotty [place] DO ? Ordering Physician: Dotty [place] DO ?? Date of Service: 11/26/24 ?? Procedure(s): XR lumbar spine 2-3V ?? Accession Number(s): [id number] ? cc: Dotty [place] DO ? EXAMINATION: [...] ??11/27/2024 08:23 AM EDT RP ?? Workstation: [id number] ? Dictated By: ?Eliazar Pace MD ? Signed By: ?<Electronically signed by Eliazar Pace MD in OV> ?11/27/24 0823 ? DD/ 1434 ? TD/TT: 11/26/24 1444 ? Patient Relations Manager: ? Procedure Note Andrea Graff - 11/27/2024 [place] [address] XRay Report Signed Patient: Hiram Castro R#: [id number] : 1965Acct:[id number] Age/Sex: 59 / MADM Date: 11/26/24 Loc: HO.US Attending Dr: Dotty [place] DO Ordering Physician: Dotty [place] DO Date of Service: 11/26/24 Procedure(s): XR lumbar spine 2-3V Accession Number(s): [id number] cc: Dotty [place] DO EXAMINATION: XR LUMBOSACRAL [...] 11/27/24 0823 DD/ 1434 TD/TT: 11/26/24 1444 Patient Relations Manager: us Dotty [place] DO IMG XR PROCEDURES Final Resu lt * US VENOUS DUPLEX LE LT (11/26/2024 2:12 PM EDT) Anatomical Region Laterality Modality Abdomen Ultrasound 11/26/2024 2:12 PM EDT Narrative 11/26/2024 2:49 PM EDT ? [facility] ?[address] ?[place] [address] ? Ultrasound Report ? Signed ? Patient: Matthew,Melo ?MR#: [id number] ?? [id number] ? : 1965 ?Acct:[id number] ? Age/Sex: 59 / M ?ADM Date: 03/13/25 ? Loc: HO.US ? Attending Dr: Dotty [place] DO ? Ordering Physician: Dotty [place] DO ?? Date of Service: 11/26/24 ?? Procedure(s): US venous duplex LE LT ?? Accession Number(s): [id number] ? cc: Dotty [place] DO ? EXAMINATION: [...] DD/ 1412 ? TD/TT: 11/26/24 1424 ? Patient Relations Manager: ? Procedure Note Andrea Graff - 11/26/2024 [place] [address] Ultrasound Report Signed Patient: Hiram Castro R#: [id number] : 1965Acct:[id number] Age/Sex: 59 / MADM Date: 11/26/24 Loc: HO.US Attending Dr: Dotty [place] DO Ordering Physician: Dotty [place] DO Date of Service: 11/26/24 Procedure(s): US venous duplex LE LT Accession Number(s): [id number] cc: Dotty [place] DO EXAMINATION: US LOWER [...] 11/26/24 1446 DD/ 1412 TD/TT: 11/26/24 1424 Patient Relations Manager: us Dotty [place] DO IMG US PROCEDURES Edited Res ult - Final * XR Chest 2 Views (10/08/2024 9:29 AM EST) Anatomical Region Laterality Modality Chest Radiographic Yessenia ging 10/08/2024 9:29 AM EST Narrative 10/08/2024 10:16 AM EST ?[facility] ?[address] ?[place] [address] ?XRay Report ? Signed ? Patient: Matthew,Melo ?MR#: [id number] ?? [id number] ? : 1965 ?Acct:[id number] ? Age/Sex: 59 / M ?ADM Date: 10/08/ ? Loc: HO.HHCX ? Attending Dr: Hasmukh Truong MD ? Ordering Physician: Hasmukh Truong MD ?? Date of Service: 10/08/24 ?? Procedure(s): XR chest 2V ?? Accession Number(s): [id number] ? cc: Hasmukh Truong MD ? EXAMINATION: [...] Pace MD ??10/08/2024 10:14 AM EST RP ? Dictated By: ?Eliazar Pace MD ? Signed By: ?<Electronically signed by Eliazar Pace MD in OV> ?10/08/24 1014 ? DD/ 0929 ? TD/TT: 10/08/2450 ? Patient Relations Manager: ? Procedure Note Parminderperlacuauhtemocannelter, Image - 10/08/[address] [address] XRay Report Signed Patient: Hiram Castro LMR#: [id number] : 1965Acct:[id number] Age/Sex: 59 / MADM Date: 10/08/24 Loc: HO.HHCX Attending Dr: Hasmukh Truong MD Ordering Physician: Hasmukh Truong MD Date of Service: 10/08/24 Procedure(s): XR chest 2V Accession Number(s): [id number] cc: Hasmukh Truong MD EXAMINATION: XR CHEST [...] 10/08/24 1014 DD/ 0929 TD/TT: 10/08/24 0950 Patient Relations Manager: Hasmukh Truong MD IMG XR PROCEDURES Final Result * Influenza B (ID NOW Rapid Molecular) (10/08/2024 9:14 AM EST) [facility] Influenza B Negative Negative, Indeterminate [facility] Swab 10/08/2024 9:14 AM EST Hasmukh Truong MD POINT OF CARE TEST ENTER/EDIT OR DERABLES Final Result Performing Organization Address [facility] Co de Phone Number [facility] [address] [place] [phone] * Influenza A (ID NOW Rapid Molecular) (10/08/2024 9:14 AM EST) [facility] Influenza A Negative Negative, Indeterminate [facility] Swab 10/08/2024 9:14 AM EST Hasmukh Truong MD POINT OF CARE TEST ENTER/EDIT OR DERABLES Final Result Performing Organization Address [facility] Co de Phone Number [facility] [address] [place] [phone] * POCT Rapid COVID Ag (10/08/2024 8:54 AM EST) [facility] Rapid COVID Ag Negative Swab 10/08/2024 8:54 AM EST Hasmukh Truong MD POINT OF CARE TEST ENTER/EDIT OR DERABLES Final Result * Lipid Panel, Standard (02/22/2023 9:43 AM EDT) Cholesterol, Total 127 <200 mg/dL [facility] HDL Cholesterol 46 > OR = 40 mg/dL [facility] Triglycerides 71 <150 mg/dL [facility] LDL Cholesterol 66 mg/dL (calc) [facility] Comment: Reference range: <100 Desirable range <100 mg/dL for primary prevention; ?? <70 mg/dL for patients with CHD or diabetic patients with > or = 2 CHD risk factors. LDL-C is now calculated using the Lazaro-Tracey calculation, which is a validated novel method providing better accuracy than the Friedewald equation in the estimation of LDL-C. Lazaro SS et al. ALVARADO. 2013;310(19): 2068-6779 (http://education.Lulu/faq/IRD830) Chol/HDLC Ratio 2.8 <5.0 (calc) [facility] Non-HDL Cholesterol 81 <130 mg/dL (calc) [facility] Comment: For patients with diabetes plus 1 major ASCVD risk factor, treating to a non-HDL-C goal of <100 mg/dL (LDL-C of <70 mg/dL) is considered a therapeutic option. Blood Venous blood specimen / Unknown 02/22/2023 9:43 AM EDT 02/22/2023 9:44 AM EDT Narrative [facility] - 02/23/2023 10:15 AM EDT FASTING:YES FASTING: YES Dinora [facility]IL[facility] LAB BLOOD ORDERABLES Final Resul t [facility] [address] [facility], [place] [address] [facility] [address] [place] [address] * HIV-1/2 Antigen and Antibodies, Fourth Generation, with Reflexes (10/16/2022 12:51 PM EST) Pathologist [facility] HIV Antigen/Antibody, 4th Generation NON-REAC TIVE NON-REAC TIVE [facility] Comment: HIV-1 antigen and HIV-1/HIV-2 antibodies were [...] ?? For additional information please refer to http://education.[employer]/faq/BYY128 (This link is being provided for informational/ educational purposes only.) The performance of this assay has not been clinically validated in patients less than 2 years old. Blood Venous blood specimen / Unknown 10/16/2022 12:51 PM EST 10/16/2022 12:52 PM EST Narrative [facility] - 10/17/2022 9:18 AM EST FASTING:NO FASTING: NO [facility] LAB BLOOD ORDERABLES Final Resul t [facility] [address] [place] [address] [facility] [address] , ([address]) [place] [address] * Colonoscopy (04/17/2018) Pathologist [facility] Colonoscopy Normal Normal Historical Provider HEALTH MAINTENANCE Final Result from Last 3 Months or Most Recently Relevant to Health Maintenance Insurance [facility] Care Teams Columnist/Commentator Relationship Specialty Start Date End Date Dinora Childs ANP [address] [place] [address] PCP - General Family Medicine 10/04/21
--- OUTSIDE RECORDS SUMMARY | 2024-12-18 15:34 | XMS_ITS | Encounter Summary ---
Author Organization [employer] Address [address] [facility] 7t [place] [address] Care Team Providers Care Coke Drawer Hand Name Role Phone Dinora Childs Primary Care Provider [phone] Encounter Details Date Type Department Care Team (Late Contact Info) Description 11/12/2022 Orders Only [facility] [address] [place] [address] Dotty Herron LPN Social History Tobacco Use [...] Description 12/22/2024 11:15 AM EDT Office Visit [facility] [address] [place] [address] Dinora Childs ANP [address] [place] [address] documented as of this encounter Visit Diagnoses Not on filedocumented in this encounter Care Teams Coke Drawer Hand Relationship Specialty Start Date End Date Dinora Childs ANP [address] [place] [address] PCP - General Family Medicine 10/04/21 documented as of this encounter
--- OUTSIDE RECORDS SUMMARY | 2024-12-18 15:34 | XMS_ITS | Encounter Summary ---
Author Organization [employer] Address [address] [facility] 7t [place] [address] Care Team Providers Care Life Scientists Name Role Phone Dinora Childs Primary Care Provider [phone] Reason for Visit * Reason Comments Med Refill Encounter Details Date Type Department Care Team (Late st Contact Info) Description 05/23/2023 Refill [facility] [address] [place] [phone] Dinora Childs ANP [address] [place] [phone] Prediabetes; BMI 50.0-59.9, adult (CMS/HCC); Class 3 [...] Description 12/22/2024 11:15 AM EDT Office Visit [facility] [address] [place] [address] Dinora Childs ANP [address] [place] [address] documented as of this encounter Visit Diagnoses Diagnosis Prediabetes Other abnormal glucose BMI 50.0-59.9, adult ([facility]) Class 3 severe obesity with serious comorbidity and body mass index (BMI) of 50.0 to 59.9 in adult, unspecified obesity type ([facility]) documented in this encounter Additional Health Concerns Assessment Noted Time PHQ-9 Depression Total Score: 9 02/19/20 23 1:40 PM EDT documented as of this encounter Care Teams Life Scientists Relationship Specialty Start Date End Date Dinora Childs ANP [address] [place] [address] PCP - General Family Medicine 10/04/21 documented as of this encounter
--- OUTSIDE RECORDS SUMMARY | 2024-12-18 15:34 | XMS_ITS | Encounter Summary ---
Author Organization [employer] Address [address] [facility] 7t [place] [address] Care Team Providers Care Control Supervisor Name Role Phone Dinora Childs Primary Care Provider [phone] Encounter Details Date Type Department Care Team (Late st Contact Info) Description 12/27/2022 Orders Only [facility] [address] [place] [address] Dotty Herron LPN Social History Tobacco Use [...] [facility] [address] [place] [address] Dinora Childs ANP [address] [place] [address] documented as of this encounter Visit Diagnoses Not on filedocumented in this encounter Care Teams Control Supervisor Relationship Specialty Start Date End Date Dinora Childs ANP [address] [place] [address] PCP - General Family Medicine 10/04/21 documented as of this encounter
--- OUTSIDE RECORDS SUMMARY | 2024-12-18 15:34 | XMS_ITS | Encounter Summary ---
Author Organization [employer] Address [address] [facility] 7t [place] [address] Care Team Providers Care Platform Beater Name Role Phone Dinora Childs Primary Care Provider [phone] Reason for Visit * Reason Comments Med Refill Encounter Details Date Type Department Care Team ([facility] st Contact Info) Description 06/05/2024 Refill [facility] [address] [place] [address] Dinora Childs ANP [address] [place] [address] Social History Tobacco Use Types Packs/Day Years [...] EDT Office Visit [facility] [address] [place] [address] Dinora Childs ANP [address] [place] [address] documented as of this encounter Visit Diagnoses Not on filedocumented in this encounter Additional Health Concerns Assessment Noted Time PHQ-9 Depression Total Score: 0 02/04/20 24 11:04 AM EDT documented as of this encounter Care Teams Platform Beater Relationship Specialty Start Date End Date Dinora Childs ANP [address] [place] [phone] PCP - General Family Medicine 10/04/21 documented as of this encounter
--- OUTSIDE RECORDS SUMMARY | 2024-12-18 15:34 | XMS_ITS | Encounter Summary ---
Author Organization [employer] Address [address] 7[address] [place] [address] Care Team Providers Care Greaser Helper Name Role Phone Dinora Childs Primary Care Provider [phone] Reason for Visit * Reason Comments Med Refill Encounter Details Date Type Department Care Team ([facility] st Contact Info) Description 12/15/2024 Refill [facility] [address] [place], [place] [phone] Dotty [place] DO [address] [place], [place] [phone] Social History Tobacco Use Types Packs/Day Years [...] 11:15 AM EDT Office Visit [facility] [address] [place] [address] Dinora Childs ANP [address] [place] [address] documented as of this encounter Visit Diagnoses Not on filedocumented in this encounter Additional Health Concerns Assessment Noted Time PHQ-9 Depression Total Score: 0 02/04/20 11:04 AM EDT documented as of this encounter Care Teams Greaser Helper Relationship Specialty Start Date End Date Dinora Childs ANP [address] [place] [address] PCP - General Family Medicine 10/04/21 documented as of this encounter
--- OUTSIDE RECORDS SUMMARY | 2024-12-18 15:34 | XMS_ITS | Encounter Summary ---
Author Organization [employer] [facility] Address [address] [facility] 7t [place] [address] Care Team Providers Care Farmer Cash Grain Name Role Phone Dinora Childs Primary Care Provider [phone] Reason for Visit * Reason Comments Med Refill Encounter Details Date Type Department Care Team (Late st Contact Info) Description 06/19/2023 Refill [facility] [address] [place] [address] Dinora Childs ANP [address] [place] [address] Hemorrhoids, unspecified hemorrhoid type Social History Tobacco [...] Description 12/22/2024 11:15 AM EDT Office Visit [facility] [address] [place] [phone] Dinora Childs ANP [address] [place], [place] [phone] documented as of this encounter Visit Diagnoses Diagnosis Hemorrhoids, unspecified hemorrhoid type documented in this encounter Additional Health Concerns Assessment Noted Time PHQ-9 Depression Total Score: 9 02/19/20 23 1:40 PM EDT documented as of this encounter Care Teams Farmer Cash Grain Relationship Specialty Start Date End Date Dinora Childs ANP [address] [place] [address] PCP - General Family Medicine 10/04/21 documented as of this encounter
--- OUTSIDE RECORDS SUMMARY | 2024-12-18 15:34 | XMS_ITS | Encounter Summary ---
Author Organization [employer] Address [address] [facility] 7t [place] [address] Care Team Providers Care Spiral Weaver Name Role Phone Dinora Childs Primary Care Provider [phone] Reason for Visit * Reason Comments Med Refill Encounter Details Date Type Department Care Team ([facility] st Contact Info) Description 07/13/2023 Refill [facility] [address] [place] [address] Dinora Childs ANP [address] [place] [address] Social History Tobacco Use Types Packs/Day Years [...] [facility] [address] [place] [address] Dinora Childs ANP [address] [place] [address] documented as of this encounter Visit Diagnoses Not on filedocumented in this encounter Additional Health Concerns Assessment Noted Time PHQ-9 Depression Total Score: 9 02/19/20 23 1:40 PM EDT documented as of this encounter Care Teams Spiral Weaver Relationship Specialty Start Date End Date Dinora Childs ANP [address] [place] [address] PCP - General Family Medicine 10/04/21 documented as of this encounter
== END 2024-12-18 13:48 | disposition home or self-care (01) ==
LOC: HO.US 13:47
PROVIDERS: PCP Nurse Practitioner Primary Care; Visit Provider Family Medicine
DX: R05.1 Acute cough (principal); M79.605 Pain in left leg
CPT/HCPCS: 71046; 93922; 93925

== ENCOUNTER → 2024-12-18 13:49 | Outpatient (BNV) | payer OTHER, SELFPAY | PROVIDERS: PCP Nurse Practitioner Primary Care; Visit Provider Radiology Diagnostic Radiology | DX: R22.42 Localized swelling, mass and lump, left lower limb (principal); J90 Pleural effusion, not elsewhere classified | CPT/HCPCS: 71046; 93922; 93925 ==

== ENCOUNTER 2025-02-18 11:15 | Outpatient (AMB) | payer OTHER, SELFPAY ==
--- NOTE | 2025-02-18 11:34 | MHC.OFFVIS ---
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 Pt states Right LE worse than the Left LE. States he can walk about 20 mins before Left LE becomes numb. 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 Symptom onset during walking is rapid, occurring typically within 20 minutes, and characterized by a burning sensation necessitating periodic rest. This has persisted for several years and is aggravated by walking, leading to numbness and tightness in the affected extremity. It appears to be more on the lateral aspect of the left hip in the right knee. The patient's mobility impairment has led to a disability classification, with back pain reported as a secondary concern. Patient is a nonsmoker nondiabetic. He is morbidly obese with a BMI nearly of 54. He now presents for vascular follow-up. [facility] Medical History High cholesterol Sleep apnea Hyperlipemia High blood pressure Asthma Surgical History No history of previous surgery Family History Sister Seizures Sister Diabetes Mother Diabetes Father No problems noted. 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 Review of Systems Const All systems reviewed & are unremarkable except as noted in HPI and below Reports no additional complaints ENT Reports Normal hearing present Card Denies chest pain, Denies chest pain at rest, Denies chest pain with activity and Denies pedal edema Resp Denies cough GI Denies abdominal pain Musc Denies abnormal gait, Denies muscle cramps and Denies radiating pain into limb Skin/Breast Denies skin ulcer and Denies wounds Neuro Reports Normal hearing present and Denies abnormal gait Psych Reports no additional complaints Physical Exam Const General: cooperative, healthy appearing and comfortable Orientation/consciousness: oriented to person, oriented to place and oriented to time HEENT Head: Yes normal to inspection Neck Neck: Yes normal visual inspection Carotids: no bruits Chest Chest palpation & inspection: normal inspection of the chest Resp Effort & Inspection: normal respiratory effort and able to speak in complete sentences Auscultation: clear to auscultation bilaterally, no crackles, no rales, no rhonchi and no wheezes Cardio Other: Bilateral palpable dorsalis pedis pulse Rate: regular rate Rhythm: regular rhythm Heart sounds: S1 normal heart sound present and S2 normal heart sound present Bruits: no carotid bruits Peripheral pulses: Peripheral pulses 2+ throughout GI Inspection: Yes normal to inspection Skin Wounds: no wounds Hair: normal Neuro General: oriented to person, oriented to place and oriented to time Cranial nerves: Yes CN's II-XII intact bilaterally and Yes Normal hearing present Cognition (Neuro): normal cognition Motor exam (neuro): 5/5 motor strength present throughout Extrem Other: venous exam: No significant superficial varicosities or spider telangiectasias, minimal edema General: No clubbing, No cyanosis and No edema Psych Appearance: grossly normal Mental Status: mental status grossly normal Speech and movement: Normal speech and movement present Results Reviewed Results Reviewed: Noninvasive arterial testing dated 12/18/2024 demonstrates triphasic waveforms with EM on the right of 1.27 and on the left of 1.22. Back x-ray from 11/27/2024 demonstrates multilevel spondylosis Assessment & Plan Assessment & Plan (1) PAD (peripheral artery disease): Code(s): I73.9 - Peripheral vascular disease, unspecified Category: Medical Plan: Patient has no significant evidence of arterial disease. Arterial testing is within normal limits and he does have palpable pulses. I discussed with the patient the results of the ultrasound, which showed no blood flow issues, thereby suggesting the source of pain may be musculoskeletal or neurological. I recommended referral to pain management, explaining their potential role in managing the pain and exploring further diagnostic avenues to understand the underlying cause of leg discomfort. Potential risks of not managing the symptoms effectively include continued mobility impairment and quality of life reduction. I highlighted the importance of this referral and ensured the patient understood the path forward. (2) Back pain: Code(s): M54.9 - Dorsalgia, unspecified Category: Medical Qualifiers: Back pain location: low back pain Chronicity: chronic Back pain laterality: left Sciatica presence: with sciatica Sciatica laterality: sciatica of left side Qualified Code(s): M54.42 - Lumbago with sciatica, left side; G89.29 - Other chronic pain Plan: Patient has lower back pain along with right knee pain. I do think he would benefit from a pain management evaluation. He does describe symptoms of left-sided neurogenic claudication and right knee pain. I have taken the liberty of ordering a pain management evaluation. In addition weight loss may be beneficial for him. Once again he will follow up with us on an as-needed basis. Thank you for allowing us to assist in his care. Plan Patient was informed and verbally consented to the use of an ambient scribe for clinic note documentation during this visit. Orders: Referrals Pain Management Referral G89.29 - Other chronic pain, M54.42 - Lumbago with sciatica, left side Patient Instructions: - You will receive contact from the pain management team to schedule an appointment. - Monitor symptoms and observe for worsening or new symptoms. - Rest as needed when pain occurs during walking. - Follow up with planned appointments for further evaluations. Coding Level of Care Code New Pt Level 4 (47143) Complex EM visit Add On G2211 Diagnoses PAD (peripheral artery disease) I73.9 Chronic left-sided low back pain with left-sided sciatica M54.42; G89.29 Back pain location: low back pain Chronicity: chronic Back pain laterality: left Sciatica presence: with sciatica Sciatica laterality: sciatica of left side
--- OUTSIDE RECORDS SUMMARY | 2025-02-18 13:25 | XMS_ITS | Encounter Summary ---
Author Organization [employer] Address [address] [place] [address] Care Team Providers Care Command Post Craftsman Name Role Phone Dinora Childs Primary Care Provider [phone] Reason for Visit * Reason Onset Date Comments Durable Medical Equipment 01/07/2025 Encounter Details Date Type Department Care Team (Late st Contact Info) Description 01/07/2025 Telephone [facility] [address] [place] [address] Dinora Childs ANP [address] [place] [address] Durable Medical Equipment Social History Tobacco Use Types Packs/Day Years [...] What is your housing situation today? I do not have housing (Staying with others, in a hotel, in a care home, living outside on the street, on a beach, in a car, or in a park 12/22/[address] you li ve. Do you have problems with any of the following? Not on file 12/22/2024 Food Insecurity Answer Date Recorded Within the past 12 months, y ou worried that your food would run out before you got money to buy more: Often true 12/22/2024 Within the past 12 months,th e food you bought just didn't last and you didn't have enough money to get more: Not on file 04/2025 Transportation Answer Date Recorded In the past 12 months, has l ack of transportation kept you from medical appts, meetings, work or from getting things needed for daily living? Yes, it has kept me from medical appointments or getting medications. 12/22/2024 Utilities Answer Date Recorded In the past [...] encounter Miscellaneous Notes * Telephone Encounter - Aspen Vogel RN - 02/17/2025 12:59 PM EDT Telephone call returned to pt regarding below message. No answer, left v/m. F pt returns call please inform order faxed to [facility] 01/13/25. They usually take a few weeks to do prior authorization with insurance once they get orders but he can call them at for status update. Thank you! * Telephone Encounter - Kandi Gann - 02/17/2025 10:41 AM EDT Tc from pt requesting status on prior message Contact pt at [phone] * Telephone Encounter - Lori Crandall - 01/12/2025 3:20 PM EDT RX for CPAP generated and sent to covering provider (Dr Pike) via [facility]. Once signed, will be faxed to [facility] and scanned into media. * Telephone Encounter - America Jerome - 01/07/2025 1:11 PM EDT Pt walked in requesting dme for sleeping machine documented in this encounter Plan of Treatment Not on file documented as of this encounter Visit Diagnoses Not on filedocumented in this encounter Additional Health Concerns Assessment Noted Time PHQ-9 Depression Total Score: 0 02/04/20 11:04 AM EDT documented as of this encounter Care Teams Command Post Craftsman Relationship Specialty Start Date End Date Dinora Childs ANP [address] [place] [id number] PCP - General Family Medicine 10/04/21 documented as of this encounter
== END 2025-02-18 11:48 | disposition home or self-care (01) ==
LOC: HO.HVS 11:15
PROVIDERS: PCP Nurse Practitioner Primary Care; Visit Provider Surgery Vascular Surgery
DX: I73.9 Peripheral vascular disease, unspecified (principal); M54.42 Lumbago with sciatica, left side; G89.29 Other chronic pain
CPT/HCPCS: 99204; G2211

== ENCOUNTER → 2025-02-18 11:15 | Outpatient (BNVA) | payer OTHER, SELFPAY | PROVIDERS: PCP Nurse Practitioner Primary Care; Visit Provider Surgery Vascular Surgery | DX: I73.9 Peripheral vascular disease, unspecified (principal); M54.42 Lumbago with sciatica, left side; G89.29 Other chronic pain; E66.01 Morbid (severe) obesity due to excess calories; Z68.43 Body mass index [BMI] 50.0-59.9, adult | CPT/HCPCS: 99202 ==

== ENCOUNTER 2025-02-25 17:48 | Emergency (ER) | payer OTHER, SELFPAY ==
[2025-02-25 17:55] VITALS: BP 125/75; PULSE 83; RESP 18; TEMP 36.8; O2SAT 98; BMI 55.2
--- NOTE | 2025-02-25 17:58 | ED_ITS ---
HPI - General Adult General Chief complaint: General Medical Stated complaint: low blood pressure for a few days Time Seen by Provider: 02/25/25 19:58 Source: patient Mode of arrival: ambulatory Limitations: no limitations History of Present Illness ED Provider: lima lugo np HPI narrative: Patient is a 59-year-old male who presents emergency department for evaluation. Reports over the past few days he has been having an intermittent headache described as a frontal pressure. He states this happens from time to time. Overall he was not concern however he was advised by family to check his blood pressure and he got a reading of 120/50. Family told him that the lower number of his blood pressure should be 90 and that he should drink a large glass of saltwater, resulting in him experiencing nausea following. He is additionally used Tylenol with relief of his headache. Denies recent high blood pressure readings to knowledge, vision changes, neck pain, neck stiffness, dizziness, lightheadedness, chest pain, shortness of breath difficulty breathing, numbness or tingling of the extremities, weakness, difficulty walking, confusion. Related Data Home Medications ?Medication ?Instructions ?Recorded ?Confirmed cholecalciferol (vitamin D3) 50 50 mcg PO DAILY 05/22/22 07/22/23 mcg (2,000 unit) capsule (Vitamin D3) lisinopril 10 mg tablet 10 mg PO DAILY 05/22/22 07/22/23 pravastatin 40 mg tablet 40 mg PO DAILY PRN 05/22/22 07/22/23 sertraline 100 mg tablet 150 mg PO DAILY 04/10/23 07/22/23 sildenafil 100 mg tablet (Viagra) 50 - 100 mg PO DAILY PRN 06/04/23 07/22/23 atorvastatin 20 mg tablet 20 mg PO DAILY 07/22/23 07/22/23 buspirone 10 mg tablet 10 mg PO BID 09/26/23 psyllium husk 3.4 gram oral powder PO 09/26/23 packet (Metamucil Fiber Singles) docusate sodium 100 mg capsule 100 mg PO BID 11/21/23 fluticasone propionate 220 inhalation 11/21/23 mcg/actuation HFA aerosol inhaler loratadine 10 mg tablet 10 mg PO DAILY 11/21/23 melatonin 10 mg tablet mg PO BEDTIME 11/21/23 Previous Rx's ?Medication ?Instructions ?Recorded albuterol sulfate 90 mcg/actuation 2 inh inhalation Q4-6H PRN 09/29/22 breath activated powder inhaler shortness of breath or wheezing #1 ea dicyclomine 20 mg tablet 20 mg PO Q8-10H PRN abdominal 09/08/23 pain #20 tabs bisacodyl 10 mg rectal suppository 10 mg DC DAILY PRN constipation 09/26/23 (Dulcolax (bisacodyl)) #20 ea polyethylene glycol 3350 17 17 g PO DAILY #510 grams 09/26/23 gram/dose oral powder (Miralax) sennosides 8.6 mg capsule (senna) 8.6 mg PO DAILY constipation 30 09/26/23 days #30 caps ondansetron 4 mg disintegrating 4 mg PO DAILY #20 tabs 12/18/23 tablet pyridoxine (vitamin B6) 100 mg 100 mg PO DAILY 90 days #90 tabs 06/17/24 tablet Allergies Allergy/AdvReac Type Severity Reaction Status Date / Time No Known Allergies Allergy Unverified 02/25/25 18:00 [No Known Allergies*] Review of Systems 2 Review of Systems: Yes all other systems are reviewed and are negative [facility] Past Medical History Attestation statement: The following information was validated with the patient. Source: old records reviewed Medical History High cholesterol Sleep apnea Hyperlipemia High blood pressure Asthma Surgical History No history of previous surgery Family History Family History Sister Seizures Sister Diabetes Mother Diabetes Father No problems noted. 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 No acute distress.?Normal affect. Eyes: Pupils equal, round and reactive to light.? ENT: Pharynx normal.?? Neck: Normal inspection.? Neck supple.?? CVS: Heart sounds normal. Normal heart rate and rhythm.? Pulses normal.?? Respiratory: No respiratory distress.? Lung sounds clear to auscultation bilaterally?? Abdomen: Soft and non-tender. Normoactive bowel sounds. Skin: Skin warm and dry.? Normal skin color.? Extremities: No lower extremity edema.?? Neuro: Moves all extremities spontaneously. Sensation intact bilaterally. CN II- XII intact. No focal neuro deficits. Ambulates with normal steady gait. Course Course Course Narrative: RME, this is a rapid medical exam performed by Higinio Pereira please refer to primary provider for complete H&P- 59 year old male presents for evaluation of headache and nausea for 3 days. Plan for labs and a viral swab Medical Decision Making Medical Decision Making MDM Narrative: Patient is a 59-year-old male who presents emergency department for evaluation of intermittent headache over the past 3 days and concern for ?low blood pressure?. As per HPI, he was advised by family that is a blood pressure of 120/50 was low and that he should consuming large water of which he did which resulted in nausea. The time of my evaluation he denies having any headache. No current nausea. He is tolerating oral intake. Blood pressure is stable arrived to the ED 125/75, on re-evaluation 109/73. He has no focal neurological deficits. Headaches were not exacerbated by exertion no red flag symptoms, no associated vision changes. No indication for emergent head CT. Unlikely SDH, SAH, DONATION WORKER mass, meningitis, cervical artery dissection, CVA. He is requesting discharge home which I feel is appropriate at this time. Differential Diagnosis Differential Diagnoses: The differential diagnosis associated with the presentation includes (SDH, SAH, ICH, DONATION WORKER mass, meningitis, encephalitis, CVA, GCA, migraine, headache) Admission/Observation Consideration of admission/observation: Escalation of care including admission/observation considered (See narrative above) Lab Data MDM Lab Attestation statement: I reviewed the patient's lab results. CBC is without leukocytosis, normocytic anemia that does not meet transfusion criteria, no thrombocytopenia. No electrolyte derangement. No BIANKA. LFTs overall unremarkable, lipase is normal. Viral serologies are negative. 02/25/25 18:17 02/25/25 18:17 Labs: Lab Results 02/25/25 Range/Units 18:17 WBC 6.3 (4.8-10.8) X10*3/uL RBC 4.58 L (4.60-5.80) X10*6/uL Hgb 13.7 L (14.0-18.0) g/dl Hct 40.5 L (42.0-52.0) % MCV 88.4 (80.0-98.0) fL MCH 29.9 (27.0-33.0) pg MCHC 33.8 (31.0-36.0) g/dl RDW 13.4 (11.0-16.0) % Plt Count 261 (160-400) X10*3/uL MPV 9.1 L (9.4-12.4) fL Immature Gran % (Auto) 0.3 (0.0-0.4) % Neut % (Auto) 62.0 (45-73) % Lymph % (Auto) 26.6 (20-40) % [place] % (Auto) 9.6 (2-11) % Eos % (Auto) 1.0 (0-4) % Baso % (Auto) 0.5 (0-2) % Lymph # (Auto) 1.7 (1.2-4.9) X10*3/uL [place] # (Auto) 0.6 (0.1-1.2) X10*3/uL Eos # (Auto) 0.1 (0.0-0.4) X10*3/uL Baso # (Auto) 0.0 (0.0-0.2) X10*3/uL Abs Immat Gran (auto) 0.02 (0.00-0.03) X10*3/uL Absolute Neuts (auto) 3.9 (2.0-8.3) x10*3/uL Absolute Nucleated RBC 0.000 (0.0-0.012) X10*3/uL Nucleated RBC % (auto) 0.0 (0.0-0.2) /100WBC Sodium 141 (135-145) mmol/L Potassium 4.3 (3.3-5.1) mmol/L Chloride 106 (96-108) mmol/L Carbon Dioxide 27 (22-29) mmol/L Anion Gap 12 (12-20) BUN 16 (9-16) mg/dL Creatinine 1.10 (0.5-1.4) mg/dL Estim Creat Clear Calc 108.6 Estimated GFR > 60 Random Glucose 111 (60-115) mg/dL Calcium 9.0 (8.4-10.2) mg/dL Total Bilirubin 0.3 (0.0-1.0) mg/dL AST 37 (5-37) U/L ALT 44 H (0-40) U/L Alkaline Phosphatase 68 (39-117) U/L Total Protein 6.9 (6.5-8.0) g/dL Albumin 4.1 (3.5-5.0) g/dL Lipase 30 (8-78) U/L Influenza Type A (PCR) NEGATIVE (Negative) Influenza Type B (PCR) NEGATIVE (Negative) RSV RNA Qual (PCR) NEGATIVE (Negative) SARS-CoV-2 RNA (RT-PCR) NEGATIVE (Negative) External Record Review External record reviewed: Outpatient record Prescription Management I considered prescription management with: Pain Medication (Acetaminophen/ibuprofen) Chronic Conditions Patient?s care impacted by: Other (See narrative above) Discharge Plan Discharge Clinical Impression: Headache Patient Disposition: Home, Self-Care Instructions: General Headache (ED) Additional Instructions: you were seen in the emergency department for headaches and concern for low blood pressure. Your blood work and exam today was very reassuring. You tested negative for COVID, flu, and RSV. Her blood pressure today is within a normal range. Continue taking your medications as prescribed. You can take ibuprofen 200 mg, 3 tablets (600mg) every 6-8 hours as needed for pain, in addition to Tylenol 500 mg, 2 tablets (1,000mg) every 4-6 hours as needed for pain, but not to exceed 3 doses daily (3,000mg).? Follow-up with your primary care doctor. Return to emergency department any new or worsening symptoms or concerns Prescriptions: No Action ondansetron 4 mg tablet,disintegrating 4 mg PO DAILY Qty: 20 0RF pyridoxine (vitamin B6) 100 mg tablet 100 mg PO DAILY 90 Days Qty: 90 1RF albuterol sulfate 90 mcg/actuation aerosol powdr breath activated 2 inh inhalation Q4-6H PRN (Reason: shortness of breath or wheezing) Qty: 1 0RF dicyclomine 20 mg tablet 20 mg PO Q8-10H PRN (Reason: abdominal pain) Qty: 20 0RF cholecalciferol (vitamin D3) [Vitamin D3] 50 mcg (2,000 unit) capsule 50 mcg PO DAILY lisinopril 10 mg tablet 10 mg PO DAILY pravastatin 40 mg tablet 40 mg PO DAILY PRN sildenafil [Viagra] 100 mg tablet 50 - 100 mg PO DAILY PRN atorvastatin 20 mg tablet 20 mg PO DAILY buspirone 10 mg tablet 10 mg PO BID Metamucil Fiber Singles 3.4 gram powder in packet PO bisacodyl [Dulcolax (bisacodyl)] 10 mg suppository 10 mg DC DAILY PRN (Reason: constipation) Qty: 20 0RF polyethylene glycol 3350 [Miralax] 17 gram/dose powder 17 g PO DAILY Qty: 510 6RF senna 8.6 mg capsule 8.6 mg PO DAILY 30 Days Qty: 30 1RF fluticasone propionate 220 mcg/actuation HFA aerosol inhaler inhalation melatonin 10 mg tablet PO BEDTIME loratadine 10 mg tablet 10 mg PO DAILY docusate sodium 100 mg capsule 100 mg PO BID sertraline 100 mg tablet 150 mg PO DAILY Referrals: Dinora Childs, FURNITURE SALESPERSON [Primary Care Provider] - Print Language: Danish
[2025-02-25 18:21] LABS: MANUAL DIFF FLAG NO
[2025-02-25 18:27] LABS: Basophils Percent Auto 0.5 % (0-2); Eosinophils Absolute Auto 0.1 X10*3/uL (0.0-0.4); Hematocrit 40.5 % (42.0-52.0); Hemoglobin 13.7 g/dl (14.0-18.0); Imm Gran Abs Auto 0.02 X10*3/uL (0.00-0.03); Imm Gran Pct Auto 0.3 % (0.0-0.4); Lymphocytes Absolute Auto 1.7 X10*3/uL (1.2-4.9); Lymphocytes Percent Auto 26.6 % (20-40); Mean Corpuscular HGB Conc 33.8 g/dl (31.0-36.0); Mean Corpuscular Hemoglobin 29.9 pg (27.0-33.0); Mean Corpuscular Volume 88.4 fL (80.0-98.0); Mean Platelet Volume 9.1 fL (9.4-12.4); Monocytes Absolute Auto 0.6 X10*3/uL (0.1-1.2); Monocytes Percent Auto 9.6 % (2-11); Neutrophils Absolute Auto 3.9 x10*3/uL (2.0-8.3); Platelet Count 261 X10*3/uL (160-400); Red Blood Count 4.58 X10*6/uL (4.60-5.80); Red Cell Distribution Width 13.4 % (11.0-16.0); White Blood Count 6.3 X10*3/uL (4.8-10.8)
[2025-02-25 18:35] LABS: Alanine Aminotransferase 44 U/L (0-40); Albumin Level 4.1 g/dL (3.5-5.0); Alkaline Phosphatase 68 U/L (39-117); Anion Gap 12 (12-20); Aspartate Amino Transferase 37 U/L (5-37); Bilirubin Total 0.3 mg/dL (0.0-1.0); Blood Urea Nitrogen 16 mg/dL (9-16); Carbon Dioxide 27 mmol/L (22-29); Chloride 106 mmol/L (96-108); Creatinine Clr Calc Pharmacy 108.6; Estimated Glomerular Filt Rate > 60; Glucose Random 111 mg/dL (60-115); Lipase 30 U/L (8-78); Potassium 4.3 mmol/L (3.3-5.1); Sodium 141 mmol/L (135-145); Total Protein 6.9 g/dL (6.5-8.0)
[2025-02-25 18:59] LABS: Influenza A PCR NEGATIVE (Negative); Influenza B PCR NEGATIVE (Negative); Resp Syncy Virus RNA Qual PCR NEGATIVE (Negative); SARS COV2 PCR INHOUSE NEGATIVE (Negative)
[2025-02-25 20:07] VITALS: BP 107/56; PULSE 73; RESP 18; TEMP 36.9; O2SAT 94
[2025-02-25 20:08] VITALS: BP 107/56; PULSE 73
[2025-02-25 20:09] VITALS: BP 109/73; BP 111/60; PULSE 87
--- OUTSIDE RECORDS SUMMARY | 2025-02-25 20:17 | XMS_ITS | Data Portability ---
Author Organization [employer], [employer] [facility] Address [address] [place] [address] Care Team Providers Care Cognos Lead Name Role Phone [facility] Referring Provider [facility] Referring Provider Assessment Encounter Date [...] nausea/vomiti ng, or any other concerns. VSS. Stress Engineer on site reports mild b/l flank pain. [...] Go To The Location Of Their Choice, [id number] 08:07:30 Referral None recorded. Procedures None recorded. Surgeries None recorded. Imaging None recorded. Medication Orders ketorolac 15 mg/mL injection solution 2023 024 gbaci [facility], [address] [place], [place], [id number], 4 15:43:09 cyclobenzap rine 5 mg tablet 2023 024 [facility], [address], [place], [id number], 4 17:25:27 diclofenac 1 % topical gel 2023 024 [facility], [address], [place], [id number], 4 17:25:27 Bactrim DS 800 mg-160 mg tablet 2022 023 [facility], [address] [place] [address], [id number], 3 17:51:28 Patient TargetsNo targets recorded. Patient [...] Choice, 01/24/2023 08:07:30 01/22/2001/24/2023 URINE CULTU RE cefepime CEFEPI ME SUSCEP TIBLE susceptib le Not Available [facility] (Centralized Electronic Ordering - All Locations) Patient Can Go To The Location Of Their Choice, 01/24/2023 08:07:30 01/22/2001/24/2023 URINE CULTU RE ceftriaxone CEFTRI AXONE SUSCEP TIBLE susceptib le Not Available [facility] (Centralized Electronic Ordering - All Locations) Patient Can Go To The Location Of Their Choice, 01/24/2023 08:07:30 01/22/20 23 01/24/2023 URINE CULTU RE ciprofloxaci n CIPROF LOXACI [...] Location Of Their Choice, 01/24/2023 08:07:30 01/22/20 23 01/24/2023 URINE CULTU RE nitrofuranto in NITROF URANTO [...] Available Not Available Not Available Metamucil Fiber (aspartame) 3.4 gram oral powder packet MIX 1 [...] /min 128 mm[Hg] 72 mm[Hg] Not Available [employer] 4 15:37:29 Date Recorded Body temperature Heart rate Respiratory rate Oxygen saturation Oxygen saturation in Arterial blood by Pulse oximetry Systolic blood pressure Diastolic blood pressure Provider Name and Address Organization Details Last Updated DateTime 2 98.4 [degF] 78 /min 18 /min 95.99 % 95.99 % 144 mm[Hg] 84 mm[Hg] Toshia Morris MD [address] [place] [address],[address], [place], [address] [place] [address] [employer] 2 22:08:32 Date Recorded Oxygen saturation Oxygen saturation in Arterial blood by Pulse oximetry Body weight Heart rate Body temperature Respiratory rate Systolic blood pressure Diastolic blood pressure Provider Name and Address Organization Details Last Updated DateTime 3 99 % 99 % 611480. 08 g 86 /min 96.6 [degF] 16 /min 130 mm[Hg] 86 mm[Hg] Not Available [employer] 3 17:24:50 Social History None recorded. Functional Status None recorded. Mental Status None recorded. Family History Nothing Reported. Medical History No medical history recorded. Past Encounters Encounter ID Performer Location Encounter Start Date Encounter Closed Date Diagnosis/Indication Diagnosis SNOMED-CT Code Diagnosis ICD10 Code Diagnosis Note [id number] Toshia Morris MD [facility] [employer] [address] [place] [phone] 12/11/2021 18:54:22 05/08/2022 16:02:06 Exposure to carbon monoxide 77419189 Z77.128 Patient and evaluated for intermitte nt symptoms in conjunctio n with CO detector alarm sounding periodical ly. Alarm currently not sounding, patient currently asymptomat ic and vital signs are normal on today's evaluation . Counseling provided regarding safety steps if alarm should sound again in the future. In interim patient is safe to remain at home. [id number] Josee Meadows MD [facility] [address] [place] [phone] 01/21/2023 17:24:44 01/22/2023 13:18:43 Acute urinary tract infection 086930465 N39.0 [id number] ERYN MONTES MD [facility] [address] [place] [phone] 10/08/2023 15:37:26 10/08/2023 22:18:45 Neck pain 43842627 M54.2 Evaluation in the field was performed by my machine woodworking sander colleague, as noted above, I provided real-time [...] his neck. He sought medical attention at [facility], where no interventi on was provided. [...] Recorded Advance Directives Directive None Recorded Payers Insurance Date Sequence Insurance Name Policy Number Policy Ortiz Covered Member ID Ortiz Member ID Guarantor Name 10/08/2023 1 [facility] - DOS PRIOR TO 2022 - DUAL ELIGIBLE (MEDICARE REPLACEMENT/AD VANTAGE - HMO) Hiram Castro [id number] Hiram Castro 11/06/2023 1 [facility] - DOS ON OR AFTER 2022 - DUAL ELIGIBLE - ALF OPTIONS AND ONE CARE (MEDICARE REPLACEMENT/AD VANTAGE - HMO) Hiram Castro [id number] Hiram Castro Notes Date Note Type Note Provider Name and Address Organization Details Recorded Time 12/11/2021 text/html Request notes:Evaluate patient for reported nausea, headache and weakness. Patient concerned with housing as cause of exposure to something causing symptoms. Per machine woodworking sander evaluation, noted to have intermittent symptoms for months, in concert with who is also having the same symptoms, that seem correlated to the carbon monoxide detector alarming periodically. Toshia Morris MD [address] [place] [address],[address], [place], [phone], [employer] 12/11/2021 22:11:23 01/21/2023 text/html HPI: ALLERGIES; None [...] ................... ................... ................... ................... ................... ................... ........ Stress Engineer Note From Rosendo Waters: pt requesting f/u [...] bactrim for 3 days with no effect. [facility] contacted. [facility] prescribed bactrim for 10 days. [facility] machine woodworking sander gave pt first dose at visit. Pt educated on s/s warranting a 911 call/trip to the hospital. pt advised to f/u with PCP. ................... ................... ................... ................... ................... ................... ................... ........ Disposition: Fulfilled Josee Meadows MD [address] [facility],[address], [place], [address], GERBER OLI GARCES 01/21/2023 18:08:48 10/08/2023 text/html HPI: HX sleep [...] Comments: HPI was reviewed by this junior technical writer - No further information needed at this time. Ghada CHRISTIANSEN ................... ................... ................... ................... ................... ................... ................... ........ Stress Engineer Note From Miriam Kearns: Upon arrival it [...] in tact. Pt stated he went to [facility] for the same issue and ? t hey didn? t do nothing.? Vitals as noted. [facility] contacted and pt was administered 15mg of toradol in left arm w/o incident. Pt was sent prescription for flexeril. Pt was told that is he became SOB or starting feeling pain in his chest, to immediately call 911. Pt stated he understood. Call was then cleared. ................... ................... ................... ................... ................... ................... ................... ........ Disposition: Fulfilled ERYN MONTES MD [address] [facility],[address], [place], [address], [employer] 10/08/2023 16:05:27
[2025-02-25 20:35] LABS: Appearance Urine Clear; Color Urine Yellow; Glucose Urine UA Negative (Negative); Leukocyte Esterase Urine Negative (Negative); Nitrite Urine Negative (Negative); PH 6.5 (5.0-9.0); Urine Blood Negative (Negative); Urine Ketones Trace mg/dL (Negative); Urine Protein Negative (Neg-Trace)
[2025-02-25 20:40] LABS: Bacteria Urine None Seen (None Seen); Hyaline Casts Urine 0-2 /LPF (0-2); RBC Urine 0-2 /HPF (0-2); Squamous Epithelial Cell Urine 0-2 /HPF (0-2); WBC Urine 0-5 /HPF (0-5)
[2025-02-25 21:13] VITALS: BP 119/64; PULSE 79; RESP 20; TEMP 37; O2SAT 96
--- NOTE | 2025-02-25 21:14 | PC.NURSE ---
Pt calm and cooperative. Provided patient with blood pressure log so he can record blood pressure readings to take to PCP appointment. Pt verbalized understanding of instructions.
== END 2025-02-25 21:14 | disposition home or self-care (01) ==
PROVIDERS: Physician Assistant; Emergency Provider Emergency Medicine; PCP Nurse Practitioner Primary Care
DX: R51.9 Headache, unspecified (principal); R11.0 Nausea; Z87.891 Personal history of nicotine dependence; Z03.818 Encounter for observation for suspected exposure to other biological agents ruled out; Z79.899 Other long term (current) drug therapy
CPT/HCPCS: 0241U; 80053; 81001; 83690; 85025; 99283; 99284

== ENCOUNTER 2025-03-19 04:26 | Emergency (ER) | payer OTHER, SELFPAY ==
[2025-03-19 04:33] VITALS: BP 133/76; PULSE 77; RESP 18; TEMP 36.8; O2SAT 98; BMI 52.9
--- OUTSIDE RECORDS SUMMARY | 2025-03-19 04:54 | XMS_ITS | Patient Health Record ---
Author Organization [facility] Address [address] [place] [address] Care Team Providers Care Residential Case Manager Name Role Phone Ian Aragon [phone] Reason For Referral No Information Plan Of Treatment No Information
--- OUTSIDE RECORDS SUMMARY | 2025-03-19 04:54 | XMS_ITS | Data Portability ---
Author Organization [employer] [facility], [facility] Address [address] [place] [address] Care Team Providers Care Motor Equipment Commanding Officer Name Role Phone [facility] Referring Provider [facility] [...] nausea/vomiti ng, or any other concerns. VSS. Dog Pound Attendant on site reports mild b/l flank pain. Urine dip with + LE, + blood. Review of chart shows culture with + e.coli most sensitive to bactrim. Will trial longer course of bactrim and reculture. Encouraged patient to f/u with PCP to ensure improvement. Primary team, Mr. Castro would benefit from f/u in the next 7-10 days to make sure he's improving. [email or web address] Not available 01/21/2023 17:42:41 Plan of Treatment Reminders Order Date Submit Date Provider Last Modified By Organization Details Last Modified Time Details Appointments None recorded. Lab culture, urine - clean catch urine 2022 023 KIMMIE [facility] (Centralized Electronic Ordering - All Locations), Patient Can Go To The Location Of Their Choice, [address] 08:07:30 Referral None recorded. Procedures None recorded. Surgeries None recorded. Imaging None recorded. Medication Orders ketorolac 15 mg/mL injection solution 2023 024 [facility], [address] [place], [place], [id number], 4 15:43:09 cyclobenzap rine 5 mg tablet 2023 024 [facility], [address] [place], [place], [id number], 4 17:25:27 diclofenac 1 % topical gel 2023 024 [facility], [address] [place], [place], [id number], 4 17:25:27 Bactrim DS 800 mg-160 mg tablet 2022 023 [facility], [address] [place] [address], [id number], 3 17:51:28 Patient TargetsNo targets recorded. Patient [...] 08:07:30 01/22/20 23 01/24/2023 URINE CULTU RE cefepime CEFEPI ME SUSCEP TIBLE susceptib le Not Available [facility] (Centralized Electronic Ordering - All Locations) Patient Can Go To The Location Of Their Choice, 01/24/2023 08:07:30 01/22/20 23 01/24/2023 URINE CULTU RE ceftriaxone CEFTRI AXONE SUSCEP [...] 08:07:30 01/22/20 23 01/24/2023 URINE CULTU RE ertapenem ERTAPE NEM SUSCEP TIBLE susceptib le Not Available [facility] (Centralized Electronic Ordering - All Locations) Patient Can Go To The Location Of Their Choice, 01/24/2023 08:07:30 01/22/20 23 01/24/2023 URINE CULTU RE gentamicin GENTAM ICIN SUSCEP [...] 08:07:30 01/22/20 23 01/24/2023 URINE CULTU RE meropenem MEROPE NEM SUSCEP [...] 01/22/2001/24/2023 URINE CULTU RE tetracycline TETRAC YCLINE SUSCE PTIBLE susceptib le Not Available [facility] (Centralized Electronic [...] Pulse oximetry Heart rate Respiratory rate Systolic And Diastolic Provider Name and Address Organization Details Last Updated DateTime 4 98 % 98 % 97 /min 18 /min 128/72 mm[Hg] Not Available [employer] 4 15:37:29 Date Recorded Body temperature Heart rate Respiratory rate Oxygen saturation Oxygen saturation in Arterial blood by Pulse oximetry Systolic And Diastolic Provider Name and Address Organization Details Last Updated DateTime 2 98.4 [degF] 78 /min 18 /min 95.99 % 95.99 % 144/84 mm[Hg] Toshia Morris MD [address] [place] [address],[address], [place], [address] [place] [address] [employer] [facility] 2 22:08:32 Date Recorded Oxygen saturation Oxygen saturation in Arterial blood by Pulse oximetry Body weight Heart rate Body temperature Respiratory rate Systolic And Diastolic Provider Name and Address Organization Details Last Updated DateTime 3 99 % 99 % 152186. 08 g 86 /min 96.6 [degF] 16 /min 130/86 mm[Hg] Not Available [employer] 3 17:24:50 Social History None recorded. Functional Status None recorded. Mental Status None recorded. Family History Nothing Reported. Medical History No medical history recorded. Past Encounters Encounter ID Performer Location Encounter Start Date Encounter Closed Date Diagnosis/Indication Diagnosis SNOMED-CT Code Diagnosis ICD10 Code Diagnosis Note [id number] Toshia Morris MD [facility] [employer] [address] [place] [phone] 12/11/2021 18:54:22 05/08/2022 16:02:06 Exposure to carbon monoxide 42742640 Z77.128 Patient and evaluated for intermitte nt symptoms in conjunctio n with CO detector alarm sounding periodical ly. Alarm currently not sounding, patient currently asymptomat ic and vital signs are normal on today's evaluation . Counseling provided regarding safety steps if alarm should sound again in the future. In interim patient is safe to remain at home. [id number] Josee Meadows MD [facility] - [facility] [address] [place] [phone] 01/21/2023 17:24:44 01/22/2023 13:18:43 Acute urinary tract infection [id number] N39.0 [id number] ERYN MONTES MD Main - [facility] [address] [place] [phone] 10/08/2023 15:37:26 10/08/2023 22:18:45 Neck pain 17260547 M54.2 Evaluation in the field was performed by my safety aide colleague, as noted above, I provided real-time [...] his neck. He sought medical attention at [place] [facility], where no interventi on was provided. [...] Ortiz Member ID Guarantor Name 10/08/2023 1 [facility] - DOS PRIOR TO 2022 - DUAL ELIGIBLE (MEDICARE REPLACEMENT/AD VANTAGE - HMO) Hiram Castro [id number] Hiram Castro 11/06/2023 1 [facility] - DOS ON OR AFTER 2022 - DUAL ELIGIBLE - CORRECTION OPTIONS AND ONE CARE (MEDICARE REPLACEMENT/AD VANTAGE - HMO) Hiram Castro [id number] Hiram Castro Notes Date Note Type Note Provider Name and Address Organization Details Recorded Time 12/11/2021 text/html Request notes:Evaluate patient for reported nausea, headache and weakness. Patient concerned with housing as cause of exposure to something causing symptoms. Per safety aide evaluation, noted to have intermittent symptoms for months, in concert with who is also having the same symptoms, that seem correlated to the carbon monoxide detector alarming periodically. Toshia Morris MD [address] [place] [address],[address], [place], [address], [employer] 12/11/2021 22:11:23 01/21/2023 text/html HPI: ALLERGIES; None [...] ................... ................... ................... ................... ................... ................... ........ Dog Pound Attendant Note From Rosendo Waters: pt requesting f/u [...] bactrim for 3 days with no effect. [facility] contacted. [facility] prescribed bactrim for 10 days. [facility] safety aide gave pt first dose at visit. Pt educated on s/s warranting a 911 call/trip to the hospital. pt advised to f/u with PCP. ................... ................... ................... ................... ................... ................... ................... ........ Disposition: Dustin Josee Meadows MD [address] [facility],[address], [place], [address], [facility] 01/21/2023 18:08:48 10/08/2023 text/html HPI: HX sleep [...] Glass): Comments: HPI was reviewed by this report writer - No further information needed at this time. Ghada CHRISTIANSEN ................... ................... ................... ................... ................... ................... ................... ........ Dog Pound Attendant Note From Santley, Miriam: Upon arrival it was lying in bed. A/O x4, pt stated he s been having neck pain since he [...] in tact. Pt stated he went to [facility] for the same issue and they didn t do nothing. Vitals as noted. [facility] contacted and pt was administered 15mg of toradol in left arm w/o incident. Pt was sent prescription for flexeril. Pt was told that is he became SOB or starting feeling pain in his chest, to immediately call 911. Pt stated he understood. Call was then cleared. ................... ................... ................... ................... ................... ................... ................... ........ Disposition: Dustin MONTES MD [address] [facility],[address], [place], [address], [place] [employer] 10/08/2023 16:05:27
--- NOTE | 2025-03-19 06:01 | PC.NURSE ---
pt rang call elizalde and requested pain medication. offered patient tylenol and refused states he took it at home without relief. educated needs eval by ED provider for further orders at this time.
[2025-03-19 06:42] VITALS: BP 137/88; PULSE 77; RESP 16; TEMP 36.6; O2SAT 98
--- NOTE | 2025-03-19 06:50 | ED.DENTAL ---
HPI - Dental/Oral General Chief complaint: Dental/Oral Stated complaint: dental pain Time Seen by Provider: 03/19/25 06:41 Source: patient Mode of arrival: ambulatory Limitations: no limitations History of Present Illness ED Provider: Dr. Shawnee Walker HPI Narrative: Patient comes to the emergency room complaining of dental pain that started earlier today. Patient states that the pain is in the maxillary side on the left. Patient states that 3 weeks ago he was treated with amoxicillin for a dental infection. After his round of antibiotics, he went to the dentist, molar was pulled. Patient states that he had some scraping done? And then it got infected. Patient states that today the dental clinic is closed. Complaining of pain. Denies fever chills. Related Data Home Medications ?Medication ?Instructions ?Recorded ?Confirmed cholecalciferol (vitamin D3) 50 50 mcg PO DAILY 05/22/22 07/22/23 mcg (2,000 unit) capsule (Vitamin D3) lisinopril 10 mg tablet 10 mg PO DAILY 05/22/22 07/22/23 pravastatin 40 mg tablet 40 mg PO DAILY PRN 05/22/22 07/22/23 sertraline 100 mg tablet 150 mg PO DAILY 04/10/23 07/22/23 sildenafil 100 mg tablet (Viagra) 50 - 100 mg PO DAILY PRN 06/04/23 07/22/23 atorvastatin 20 mg tablet 20 mg PO DAILY 07/22/23 07/22/23 buspirone 10 mg tablet 10 mg PO BID 09/26/23 psyllium husk 3.4 gram oral powder PO 09/26/23 packet (Metamucil Fiber Singles) docusate sodium 100 mg capsule 100 mg PO BID 11/21/23 fluticasone propionate 220 inhalation 11/21/23 mcg/actuation HFA aerosol inhaler loratadine 10 mg tablet 10 mg PO DAILY 11/21/23 melatonin 10 mg tablet mg PO BEDTIME 11/21/23 Previous Rx's ?Medication ?Instructions ?Recorded albuterol sulfate 90 mcg/actuation 2 inh inhalation Q4-6H PRN 09/29/22 breath activated powder inhaler shortness of breath or wheezing #1 ea dicyclomine 20 mg tablet 20 mg PO Q8-10H PRN abdominal 09/08/23 pain #20 tabs bisacodyl 10 mg rectal suppository 10 mg [place] DAILY PRN constipation 09/26/23 (Dulcolax (bisacodyl)) #20 ea polyethylene glycol 3350 17 17 g PO DAILY #510 grams 09/26/23 gram/dose oral powder (Miralax) sennosides 8.6 mg capsule (senna) 8.6 mg PO DAILY constipation 30 09/26/23 days #30 caps ondansetron 4 mg disintegrating 4 mg PO DAILY #20 tabs 12/18/23 tablet pyridoxine (vitamin B6) 100 mg 100 mg PO DAILY 90 days #90 tabs 03/01/25 tablet ketorolac 10 mg tablet 10 mg PO Q8H PRN pain #12 tabs 03/19/25 penicillin V potassium 500 mg 500 mg PO TID 7 days #21 tabs 03/19/25 tablet Allergies Allergy/AdvReac Type Severity Reaction Status Date / Time No Known Allergies (No Known Allergy Unverified 03/19/25 04:34 Allergies*) Review of Systems Review of Systems: Constitutional : No Weight loss, No Fever, No Chills, No Night Sweats, No Fatigue, No Malaise ENT/Mouth : Complaining of dental pain on the left side upper part.No Hearing loss, No Ear Pain, No Nasal Congestion, No Sinus Pain, No Hoarseness, No sore throat, No Rhinorrhea, No Swallowing Difficulty Eyes: No Eye Pain, No Swelling, No Redness, No Foreign Body, No Discharge, No Vision Changes Cardiovascular : No Chest Pain, No SOB, No Dyspnea on Exertion, No Orthopnea, No Edema, No Palpitations Respiratory : No Cough, No Sputum, No Wheezing, No Smoke Exposure, No Dyspnea Gastrointestinal : No Nausea, No Vomiting, No Diarrhea, No Constipation, No abdominal Pain, No Hematochezia, No Melena Genitourinary : no irregular bleeding, No Dysuria, No Urinary Frequency, No Hematuria, No Urinary Incontinence, No Urgency, No Flank Pain, No Urinary Flow Changes, No Hesitancy Musculoskeletal : No joint pain, No Myalgias, No Joint Swelling Skin : No Skin Lesions, No rash Neuro : No Weakness, No Numbness, No Paresthesias, No Loss of Consciousness, No Dizziness, No Headache Psych : No Anxiety/Panic, No Depression, No SI/HI/AH/VH, No Social Issues, Heme/Lymph: No Bruising, No Bleeding,No Lymphadenopathy Endocrine : No Polyuria, No Polydipsia, No Temperature Intolerance [facility] Past Medical History Medical History High cholesterol Sleep apnea Hyperlipemia High blood pressure Asthma Surgical History No history of previous surgery Family History Family History Sister Seizures Sister Diabetes Mother Diabetes Father No problems noted. 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 Oriented X3. No acute distress. Eyes: Pupils equal, round and reactive to light. ENT: Pharynx normal. There is no obvious abscess that could be drained in the left maxillary side. Patient does have a few teeth Missing Neck: Normal inspection. Neck supple. No lymph nodes noted. No crepitus CVS: Normal heart rate and rhythm. Pulses normal. Normal S1 and S2 Respiratory: No respiratory distress. Breath sounds normal. No Wheezing. No rales Abdomen: Soft and nontender. No rigidity. No distention. Skin: Skin warm and dry. Normal skin color. Normal skin turgor. Extremities: No lower extremity edema. No Lacerations. No Rash Neuro: Oriented X 3. No motor deficit. No sensory deficit. Moving all extremities. No slurred speech. CN 2 through 12 grossly intact Psych: calm, cooperative, normal affect Medical Decision Making Medical Decision Making MDM Narrative: I discussed the physical exam with the patient. Patient will need antibiotics. No obvious drainable abscess. Patient will call his dentist on Saturday. Patient was given IM Toradol and p.o. penicillin here in the emergency room. Discharge Plan Discharge Clinical Impression: Pain, dental Patient Disposition: Home, Self-Care Instructions: Toothache (ED) Additional Instructions: Please follow-up with your primary care physician tomorrow. If you have any worsening or new symptoms, please return to the emergency room or call 911 Prescriptions: New penicillin V potassium 500 mg tablet 500 mg PO TID 7 Days Qty: 21 0RF ketorolac 10 mg tablet 10 mg PO Q8H PRN (Reason: pain) Qty: 12 0RF Rx Instructions: do not use this medication with ibuprofen or NSAIDs, only Tylenol if needed No Action ondansetron 4 mg tablet,disintegrating 4 mg PO DAILY Qty: 20 0RF pyridoxine (vitamin B6) 100 mg tablet 100 mg PO DAILY 90 Days Qty: 90 1RF albuterol sulfate 90 mcg/actuation aerosol powdr breath activated 2 inh inhalation Q4-6H PRN (Reason: shortness of breath or wheezing) Qty: 1 0RF dicyclomine 20 mg tablet 20 mg PO Q8-10H PRN (Reason: abdominal pain) Qty: 20 0RF cholecalciferol (vitamin D3) [Vitamin D3] 50 mcg (2,000 unit) capsule 50 mcg PO DAILY lisinopril 10 mg tablet 10 mg PO DAILY pravastatin 40 mg tablet 40 mg PO DAILY PRN sildenafil [Viagra] 100 mg tablet 50 - 100 mg PO DAILY PRN atorvastatin 20 mg tablet 20 mg PO DAILY buspirone 10 mg tablet 10 mg PO BID Metamucil Fiber Singles 3.4 gram powder in packet PO bisacodyl [Dulcolax (bisacodyl)] 10 mg suppository 10 mg MS DAILY PRN (Reason: constipation) Qty: 20 0RF polyethylene glycol 3350 [Miralax] 17 gram/dose powder 17 g PO DAILY Qty: 510 6RF senna 8.6 mg capsule 8.6 mg PO DAILY 30 Days Qty: 30 1RF fluticasone propionate 220 mcg/actuation HFA aerosol inhaler inhalation melatonin 10 mg tablet PO BEDTIME loratadine 10 mg tablet 10 mg PO DAILY docusate sodium 100 mg capsule 100 mg PO BID sertraline 100 mg tablet 150 mg PO DAILY Print Language: Telugu
[2025-03-19 07:04] VITALS: BP 137/88; PULSE 77; RESP 16; TEMP 36.6; O2SAT 98
== END 2025-03-19 07:04 | disposition home or self-care (01) ==
PROVIDERS: Emergency Provider Emergency Medicine; PCP Nurse Practitioner Primary Care
DX: K08.89 Other specified disorders of teeth and supporting structures (principal); Z79.899 Other long term (current) drug therapy; Z87.891 Personal history of nicotine dependence
CPT/HCPCS: 96372; 99283; 99284; J1885

== ENCOUNTER 2025-04-15 08:39 | Outpatient (REF) | payer OTHER, SELFPAY ==
--- NOTE | ~2025-04-15 | US_ITS ---
EXAMINATION: US KIDNEY BILATERAL HISTORY: N20.0 - Calculus of kidney TECHNIQUE: Real-time grayscale ultrasound imaging of the kidneys was performed and images were reviewed. COMPARISON: Comparison is made with the prior examination dated 07/17/2024. FINDINGS: Right kidney: The right kidney measures 12.9 x 5.2 x 6.0 cm. Renal parenchymal echotexture and thickness are normal. There are no masses. There is no hydronephrosis or renal calculi. Left Kidney: The left kidney measures 13.5 x 6.1 x 5.2 cm. Renal parenchymal echotexture and thickness are normal. There is a 1.1 x 0.6 x 1.0 cm cyst in the interpolar region demonstrating posterior calcification. A 2nd cyst seen in the interpolar region measuring 9 x 6 x 7 mm. There is an extrarenal pelvis and mild caliectasis, similar in appearance to the prior study. US/US renal BI IMPRESSION: Left renal cysts as described. Mild pelvocaliectasis without change. Electronically signed by: Ian Angela MD 04/15/2025 09:26 AM EDT
--- OUTSIDE RECORDS SUMMARY | 2025-04-15 08:50 | XMS_ITS | Patient Health Record ---
Author Organization [facility] Address [address] [place] [address] Care Team Providers Care Wellness Assistant Name Role Phone Ian Aragon [phone] Reason For Referral No Information Plan Of Treatment No Information
== END 2025-04-15 08:40 | disposition home or self-care (01) ==
LOC: HO.US 08:39
PROVIDERS: PCP Nurse Practitioner Primary Care; Visit Provider Nurse Practitioner Family
DX: N20.0 Calculus of kidney (principal)
CPT/HCPCS: 76775

== ENCOUNTER → 2025-04-15 08:42 | Outpatient (BNV) | payer OTHER, SELFPAY | PROVIDERS: PCP Nurse Practitioner Primary Care; Visit Provider Radiology Diagnostic Radiology | DX: N28.1 Cyst of kidney, acquired (principal) | CPT/HCPCS: 76775 ==

== ENCOUNTER → 2025-05-07 16:30 | Outpatient (BNV) | payer OTHER, SELFPAY | PROVIDERS: Visit Provider Radiology Diagnostic Radiology | DX: S61.001A Unspecified open wound of right thumb without damage to nail, initial encounter (principal) | CPT/HCPCS: 73140 ==

== ENCOUNTER 2025-05-07 16:54 | Emergency (ER) | payer OTHER, SELFPAY ==
--- NOTE | ~2025-05-07 | XR_ITS ---
CLINICAL HISTORY: thumb injury Three-view right 1st digit Comparison: None Findings: No acute fracture. There is no dislocation but there may be a mild degree of subluxation of the 1st metacarpophalangeal joint. No significant loss of joint space or osteophytes. No erosions. No radiopaque foreign body. IMPRESSION: There may be a mild degree of subluxation of the 1st metacarpophalangeal joint. This document has been electronically signed by: Vicky Bloom MD on 05/07/2025 17:54:01
[2025-05-07 17:15] VITALS: BP 134/70; PULSE 82; RESP 18; TEMP 37; O2SAT 95; BMI 38.7
--- OUTSIDE RECORDS SUMMARY | 2025-05-07 18:17 | XMS_ITS | Patient Health Record ---
Author Organization [facility] Address [address] [place] [address] Care Team Providers Care Rivet Tosser Name Role Phone Ian Aragon [phone] Reason For Referral No Information Plan Of Treatment No Information
--- NOTE | 2025-05-07 18:58 | ED.GENADULT ---
HPI - General Adult General Chief complaint: Wound/Laceration Stated complaint: right thumb injury Time Seen by Provider: 05/07/25 18:49 Source: patient Limitations: no limitations History of Present Illness ED Provider: Lindsey Carolina PA-C HPI narrative: 60-year-old male with a history of morbid obesity, peripheral arterial disease, hyperlipidemia, hypertension, who presents with right thumb infection of unclear duration. Patient states he has developed swelling and pain with ?yellow drainage? from the right thumb. He is not sure if he sustained a puncture wound. Denies fever. Related Data Home Medications ?Medication ?Instructions ?Recorded ?Confirmed cholecalciferol (vitamin D3) 50 50 mcg PO DAILY 05/22/22 07/22/23 mcg (2,000 unit) capsule (Vitamin D3) lisinopril 10 mg tablet 10 mg PO DAILY 05/22/22 07/22/23 pravastatin 40 mg tablet 40 mg PO DAILY PRN 05/22/22 07/22/23 sertraline 100 mg tablet 150 mg PO DAILY 04/10/23 07/22/23 sildenafil 100 mg tablet (Viagra) 50 - 100 mg PO DAILY PRN 06/04/23 07/22/23 atorvastatin 20 mg tablet 20 mg PO DAILY 07/22/23 07/22/23 buspirone 10 mg tablet 10 mg PO BID 09/26/23 psyllium husk 3.4 gram oral powder PO 09/26/23 packet (Metamucil Fiber (aspartame)) docusate sodium 100 mg capsule 100 mg PO BID 11/21/23 fluticasone propionate 220 inhalation 11/21/23 mcg/actuation HFA aerosol inhaler loratadine 10 mg tablet 10 mg PO DAILY 11/21/23 melatonin 10 mg tablet mg PO BEDTIME 11/21/23 Previous Rx's ?Medication ?Instructions ?Recorded albuterol sulfate 90 mcg/actuation 2 inh inhalation Q4-6H PRN 09/29/22 breath activated powder inhaler shortness of breath or wheezing #1 ea dicyclomine 20 mg tablet 20 mg PO Q8-10H PRN abdominal 09/08/23 pain #20 tabs bisacodyl 10 mg rectal suppository 10 mg [place] DAILY PRN constipation 09/26/23 (Dulcolax (bisacodyl)) #20 ea polyethylene glycol 3350 17 17 g PO DAILY #510 grams 09/26/23 gram/dose oral powder (Miralax) sennosides 8.6 mg capsule (senna) 8.6 mg PO DAILY constipation 30 09/26/23 days #30 caps ondansetron 4 mg disintegrating 4 mg PO DAILY #20 tabs 12/18/23 tablet pyridoxine (vitamin B6) 100 mg 100 mg PO DAILY 90 days #90 tabs 03/01/25 tablet ketorolac 10 mg tablet 10 mg PO Q8H PRN pain #12 tabs 03/19/25 penicillin V potassium 500 mg 500 mg PO TID 7 days #21 tabs 03/19/25 tablet doxycycline hyclate 100 mg capsule 100 mg PO BID #13 caps 05/07/25 Allergies Allergy/AdvReac Type Severity Reaction Status Date / Time No Known Allergies (No Known Allergy Verified 05/07/25 17:17 Allergies*) Review of Systems Review of Systems: Yes all other systems are reviewed and are negative Constitutional: Constitutional: Denies fatigue and Denies fever(s) Musculoskeletal: Musculoskeletal: Reports arthralgias and Denies joint swelling Integumentary/Breasts: Skin/Breast: Reports erythema and Reports wounds Endocrine: Endocrine: Denies fatigue PMFSH Past Medical History Attestation statement: The following information was validated with the patient. Medical History High cholesterol Sleep apnea Hyperlipemia High blood pressure Asthma Surgical History No history of previous surgery Family History Family History Sister Seizures Sister Diabetes Mother Diabetes Father No problems noted. 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 Physical Exam ED Vital Signs: Vital Signs - 24 hr 05/07/25 17:15 Temperature 98.6 F Pulse Rate 82 Respiratory Rate 18 Blood Pressure 134/70 Pulse Oximetry 95 Oxygen Delivery Method Room Air BMI result Body Mass Index 38.7 Const Other: Alert well-appearing Orientation/consciousness: patient oriented x3 Resp Effort & Inspection: normal respiratory effort Cardio Other: Normal peripheral perfusion Skin Other: Warm dry no rash Neuro General: patient oriented x3, gait normal, no focal motor deficits and CN's II-XI intact bilaterally Extrem Other: Full range of motion of the thumb, the pad is discolored, with an open wound that has scabbed over, it is tense Psych Other: Cooperative Medications Administered Discontinued Medications Generic Name Dose Route Start Last Admin Trade Name Flakita PRN Reason Stop Dose Admin Doxycycline Monohydrate 100 mg 05/07/25 19:19 05/07/25 19:28 Doxycycline Monohydrate 100 Mg Capsule PO 05/07/25 19:20 100 mg ONCE ONE Administration Lidocaine/Epinephrine 10 ml 05/07/25 19:19 05/07/25 19:28 Lidocaine Hcl 1%/Epi 1:100,000 10 Ml Vial INFILTRATI 05/07/25 19:20 10 ml ONCE ONE Administration Procedures Abscess I/D Site: hand Side (if applicable): right Sedation/analgesia: none Local Anesthetic: lidocaine 1% and with epi Amount of anesthesia used (mL): 5 Technique: incised with blade and ultrasound guided Amount of fluid expressed (mL): 1 Sent for culture/gram staining?: No Irrigation: Yes Packing used?: plain (surgicel) Complications: pain Medical Decision Making Medical Decision Making MDM Narrative: 60-year-old male with a history of morbid obesity, peripheral arterial disease, hyperlipidemia, hypertension, who presents with right thumb infection of unclear duration. Patient states he has developed swelling and pain with ?yellow drainage? from the right thumb. He is not sure if he sustained a puncture wound. Denies fever. Problem: Peripheral arterial disease History: Per patient I have considered the following differential diagnoses: Fell in, paronychia, cellulitis, purulent cellulitis, abscess Plan: The patient has evidence of a felon on exam, we will I and D in place on doxy. X-ray ordered from triage there was no communication with the bone, no indication for labs. I have independently reviewed the following tests: Right thumb xray: Findings: No acute fracture. There is no dislocation but there may be a mild degree of subluxation of the 1st metacarpophalangeal joint. No significant loss of joint space or osteophytes. No erosions. No radiopaque foreign body. IMPRESSION: There may be a mild degree of subluxation of the 1st metacarpophalangeal joint. Differential Diagnosis Differential Diagnoses: The differential diagnosis associated with the presentation includes see MDM Admission/Observation NA Radiology Impression Discussion of test interpretation with radiology: I have reviewed the radiologist's reading. Prescription Management I considered prescription management with: Antibiotic Chronic Conditions PAD Discharge Plan Discharge Clinical Impression: Felon of finger of right hand Patient Disposition: Home, Self-Care Additional Instructions: You had an infection of the pad of your finger. We drained it at bedside. Take the doxycycline as directed. Keep the dressing in place for one day, you can then keep it covered with a Band-Aid. Follow up with your primary care provider as needed. Prescriptions: New doxycycline hyclate 100 mg capsule 100 mg PO BID Qty: 13 0RF No Action ondansetron 4 mg tablet,disintegrating 4 mg PO DAILY Qty: 20 0RF pyridoxine (vitamin B6) 100 mg tablet 100 mg PO DAILY 90 Days Qty: 90 1RF albuterol sulfate 90 mcg/actuation aerosol powdr breath activated 2 inh inhalation Q4-6H PRN (Reason: shortness of breath or wheezing) Qty: 1 0RF dicyclomine 20 mg tablet 20 mg PO Q8-10H PRN (Reason: abdominal pain) Qty: 20 0RF penicillin V potassium 500 mg tablet 500 mg PO TID 7 Days Qty: 21 0RF ketorolac 10 mg tablet 10 mg PO Q8H PRN (Reason: pain) Qty: 12 0RF Rx Instructions: do not use this medication with ibuprofen or NSAIDs, only Tylenol if needed cholecalciferol (vitamin D3) [Vitamin D3] 50 mcg (2,000 unit) capsule 50 mcg PO DAILY lisinopril 10 mg tablet 10 mg PO DAILY pravastatin 40 mg tablet 40 mg PO DAILY PRN sildenafil [Viagra] 100 mg tablet 50 - 100 mg PO DAILY PRN atorvastatin 20 mg tablet 20 mg PO DAILY buspirone 10 mg tablet 10 mg PO BID Metamucil Fiber (aspartame) 3.4 gram powder in packet PO bisacodyl [Dulcolax (bisacodyl)] 10 mg suppository 10 mg [place] DAILY PRN (Reason: constipation) Qty: 20 0RF polyethylene glycol 3350 [Miralax] 17 gram/dose powder 17 g PO DAILY Qty: 510 6RF senna 8.6 mg capsule 8.6 mg PO DAILY 30 Days Qty: 30 1RF fluticasone propionate 220 mcg/actuation HFA aerosol inhaler inhalation melatonin 10 mg tablet PO BEDTIME loratadine 10 mg tablet 10 mg PO DAILY docusate sodium 100 mg capsule 100 mg PO BID sertraline 100 mg tablet 150 mg PO DAILY Print Language: Cuban
[2025-05-07] MEDS: Lidocaine HCl 1%/Epi 1:100,000 10 ML VIAL INFILTRATI (19:28)
[2025-05-07 20:40] VITALS: BP 134/70; PULSE 82; RESP 18; TEMP 37; O2SAT 95
== END 2025-05-07 20:41 | disposition home or self-care (01) ==
PROVIDERS: Emergency Provider Emergency Medicine; PCP Nurse Practitioner Primary Care
DX: L03.011 Cellulitis of right finger (principal); Z87.891 Personal history of nicotine dependence; Z79.899 Other long term (current) drug therapy
CPT/HCPCS: 26010; 73140; 99282; 99284; J2004

== ENCOUNTER 2025-05-14 13:02 | Emergency (ER) | payer OTHER, SELFPAY ==
[2025-05-14] VITALS (9 sets, daily range): BP systolic 98–127; BP diastolic 56–81; PULSE 70–93; RESP 15–22; TEMP 36.4–36.7; O2SAT 94–99; BMI 50.8
--- NOTE | ~2025-05-14 | XR_ITS ---
EXAMINATION: XR CHEST CLINICAL INFORMATION: dyspnea COMPARISON: December 18, 2024 TECHNIQUE: 2 views of the chest were obtained. FINDINGS: There is persistent peripheral density along the right lateral and inferior chest wall likely representing loculated pleural effusion and/or pleural thickening. The appearance is stable. Linear septal lines are present at the junction of middle third upper third right lung. Lungs are otherwise clear. XR/XR chest 2V IMPRESSION: Chronic loculated pleural effusion and/or pleural thickening in the right chest. Decreased patchy density in the right middle third lung zone. Electronically signed by: [place] Last MD 05/14/2025 01:35 PM EDT
--- NOTE | 2025-05-14 13:21 | ECG_ITS ---
Test Reason : CHEST PAIN Blood Pressure : */* mmHG Vent. Rate : 88 BPM Atrial Rate : 88 BPM P-R Int : 168 ms QRS Dur : 96 ms QT Int : 364 ms P-R-T Axes : 37 31 17 degrees QTcB Int : 440 ms Normal sinus rhythm Normal ECG When compared with ECG of 29-Oct-2023 10:15, No significant change was found Referred By: Remberto Pereira Electronically Signed By: NAHED HAMMONDS
--- NOTE | 2025-05-14 13:21 | ED.GENADULT ---
HPI - General Adult General Chief complaint: General Medical Stated complaint: nausea, sweating alot, Time Seen by Provider: 05/14/25 13:31 Source: patient and RN notes reviewed Mode of arrival: ambulatory Limitations: no limitations History of Present Illness ED Provider: Don Stephen PA-C HPI narrative: 60-year-old male with medical history of morbid obesity, PAD, HLD, HTN, presents to the ED due to 4 days of dizziness, SOB, nausea, and epigastric abdominal pain. Patient states he was at home relaxing when symptoms began. Patient states today after eating a sandwich he had an episode of dizziness with diaphoresis, tremors, and chills which prompted him to come to the ED for care. Patient reports moving his head and going from sitting to standing position makes his dizziness worse. Patient reports ambulation, and deep inspiration makes shortness of breath worse and makes him feel ?out of it? however denies orthopnea. Patient states he has had normal bowel movements, moved his bowels this morning and is passing flatus. Denies sick contacts, vomiting, black/tarry stool, diarrhea, MD complaint: dizziness, nausea, SOB Related Data Home Medications ?Medication ?Instructions ?Recorded ?Confirmed cholecalciferol (vitamin D3) 50 50 mcg PO DAILY 05/22/22 07/22/23 mcg (2,000 unit) capsule (Vitamin D3) lisinopril 10 mg tablet 10 mg PO DAILY 05/22/22 07/22/23 pravastatin 40 mg tablet 40 mg PO DAILY PRN 05/22/22 07/22/23 sertraline 100 mg tablet 150 mg PO DAILY 04/10/23 07/22/23 sildenafil 100 mg tablet (Viagra) 50 - 100 mg PO DAILY PRN 06/04/23 07/22/23 atorvastatin 20 mg tablet 20 mg PO DAILY 07/22/23 07/22/23 buspirone 10 mg tablet 10 mg PO BID 09/26/23 psyllium husk 3.4 gram oral powder PO 09/26/23 packet (Metamucil Fiber (aspartame)) docusate sodium 100 mg capsule 100 mg PO BID 11/21/23 fluticasone propionate 220 inhalation 11/21/23 mcg/actuation HFA aerosol inhaler loratadine 10 mg tablet 10 mg PO DAILY 11/21/23 melatonin 10 mg tablet mg PO BEDTIME 11/21/23 Previous Rx's ?Medication ?Instructions ?Recorded albuterol sulfate 90 mcg/actuation 2 inh inhalation Q4-6H PRN 09/29/22 breath activated powder inhaler shortness of breath or wheezing #1 ea dicyclomine 20 mg tablet 20 mg PO Q8-10H PRN abdominal 09/08/23 pain #20 tabs bisacodyl 10 mg rectal suppository 10 mg [place] DAILY PRN constipation 09/26/23 (Dulcolax (bisacodyl)) #20 ea polyethylene glycol 3350 17 17 g PO DAILY #510 grams 09/26/23 gram/dose oral powder (Miralax) sennosides 8.6 mg capsule (senna) 8.6 mg PO DAILY constipation 30 09/26/23 days #30 caps ondansetron 4 mg disintegrating 4 mg PO DAILY #20 tabs 12/18/23 tablet pyridoxine (vitamin B6) 100 mg 100 mg PO DAILY 90 days #90 tabs 03/01/25 tablet ketorolac 10 mg tablet 10 mg PO Q8H PRN pain #12 tabs 03/19/25 penicillin V potassium 500 mg 500 mg PO TID 7 days #21 tabs 03/19/25 tablet doxycycline hyclate 100 mg capsule 100 mg PO BID #13 caps 05/07/25 Allergies Allergy/AdvReac Type Severity Reaction Status Date / Time No Known Allergies (No Known Allergy Verified 05/14/25 13:24 Allergies*) Review of Systems Review of Systems: CONST: Negative for fever, body aches and chills. HENT: Negative for neck pain/stiffness, headache, congestion, sore throat, swelling. EYES: Negative for discharge/pain or vision changes. RESP: Negative for cough/hemoptysis. POS SOB CV: Negative chest pain, difficulty breathing, palpitations. ABD: Negative vomiting. POS nausea, diffuse abdominal pain : Negative increase frequency, dysuria, blood in urine or stool. MUSC: Negative for muscle aches, edema. SKIN: Negative rash, lesions/sores. NEURO: Negative headache, weakness. POS dizziness Yes all other systems are reviewed and are negative PMFSH Past Medical History Attestation statement: The following information was validated with the patient. Source: old records reviewed and nursing notes reviewed Medical History High cholesterol Sleep apnea Hyperlipemia High blood pressure Asthma Surgical History No history of previous surgery Family History Family History Sister Seizures Sister Diabetes Mother Diabetes Father No problems noted. Social History Social History Household Members: Spouse Household Members Other:: , pet dog Alcohol intake: never Patient Tobacco Use Status: Former Tobacco user Smoked in Last 30 Days: No Use of substances other than those prescribed or required for medical reasons: No Advance Directives: No Advance Directives Information Provided: Yes Current occupational status: employed Current occupation: [employer] Physical Exam ED Vital Signs: Vital Signs - 24 hr 05/14/25 13:21 05/14/25 13:46 05/14/25 13:47 Temperature 98.0 F 97.5 F Pulse Rate 84 79 77 Respiratory Rate 16 20 22 H Blood Pressure 126/61 116/72 127/81 Pulse Oximetry 97 99 95 Oxygen Delivery Method Room Air Room Air Room Air 05/14/25 16:21 05/14/25 17:38 05/14/25 17:39 Temperature 98.0 F Pulse Rate 70 85 84 Respiratory Rate 15 Blood Pressure 103/62 117/56 L 98/63 Pulse Oximetry 96 Oxygen Delivery Method Room Air 05/14/25 17:41 05/14/25 18:08 Temperature 98.1 F Pulse Rate 93 80 Respiratory Rate 20 Blood Pressure 100/68 100/64 Pulse Oximetry 94 Oxygen Delivery Method Room Air BMI result Body Mass Index 50.8 GENERAL APPEARANCE: ?AxOx4, no acute distress. HEENT: ?NC, AT. MMM. EOMI, clear conjunctiva, oropharynx clear. NECK: ?Supple without lymphadenopathy.? No stiffness or restricted ROM. HEART:? Normal rate and regular rhythm, normal S1/S2, no m/r/g LUNGS:? CTAB, moving air well. No crackles or wheezes are heard. ABDOMEN: large rotund abdomen with diffuse tenderness of the epigastrium, R and L upper quadrants, no periumbilical pain, negative Lai's, negative rebound tenderness, no rigidity, no guarding, appropriate bowel sounds heard in all 4 quadrants. BACK: No CVAT, no obvious deformity. EXTREMITIES: ?Without cyanosis, clubbing or edema. NEUROLOGICAL: ?Grossly nonfocal. Alert and oriented, moving all 4 extremities. Observed to ambulate with normal gait. Skin: ?Warm and dry without any rash. Course Course Course Narrative: RME, this is a rapid medical exam performed by Higinio Pereira please refer to primary provider for complete H&P- 60-year-old male past medical history significant for peripheral artery disease, chronic constipation, obesity presents for evaluation of nausea, shortness of breath and sweating. Denies any chest pain. Given his dyspnea on exertion we will still obtain a cardiac workup Medications Administered Discontinued Medications Generic Name Dose Route Start Last Admin Trade Name Freq PRN Reason Stop Dose Admin Al Hydroxide/Mg Hydroxide 15 ml 05/14/25 14:25 05/14/25 14:41 Magnesium Hydrox/Alum Hydrox 30 Ml Oral.Susp PO 05/14/25 14:26 15 ml ONCE ONE Administration Lidocaine HCl 15 ml 05/14/25 14:25 05/14/25 14:41 Lidocaine Hcl Viscous 2 % 15 Ml Solution MUCOUS MEM 05/14/25 14:26 15 ml ONCE ONE Administration Meclizine HCl 25 mg 05/14/25 15:45 05/14/25 16:28 Meclizine Hcl 25 Mg Tablet PO 05/14/25 15:46 25 mg ONCE ONE Administration Metoclopramide HCl 10 mg 05/14/25 15:45 05/14/25 16:28 Metoclopramide Hcl 10 Mg/2 Ml Vial IVPUSH 05/14/25 15:46 10 mg ONCE ONE Administration Medical Decision Making Medical Decision Making [facility] Narrative: 60-year-old male with medical history of morbid obesity, PAD, HLD, HTN, presents to the ED due to 4 days of dizziness, SOB, nausea, and epigastric abdominal pain. Patient states he was at home relaxing when symptoms began. Patient states today after eating a sandwich he had an episode of dizziness with diaphoresis, tremors, and chills which prompted him to come to the ED for care. Patient reports moving his head and going from sitting to standing position makes his dizziness worse. Patient reports ambulation, and deep inspiration makes shortness of breath worse and makes him feel ?out of it? however denies orthopnea. Patient states he has had normal bowel movements, moved his bowels this morning and is passing flatus. VS on initial observation- BP 127/81, pulse rate of 77, respiratory rate of 22, afebrile with oral temp of 97.5?, O2 saturation 95% on room air. Physical exam reveals a large, rotund, soft abdomen that is diffusely tender in the epigastrium, right upper quadrant and left upper quadrant, without guarding, rigidity, or overlying skin changes, appropriate bowel sounds heard in all 4 quadrants. Extremities without pitting edema. Diminished breath sounds of bilateral lung bases. Plan: Labs, viral serology, EKG, CXR Course 18:19- Patient being medicated with GI cocktail of Maalox and viscous lidocaine, meclizine, metoclopramide for dizziness and nausea. EKG reveals normal sinus rhythm without ST elevation/depression, T-wave abnormality, no change when compared to prior, initial troponin WNL at 5.2, 2nd troponin 3.4- less likely ACS CXR reveals a chronic loculated pleural effusion/pleural thickening in the right chest, of decreased patchy density in the right middle 3rd lung zone, no cardiomegaly, no pulmonary edema, no orthopnea, no pitting edema of lower extremities, no cough BNP WNL at 31- less likely CHF Labs without leukocytosis/leukopenia, H&H stable, no electrolyte abnormality, random glucose 101, lipase WNL at 30, no evidence of elevated bilirubin, patient without history of alcohol or diabetes, Lai's negative, no rebound tenderness. I do not believe advanced imaging needed at this time- less likely pancreatitis/biliary pathology/appendicitis D-dimer resulted back at 240 however age adjusted D-dimer cutoff is 290, no indication for CTA angio- less likely PE Patient dizziness and nausea has improved after being medicated with meclizine, metoclopramide. I counseled patient to follow up with his primary care provider for dizziness as this may be BPPV. Patient without focal neurological deficits, no pronator drift, ambulating without ataxic gait. Patient feels comfortable to go home for self-care and follow up with PCP. Differential Diagnosis Differential Diagnoses: The differential diagnosis associated with the presentation includes ACS Dysrhythmia Pneumonia CHF Pancreatitis Biliary pathology Appendicitis BPPV Viral illness Admission/Observation Consideration of admission/observation: Escalation of care including admission/observation considered Lab Data MDM Lab Attestation statement: I reviewed the patient's lab results. 05/14/25 13:44 05/14/25 13:44 Labs: Lab Results 05/14/25 05/14/25 05/14/25 Range/Units 13:44 14:39 15:57 WBC 5.9 (4.8-10.8) X10*3/uL RBC 4.75 (4.60-5.80) X10*6/uL Hgb 14.2 (14.0-18.0) g/dl Hct 41.9 L (42.0-52.0) % MCV 88.2 (80.0-98.0) fL MCH 29.9 (27.0-33.0) pg MCHC 33.9 (31.0-36.0) g/dl RDW 12.8 (11.0-16.0) % Plt Count 302 (160-400) X10*3/uL MPV 8.7 L (9.4-12.4) fL Immature Gran % (Auto) 0.3 (0.0-0.4) % Neut % (Auto) 58.3 (45-73) % Lymph % (Auto) 30.1 (20-40) % [place] % (Auto) 10.3 (2-11) % Eos % (Auto) 0.7 (0-4) % Baso % (Auto) 0.3 (0-2) % Lymph # (Auto) 1.8 (1.2-4.9) X10*3/uL [place] # (Auto) 0.6 (0.1-1.2) X10*3/uL Eos # (Auto) 0.0 (0.0-0.4) X10*3/uL Baso # (Auto) 0.0 (0.0-0.2) X10*3/uL Abs Immat Gran (auto) 0.02 (0.00-0.03) X10*3/uL Absolute Neuts (auto) 3.4 (2.0-8.3) x10*3/uL Absolute Nucleated RBC 0.000 (0.0-0.012) X10*3/uL Nucleated RBC % (auto) 0.0 (0.0-0.2) /100WBC D-Dimer High Sensitivty 240 NG/ML Sodium 141 (135-145) mmol/L Potassium 4.3 (3.3-5.1) mmol/L Chloride 108 (96-108) mmol/L Carbon Dioxide 26 (22-29) mmol/L Anion Gap 11 L (12-20) BUN 18 H (9-16) mg/dL Creatinine 0.87 (0.5-1.4) mg/dL Estim Creat Clear Calc 137.3 Estimated GFR > 60 Random Glucose 101 (60-115) mg/dL Calcium 9.2 (8.4-10.2) mg/dL Total Bilirubin 0.5 (0.0-1.0) mg/dL AST 33 (5-37) U/L ALT 34 (0-40) U/L Alkaline Phosphatase 82 (39-117) U/L Troponin I High Sens 5.2 D 3.4 (<3.5-35.0) ng/L B-Natriuretic Peptide 31 (<100) pg/mL Total Protein 7.5 (6.5-8.0) g/dL Albumin 4.4 (3.5-5.0) g/dL Lipase 30 (8-78) U/L TSH 1.44 (0.32-4.0) uIU/mL Urine Color Urine Appearance Urine pH (5.0-9.0) Ur Specific [place] (1.005-1.025) Urine Protein (Neg-Trace) mg/dL Urine Glucose (UA) (Negative) mg/dL Urine Ketones (Negative) mg/dL Urine Blood (Negative) Urine Nitrite (Negative) Ur Leukocyte Esterase (Negative) Urine RBC (0-2) /HPF Urine WBC (0-5) /HPF Ur Squamous Epith Cells (0-2) /HPF Urine Bacteria (None Seen) Hyaline Casts (0-2) /LPF COVID-19 (CAROLE) (Negative) COVID-19 Clin Com Influenza Type A (LEONA) (Negative) Influenza Type B (LEONA) (Negative) Influenza A & B Note 05/14/25 05/14/25 Range/Units 16:23 16:29 WBC (4.8-10.8) X10*3/uL RBC (4.60-5.80) X10*6/uL Hgb (14.0-18.0) g/dl Hct (42.0-52.0) % MCV (80.0-98.0) fL MCH (27.0-33.0) pg MCHC (31.0-36.0) g/dl RDW (11.0-16.0) % Plt Count (160-400) X10*3/uL MPV (9.4-12.4) fL Immature Gran % (Auto) (0.0-0.4) % Neut % (Auto) (45-73) % Lymph % (Auto) (20-40) % [place] % (Auto) (2-11) % Eos % (Auto) (0-4) % Baso % (Auto) (0-2) % Lymph # (Auto) (1.2-4.9) X10*3/uL [place] # (Auto) (0.1-1.2) X10*3/uL Eos # (Auto) (0.0-0.4) X10*3/uL Baso # (Auto) (0.0-0.2) X10*3/uL Abs Immat Gran (auto) (0.00-0.03) X10*3/uL Absolute Neuts (auto) (2.0-8.3) x10*3/uL Absolute Nucleated RBC (0.0-0.012) X10*3/uL Nucleated RBC % (auto) (0.0-0.2) /100WBC D-Dimer High Sensitivty NG/ML Sodium (135-145) mmol/L Potassium (3.3-5.1) mmol/L Chloride (96-108) mmol/L Carbon Dioxide (22-29) mmol/L Anion Gap (12-20) BUN (9-16) mg/dL Creatinine (0.5-1.4) mg/dL Estim Creat Clear Calc Estimated GFR Random Glucose (60-115) mg/dL Calcium (8.4-10.2) mg/dL Total Bilirubin (0.0-1.0) mg/dL AST (5-37) U/L ALT (0-40) U/L Alkaline Phosphatase (39-117) U/L Troponin I High Sens (<3.5-35.0) ng/L B-Natriuretic Peptide (<100) pg/mL Total Protein (6.5-8.0) g/dL Albumin (3.5-5.0) g/dL Lipase (8-78) U/L TSH (0.32-4.0) uIU/mL Urine Color Yellow Urine Appearance Clear Urine pH 6.0 (5.0-9.0) Ur Specific [place] 1.010 (1.005-1.025) Urine Protein Negative (Neg-Trace) mg/dL Urine Glucose (UA) Negative (Negative) mg/dL Urine Ketones Negative (Negative) mg/dL Urine Blood Negative (Negative) Urine Nitrite Negative (Negative) Ur Leukocyte Esterase Negative (Negative) Urine RBC 0-2 (0-2) /HPF Urine WBC 0-5 (0-5) /HPF Ur Squamous Epith Cells 0-2 (0-2) /HPF Urine Bacteria None Seen (None Seen) Hyaline Casts 0-2 (0-2) /LPF COVID-19 (CAROLE) Negative (Negative) COVID-19 Clin Com See Note Influenza Type A (LEONA) Negative (Negative) Influenza Type B (LEONA) Negative (Negative) Influenza A & B Note See Note Independent Interpretation I performed an independent interpretation of an: EKG and Plain X-Ray Interpretation: I personally interpreted the EKG which revealed normal sinus rhythm without ST-elevation/depression, T-wave abnormality, arrhythmia, prolonged QT Vent. Rate : 88 BPM Atrial Rate : 88 BPM P-R Int : 168 ms QRS Dur : 96 ms QT Int : 364 ms P-R-T Axes : 37 31 17 degrees QTcB Int : 440 ms Normal sinus rhythm Normal ECG When compared with ECG of 29-Oct-2023 10:15, No significant change was found I personally interpreted the chest x-ray which reveals chronic right-sided pleural effusion, and a decreased lung markings of the right lung, I agree with the radiologist's interpretation Radiology Impression Discussion of test interpretation with radiology: I have reviewed the radiologist's reading. Radiologist Impression: CXR FINDINGS: There is persistent peripheral density along the right lateral and inferior chest wall likely representing loculated pleural effusion and/or pleural thickening. The appearance is stable. Linear septal lines are present at the junction of middle third upper third right lung. Lungs are otherwise clear. XR/XR chest 2V IMPRESSION: Chronic loculated pleural effusion and/or pleural thickening in the right chest. Decreased patchy density in the right middle third lung zone. Electronically signed by: Chico Last MD 05/14/2025 01:35 PM EDT RP Dictated By: Chico Last MD Signed By: <Electronically signed by Chico Last MD in OV> 05/14/25 1335 External Record Review External record reviewed: Inpatient record, Office record and Outpatient record Chronic Conditions Patient?s care impacted by: Other (Asthma) Discharge Plan Discharge Clinical Impression: Vertigo Patient Disposition: Home, Self-Care Instructions: Vertigo (ED) Additional Instructions: You were evaluated in the ED today due to dizziness, and abdominal pain. Your blood work was negative for any signs of infection, anemia or electrolyte imbalance. Your random serum blood glucose was reassuring as it was within normal limits at 101. Your EKG revealed a normal sinus rhythm without emergent cardiac processes, your troponin which is an enzyme that the heart gives off when under stress or damage was negative. Your D-dimer which is a lab value that is elevated when blood clots are present was normal. Your COVID and flu swabs were negative. I recommend you follow up with your primary care doctor as you may have vertigo. Please return to the ED if you experience fevers over 100.4?, worsening abdominal pain, worsening dizziness, worsening chest pain, worsening shortness of breath or any other new/worsening/concerning symptoms. Prescriptions: No Action ondansetron 4 mg tablet,disintegrating 4 mg PO DAILY Qty: 20 0RF pyridoxine (vitamin B6) 100 mg tablet 100 mg PO DAILY 90 Days Qty: 90 1RF albuterol sulfate 90 mcg/actuation aerosol powdr breath activated 2 inh inhalation Q4-6H PRN (Reason: shortness of breath or wheezing) Qty: 1 0RF dicyclomine 20 mg tablet 20 mg PO Q8-10H PRN (Reason: abdominal pain) Qty: 20 0RF penicillin V potassium 500 mg tablet 500 mg PO TID 7 Days Qty: 21 0RF ketorolac 10 mg tablet 10 mg PO Q8H PRN (Reason: pain) Qty: 12 0RF Rx Instructions: do not use this medication with ibuprofen or NSAIDs, only Tylenol if needed doxycycline hyclate 100 mg capsule 100 mg PO BID Qty: 13 0RF cholecalciferol (vitamin D3) [Vitamin D3] 50 mcg (2,000 unit) capsule 50 mcg PO DAILY lisinopril 10 mg tablet 10 mg PO DAILY pravastatin 40 mg tablet 40 mg PO DAILY PRN sildenafil [Viagra] 100 mg tablet 50 - 100 mg PO DAILY PRN atorvastatin 20 mg tablet 20 mg PO DAILY buspirone 10 mg tablet 10 mg PO BID Metamucil Fiber (aspartame) 3.4 gram powder in packet PO bisacodyl [Dulcolax (bisacodyl)] 10 mg suppository 10 mg [place] DAILY PRN (Reason: constipation) Qty: 20 0RF polyethylene glycol 3350 [Miralax] 17 gram/dose powder 17 g PO DAILY Qty: 510 6RF senna 8.6 mg capsule 8.6 mg PO DAILY 30 Days Qty: 30 1RF fluticasone propionate 220 mcg/actuation HFA aerosol inhaler inhalation melatonin 10 mg tablet PO BEDTIME loratadine 10 mg tablet 10 mg PO DAILY docusate sodium 100 mg capsule 100 mg PO BID sertraline 100 mg tablet 150 mg PO DAILY Print Language: Welsh
[2025-05-14 13:47] LABS: MANUAL DIFF FLAG NO
--- OUTSIDE RECORDS SUMMARY | 2025-05-14 13:47 | XMS_ITS | Encounter Summary ---
Author Organization [employer] Address [address] [facility] [address] [place] [address] Care Team Providers Care Pipe Line Repairer Name Role Phone Dinora Childs Primary Care Provider [phone] Encounter Details Date Type Department Care Team (Late st Contact Info) Description 10/02/2022 Orders Only [facility] [address] [place] [address] Dotty Herron LPN Social History Tobacco Use [...] Care Team (Late st Contact Info) Description 07/15/2025 9:15 AM EDT Office Visit [facility] [address] [place] [address] Dinora Childs ANP [address] [place] [address] documented as of this encounter Visit Diagnoses Not on filedocumented in this encounter Care Teams Pipe Line Repairer Relationship Specialty Start Date End Date Dinora Childs ANP [address] [place] [address] PCP - General Family Medicine 10/04/21 documented as of this encounter
--- OUTSIDE RECORDS SUMMARY | 2025-05-14 13:47 | XMS_ITS | Encounter Summary ---
Author Organization [employer] Address [address] [place] [address] Care Team Providers Care Machine Molder Squeeze Name Role Phone Dinora Childs [place] Primary Care Provider [phone] Reason for Visit * Reason Comments Med Refill Encounter Details Date Type Department Care Team (Late st Contact Info) Description 02/27/[address] [facility] [address] [place], [place] [phone] Dotty Troy DO [address] [place], [place] [phone] Pain Social History Tobacco Use Types Packs/Day [...] with others, in a hotel, in a long-term, living outside on the street, on a [...] Description 07/15/2025 9:15 AM EDT Office [address] [facility] [address] [place] [address] Dinora Childs ANP [address] [place] [address] documented as of this encounter Visit Diagnoses Diagnosis Pain Generalized pain documented in this encounter Additional Health Concerns Assessment Noted Time PHQ-9 Depression Total Score: 0 02/04/20 24 11:04 AM EDT documented as of this encounter Care Teams Machine Molder Squeeze Relationship Specialty Start Date End Date Dinora Childs ANP [address] [place] [id number] PCP - General Family Medicine 10/04/21 documented as of this encounter
--- OUTSIDE RECORDS SUMMARY | 2025-05-14 13:47 | XMS_ITS | Encounter Summary ---
Author Organization [employer] Address [address] [place] [address] Care Team Providers Care Sample Maker Name Role Phone Dinora Childs Primary Care Provider [phone] Reason for Visit * Reason Comments Med Refill Encounter Details Date Type Department Care Team (Late st Contact Info) Description 05/12/[address] [facility] [address] [place], [place] [phone] Dinora Childs ANP [address] [place], [place] [phone] Primary osteoarthritis of right knee Social History Tobacco Use Types Packs/Day Years [...] with others, in a hotel, in a long term, living outside on the street, on a [...] Description 07/15/2025 9:15 AM EDT Office Visit [facility] [address] [place] [address] Dinora Childs ANP [address] [place] [address] documented as of this encounter Visit Diagnoses Diagnosis Primary osteoarthritis of right knee documented in this encounter Additional Health Concerns Assessment Noted Time PHQ-9 Depression Total Score: 0 02/04/20 24 11:04 AM EDT documented as of this encounter Care Teams Sample Maker Relationship Specialty Start Date End Date Dinora Childs ANP [address] [place] [id number] PCP - General Family Medicine 10/04/21 documented as of this encounter
--- OUTSIDE RECORDS SUMMARY | 2025-05-14 13:47 | XMS_ITS | Encounter Summary ---
Author Organization [employer] Address [address] [place] [address] Care Team Providers Care Executive Business Coach Name Role Phone Dinora Childs [place] Primary Care Provider [phone] Reason for Visit * Reason Comments Med Refill Encounter Details Date Type Department Care Team (Late st Contact Info) Description 04/09/2025 Refill [facility] [address] [place], [place] [phone] Dotty Troy DO [address] [place], [place] [phone] Social History Tobacco Use Types Packs/Day Years [...] with others, in a hotel, in a alf, living outside on the street, on a [...] Description 07/15/2025 9:15 AM EDT Office Visit [facility] [address] [place] [address] Dinora Childs ANP [address] [place] [address] documented as of this encounter Visit Diagnoses Not on filedocumented in this encounter Additional Health Concerns Assessment Noted Time PHQ-9 Depression Total Score: 0 02/04/20 24 11:04 AM EDT documented as of this encounter Care Teams Executive Business Coach Relationship Specialty Start Date End Date Dinora Childs ANP [address] [place] [id number] PCP - General Family Medicine 10/04/21 documented as of this encounter
--- OUTSIDE RECORDS SUMMARY | 2025-05-14 13:47 | XMS_ITS | Encounter Summary ---
Author Organization [employer] Address [address] [place] [address] Care Team Providers Care Home Advisor Name Role Phone Dinora Childs Primary Care Provider [phone] Reason for Visit * Reason Onset Date Comments Appointment 05/13/2025 Encounter Details Date Type Department Care Team ([facility] st Contact Info) Description 05/13/2025 Telephone [facility] [address] [place], [place] [phone] Dinora Childs ANP [address] [place], [place] [phone] Appointment Social History Tobacco Use Types Packs/Day Years [...] with others, in a hotel, in a intermediate, living outside on the street, on a [...] encounter Miscellaneous Notes * Telephone Encounter - Tran Hopkins [place] - 05/13/2025 1:33 PM EDT Images from the original note were not included. T/C-Derrick Boat Operator made appointment for 07/15/25 at 9:15 PM. Tacho MONTANO 05/11/25 1:36 PM Note Tc from pt requesting to schedule a f/u apt , he was seen in [facility] for an infection on right thumb and got some cut off Contact pt at [phone] documented in this encounter Plan of Treatment Upcoming Encounters Date Type Department Care Team (Late st Contact Info) Description 07/15/2025 9:15 AM EDT Office Visit [facility] [address] [place], [place] [phone] Dinora Childs ANP [address] [place], [place] [phone] documented as of this encounter Visit Diagnoses Not on filedocumented in this encounter Additional Health Concerns Assessment Noted Time PHQ-9 Depression Total Score: 0 02/04/20 24 11:04 AM EDT documented as of this encounter Care Teams Home Advisor Relationship Specialty Start Date End Date Dinora Childs ANP [address] [place] [address] PCP - General Family Medicine 10/04/21 documented as of this encounter
--- OUTSIDE RECORDS SUMMARY | 2025-05-14 13:47 | XMS_ITS | Encounter Summary ---
Author Organization [employer] Address [address] [place] [address] Care Team Providers Care Public Service Administrator Name Role Phone Dinora Childs [place] Primary Care Provider [phone] Reason for Visit * Reason Comments Med Refill Encounter Details Date Type Department Care Team (Late st Contact Info) Description 02/22/2025 Refill [facility] [address] [place], [place] [phone] Vida Burgos MD [address] [facility] [place] [address] Erectile dysfunction, unspecified erectile dysfunction type Social History Tobacco Use Types Packs/Day [...] Description 07/15/2025 9:15 AM EDT Office Visit [facility] [address] [place] [address] Dinora Childs ANP [address] [place] [address] documented as of this encounter Visit Diagnoses Diagnosis Erectile dysfunction, unspecified erectile dysfunction type documented in this encounter Additional Health Concerns Assessment Noted Time PHQ-9 Depression Total Score: 0 02/04/20 24 11:04 AM EDT documented as of this encounter Care Teams Public Service Administrator Relationship Specialty Start Date End Date Dinora Childs ANP [address] [place] [id number] PCP - General Family Medicine 10/04/21 documented as of this encounter
--- OUTSIDE RECORDS SUMMARY | 2025-05-14 13:47 | XMS_ITS | Encounter Summary ---
Author Organization [facility] [facility] Address [address] [place] [address] Care Team Providers Care It Systems Analyst Consultant Name Role Phone Dinora Childs Primary Care Provider [phone] Encounter Details Date Type Department Care Team (Late st Contact Info) Description 09/14/2022 Orders Only [facility] [address] [place] [address] Johanny Garza RN Social History Tobacco Use Types Packs/Day Years [...] Description 07/15/2025 9:15 AM EDT Office Visit [facility] [address] [place] [phone] Dinora Childs ANP [address] [place] [address] documented as of this encounter Visit Diagnoses Not on filedocumented in this encounter Care Teams It Systems Analyst Consultant Relationship Specialty Start Date End Date Dinora Childs ANP [address] [place] [id number] PCP - General Family Medicine 10/04/21 documented as of this encounter
--- OUTSIDE RECORDS SUMMARY | 2025-05-14 13:47 | XMS_ITS | Clinical Summary ---
Author Organization [employer] Address [address] [facility] [address] [place] [address] Care Team Providers Care Automobile Glass Technician Name Role Phone Luh Hogan [place] Primary Care Provider [phone] Allergies No known active allergies Medications * This document contains information received from the source organization and may not represent a complete record from that organization. busPIRone (Buspar) 5 MG tablet TAKE 1 TABLET BY MOUTH TWICE DAILY FOR ANXIETY 023 Active melatonin 5 MG tablet TAKE 2 TABLETS BY MOUTH AT BEDTIME NEEDED FOR SLEEP 023 Active Nebulizer misc 1 each Every 4-6 hours as needed (SOB, wheezing). 1 each 024 Active Spacer/Aero-Holdi ng Chambers (OptiChamber Criss) misc 1 each every 4 (four) hours if needed (asthma). 1 each 024 Active senna (Senokot) 8.6 MG tablet Take 1 tablet (8.6 mg) by mouth at bedtime. 120 tablet 024 Active traZODone (Desyrel) 50 MG tablet TAKE 1/2 TO 1 TABLET BY MOUTH AT BEDTIME NEEDED for SLEEP 024 Active busPIRone (Buspar) 10 MG tablet TAKE 1 TABLET BY MOUTH TWICE DAILY FOR ANXIETY Active Ventolin HFA 108 (90 Base) MCG/ACT inhalerIndication s:Wheezing INHALE 2 PUFFS BY MOUTH EVERY 4 HOURS NEEDED FOR WHEEZING OR SHORTNESS OF BREATH 18 g 2 024 Active atorvastatin (Lipitor) 20 MG tabletIndications :Hyperlipidemia, unspecified hyperlipidemia type TAKE 1 TABLET BY MOUTH EVERY DAY DIRECTED 30 tablet 11 025 Active Blood Pressure kitIndications:Es sential hypertension Use to check blood pressure once daily 1 kit Active lisinopril (Prinivil) 20 MG tabletIndications :Essential hypertension Take 1 tablet (20 mg) by mouth Once per day. 90 tablet 1 025 2025 Active hydrocortisone (Proctozone-HC) 2.5 % rectal creamIndications: Hemorrhoids, unspecified hemorrhoid type Insert into the rectum 2 times daily. For up to 7d 30 g Active fluticasone (Flonase) 50 MCG/ACT nasal spray Administer 1 spray into each nostril Once per day. 16 g 2 Active sertraline (Zoloft) 100 MG tabletIndications :Anxiety TAKE 2 TABLETS BY MOUTH EVERY DAY 60 tablet Active budesonide-formot lloyd (Symbicort) 160-4.5 MCG/ACT inhalerIndication s:Moderate persistent asthma without complication Inhale 2 puffs in the morning and at bedtime. Rinse mouth with water after use to reduce aftertaste and incidence of candidiasis. Do not swallow. 1 each 11 025 2025 Active pyridoxine (Vitamin B-6) 100 MG tablet Take 1 tablet by mouth Once per day. Active traZODone (Desyrel) 100 MG tablet TAKE 1/2 TO 1 TABLET BY MOUTH AT BEDTIME NEEDED FOR SLEEP Active sildenafil (Viagra) 100 MG tabletIndications :Erectile dysfunction, unspecified erectile dysfunction type TAKE 1/2 TO 1 TABLET BY MOUTH EVERY DAY 30 MINUTES BEFORE SEXUAL ACTIVITY 20 tablet 1 Active Tirzepatide-Weigh t Management (Zepbound) 10 MG/0.5ML solution auto-injectorIndi cations:Morbid obesity with BMI of 50.0-59.9, adult ([facility]) Inject 0.5 mL (10 mg) under the skin 1 (one) time per week. 2 mL 2 Active gabapentin (Neurontin) 300 MG capsule TAKE 1 CAPSULE BY MOUTH THREE TIMES DAILY 90 capsule 3 Active meloxicam (Mobic) 15 MG tablet Take 1 tablet (15 mg) by mouth Once per day. 30 tablet 025 2025 Active Diclofenac Sodium 1 % gelIndications:Pa in APPLY 2 GRAMS TOPICALLY IN THE MORNNG, AT NOON, IN THE EVENING AND AT BEDTIME NEEDED FOR PAIN 200 g 1 025 Active sodium chloride ([place] Nasal [place]) 0.65 % nasal sprayIndications: Acute frontal sinusitis, recurrence not specified Administer 2 sprays into each nostril if needed for congestion. 30 mL 2 025 2025 Active fluconazole (Diflucan) 150 MG tabletIndications :Tinea cruris Take 1 tablet (150 mg) by mouth 1 (one) time per week for 28 days. 4 tablet 025 2024 Active clotrimazole (Lotrimin) 1 % creamIndications: Tinea cruris Apply topically 2 times daily for 28 days. 30 g 025 2024 Active ipratropium-albut lloyd (Duo-Neb) 0.5-2.5 mg/3 mL nebulizer solutionIndicatio ns:Mild persistent asthma with acute exacerbation INHALE 1 AMPULE USING A NEBULIZER EVERY 6 HOURS NEEDED FOR WHEEZING OR SHORTNESS OF BREATH 90 mL 1 025 Active traMADol (Ultram) 50 MG tabletIndications :Primary osteoarthritis of right knee TAKE 1 TABLET BY MOUTH EVERY NIGHT AT BEDTIME NEEDED FOR SEVERE PAIN FOR UP TO 15 DAYS 15 tablet 025 Active pantoprazole (ProtoNix) 40 MG EC tabletIndications :Generalized abdominal pain TAKE 1 TABLET BY MOUTH EVERY DAY IN THE MORNING 30 tablet 1 025 Active albuterol (2.5 MG/3ML) 0.083% nebulizer solutionIndicatio ns:Mild persistent asthma without complication INHALE 1 AMPULE USING A NEBULIZER THREE TIMES DAILY 90 mL 023 2024 Discontinued pantoprazole (ProtoNix) 40 MG EC tabletIndications :Generalized abdominal pain TAKE 1 TABLET BY MOUTH EVERY DAY IN THE MORNING 30 tablet 1 025 2024 Discontinued traMADol (Ultram) 50 MG tabletIndications :Primary osteoarthritis of right knee TAKE 1 TABLET BY MOUTH EVERY DAY AT BEDTIME NEEDED FOR SEVERE PAIN FUP15D 15 tablet 025 2024 Discontinued Diclofenac Sodium 1 % gel Apply 1 inch topically if needed in the morning and at bedtime (pain). 60 g 025 2024 ipratropium-albut lloyd (Duo-Neb) 0.5-2.5 mg/3 mL nebulizer solutionIndicatio ns:Mild persistent asthma with acute exacerbation Take 3 mL by nebulization every 6 (six) hours if needed for wheezing or shortness of breath. 75 mL 1 025 2024 Discontinued predniSONE (Deltasone) 20 MG tabletIndications :Mild persistent asthma with acute exacerbation Take 2 tablets (40 mg) by mouth Once per day for 5 days. 10 tablet 2024 Active Problems Problem Noted Date Diagnosed Date Tinea cruris 04/27/2025 Assessment & Plan (04/27/2025 9:35 AM EDT): Advised to maintain the area dry and clean I will prescribe fluconazole in light of the extension of the rash 150 mg once a week for 4 weeks plus clotrimazole to apply locally twice daily for 2 weeks Sprain of groin 04/12/2025 Assessment & Plan (04/12/2025 2:28 PM EDT): Advised to put ice on affected area plans sign diclofenac gel We discussed about stretching exercises, he will be referred to PT Toradol injection today, continue meloxicam daily for the next 2 weeks + Tylenol and cyclobenzaprine at night. He is advised to hold any other NSAIDs including naproxen or ibuprofen. Advised to take gabapentin 300 mg in the morning and 300 to 600 at night, he was taking only the 1 in the morning as it made him very somnolent. Class 3 severe obesity with serious comorbidity and body mass index (BMI) of 50.0 to 59.9 in adult 02/19/2025 Subacute pansinusitis 01/11/2025 Assessment & Plan (01/11/2025 11:29 AM EDT): Rapid viral testing negative today, he will start Augmentin x 10 days Rest (sleep at least 8 hours a night). Hydrate with plenty of water (avoid caffeine and alcohol). Use saline nose drops to loosen mucus + Flonase Take Acetaminophen (Tylenol )/Ibuprofen as needed to reduce fever, headache, body aches or discomfort Gargle with salt water and use throat sprays/lozenges for throat pain. Use heated, humidified air. If you do not have a humidifier, take hot showers. Cover coughs and sneezes using the crook of your elbow. If you have a fever, stay home and away from others (self isolation) until fever-free for 72 hours (temperature should be less than 100 F without medication). GERD (gastroesophageal reflux disease) Migraine headache 12/18/2023 Swelling of knee joint 01/04/2023 Mild persistent asthma without complication 09/18 Assessment & Plan (12/18/2023 12:58 PM EDT): -tx with prednisone daily x 5 days -change flovent to asmanex BID -cont albuterol prn -advised RTC or go to ED if no improvement or sx worsen Primary osteoarthritis of right knee 01/08/2018 Assessment & Plan (02/19/2025 1:07 PM EDT): Pt received 60mg or Toradol today in office, last Ibuprofen dose was several days ago Counseled not to take additional NSAIDs for 24 hours He can trial Tramadol 50mg at night for rest Followup with pain clinic as scheduled March 09, 2025 Essential hypertension 06/30/2015 Hyperlipidemia 06/30/2015 Obstructive sleep apnea syndrome 06/30/2015 Impaired glucose tolerance 06/30/2015 Lung nodule, solitary 06/30/2015 Erectile dysfunction 06/30/2015 Resolved Problems Problem Noted Date Diagnosed Date Resolved Date Morbid obesity with BMI of 50.0-59.9, adult 12/18/2023 02/19/2025 Encounters Date Type Department Care Team Description 05/13/2025 Telephone [facility] MEDICINE [address] [place], [place] [phone] Luh Hogan ANP Appointment 05/13/2025 Refill [facility] WALK-IN CENTER [address], [place] [phone] Luh Hogan ANP Generalized abdominal pain 05/12/2025 Refill [facility] [address] [place] [phone] Luh Hogan ANP Primary osteoarthritis of right knee 05/11/2025 Telephone [facility] MEDICINE [address] [place] [phone] Luh Hogan ANP Appointment Request 04/27/2025 9:00 AM EDT Office Visit [facility] [address] [place] [phone] Lilo Richter MD Tinea cruris 04/27/2025 Refill [facility] [address] [place] [phone] Luh Hogan ANP Mild persistent asthma with acute exacerbation 04/27/2025 Travel 04/16/2025 2:00 PM EDT Office Visit [facility] [address] [place] [phone] Luh Hogan ANP Acute frontal sinusitis, recurrence not specified (Primary Dx); Mild persistent asthma with acute exacerbation 04/16/2025 Travel 04/15/2025 Orders Only [facility] External Provider, [facility] 04/12/2025 2:00 PM EDT Office Visit [facility] [address] [place] [phone] Jocelyne Burnett MD Sprain of groin, initial encounter (Primary Dx); Pain 04/12/2025 Travel 04/12/2025 Refill [facility] [address] [place] [phone] Luh Hogan ANP Primary osteoarthritis of right knee 04/12/2025 Refill [facility] [address] [place] [phone] Dotty Troy, 04/09/2025 Refill [facility] [address] [place] [phone] Dotty Troy, DO 04/08/2025 Refill [facility] MED & PEDS [address] [place] [address] Luh Hogan ANP Morbid obesity with BMI of 50.0-59.9, adult ([facility]) 03/24/2025 Refill [facility] [address] [place] [address] Luh Hogan ANP Pain 03/17/2025 Refill [facility] [address] [place] [address] Vida Burgos MD Erectile dysfunction, unspecified erectile dysfunction type 03/10/2025 Refill [facility] [address] [place] [phone] Luh Hogan ANP Generalized abdominal pain 03/09/2025 Orders Only [facility] MEDICINE [address] [place] [phone] Luh Hogan ANP Class 3 severe obesity with serious comorbidity and body mass index (BMI) of 50.0 to 59.9 in adult (Primary Dx) 03/08/2025 Refill [facility] MEDICINE [address] [place] [phone] Luh Hogan ANP Morbid obesity with BMI of 50.0-59.9, adult ([facility]) 03/05/2025 Refill [facility] [address] [place] [phone] Jaelyn Hood MD Primary osteoarthritis of right knee 03/03/2025 Orders Only [facility] MEDICINE [address] [place] [phone] Luh Hogan ANP 03/02/2025 Telephone [facility] MEDICINE [address] [place] [phone] Luh Hogan ANP Prior Authorization 02/27/2025 Refill [facility] [address] [place] [phone] Dotty Troy DO Pain 02/25/2025 Orders Only GENERIC EXTERNAL DATA DEPARTMENT Provider, Generic External Data 02/22/2025 Refill [facility] [address] [place] [address] Vida Burgos MD Erectile dysfunction, unspecified erectile dysfunction type 02/19/2025 10:20 AM EDT Office Visit [facility] [address] [place] [phone] Jaelyn Hood MD Primary osteoarthritis of right knee (Primary Dx); Dietary counseling; Exercise counseling; Class 3 severe obesity with serious comorbidity and body mass index (BMI) of 50.0 to 59.9 in adult, unspecified obesity type; Class 3 severe obesity with serious comorbidity and body mass index (BMI) of 50.0 to 59.9 in adult 02/19/2025 Travel 02/17/[address] [phone] Luh Hogan, [place] from Last 3 Months Immunizations Immunization Administration Dates Next Due Hep A, Adult [...] Smoking Tobacco: Former Cigarettes Smokeless Tobacco: Never Tobacco Cessation:Counseling Given: Not Answered Alcohol Use Standard Drinks/Week Comments Not Currently [...] Sign Reading Time Taken Comments Blood Pressure 143/90 04/27/2025 8:51 AM EDT Pulse 83 04/27/2025 8:51 AM EDT Temperature 36.7 C (98 F) 04/27/2025 8:51 AM EDT Respiratory Rate 18 04/27/2025 8:51 AM EDT Oxygen Saturation 96% 04/27/2025 8:51 AM EDT Inhaled Oxygen Concentration - - Weight 162 kg (358 lb) 04/27/2025 8:51 AM EDT Height 175.3 cm (5' 9 ) 04/16/2025 2:15 PM EDT Body Mass Index 52.87 04/16/2025 2:15 PM EDT Plan of Treatment Upcoming Encounters Date Type Department Care Team (Late st Contact Info) Description 07/15/2025 9:15 AM EDT Office Visit [facility] MEDICINE [address] [place], [place] [phone] Luh Hogan, ANP [address] [place] [address] Health Maintenance Due Date Last Done Comments CT Colonography 1967 FIT DNA/Cologuard 1967 FIT 1967 FOBT 1967 Sigmoidoscopy 1967 Disability Screening 1967 Alcohol/Substance Use Screening 1979 Hepatitis C Screening 1985 SDOH Screening 11/27/2024 11/28/2023 Depression Screening 02/03/2025 02/04/2024, 02/04/20 24 Influenza Vaccine (#1) 2025 , 06/28/2023, 10/16/2022, Additional history exists Tobacco Screening 04/27/2026 04/27/2025 Lipid Panel 02/23/2028 02/22/2023, 09/18, 10/31/2021, Additional history exists Colonoscopy 04/17/2028 04/17/2018 Colorectal Cancer Screening 04/17/2028 DTaP/Tdap/Td Vaccines (4 - Td or Tdap) 07/20/2034 07/20/2024, 07/28/2014, 05/29/2012, Additional history exists RSV Patients and Patients Aged 60 years or older (1 - 1-dose 75+ series) 2042 Hepatitis A Vaccines Aged Out 02/24/2018, 03/12/20 16 No longer eligible based on patient's age to complete this topic Hepatitis B Vaccines Completed 09/17/2018, 02/24/2018, 03/12/2016 Zoster Vaccines Completed 04/07/2020, 10/06/2019 HIV Screening Completed 10/16/2022, 10/27/2019 COVID-19 Vaccine Completed 06/08/2024, , 06/13/2022, Additional history exists Pneumococcal Vaccine: 50+ Years Completed 07/20/2024, 02/03/2007 HIB Vaccines Aged Out No longer eligi ble based on patient's age to complete this topic HPV Vaccines Aged Out No longer eligi ble based on patient's age to complete this topic IPV Vaccines Aged Out No longer eligi ble based on patient's age to complete this topic Meningococcal B Vaccine Aged Out No l onger eligible based on patient's age to complete [...] Name Priority Date/Time Associated Diagnosis Comments XR CHEST 2 VIEWS Routine 05/14/2025 1:15 PM EDT US RENAL COMPLETE Routine 04/15/2025 8:4 8 AM EDT URINALYSIS, COMPLETE, WITH REFLEX TO CULTURE Routine 02/25/2025 8:27 PM EDT LIPASE Routine 02/25/2025 6:17 PM EDT COMPREHENSIVE METABOLIC PANEL Routine 02/25/2025 6:17 PM EDT CBC WITH AUTO DIFFERENTIAL Routine 02/25/2025 6:17 PM EDT SARS COV2/INFLUENZA A/B AND RSV RNA QL NAAT Routine 02/25/2025 6:17 PM EDT LIPID PANEL, STANDARD Routine 02/22/2023 9:43 AM EDT Hyperlipidemia, unspecified hyperlipidemia type HIV 1/2 ANTIGEN/ANTIBODY, FOURTH GENERATION W/RFL Routine 10/16/2022 12:51 PM EST Numbness and tingling of both legs HM COLONOSCOPY Routine 04/17/2018 from Last 3 Months or Most Recently Relevant to Health Maintenance Results * XR Chest 2 Views (05/14/2025 1:15 PM EDT) Anatomical Region Laterality Modality Chest Radiographic Yessenia ging 05/14/2025 1:15 PM EDT Narrative 05/14/2025 1:40 PM EDT [place] [address] XRay Report Signed Patient: Hiram Castro MR#: [id number] : 1965 Acct:[id number] Age/Sex: 60 / M ADM Date: 05/14/25 Loc: HO.ED Attending Dr: Ordering Physician: Remberto Pereira Date of Service: 05/14/25 Procedure(s): XR chest 2V Accession Number(s): [id number] cc: Remberto Pereira; LUH HOGAN NP EXAMINATION: XR CHEST CLINICAL INFORMATION: dyspnea COMPARISON: December 18, 2024 TECHNIQUE: 2 views of the chest were obtained. FINDINGS: There is persistent peripheral density along the right lateral and inferior chest wall likely representing loculated pleural effusion and/or pleural thickening. The appearance is stable. Linear septal lines are present at the junction of middle third upper third right lung. Lungs are otherwise clear. XR/XR chest 2V IMPRESSION: Chronic loculated pleural effusion and/or pleural thickening in the right chest. Decreased patchy density in the right middle third lung zone. 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 FINDINGS: There is persistent peripheral density along the right lateral and inferior chest wall likely representing loculated pleural effusion and/or pleural thickening. The appearance is stable. Linear septal lines are present at the junction of middle third upper third right lung. Lungs are otherwise clear. XR/XR chest 2V IMPRESSION: Chronic loculated pleural effusion and/or pleural thickening in the right chest. Decreased patchy density in the right middle third lung zone. Electronically signed by: [place] Last MD 05/14/2025 01:35 PM EDT Dictated By: Chico Last MD Signed By: <Electronically signed by Chico Last MD in OV> 05/14/25 1335 DD/ 1315 TD/TT: 05/14/25 1325 Farm Laborer: us [facility] External Provider IMG XR PROCEDURES Final Result * US Renal Complete (04/15/2025 8:48 AM EDT) Anatomical Region Laterality Modality Kidney Ultrasound 04/15/2025 8:48 AM EDT Narrative 04/15/2025 9:28 AM EDT [address] [address] Ultrasound Report Signed Patient: Hiram Castro MR#: [id number] : 1965 Acct:[id number] Age/Sex: 60 / M ADM Date: 04/15/25 Loc: HO.US Attending Dr: Jimena MARR Ordering Physician: Jimena Chatman Date of Service: 04/15/25 Procedure(s): US renal BI Accession Number(s): [id number] cc: Jimena Chatman; LUH HOGAN NP EXAMINATION: US KIDNEY BILATERAL HISTORY: N20.0 - Calculus of kidney TECHNIQUE: Real-time grayscale ultrasound imaging of the kidneys was performed and images were reviewed. COMPARISON: Comparison is made with the prior examination dated 07/17/2024. FINDINGS: Right kidney: The right kidney measures 12.9 x 5.2 x 6.0 cm. Renal parenchymal echotexture and thickness are normal. There are no masses. There is no hydronephrosis or renal calculi. Left Kidney: The left kidney measures 13.5 x 6.1 x 5.2 cm. Renal parenchymal echotexture and thickness are normal. There is a 1.1 x 0.6 x 1.0 cm cyst in the interpolar region demonstrating posterior calcification. A 2nd cyst seen in the interpolar region measuring 9 x 6 x 7 mm. There is an extrarenal pelvis and mild caliectasis, similar in appearance to the prior study. US/US renal BI IMPRESSION: Left renal cysts as described. Mild pelvocaliectasis without change. Electronically signed by: Ian Angela MD 04/15/2025 09:26 AM EDT Dictated By: Ian Anegla MD Signed By: <Electronically signed by Ian Angela MD in OV> 04/15/25 0926 DD/ 0848 TD/TT: 04/15/25 0859 Farm Laborer: Procedure Note Donotuseinterpreter, Image - 04/15/2025 [place] [address] Ultrasound Report Signed Patient: Hiram Castro LMR#: [id number] : 1965Acct:[id number] Age/Sex: 60 / MADM Date: 04/15/25 Loc: HO.US Attending Dr: Jimena MARR Ordering Physician: Jimena Chatman Date of Service: 04/15/25 Procedure(s): US renal BI Accession Number(s): [id number] cc: Jimena Chatman; LUH HOGAN NP EXAMINATION: US KIDNEY BILATERAL HISTORY: N20.0 - Calculus of kidney TECHNIQUE: Real-time grayscale ultrasound imaging of the kidneys was performed and images were reviewed. COMPARISON: Comparison is made with the prior examination dated 07/17/2024. FINDINGS: Right kidney: The right kidney measures 12.9 x 5.2 x 6.0 cm. Renal parenchymal echotexture and thickness are normal. There are no masses. There is no hydronephrosis or renal calculi. Left Kidney: The left kidney measures 13.5 x 6.1 x 5.2 cm. Renal parenchymal echotexture and thickness are normal. There is a 1.1 x 0.6 x 1.0 cm cyst in the interpolar region demonstrating posterior calcification. A 2nd cyst seen in the interpolar region measuring 9 x 6 x 7 mm. There is an extrarenal pelvis and mild caliectasis, similar in appearance to the prior study. US/US renal BI IMPRESSION: Left renal cysts as described. Mild pelvocaliectasis without change. Electronically signed by: Ian Angela MD 04/15/2025 09:26 AM EDT Dictated By: Ian Angela MD Signed By: <Electronically signed by Ian Angela MD in OV> 04/15/25 0926 DD/ 0848 TD/TT: 04/15/25 0859 Farm Laborer: [facility] External Provider IMG US PROCEDURES Final Result * Urinalysis, Complete, with Reflex to Culture (02/25/2025 8:27 PM EDT) Color Urine Yellow [facility] Appearance Urine Clear [facility] PH 6.5 5.0 - 9.0 [facility] Glucose Urine UA Negative Negative mg/dL [facility] Urine Blood Negative Negative [facility] Specific [place] - Urine 1.020 1.005 - 1.025 [facility] Urine Protein Negative Neg-Trace mg/dL [facility] Urine Ketones Trace Negative mg/dL [facility] Nitrite Urine Negative Negative [facility] Leukocyte Esterase Urine Negative Negative [facility] RBC Urine 0-2 0 - 2 /HPF [facility] Urine WBC 0-5 0 - 5 /HPF [facility] Urine Squamous Epithelial Cell 0-2 0 - 2 /HPF [facility] Urine Bacteria None Seen None Seen [facility] Hyaline Casts, Urine 0-2 0 - 2 /LPF [facility] 02/25/2025 8:27 PM EDT 02/25/2025 8:31 PM EDT Narrative [facility] - 02/25/2025 8:49 PM EDT Urine, Clean Catch us Generic External Data Provider LAB URINE ORDERAB LES Final Result [facility] [address] [place] [address] [phone] * SARS-CoV-2 RNA, Influenza A/B, and RSV RNA, Ql NAAT (02/25/2025 6:17 PM EDT) Influenza A PCR NEGATIVE Negative [facility] Influenza B PCR NEGATIVE Negative [facility] Resp Syncy Virus RNA Qual PCR NEGATIVE Negative [facility] SARS COV2 PCR NEGATIVE Negative [facility] Comment:All test results mus t be correlated with clinical findings.Negative results do not preclude SARS-CoV2, influenza Avirus, influenza B virus and/or RSV infectionand should not be used as the sole basis for treatment orother patient management decisions. Negative results must becombined with clinical observations, patient history, andepidemiological information.This test has not been evaluated for monitoring treatment ofinfection.This test has been authorized by the FDA under an EmergencyUse Authorization (EUA) for use by authorized laboratories.Testing performed on the [employer] GeneXpert utilizingreal-time RT-PCR.All SARS CoV2 and positive influenza A/B results arereported to [facility]. 02/25/2025 6:17 PM EDT 02/25/2025 6:20 PM EDT us Generic External Data Provider LAB MICROBIOLOGY - GENERAL ORDERABLES Final Result [facility] [address] [place] [address] [phone] * (ABNORMAL) CBC auto differential (02/25/2025 6:17 PM EDT) White Blood Count 6.3 4.8 - 10.8 X10*3/uL [facility] Red Blood Count 4.58(L) 4.60 - 5.80 X10*6/uL [facility] Hemoglobin 13.7(L) 14.0 - 18.0 g/dl [facility] Hematocrit 40.5(L) 42.0 - 52.0 % [facility] Mean Corpuscular Volume 88.4 80.0 - 98.0 fL [facility] Mean Corpuscular Hemoglobin 29.9 27.0 - 33.0 pg [facility] Mean Corpuscular HGB Conc 33.8 31.0 - 36.0 g/dl [facility] Red Cell Distribution Width 13.4 11.0 - 16.0 % [facility] Platelet Count 261 160 - 400 X10*3/uL [facility] Mean Platelet Volume 9.1(L) 9.4 - 12.4 fL [facility] Neutrophils Percent Auto 62.0 45 - 73 % [facility] Imm Gran Pct Auto 0.3 0.0 - 0.4 % [facility] Lymphocytes Percent Auto 26.6 20 - 40 % [facility] Monocytes Percent Auto 9.6 2 - 11 % [facility] Eosinophils Percent Auto 1.0 0 - 4 % [facility] Basophils Percent Auto 0.5 0 - 2 % [facility] NRBC Pct Auto 0.0 0.0 - 0.2 /100WBC [facility] Neutrophils Absolute Auto 3.9 2.0 - 8.3 x10*3/uL [facility] Imm Gran Abs Auto 0.02 0.00 - 0.03 X10*3/uL [facility] Lymphocytes Absolute Auto 1.7 1.2 - 4.9 X10*3/uL [facility] Monocytes Absolute Auto 0.6 0.1 - 1.2 X10*3/uL [facility] Eosinophils Absolute Auto 0.1 0.0 - 0.4 X10*3/uL [facility] Basophils Absolute Auto 0.0 0.0 - 0.2 X10*3/uL [facility] NRBC Abs Auto 0.000 0.0 - 0.012 X10*3/uL [facility] 02/25/2025 6:17 PM EDT 02/25/2025 6:20 PM EDT us Generic External Data Provider LAB BLOOD ORDERAB LES Final Result Performing Organization Address [facility]/ZIP Co de Phone Number [facility] [address] [place] [phone] * Lipase (02/25/2025 6:17 PM EDT) Pathologist [facility] Lipase 30 8 - 78 U/L [facility] 02/25/2025 6:17 PM EDT 02/25/2025 6:20 PM EDT Generic External Data Provider LAB BLOOD ORDERAB LES Final Result Performing Organization Address [facility] Co de Phone Number [facility] [address] [place] [phone] * (ABNORMAL) Comprehensive Metabolic Panel (02/25/2025 6:17 PM EDT) Sodium 141 135 - 145 mmol/L [facility] Potassium 4.3 3.3 - 5.1 mmol/L [facility] Chloride 106 96 - 108 mmol/L [facility] Carbon Dioxide 27 22 - 29 mmol/L [facility] Anion Gap 12 12 - 20 [facility] Urea Nitrogen (BUN) 16 9 - 16 mg/dL [facility] Creatinine, Serum 1.10 0.5 - 1.4 mg/dL [facility] Creatinine Clr Calc Pharmacy 108.6 [facility] Comment:eGFR (calculated fro m the MDRD study equation) and eCrCl(calculated from the Cockcroft-Gault equation) are based ondifferent parameters and may not yield comparable results.If eCrCl result is absurd, please check patient'sheight/weight. Estimated Glomerular Filt Rate >60 [facility] Comment:Chronic Kidney Disea se: Estimated GFR < 60 mL/min/1.06c9Uucppf Kidney Disease: Estimated GFR < 15 mL/min/1.73m2 Glucose 111 60 - 115 mg/dL [facility] Calcium 9.0 8.4 - 10.2 mg/dL [facility] Bilirubin, Total 0.3 0.0 - 1.0 mg/dL [facility] Aspartate Amino Transferase 37 5 - 37 U/L [facility] Alanine Aminotransferase 44(H) 0 - 40 U/L [facility] Total Protein 6.9 6.5 - 8.0 g/dL [facility] Albumin Level 4.1 3.5 - 5.0 g/dL [facility] Alkaline Phosphatase 68 39 - 117 U/L [facility] 02/25/2025 6:17 PM EDT 02/25/2025 6:20 PM EDT us Generic External Data Provider LAB BLOOD ORDERAB LES Final Result [facility] [address] [place] [phone] [phone] * Lipid Panel, Standard (02/22/2023 9:43 AM EDT) Cholesterol, Total 127 <200 mg/dL [facility] HDL Cholesterol 46 > OR = 40 mg/dL [facility] Triglycerides 71 <150 mg/dL [facility] LDL Cholesterol 66 mg/dL (calc) [facility] Comment: Reference range: <100 Desirable range <100 mg/dL for primary prevention; <70 mg/dL for patients with CHD or diabetic patients with > or = 2 CHD risk factors. LDL-C is now calculated using the Telma calculation, which is a validated novel method providing better accuracy than the Friedewald equation in the estimation of LDL-C. Lazaro SS et al. ALVARADO. 2013;310(19): 9732-6522 (http://education.[employer]/faq/QGN876) Chol/HDLC Ratio 2.8 <5.0 (calc) [facility] Non-HDL Cholesterol 81 <130 mg/dL (calc) [facility] Comment: For patients with diabetes plus 1 major ASCVD risk factor, treating to a non-HDL-C goal of <100 mg/dL (LDL-C of <70 mg/dL) is considered a therapeutic option. Blood Venous blood specimen / Unknown 02/22/2023 9:43 AM EDT 02/22/2023 9:44 AM EDT Narrative [facility] - 02/23/2023 10:15 AM EDT FASTING:YES FASTING: YES [facility] LAB BLOOD ORDERABLES Final Resul t [facility] [address] [facility], [facility], [place] [address] [facility] [address] [place] [address] * HIV-1/2 Antigen and Antibodies, Fourth Generation, with Reflexes (10/16/2022 12:51 PM EST) [facility] HIV Antigen/Antibody, 4th Generation NON-REAC TIVE NON-REAC TIVE [facility] Comment: HIV-1 antigen and HIV-1/HIV-2 antibodies were not detected. There is no laboratory evidence of HIV infection. PLEASE NOTE: This information has been disclosed to you from records whose confidentiality may be protected by state law. If your state requires such protection, then the state law prohibits you from making any further disclosure of the information without the specific written consent of the person to whom it pertains, or as otherwise permitted by law. A general authorization for the release of medical or other information is NOT sufficient for this purpose. For additional information please refer to http://education.[employer]/faq/PDA646 (This link is being provided for informational/ educational purposes only.) The performance of this assay has not been clinically validated in patients less than 2 years old. Blood Venous blood specimen / Unknown 10/16/2022 12:51 PM EST 10/16/2022 12:52 PM EST Narrative [facility] - 10/17/2022 9:18 AM EST FASTING:NO FASTING: NO [facility] LAB BLOOD ORDERABLES Final Resul t [facility] [address] [facility], [facility], [place] [address] [facility] [address] [facility], ([address]) [place] [address] * Colonoscopy (04/17/2018) Colonoscopy Normal Normal Historical Provider HEALTH MAINTENANCE Final Result from Last 3 Months or Most Recently Relevant to Health Maintenance Insurance [facility] ONE CARE < [address] [place] [id number] Care Teams Automobile Glass Technician Relationship Specialty Start Date End Date Luh Hogan ANP [address] [place] [phone] PCP - General Family Medicine 10/04/21
--- OUTSIDE RECORDS SUMMARY | 2025-05-14 13:47 | XMS_ITS | Encounter Summary ---
Author Organization [employer] [facility] Address [address] [facility] 7t [place] [address] Care Team Providers Care Furnace Feeder Name Role Phone Dinora Childs Primary Care Provider [phone] Encounter Details Date Type Department Care Team (Late st Contact Info) Description 09/26/2022 Orders Only [facility] MED[facility]INE [address] [place] [address] Zuleyma Garza LPN Social History Tobacco Use [...] 9:15 AM EDT Office Visit [facility] MED[facility] [address] [place] [address] Dinora Childs ANP [address] [place] [address] documented as of this encounter Visit Diagnoses Not on filedocumented in this encounter Care Teams Furnace Feeder Relationship Specialty Start Date End Date Dinora Childs ANP [address] [place] [address] PCP - General Family Medicine 10/04/21 documented as of this encounter
--- OUTSIDE RECORDS SUMMARY | 2025-05-14 13:47 | XMS_ITS | Encounter Summary ---
Author Organization [employer] Address [address] [facility] 7t [place] [address] Care Team Providers Care Tire Repairman Name Role Phone Dinora Childs Primary Care Provider [phone] Reason for Visit * Reason Comments Med Refill Encounter Details Date Type Department Care Team (Late st Contact Info) Description 06/19/2023 Refill [facility] [address] [place] [address] Dinora Childs ANP [address] [place] [address] [phone] Hemorrhoids, unspecified hemorrhoid type Social History Tobacco [...] Description 07/15/2025 9:15 AM EDT Office Visit [facility] [address] [place] [address] Dinora Childs ANP [address] [place] [address] [phone] documented as of this encounter Visit Diagnoses Diagnosis Hemorrhoids, unspecified hemorrhoid type documented in this encounter Additional Health Concerns Assessment Noted Time PHQ-9 Depression Total Score: 9 02/19/20 23 1:40 PM EDT documented as of this encounter Care Teams Tire Repairman Relationship Specialty Start Date End Date Dinora Childs ANP [address] [place] [address] PCP - General Family Medicine 10/04/21 documented as of this encounter
--- OUTSIDE RECORDS SUMMARY | 2025-05-14 13:47 | XMS_ITS | Encounter Summary ---
Author Organization [employer] Address [address] [facility] [address] 7t [place] [address] Care Team Providers Care Founder Name Role Phone Dinora Childs Primary Care Provider [phone] Reason for Visit * Reason Comments Med Refill Encounter Details Date Type Department Care Team (Late st Contact Info) Description 11/02/2024 Refill [facility] [address] [place] [address] Dinora Childs ANP [address] [place] [address] Morbid obesity with BMI of 50.0-59.9, adult (CMS/[facility], [facility]) Social History Tobacco Use Types Packs/Day Years [...] Description 07/15/2025 9:15 AM EDT Office Visit [facility] [address] [place] [phone] Dinora Childs ANP [address] [place] [address] documented as of this encounter Visit Diagnoses Diagnosis Morbid obesity with BMI of 50.0-59.9, adult (CMS/HCC) documented in this encounter Additional Health Concerns Assessment Noted Time PHQ-9 Depression Total Score: 0 02/04/20 24 11:04 AM EDT documented as of this encounter Care Teams Founder Relationship Specialty Start Date End Date Dinora Childs ANP [address] [place] [address] PCP - General Family Medicine 10/04/21 documented as of this encounter
--- OUTSIDE RECORDS SUMMARY | 2025-05-14 13:47 | XMS_ITS | Encounter Summary ---
Author Organization [employer] Address [address] [facility] 7t [place] [address] Care Team Providers Care Sales And Catering Coordinator Name Role Phone Dinora Childs Primary Care Provider [phone] Reason for Visit * Reason Onset Date Comments call back 10/22/2022 Encounter Details Date Type Department Care Team (Late Contact Info) Description 10/22/2022 Telephone [facility] [address] [place] [address] Dinora Childs ANP [address] [place] [address] call back Social History Tobacco Use Types [...] Encounters Date Type Department Care Team (Late Contact Info) Description 07/15/2025 9:15 AM EDT Office Visit [facility] [address] [place] [address] Dinora Childs ANP [address] [place] [address] documented as of this encounter Visit Diagnoses Not on filedocumented in this encounter Care Teams Sales And Catering Coordinator Relationship Specialty Start Date End Date Dinora Childs ANP [address] [place] [address] PCP - General Family Medicine 10/04/21 documented as of this encounter
--- OUTSIDE RECORDS SUMMARY | 2025-05-14 13:47 | XMS_ITS | Encounter Summary ---
Author Organization [employer] Address [address] 7[address] [place] [address] Care Team Providers Care Stenotype Machine Operator Name Role Phone Dinora Childs Primary Care Provider [phone] Reason for Visit * Reason Comments Med Refill Encounter Details Date Type Department Care Team (Late st Contact Info) Description 07/13/2023 Refill [facility] [address] [place] [address] Dinora Childs ANP [address] [place] [address] Social History Tobacco Use Types Packs/Day Years [...] Description 07/15/2025 9:15 AM EDT Office Visit [facility] [address] [place] [address] Dinora Childs ANP [address] [place] [address] documented as of this encounter Visit Diagnoses Not on filedocumented in this encounter Additional Health Concerns Assessment Noted Time PHQ-9 Depression Total Score: 9 02/19/20 23 1:40 PM EDT documented as of this encounter Care Teams Stenotype Machine Operator Relationship Specialty Start Date End Date Dinora Childs ANP [address] [place] [address] PCP - General Family Medicine 10/04/21 documented as of this encounter
--- OUTSIDE RECORDS SUMMARY | 2025-05-14 13:47 | XMS_ITS | Encounter Summary ---
Author Organization [employer] Address [address] [facility] 7t [place] [address] Care Team Providers Care Digital Content Coordinator Name Role Phone Dinora Childs Primary Care Provider [phone] Encounter Details Date Type Department Care Team (Late Contact Info) Description 11/12/2022 Orders Only [facility] [address] [place], [place] [phone] Dotty Herron LPN Social History Tobacco Use [...] Description 07/15/2025 9:15 AM EDT Office Visit [facility] [address] [place] [address] Dinora Childs ANP [address] [place] [address] documented as of this encounter Visit Diagnoses Not on filedocumented in this encounter Care Teams Digital Content Coordinator Relationship Specialty Start Date End Date Dinora Childs ANP [address] [place] [address] PCP - General Family Medicine 10/04/21 documented as of this encounter
--- OUTSIDE RECORDS SUMMARY | 2025-05-14 13:47 | XMS_ITS | Encounter Summary ---
Author Organization [employer] Address [address] 7t [place] [address] Care Team Providers Care Leather Currier Name Role Phone Dinora Childs Primary Care Provider [phone] Reason for Visit * Reason Comments Med Refill Encounter Details Date Type Department Care Team (Late st Contact Info) Description 09/11/[address] [facility] [address] [place], [place] [phone] Dinora Childs ANP [address] [place], [place] [phone] Wheezing Social History Tobacco Use Types Packs/Day [...] 07/15/2025 9:15 AM EDT Office Visit [facility] [address] [place] [address] Dinora Childs ANP [address] [place] [address] documented as of this encounter Visit Diagnoses Diagnosis Wheezing documented in this encounter Additional Health Concerns Assessment Noted Time PHQ-9 Depression Total Score: 0 02/04/20 24 11:04 AM EDT documented as of this encounter Care Teams Leather Currier Relationship Specialty Start Date End Date Dinora Childs ANP [address] [place] [address] PCP - General Family Medicine 10/04/21 documented as of this encounter
--- OUTSIDE RECORDS SUMMARY | 2025-05-14 13:47 | XMS_ITS | Encounter Summary ---
Author Organization [employer] Address [address] [facility] 7t [place] [address] Care Team Providers Care Upsetter Helper Name Role Phone Dinora Childs Primary Care Provider [phone] Reason for Visit * Reason Onset Date Comments Appointment Request 05/11/2025 Encounter Details Date Type Department Care Team ([facility] st Contact Info) Description 05/11/2025 Telephone [facility] [address] [place] [address] Dinora Childs ANP 230 [place] [address] Appointment Request Social History Tobacco Use Types Packs/Day Years [...] with others, in a hotel, in a skilled nursing, living outside on the street, on a [...] encounter Miscellaneous Notes * Telephone Encounter - Tacho Lino - 05/11/2025 1:34 PM EDT Tc from pt requesting to schedule a f/u apt , he was seen [place] [facility] [place] an infection on right thumb and got some cut off Contact pt at [phone] documented in this encounter Plan of Treatment Upcoming Encounters Date Type Department Care Team (Late st Contact Info) Description 07/15/2025 9:15 AM EDT Office Visit [facility] [address] [place] [address] Dinora Childs ANP [address] [place] [address] documented as of this encounter Visit Diagnoses Not on filedocumented in this encounter Additional Health Concerns Assessment Noted Time PHQ-9 Depression Total Score: 0 02/04/20 11:04 AM EDT documented as of this encounter Care Teams Upsetter Helper Relationship Specialty Start Date End Date Dinora Childs ANP [address] [place] [address] PCP - General Family Medicine 10/04/21 documented as of this encounter
--- OUTSIDE RECORDS SUMMARY | 2025-05-14 13:47 | XMS_ITS | Encounter Summary ---
Author Organization [employer] Address [address] [facility] [address] 7[address] [place] [address] Care Team Providers Care Quality Assurance Representative Name Role Phone Dinora Childs Primary Care Provider [phone] Reason for Visit * Reason Comments Med Refill Encounter Details Date Type Department Care Team (Late st Contact Info) Description 06/05/2024 Refill [facility] [address] [place] [address] Dinora Childs ANP [address] [place] [address] Social History Tobacco Use Types Packs/Day Years [...] Description 07/15/2025 9:15 AM EDT Office Visit [facility] [address] [place] [address] Dinora Childs ANP [address] [place] [address] documented as of this encounter Visit Diagnoses Not on filedocumented in this encounter Additional Health Concerns Assessment Noted Time PHQ-9 Depression Total Score: 0 02/04/20 24 11:04 AM EDT documented as of this encounter Care Teams Quality Assurance Representative Relationship Specialty Start Date End Date Dinora Childs ANP [address] [place] [phone] PCP - General Family Medicine 10/04/21 documented as of this encounter
--- OUTSIDE RECORDS SUMMARY | 2025-05-14 13:47 | XMS_ITS | Encounter Summary ---
Author Organization [employer] Address [address] 7t [place] [address] Care Team Providers Care Certified Prosthetist Vice President Name Role Phone Dinora Childs Primary Care Provider [phone] Reason for Visit * Reason Comments Med Refill Encounter Details Date Type Department Care Team (Late st Contact Info) Description 05/13/2025 Refill [facility] [address] [place], [place] [phone] Dinora Childs ANP [address] [place], [place] [phone] Generalized abdominal pain Social History Tobacco Use [...] with others, in a hotel, in a half-way, living outside on the street, on a [...] Description 07/15/2025 9:15 AM EDT Office Visit [facility] [address] [place] [address] Dinora Childs ANP [address] [place] [address] documented as of this encounter Visit Diagnoses Diagnosis Generalized abdominal pain Abdominal pain, generalized documented in this encounter Additional Health Concerns Assessment Noted Time PHQ-9 Depression Total Score: 0 02/04/20 24 11:04 AM EDT documented as of this encounter Care Teams Certified Prosthetist Vice President Relationship Specialty Start Date End Date Dinora Childs ANP [address] [place] [address] PCP - General Family Medicine 10/04/21 documented as of this encounter
--- OUTSIDE RECORDS SUMMARY | 2025-05-14 13:48 | XMS_ITS | Encounter Summary ---
Author Organization [employer] Address [address] [facility] 7t [place] [address] Care Team Providers Care Inspector Packer Name Role Phone Dinora Childs Primary Care Provider [phone] Reason for Visit * Reason Comments Med Refill Encounter Details Date Type Department Care Team (Late st Contact Info) Description 05/23/2023 Refill [facility] MEDICINE [address] [place] [address] [phone] Dinora Childs ANP [address] [place] [address] [phone] Prediabetes; BMI 50.0-59.9, adult (CMS/HCC); Class 3 [...] Description 07/15/2025 9:15 AM EDT Office Visit [facility] MEDICINE [address] [place] [address] [phone] Dinora Childs ANP [address] [place] [address] documented as of this encounter Visit Diagnoses Diagnosis Prediabetes Other abnormal glucose BMI 50.0-59.9, adult (CMS/[facility]) Class 3 severe obesity with serious comorbidity and body mass index (BMI) of 50.0 to 59.9 in adult, unspecified obesity type documented in this encounter Additional Health Concerns Assessment Noted Time PHQ-9 Depression Total Score: 9 02/19/20 23 1:40 PM EDT documented as of this encounter Care Teams Inspector Packer Relationship Specialty Start Date End Date Dinora Childs ANP [address] [place] [address] PCP - General Family Medicine 10/04/21 documented as of this encounter
--- OUTSIDE RECORDS SUMMARY | 2025-05-14 13:48 | XMS_ITS | Patient Health Record ---
Author Organization [facility] Address [address] [place] [address] Care Team Providers Care Assistant Hvac Mechanic Name Role Phone Ian Aragon [phone] Reason For Referral No Information Plan Of Treatment No Information
--- OUTSIDE RECORDS SUMMARY | 2025-05-14 13:48 | XMS_ITS | Encounter Summary ---
Author Organization [employer] Address [address] [facility] 7t [place] [address] Care Team Providers Care Commercial Sales Representative Name Role Phone Dinora Childs Primary Care Provider [phone] Encounter Details Date Type Department Care Team (Late st Contact Info) Description 01/11/2023 Orders Only [facility] MEDICINE [address] [place] [address] [phone] Vida Burgos MD [address] [place], [place] [phone] Social History Tobacco Use Types Packs/Day Years [...] Description 07/15/2025 9:15 AM EDT Office Visit [facility] [address] [place] [phone] Dinora Childs ANP [address] [place], [place] [phone] documented as of this encounter Visit Diagnoses Not on filedocumented in this encounter Care Teams Commercial Sales Representative Relationship Specialty Start Date End Date Dinora Childs ANP [address] [place] [address] PCP - General Family Medicine 10/04/21 documented as of this encounter
--- OUTSIDE RECORDS SUMMARY | 2025-05-14 13:48 | XMS_ITS | Encounter Summary ---
Author Organization [employer] Address [address] [facility] [address] [facility] [address] 7[address] [place] [address] Care Team Providers Care C D Reactor Operator Name Role Phone Dinora Childs [place] Primary Care Provider [phone] Reason for Visit * Reason Onset Date Comments Med Refill positive sdoh 12/15/2024 Encounter Details Date Type Department Care Team (Late st Contact Info) Description 12/15/2024 Refill [facility] [address] [place], [place] [phone] Dotty Troy DO [address] [place], [place] [phone] Social History Tobacco Use Types Packs/Day Years [...] Description 07/15/2025 9:15 AM EDT Office Visit [facility] MEDICINE [address] [place] [address] Dinora Childs ANP [address] [place] [address] documented as of this encounter Visit Diagnoses Not on filedocumented in this encounter Additional Health Concerns Assessment Noted Time PHQ-9 Depression Total Score: 0 02/04/20 24 11:04 AM EDT documented as of this encounter Care Teams C D Reactor Operator Relationship Specialty Start Date End Date Dinora Childs ANP [address] [place] [address] PCP - General Family Medicine 10/04/21 documented as of this encounter
--- OUTSIDE RECORDS SUMMARY | 2025-05-14 13:48 | XMS_ITS | Encounter Summary ---
Author Organization [employer] Address [address] [facility] 7t [place] [address] Care Team Providers Care Emergency Detail Driver Name Role Phone Dinora Childs Primary Care Provider [phone] Encounter Details Date Type Department Care Team (Late st Contact Info) Description 12/27/2022 Orders Only [facility] CHC MED & PEDS [address] [place] [address] Dotty Herron LPN Social History Tobacco Use [...] Description 07/15/2025 9:15 AM EDT Office Visit [facility] MEDICINE [address] [place] [address] Dinora Childs ANP 230 [place] [address] documented as of this encounter Visit Diagnoses Not on filedocumented in this encounter Care Teams Emergency Detail Driver Relationship Specialty Start Date End Date Dinora Childs ANP 230 [place] [address] PCP - General Family Medicine 10/04/21 documented as of this encounter
[2025-05-14 13:49] LABS: Hematocrit 41.9 % (42.0-52.0); Hemoglobin 14.2 g/dl (14.0-18.0); Imm Gran Abs Auto 0.02 X10*3/uL (0.00-0.03); Imm Gran Pct Auto 0.3 % (0.0-0.4); Lymphocytes Absolute Auto 1.8 X10*3/uL (1.2-4.9); Mean Corpuscular HGB Conc 33.9 g/dl (31.0-36.0); Mean Corpuscular Hemoglobin 29.9 pg (27.0-33.0); Mean Corpuscular Volume 88.2 fL (80.0-98.0); NRBC Abs Auto 0.000 X10*3/uL (0.0-0.012); NRBC Pct Auto 0.0 /100WBC (0.0-0.2); Platelet Count 302 X10*3/uL (160-400); Red Blood Count 4.75 X10*6/uL (4.60-5.80); White Blood Count 5.9 X10*3/uL (4.8-10.8)
--- NOTE | 2025-05-14 13:51 | PC.NURSE ---
Addendum entered by Lorrie Butt RN 05/14/25 13:53: Patient is a 60-year-old male past medical history significant for peripheral artery disease, chronic constipation, obesity presents for evaluation of nausea, shortness of breath, dizziness and sweating. Denies any chest pain, but complains of abdominal pain. Significantly dyspneic on exertion. Patient alert and oriented. Placed on awake overnight monitor and NSR noted. Lungs essentially clear bilat, but is visibly sob with use of his accessory muscles. Patient mobidly obese. Abdomen large, soft, non-tender with positive bowel sounds. c/o generalized abdominal pain. Positive pedal pulses with no edema noted. Original Note: Medical History High cholesterol Sleep apnea Hyperlipemia High blood pressure Asthma
[2025-05-14 14:10] LABS: B Type Natriuretic Peptide 31 pg/mL (<100)
[2025-05-14 14:11] LABS: Troponin-I High Sensitivity 5.2 ng/L (<3.5-35.0)
[2025-05-14 14:13] LABS: Alanine Aminotransferase 34 U/L (0-40); Albumin Level 4.4 g/dL (3.5-5.0); Alkaline Phosphatase 82 U/L (39-117); Anion Gap 11 (12-20); Aspartate Amino Transferase 33 U/L (5-37); Blood Urea Nitrogen 18 mg/dL (9-16); Calcium 9.2 mg/dL (8.4-10.2); Carbon Dioxide 26 mmol/L (22-29); Chloride 108 mmol/L (96-108); Creatinine Clr Calc Pharmacy 137.3; Estimated Glomerular Filt Rate > 60; Lipase 30 U/L (8-78); Potassium 4.3 mmol/L (3.3-5.1); Sodium 141 mmol/L (135-145); Total Protein 7.5 g/dL (6.5-8.0)
[2025-05-14] MEDS: Magnesium Hydrox/Alum Hydrox 30 ML ORAL.SUSP 15 ML PO (14:41)
[2025-05-14] MEDS: Lidocaine HCl Viscous 2 % 15 ML SOLUTION MUCOUS MEM (14:41)
[2025-05-14 15:16] LABS: D Dimer High Sensitivity 240 NG/ML
[2025-05-14 16:26] LABS: Troponin-I High Sensitivity 3.4 ng/L (<3.5-35.0)
[2025-05-14 16:33] LABS: Appearance Urine Clear; Glucose Urine UA Negative (Negative); PH 6.0 (5.0-9.0); Specific Gravity - Urine 1.010 (1.005-1.025)
[2025-05-14 16:46] LABS: COVID-19 Test Negative (Negative); IDNOW Serial# 58CA691E
[2025-05-14 16:48] LABS: IDNOW Serial# 55D5AD1C; Influenza B2 Negative (Negative)
== END 2025-05-14 18:32 | disposition home or self-care (01) ==
PROVIDERS: Physician Assistant; Emergency Provider Emergency Medicine; PCP Nurse Practitioner Primary Care
DX: R06.02 Shortness of breath (principal); R42 Dizziness and giddiness; R10.13 Epigastric pain; J45.909 Unspecified asthma, uncomplicated; I73.9 Peripheral vascular disease, unspecified; E78.5 Hyperlipidemia, unspecified; I10 Essential (primary) hypertension
CPT/HCPCS: 36415; 71046; 80053; 81001; 83690; 83880; 84443; 84484; 85025; 85379; 87502; 87635; 93005; 96374; 99284; 99285; J2765

== ENCOUNTER → 2025-05-14 13:21 | Outpatient (BNV) | payer OTHER, SELFPAY | PROVIDERS: Emergency Provider Emergency Medicine; PCP Nurse Practitioner Primary Care; Visit Provider Internal Medicine | DX: R07.9 Chest pain, unspecified (principal) | CPT/HCPCS: 93010 ==

== ENCOUNTER → 2025-05-14 13:22 | Outpatient (BNV) | payer OTHER, SELFPAY | PROVIDERS: Emergency Provider Emergency Medicine; PCP Nurse Practitioner Primary Care; Visit Provider Radiology Diagnostic Radiology | DX: R91.8 Other nonspecific abnormal finding of lung field (principal) | CPT/HCPCS: 71046 ==

== ENCOUNTER 2025-06-21 11:00 | Outpatient (RCR) | payer OTHER, SELFPAY | END 2025-07-13 16:17 | disposition home or self-care (01) | LOC: HO.PT 11:00 | PROVIDERS: PCP Nurse Practitioner Primary Care; Visit Provider Nurse Practitioner Primary Care | DX: M54.42 Lumbago with sciatica, left side (principal) | CPT/HCPCS: 97110; 97162; 97530 ==

== ENCOUNTER 2025-08-21 20:54 | Emergency (ER) | payer OTHER, SELFPAY ==
--- NOTE | ~2025-08-21 | XR_ITS ---
CLINICAL HISTORY: productive cough 2 view chest x-ray. Comparison: CR/SR - XR CHEST 2 VIEWS - 05/14/25 13:31 EDT CR/SR - XR CHEST 2 VIEWS - 12/18/24 15:02 EDT CR/SR - XR CHEST 2 VIEWS - 10/08/24 09:50 EST Findings: There is unchanged pleural-parenchymal scarring in the right lung laterally and in the right upper lobe. Lungs appear otherwise clear. Cardiomediastinal silhouette is within normal limits. IMPRESSION: No acute cardiopulmonary abnormality. This document has been electronically signed by: Rogelio Nnues MD on 08/21/2025 23:21:17
[2025-08-21 20:59] VITALS: BP 138/88; PULSE 88; RESP 18; TEMP 36.6; O2SAT 98; BMI 47.3
[2025-08-21 21:51] LABS: COVID-19 Test Negative (Negative); IDNOW Serial# 55D5AD1C; IDNOW Serial# 6674DD1D; Strep A Nucleic Acid Negative (Negative)
[2025-08-21 21:52] LABS: IDNOW Serial# 58CA691E; Influenza B2 Negative (Negative)
[2025-08-21 23:56] VITALS: BP 111/64; PULSE 75; RESP 18; TEMP 36.4; O2SAT 97
--- OUTSIDE RECORDS SUMMARY | 2025-08-21 23:57 | XMS_ITS | Encounter Summary ---
Author Organization [employer] Address [address] [facility] [address] 7t [place] [address] Care Team Providers Care Appeals Specialist Name Role Phone Dinora Childs Primary Care Provider [phone] Reason for Visit * Reason Onset Date Comments Appointment Request 05/11/2025 Encounter Details Date Type Department Care Team ([facility] st Contact Info) Description 05/11/2025 Telephone [facility] MEDICINE [address] [place] [address] Dinora Childs ANP 230 [place] [address] Appointment Request Social History Tobacco Use Types [...] housing situation today? I have andrew patterson 07/07/[address] you li ve. Do you have problems with any of the following? None of the above 07/07/2025 Food Insecurity Answer Date Recorded Within the past 12 months, y ou worried that your food would run out before you got money to buy more: Never True 07/07/2025 Within the past 12 months,th e food you bought just didn't last and you didn't have enough money to get more: Never True Transportation Answer Date Recorded In the past 12 months, has l ack of transportation kept you from medical appts, meetings, work or from getting things needed for daily living? No 07/07/2025 Utilities Answer Date Recorded In the past 12 months, has t he electric, gas, oil or water company threatened to shut off services in your home? No 07/07/2025 Depression Answer Date Recorded Patient Health Questionnaire-2 [...] f/u apt , he was seen in [facility] [place] an infection on right thumb and got some cut off Contact pt at [phone] documented in this encounter Plan of Treatment Upcoming Encounters Date Type Department Care Team (Late st Contact Info) Description 10/13/2025 3:45 PM EST Office Visit [facility]INE [address] [place] [address] Dinora Childs ANP [address] [place] [address] documented as of this encounter Visit Diagnoses Not on filedocumented in this encounter Additional Health Concerns Assessment Noted Time PHQ-9 Depression Total Score: 0 02/04/20 24 11:04 AM EDT documented as of this encounter Care Teams Appeals Specialist Relationship Specialty Start Date End Date Dinora Childs ANP [address] [place] [id number] PCP - General Family Medicine 10/04/21 documented as of this encounter
--- OUTSIDE RECORDS SUMMARY | 2025-08-21 23:57 | XMS_ITS | Encounter Summary ---
Author Organization [employer] Address [address] [facility] 7t [place] [address] Care Team Providers Care Tailman Name Role Phone Dinora Childs Primary Care Provider [phone] Encounter Details Date Type Department Care Team (Late Contact Info) Description 11/12/2022 Orders Only [facility] CHC MED & PEDS [address] [place], [place] [phone] Dotty Herron LPN Social History Tobacco Use [...] Description 10/13/2025 3:45 PM EST Office Visit [facility] MEDICINE 230 [place] [address] Dinora Childs ANP 230 [place] [address] documented as of this encounter Visit Diagnoses Not on filedocumented in this encounter Care Teams Tailman Relationship Specialty Start Date End Date Dinora Childs ANP 230 [place] [address] PCP - General Family Medicine 10/04/21 documented as of this encounter
--- OUTSIDE RECORDS SUMMARY | 2025-08-21 23:57 | XMS_ITS | Encounter Summary ---
Author Organization [employer] Address [address] [facility] [address] 7t [place] [address] Care Team Providers Care Interventional Tech Name Role Phone Dinora Childs Primary Care Provider [phone] Reason for Visit * Reason Comments Med Refill Encounter Details Date Type Department Care Team (Late st Contact Info) Description 07/13/2023 Refill [facility] MEDICINE [address] [place] [address] Dinora Childs ANP 230 [place] [address] Social History Tobacco Use Types Packs/Day Years [...] Description 10/13/2025 3:45 PM EST Office Visit [facility] MEDICINE [address] [place] [address] Dinora Childs ANP 230 [place] [address] documented as of this encounter Visit Diagnoses Not on filedocumented in this encounter Additional Health Concerns Assessment Noted Time PHQ-9 Depression Total Score: 9 02/19/20 23 1:40 PM EDT documented as of this encounter Care Teams Interventional Tech Relationship Specialty Start Date End Date Dinora Childs ANP [address] [place] [address] PCP - General Family Medicine 10/04/21 documented as of this encounter
--- OUTSIDE RECORDS SUMMARY | 2025-08-21 23:57 | XMS_ITS | Encounter Summary ---
Author Organization [employer] Address [address] [facility] 7t [place] [address] Care Team Providers Care Information Technology Director Name Role Phone Dinora Childs Primary Care Provider [phone] Reason for Visit * Reason Onset Date Comments call back 10/22/2022 Encounter Details Date Type Department Care Team (Late Contact Info) Description 10/22/2022 Telephone [facility] 230 [place] [address] Dinora Childs ANP 230 [place] [address] call back Social History Tobacco Use Types [...] Department Care Team (Late Contact Info) Description 10/13/2025 3:45 PM EST Office Visit [facility] [address] [place] [address] Dinora Childs ANP 230 [place] [address] documented as of this encounter Visit Diagnoses Not on filedocumented in this encounter Care Teams Information Technology Director Relationship Specialty Start Date End Date Dinora Childs ANP [address] [place] [address] PCP - General Family Medicine 10/04/21 documented as of this encounter
--- OUTSIDE RECORDS SUMMARY | 2025-08-21 23:57 | XMS_ITS | Encounter Summary ---
Author Organization [email or web address] [facility] Address [address] [facility] 7t [place] [address] Care Team Providers Care Coremaker Machine Name Role Phone Dinora Childs Primary Care Provider [phone] Encounter Details Date Type Department Care Team (Late st Contact Info) Description 09/26/2022 Orders Only [facility] MEDICINE [address] [place] [address] Zuleyma Garza LPN Social History Tobacco Use [...] Description 10/13/2025 3:45 PM EST Office Visit [facility]INE [address] [place] [address] Dinora Childs ANP 230 [place] [address] documented as of this encounter Visit Diagnoses Not on filedocumented in this encounter Care Teams Coremaker Machine Relationship Specialty Start Date End Date Dinora Childs ANP [address] [place] [address] PCP - General Family Medicine 10/04/21 documented as of this encounter
--- OUTSIDE RECORDS SUMMARY | 2025-08-21 23:57 | XMS_ITS | Encounter Summary ---
Author Organization [employer] Address [address] [facility] [address] 7[address] [place] [address] Care Team Providers Care Muck Miner Name Role Phone Dinora Childs [place] Primary Care Provider [phone] Reason for Visit * Reason Comments Med Refill Encounter Details Date Type Department Care Team (Late st Contact Info) Description 02/22/2025 Refill [facility] CHC MED & PEDS [address] [place], [place] [phone] Vida Burgos MD 230 [place] [address] Erectile dysfunction, unspecified erectile dysfunction type Social [...] with others, in a hotel, in a group home, living outside on the street, on [...] Description 10/13/2025 3:45 PM EST Office Visit [facility] MEDICINE [address] [place] [address] Dinora Childs ANP [address] [place] [address] documented as of this encounter Visit Diagnoses Diagnosis Erectile dysfunction, unspecified erectile dysfunction type documented in this encounter Additional Health Concerns Assessment Noted Time PHQ-9 Depression Total Score: 0 02/04/20 24 11:04 AM EDT documented as of this encounter Care Teams Muck Miner Relationship Specialty Start Date End Date Dinora Childs ANP [address] [place] [address] PCP - General Family Medicine 10/04/21 documented as of this encounter
--- OUTSIDE RECORDS SUMMARY | 2025-08-21 23:57 | XMS_ITS | Encounter Summary ---
Author Organization [employer] Address [address] [facility] [address] [place] [address] Care Team Providers Care Supervisor Ticket Sales Name Role Phone Dinora Childs Primary Care Provider [phone] Reason for Visit * Reason Comments Med Refill Encounter Details Date Type Department Care Team (Late st Contact Info) Description 09/11/2024 Refill [facility] WALK-IN CENTER 230 [place], [place] [phone] Dinora Childs ANP 230 [place], [place] [phone] Wheezing Social History Tobacco Use Types Packs/Day [...] Description 10/13/2025 3:45 PM EST Office Visit [facility] MEDICINE [address] [place] [address] Dinora Childs ANP [address] [place] [address] documented as of this encounter Visit Diagnoses Diagnosis Wheezing documented in this encounter Additional Health Concerns Assessment Noted Time PHQ-9 Depression Total Score: 0 02/04/20 24 11:04 AM EDT documented as of this encounter Care Teams Supervisor Ticket Sales Relationship Specialty Start Date End Date Dinora Childs ANP [address] [place] [phone] PCP - General Family Medicine 10/04/21 documented as of this encounter
--- OUTSIDE RECORDS SUMMARY | 2025-08-21 23:57 | XMS_ITS | Encounter Summary ---
Author Organization [employer] Address [address] [facility] [address] 7[address] [place] [address] Care Team Providers Care Manager Deli Name Role Phone Dinora Childs [place] Primary Care Provider [phone] Reason for Visit * Reason Comments Med Refill Encounter Details Date Type Department Care Team (Late st Contact Info) Description 02/27/2025 Refill [facility] WALK-IN CENTER 230 [place], [place] [phone] Dotty Troy DO 230 [place], [place] [phone] Pain Social History Tobacco Use Types Packs/Day [...] Description 10/13/2025 3:45 PM EST Office Visit [facility] MEDICINE [address] [place] [address] Dinora Childs ANP 230 [place] [address] documented as of this encounter Visit Diagnoses Diagnosis Pain Generalized pain documented in this encounter Additional Health Concerns Assessment Noted Time PHQ-9 Depression Total Score: 0 02/04/20 24 11:04 AM EDT documented as of this encounter Care Teams Manager Deli Relationship Specialty Start Date End Date Dinora Childs ANP [address] [place] [id number] PCP - General Family Medicine 10/04/21 documented as of this encounter
--- OUTSIDE RECORDS SUMMARY | 2025-08-21 23:57 | XMS_ITS | Encounter Summary ---
Author Organization [facility] Address [address] [facility] 7t [place] [address] Care Team Providers Care Runner Out Name Role Phone Dinora Childs Primary Care Provider [phone] Encounter Details Date Type Department Care Team (Late st Contact Info) Description 09/14/2022 Orders Only [facility] MEDICINE [address] [place] [address] Johanny Garza RN Social History Tobacco Use [...] Description 10/13/2025 3:45 PM EST Office Visit [facility] MEDICINE [address] [place] [address] Dinora Childs ANP 230 [place] [address] documented as of this encounter Visit Diagnoses Not on filedocumented in this encounter Care Teams Runner Out Relationship Specialty Start Date End Date Dinora Childs ANP [address] [place] [address] PCP - General Family Medicine 10/04/21 documented as of this encounter
--- OUTSIDE RECORDS SUMMARY | 2025-08-21 23:57 | XMS_ITS | Clinical Summary ---
Author Organization [employer] Address [address] [place] [address] Care Team Providers Care Epic Interface Analyst Name Role Phone Luh Hogan [place] Primary Care Provider [phone] Allergies No known active allergies Medications * This document contains information received from the source organization and may not represent a complete record from that organization. busPIRone (Buspar) 5 MG tablet TAKE 1 TABLET BY MOUTH TWICE DAILY FOR ANXIETY 10/08/19 23 Active melatonin 5 MG tablet TAKE 2 TABLETS BY MOUTH AT BEDTIME NEEDED FOR SLEEP 12/19/19 23 Active Nebulizer misc 1 each Every 4-6 hours as needed (SOB, wheezing). 1 each 12/18/19 24 Active Spacer/Aero-Holdi ng Chambers (OptiChamber Criss) misc 1 each every 4 (four) hours if needed (asthma). 1 each 02/12/20 24 Active senna (Senokot) 8.6 MG tablet Take 1 tablet (8.6 mg) by mouth at bedtime. 120 tablet 05/01/20 24 Active traZODone (Desyrel) 50 MG tablet TAKE 1/2 TO 1 TABLET BY MOUTH AT BEDTIME NEEDED for SLEEP 05/04/20 24 Active busPIRone (Buspar) 10 MG tablet TAKE 1 TABLET BY MOUTH TWICE DAILY FOR ANXIETY Active Ventolin HFA 108 (90 Base) MCG/ACT inhalerIndication s:Wheezing INHALE 2 PUFFS BY MOUTH EVERY 4 HOURS NEEDED FOR WHEEZING OR SHORTNESS OF BREATH 18 g 2 07/17/20 24 Active atorvastatin (Lipitor) 20 MG tabletIndications :Hyperlipidemia, unspecified hyperlipidemia type TAKE 1 TABLET BY MOUTH EVERY DAY DIRECTED 30 tablet 11 5 11:44 AM EST 12/09/19 25 Active Blood Pressure kitIndications:Es sential hypertension Use to check blood pressure once daily 1 kit 12/23/19 25 Active hydrocortisone (Proctozone-HC) 2.5 % rectal creamIndications: Hemorrhoids, unspecified hemorrhoid type Insert into the rectum 2 times daily. For up to 7d 30 g 12/23/19 25 Active fluticasone (Flonase) 50 MCG/ACT nasal spray Administer 1 spray into each nostril Once per day. 16 g 2 5 3:21 PM EST 01/12/20 25 2024 Active sertraline (Zoloft) 100 MG tabletIndications :Anxiety TAKE 2 TABLETS BY MOUTH EVERY DAY 60 tablet 02/10/20 25 Active budesonide-formot lloyd (Symbicort) 160-4.5 MCG/ACT inhalerIndication s:Moderate persistent asthma without complication Inhale 2 puffs in the morning and at bedtime. Rinse mouth with water after use to reduce aftertaste and incidence of candidiasis. Do not swallow. 1 each 11 5 11:44 AM EST 02/10/20 25 2025 Active pyridoxine (Vitamin B-6) 100 MG tablet Take 1 tablet by mouth Once per day. 12/09/19 25 Active traZODone (Desyrel) 100 MG tablet TAKE 1/2 TO 1 TABLET BY MOUTH AT BEDTIME NEEDED FOR SLEEP 01/08/20 25 Active meloxicam (Mobic) 15 MG tablet Take 1 tablet (15 mg) by mouth Once per day. 30 tablet 04/12/20 25 2025 Active sodium chloride (Donley Nasal [place]) 0.65 % nasal sprayIndications: Acute frontal sinusitis, recurrence not specified Administer 2 sprays into each nostril if needed for congestion. 30 mL 2 04/16/20 25 2025 Active traMADol (Ultram) 50 MG tabletIndications :Primary osteoarthritis of right knee TAKE 1 TABLET BY MOUTH EVERY NIGHT AT BEDTIME NEEDED FOR SEVERE PAIN FOR UP TO 15 DAYS 15 tablet 05/12/20 25 Active sildenafil (Viagra) 100 MG tabletIndications :Erectile dysfunction, unspecified erectile dysfunction type TAKE 1/2 TO 1 TABLET BY MOUTH EVERY DAY 30 MINUTES BEFORE SEXUAL ACTIVITY 20 tablet 1 5 8:23 AM EST 06/10/20 25 Active Diclofenac Sodium 1 % gelIndications:Pa in APPLY 2 GRAMS TOPICALLY TO AFFECTED AREA(S) 4 TIMES A DAY IN THE MORNING, AT NOON, IN THE EVENING, AND AT BEDTIME NEEDED FOR PAIN 200 g 1 06/21/20 25 Active lisinopril 20 MG tabletIndications :Essential hypertension TAKE 1 TABLET BY MOUTH EVERY DAY 90 tablet 1 06/30/20 25 Active Tirzepatide-Weigh t Management (Zepbound) 15 MG/0.5ML solution auto-injectorIndi cations:Class 3 severe obesity with serious comorbidity and body mass index (BMI) of 50.0 to 59.9 in adult, unspecified obesity type (HCC),Impaired glucose tolerance,Obstruc tive sleep apnea syndrome Inject 0.5 mL (15 mg) under the skin 1 (one) time per week. 2 mL 2 5 8:23 AM EST 07/15/20 25 Active pantoprazole (ProtoNix) 40 MG EC tabletIndications :Generalized abdominal pain TAKE 1 TABLET BY MOUTH EVERY DAY IN THE MORNING 30 tablet 1 5 11:44 AM EST 07/22/20 25 Active ipratropium-albut lloyd (Duo-Neb) 0.5-2.5 mg/3 mL nebulizer solutionIndicatio ns:Mild persistent asthma with acute exacerbation INHALE 1 AMPULE USING A NEBULIZER EVERY 6 HOURS NEEDED FOR WHEEZING OR SHORTNESS OF BREATH 90 mL 1 07/29/20 25 Active gabapentin (Neurontin) 300 MG capsule TAKE 1 CAPSULE BY MOUTH THREE TIMES DAILY 90 capsule 3 08/20/20 25 Active gabapentin (Neurontin) 300 MG capsule TAKE 1 CAPSULE BY MOUTH THREE TIMES DAILY 90 capsule 3 5 11:44 AM EST 04/13/20 25 2024 Discontinued ipratropium-albut lloyd (Duo-Neb) 0.5-2.5 mg/3 mL nebulizer solutionIndicatio ns:Mild persistent asthma with acute exacerbation INHALE 1 AMPULE USING A NEBULIZER EVERY 6 HOURS NEEDED FOR WHEEZING OR SHORTNESS OF BREATH 90 mL 1 5 11:44 AM EST 04/28/20 25 2024 Discontinued Active Problems Problem Noted Date Diagnosed Date [...] Resolved Date Morbid obesity with BMI of 5 0.0-59.9, adult ([facility]) 12/18/2023 02/19/2025 Encounters * This document contains information received from the source organization and may not represent a complete record from that organization. Date Type Department Care Team Description 08/21/2025 Orders Only GENERIC EXTERNAL DATA DEPARTMENT Provider, Generic External Data 08/20/[address] [facility] [address] [place] [phone] Luh Hogan ANP 07/28/[address] [facility] [address] [place] [phone] Luh Hogan ANP Mild persistent asthma with acute exacerbation 07/22/[address] [facility] [address] [place] [phone] Luh Hogan ANP Generalized abdominal pain 07/19/[address] [facility] [address] [place] [address] [phone] Luh Hogan ANP September07/15/2025 9:15 AM EDT Office Visit [facility] [address] [place] [phone] Luh Hogan ANP Class 3 severe obesity with serious comorbidity and body mass index (BMI) of 50.0 to 59.9 in adult, unspecified obesity type (HCC) (Primary Dx); Essential hypertension; Impaired glucose tolerance; Obstructive sleep apnea syndrome 07/15/[address] [facility] [address] [place] [address] [phone] Luh Hogan ANP Appointment Request 07/15/2025 Travel 07/13/[address] [address] Luh Hogan ANP chart prep 07/07/2025 Patient Outreach [address] [phone] Luh Hogan ANP Pre-visit Planning (SDOH Screening negative and Tobacco screening negative) 06/30/[address] [facility] [address] [place] [phone] Luh Hogan ANP Essential hypertension 06/24/[address] [facility] [address] [place] [phone] Luh Hogan ANP Obstructive sleep apnea syndrome (Primary Dx); Prediabetes; Class 3 severe obesity with serious comorbidity and body mass index (BMI) of 50.0 to 59.9 in adult, unspecified obesity type (HCC); Essential hypertension; Mixed hyperlipidemia 06/24/2025 Refill [facility] [address] [place], [place] [phone] Luh Hogan ANP Morbid obesity with BMI of 50.0-59.9, adult (CMS/HCC) (HCC) 06/21/[address] [facility] [address] [place] [address] [phone] Jocelyne Burnett MD Pain 06/09/2025 Results Follow-Up [facility] [address] [place] [address] [phone] Luh Hogan ANP XR Chest 2 Views 06/09/[address] [facility] [address] [place], [place] [phone] Luh Hogan ANP Erectile dysfunction, unspecified erectile dysfunction type from Last 3 Months Immunizations Immunization Administration Dates Next Due Hep A, Adult 02/24/2018,03/12/2016 Hep B, adult 09/17/2018,02/24/2018,03/12/2016 Influenza Injectable Quadriv alant Preservative Free IIV4 MDCK 05/18/2022,09/30/2020,05/21/2019 Influenza injectable quadriv alent IIV4 with preservative 05/31/2016,05/31/2015 Influenza injectable quadriv alent preservative free 06/28/2023,10/16/2022,06/23/2021,10/06,06/09/2018 Influenza, IIV3, injectable 07/23/2014, 1,11/24/2009 Influenza, Injectable, MDCK, preservative free 06/08/2024 Influenza, Recombinant, inje ctable, preservative free 06/21/2025 Influenza, Split (incl. korey fied surface antigen) 06/15/2013,05/29/2012 Influenza, seasonal, injecta ble, preservative free 05/06/2017 Moderna Covid-19 Vaccine 12+ 08/17/2021,11/25/19 21,10/28/2020 Pneumococcal Conjugate PCV 20 07/20/2024 Pneumococcal Polysaccharide PPSV23 02/03/2007 RSV Bivalent 06/21/2025 TD (adult), 2 Lf tetanus tox oid, preservative free, adsorbed 07/20/2024,02/03/2007 Td (adult), 5 Lf tetanus tox oid, preservative free, adsorbed 07/28/2014 Tdap 06/21/2025,05/29/2012 Zoster, Recombinant 04/07/2020,10/06/2019 Family History Medical History [...] Sign Reading Time Taken Comments Blood Pressure 150/90 07/15/2025 9:16 AM EDT Pulse 87 07/15/2025 9:16 AM EDT Temperature 36.5 C (97.7 F) 07/15/2025 9:16 AM EDT Respiratory Rate 13 07/15/2025 9:16 AM EDT Oxygen Saturation 97% 07/15/2025 9:16 AM EDT Inhaled Oxygen Concentration - - Weight 147 kg (324 lb) 07/15/2025 9:16 AM EDT Height 175.3 cm (5' 9 ) 07/15/2025 9:16 AM EDT Body Mass Index 47.85 07/15/2025 9:16 AM EDT Plan of Treatment Upcoming Encounters Date Type Department Care Team (Late st Contact Info) Description 10/13/2025 3:45 PM EST Office Visit [facility] [address] [place] [address] Luh Hogan ANP [address] [place] [address] Health Maintenance Due Date Last Done Comments CT Colonography 1967 FIT DNA/Cologuard 1967 FIT 1967 FOBT 1965 Sigmoidoscopy 1965 Hepatitis C Screening 1985 Depression Screening 02/03/2025 02/04/2024, 02/04/20 24 SDOH Screening 07/07/2026 07/07/2025 Alcohol/Substance Use Screening 07/15/2026 07/15/2025 Diabetes: Hemoglobin A1C 07/15/2026 025, 10/16/2022, 03/09/2022, Additional history exists Disability Screening 07/15/2026 07/15/2025 Tobacco Screening 07/15/2026 07/15/2025 Lipid Panel 02/23/2028 02/22/2023, 09/18, 10/31/2021, Additional history exists Colonoscopy 04/17/2028 04/17/2018 Colorectal Cancer Screening 04/17/2028 DTaP/Tdap/Td Vaccines (5 - Td or Tdap) 06/21/2035 06/21/2025, 07/20/2024, 07/28/2014, Additional history exists Hepatitis A Vaccines Aged Out 02/24/2018, 03/12/20 16 No longer eligible based on patient's age to complete this topic Hepatitis B Vaccines Completed 09/17/2018, 02/24/2018, 03/12/2016 Zoster Vaccines Completed 04/07/2020, 10/06/2019 HIV Screening Completed 10/16/2022, 10/27/2019 Pneumococcal Vaccine: 50+ Years Completed 07/20/2024, 02/03/2007 COVID-19 Vaccine Completed 06/21/2025, , 07/03/2023, Additional history exists Influenza Vaccine Completed 06/21/2025, , 06/28/2023, Additional history exists RSV Patients and Patients Aged 60 years or older Completed 06/21/2025 HIB Vaccines Aged Out No longer eligi [...] Diagnosis Comments XR CHEST 2 VIEWS Routine 08/21/2025 11:2 1 PM EST COVID-19 ID NOW (Freak'n Genius) Routine 08/21/2025 9:21 PM EST INFLUENZA A B2 ID NOW (ANDINO) Routine 08/21/2025 9:21 PM EST STREP A NUCLEIC ACID Routine 08/21/2025 9:21 PM EST POCT GLYCATED HEMOGLOBIN, TOTAL Routine 07/15/2025 9:51 AM EDT Impaired glucose tolerance LIPID PANEL, STANDARD Routine 02/22/2023 9:43 AM EDT Hyperlipidemia, unspecified hyperlipidemia type HIV 1/2 ANTIGEN/ANTIBODY, FOURTH GENERATION W/RFL Routine 10/16/2022 12:51 PM EST Numbness and tingling of both legs HM COLONOSCOPY Routine 04/17/2018 from Last 3 Months or Most Recently Relevant to Health Maintenance Results * XR Chest 2 Views (08/21/2025 11:21 PM EST) Anatomical Region Laterality Modality Chest Radiographic Yessenia ging 08/21/2025 11:2 1 PM EST Narrative 08/21/2025 11:22 PM EST [address] [address] XRay Report Signed Patient: Hiram Castro MR#: [id number] : 1965 Acct:[id number] Age/Sex: 60 / M ADM Date: 08/21/25 Loc: HO.ED Attending Dr: Ordering Physician: Bambi ED Physician Date of Service: 08/21/25 Procedure(s): XR chest 2V Accession Number(s): [id number] cc: Generic ED Physician; LUH HOGAN NP Reason for Exam: productive cough CLINICAL HISTORY: productive cough 2 view chest x-ray. Comparison: CR/SR - XR CHEST 2 VIEWS - 05/14/25 13:31 EDT CR/SR - XR CHEST 2 VIEWS - 12/18/24 15:02 EDT CR/SR - XR CHEST 2 VIEWS - 10/08/24 09:50 EST Findings: There is unchanged pleural-parenchymal scarring in the right lung laterally and in the right upper lobe. Lungs appear otherwise clear. Cardiomediastinal silhouette is within normal limits. IMPRESSION: No acute cardiopulmonary abnormality. This document has been electronically signed by: Rogelio Nunes MD on 08/21/2025 23:21:17 Dictated By: Rogelio Nunes MD Signed By: <Electronically signed by Rogelio Nunes MD in OV> 08/21/252321 DD/ 20 TD/TT: 08/21/252320 Inspector Fuel Hose: Procedure Note Donotuseinterpreter, Image - 08/21/2025 [place] [address] XRay Report Signed Patient: Hiram Castro LMR#: [id number] : 1965Acct:[id number] Age/Sex: 60 / MADM Date: 08/21/25 Loc: HO.ED Attending Dr: Ordering Physician: Generic ED Physician Date of Service: 08/21/25 Procedure(s): XR chest 2V Accession Number(s): [id number] cc: Generic ED Physician; LUH HOGAN NP Reason for Exam: productive cough CLINICAL HISTORY: productive cough 2 view chest x-ray. Comparison: CR/SR - XR CHEST 2 VIEWS - 05/14/25 13:31 EDT CR/SR - XR CHEST 2 VIEWS - 12/18/24 15:02 EDT CR/SR - XR CHEST 2 VIEWS - 10/08/24 09:50 EST Findings: There is unchanged pleural-parenchymal scarring in the right lung laterally and in the right upper lobe. Lungs appear otherwise clear. Cardiomediastinal silhouette is within normal limits. IMPRESSION: No acute cardiopulmonary abnormality. This document has been electronically signed by: Rogelio Nunes MD on 08/21/2025 23:21:17 Dictated By: Rogelio Nunes MD Signed By: <Electronically signed by Rogelio Nunes MD in OV> 08/21/252321 DD/ 20 TD/TT: 08/21/252320 Inspector Fuel Hose: [facility] External Provider IMG XR PROCEDURES Edited Result - Final * Influenza A B2 ID NOW (Andino) (08/21/2025 9:21 PM EST) IDNOW SERIAL# [id number] [facility] Influenza A Negative Negative [facility] Influenza B2 Negative Negative [facility] Influenza A B2 Note See Note [facility] Comment:The Andino ID NOW In fluenza A B2 test is used for thequalitative detection of influenza A and B from patientswith signs and symptoms of respiratory infection.Negative results do not preclude influenza virus infectionand should not be used as the sole basis for diagnosis,treatment or other patient management decisions.There is a risk of false negative results due to thepresence of variants in the viral targets of the assay, lowlevels of virus in the specimen and co- infection withRespiratory Syncytial Virus. 08/21/2025 9:21 PM EST 08/21/2025 9:51 PM EST Generic External Data Provider LAB MICROBIOLOGY - GENERAL ORDERABLES Final Result [facility] [address] [place] [phone] * Strep A Nucleic Acid (08/21/2025 9:21 PM EST) IDNOW SERIAL# [id number] [facility] Strep A Nucleic Acid Negative Negative [facility] Comment:All test results mus t be correlated with clinical findings.This test has not been evaluated for monitoring treatment ofinfection.Additional follow-up testing using the culture method isrequired if the result is negative and clinical symptomspersist, or in the event of an acute rheumatic feveroutbreak. 08/21/2025 9:21 PM EST 08/21/2025 9:51 PM EST us Generic External Data Provider LAB MICROBIOLOGY - GENERAL ORDERABLES Final Result [facility] [address] [place] [phone] * COVID-19 ID NOW (Freak'n Genius) (08/21/2025 9:21 PM EST) IDNOW SERIAL# [id number] [facility] COVID-19 TEST Negative Negative [facility] COVID-19 NOTE See Note [facility] Comment: Results are for the identification of SARS-CoV2 RNA. TheSARS-CoV2 RNA is generally detectable in respiratory samplesduring the acute phase of infection. Positive results areindicative of the presence of SARS-CoV-2 RNA; clinicalcorrelation with patient history and other diagnosticinformation is necessary to determine patient infectionstatus. Positive results do not rule out bacterial infectionor co- infection with other viruses.Testing facilities within the [facility] and [facility] are required to report all positive results tothe appropriate public health authorities.Negative results should be treated as presumptive and, ifinconsistent with clinical signs and symptoms or necessaryfor patient management, should be tested with differentauthorized or cleared molecular tests. Negative results donot preclude SARS-CoV2 RNA infection and should not be usedas the sole basis for patient management decisions. Negativeresults should be considered in the context of a patient'srecent exposures, history and the presence of clinical signsand symptoms consistent with COVID-19.This test has been authorized by the FDA under an EmergencyUse Authorization (EUA) for use by authorized laboratories.Testing performed on the Telebit ID NOW utilizing NAAT. 08/21/2025 9:2 1 PM EST 08/21/2025 9:51 PM EST Generic External Data Provider LAB MOLECULAR RICARDO GNOSTICS ORDERABLES Final Result [facility] [address] [place] [phone] * POCT Hgb A1c (07/15/2025 9:51 AM EDT) Hemoglobin A1C 5.7 4.0 - 5.7 % QC Media Lot # [id number] Lot# Expiration Date ,[id number] Blood 07/15/2025 9:51 AM EDT us Luh Hogan ANP POINT OF CARE TEST ENTER/EDIT OR DERABLES Final Result * Lipid Panel, Standard (02/22/2023 9:43 AM EDT) Cholesterol, Total 127 <200 mg/dL [facility] HDL Cholesterol 46 > OR = 40 mg/dL [facility] Triglycerides 71 <150 mg/dL [facility] LDL Cholesterol 66 mg/dL (calc) [facility] Comment: Reference range: <100 Desirable range <100 mg/dL for primary prevention; <70 mg/dL for patients with CHD or diabetic patients with > or = 2 CHD risk factors. LDL-C is now calculated using the Lazaro-Tracey calculation, which is a validated novel method providing better accuracy than the Friedewald equation in the estimation of LDL-C. Lazaro CHINO et al. ALVARADO. 2013;310(19): 8621-6842 (http://education.Vend.NextEnergy/faq/BTB919) Chol/HDLC Ratio 2.8 <5.0 (calc) [facility] Non-HDL Cholesterol 81 <130 mg/dL (calc) [facility] Comment: For patients with diabetes plus 1 major ASCVD risk factor, treating to a non-HDL-C goal of <100 mg/dL (LDL-C of <70 mg/dL) is considered a therapeutic option. Blood Venous blood specimen / Unknown 02/22/2023 9:43 AM EDT 02/22/2023 9:44 AM EDT Narrative [facility] - 02/23/2023 10:15 AM EDT FASTING:YES FASTING: YES Luh Hogan [facility] LAB BLOOD ORDERABLES Final Resul t Performing Organization Address [facility] de Phone Number [address], [facility] [place] [address] [facility] [address] [place] [phone] * HIV-1/2 Antigen and Antibodies, Fourth Generation, with Reflexes (10/16/2022 12:51 PM EST) [facility] HIV Antigen/Antibody, 4th Generation NON-REAC TIVE NON-REAC TIVE [facility] Comment: HIV-1 antigen and HIV-1/HIV-2 antibodies were [...] purpose. For additional information please refer to http://education.PrizeBox™.NextEnergy/faq/YCA077 (This link is being provided for informational/ educational purposes only.) The performance of this assay has not been clinically validated in patients less than 2 years old. Blood Venous blood specimen / Unknown 10/16/2022 12:51 PM EST 10/16/2022 12:52 PM EST Narrative [facility] - 10/17/2022 9:18 AM EST FASTING:NO FASTING: NO us Luh Hogan ANP LAB BLOOD ORDERABLES Final Resul t Performing Organization Address [facility]/ZIP Co de Phone Number [address], [place] [address] [facility] [address] [place] [address], (Nl2) [place] [address] * Colonoscopy (04/17/2018) Colonoscopy Normal Normal us Historical Provider HEALTH MAINTENANCE Final Result from Last 3 Months or Most Recently Relevant to Health Maintenance Insurance [facility] < [address] [id number] Care Teams Epic Interface Analyst Relationship Specialty Start Date End Date Luh Hogan ANP [address] [place] [phone] PCP - General Family Medicine 10/04/21
--- OUTSIDE RECORDS SUMMARY | 2025-08-21 23:57 | XMS_ITS | Encounter Summary ---
Author Organization [employer] Address [address] [facility] 7t [place] [address] Care Team Providers Care Commission Agent Livestock Name Role Phone Dinora Childs Primary Care Provider [phone] Encounter Details Date Type Department Care Team (Late st Contact Info) Description 10/02/2022 Orders Only [facility] [address] [place] [address] Dotty Herron LPN Social History Tobacco Use [...] Description 10/13/2025 3:45 PM EST Office Visit [facility] [address] [place] [address] Dinora Childs ANP [address] [place] [address] documented as of this encounter Visit Diagnoses Not on filedocumented in this encounter Care Teams Commission Agent Livestock Relationship Specialty Start Date End Date Dinora Childs ANP [address] [place] [address] PCP - General Family Medicine 10/04/21 documented as of this encounter
--- OUTSIDE RECORDS SUMMARY | 2025-08-21 23:57 | XMS_ITS | Encounter Summary ---
Author Organization [employer] Address [address] [facility] [address] [place] [address] Care Team Providers Care Interviewing Clerk Name Role Phone Dinora Childs [place] Primary Care Provider [phone] Reason for Visit * Reason Comments Med Refill Encounter Details Date Type Department Care Team (Late st Contact Info) Description 04/09/2025 Refill [facility] [address] [place], [place] [phone] Dotty Troy DO [address] [place], [place] [phone] Social History Tobacco Use Types Packs/Day Years [...] Description 10/13/2025 3:45 PM EST Office Visit [facility] [address] [place] [phone] Dinora Childs ANP [address] [place] [address] documented as of this encounter Visit Diagnoses Not on filedocumented in this encounter Additional Health Concerns Assessment Noted Time PHQ-9 Depression Total Score: 0 02/04/20 24 11:04 AM EDT documented as of this encounter Care Teams Interviewing Clerk Relationship Specialty Start Date End Date Dinora Childs ANP [address] [place] [phone] PCP - General Family Medicine 10/04/21 documented as of this encounter
--- OUTSIDE RECORDS SUMMARY | 2025-08-21 23:57 | XMS_ITS | Encounter Summary ---
Author Organization [employer] Address [address] 7t [place] [address] Care Team Providers Care Angle Dozer Operator Name Role Phone Dinora Childs Primary Care Provider [phone] Reason for Visit * Reason Comments Med Refill Encounter Details Date Type Department Care Team (Late st Contact Info) Description 11/02/2024 Refill [facility] [address] [place] [address] Dinora Childs ANP [address] [place] [address] Morbid obesity with BMI of 50.0-59.9, adult (CMS/[facility]) Social History Tobacco Use Types Packs/Day Years [...] Description 10/13/2025 3:45 PM EST Office Visit [facility] [address] [place] [phone] Dinora Childs ANP [address] [place] [address] documented as of this encounter Visit Diagnoses Diagnosis Morbid obesity with BMI of 50.0-59.9, adult (CMS/HCC) (HCC) documented in this encounter Additional Health Concerns Assessment Noted Time PHQ-9 Depression Total Score: 0 02/04/20 24 11:04 AM EDT documented as of this encounter Care Teams Angle Dozer Operator Relationship Specialty Start Date End Date Dinora Childs ANP [address] [place] [phone] PCP - General Family Medicine 10/04/21 documented as of this encounter
--- OUTSIDE RECORDS SUMMARY | 2025-08-21 23:57 | XMS_ITS | Encounter Summary ---
Author Organization [employer] Address [address] 7t [place] [address] Care Team Providers Care Digital Imaging Technician Name Role Phone Dinora Chilsd Primary Care Provider [phone] Reason for Visit * Reason Comments Med Refill Encounter Details Date Type Department Care Team (Late st Contact Info) Description 06/05/2024 Refill [facility] [address] [place] [address] Dinora Childs ANP [address] [place] [address] Social History Tobacco Use Types Packs/Day Years [...] Description 10/13/2025 3:45 PM EST Office Visit [facility] [address] [place] [address] Dinora Childs ANP [address] [place] [address] documented as of this encounter Visit Diagnoses Not on filedocumented in this encounter Additional Health Concerns Assessment Noted Time PHQ-9 Depression Total Score: 0 02/04/20 24 11:04 AM EDT documented as of this encounter Care Teams Digital Imaging Technician Relationship Specialty Start Date End Date Dinora Childs ANP [address] [place] [address] PCP - General Family Medicine 10/04/21 documented as of this encounter
--- OUTSIDE RECORDS SUMMARY | 2025-08-21 23:57 | XMS_ITS | Encounter Summary ---
Author Organization [employer] [facility] Address [address] 7t [place] [address] Care Team Providers Care Field Applications Specialist Name Role Phone Dinora Childs Primary Care Provider Reason for Visit * Reason Comments Med Refill Encounter Details Date Type Department Care Team (Late st Contact Info) Description 06/19/[address] [phone] Dinora Childs ANP [address] [place], [place] [phone] Hemorrhoids, unspecified hemorrhoid type Social History Tobacco [...] Description 10/13/2025 3:45 PM EST Office Visit [facility] [address] [place] [address] [phone] Dinora Childs ANP [address] [place], [place] [phone] documented as of this encounter Visit Diagnoses Diagnosis Hemorrhoids, unspecified hemorrhoid type documented in this encounter Additional Health Concerns Assessment Noted Time PHQ-9 Depression Total Score: 9 02/19/20 23 1:40 PM EDT documented as of this encounter Care Teams Field Applications Specialist Relationship Specialty Start Date End Date Dinora Childs ANP [address] [place] [address] PCP - General Family Medicine 10/04/21 documented as of this encounter
--- OUTSIDE RECORDS SUMMARY | 2025-08-21 23:58 | XMS_ITS | Patient Health Record ---
Author Organization [facility] Address [address] [place] [address] Care Team Providers Care Hopper Feeder Name Role Phone Ian Aragon [phone] Reason For Referral No Information Plan Of Treatment No Information
--- OUTSIDE RECORDS SUMMARY | 2025-08-21 23:58 | XMS_ITS | Data Portability ---
Author Organization [facility] Address [address] [place] [address] Care Team Providers Care Auto Body Mechanic Apprentice Name Role Phone Unavailable Referring Provider [facility] Referring Provider [phone] Assessment Encounter Date Assessment Date Assessment LastModified [...] nausea/vomiti ng, or any other concerns. VSS. Medical Assisting Program Director on site reports mild b/l flank pain. [...] Go To The Location Of Their Choice, [address] 08:07:30 Referral None recorded. Procedures None recorded. Surgeries None recorded. Imaging None recorded. Medication Orders ketorolac 15 mg/mL injection solution 2023 024 [facility], [address] [place], [place], [id number], 4 15:43:09 cyclobenzap rine 5 mg tablet 2023 024 [facility], [address] [place], [place], [id number], 4 17:25:27 diclofenac 1 % topical gel 2023 024 [facility], [address] [place], [place], [id number], 4 17:25:27 Bactrim DS 800 mg-160 mg tablet 2022 023 [facility], [address] [place] [address], [id number], 3 17:51:28 Patient TargetsNo targets recorded. Patient [...] t Available Vitals Date Recorded Oxygen saturation Heart rate Respiratory rate Systolic And Diastolic Provider Name and Address Organization Details Last Updated DateTime 10/08/2023 98 % 97 /min 18 /min 128/72 mm[Hg] Not Available [employer] [facility] [employer] 4 15:37:29 Date Recorded Body temperature Heart rate Respiratory rate Oxygen saturation Systolic And Diastolic Provider Name and Address Organization Details Last Updated DateTime 2 98.4 [degF] 78 /min 18 /min 95.99 % 144/84 mm[Hg] Toshia Morris MD [address] [place] [address],[address], [place], [address] [place] [address] [employer] 2 22:08:32 Date Recorded Oxygen saturation Body weight Heart rate Body temperature Respiratory rate Systolic And Diastolic Provider Name and Address Organization Details Last Updated DateTime 3 99 % 488563. 08 g 86 /min 96.6 [degF] 16 /min 130/86 mm[Hg] Not Available [facility] [employer] 3 17:24:50 Social History None recorded. Functional Status None recorded. Mental Status None recorded. Family History Nothing Reported. Medical History No medical history recorded. Past Encounters Encounter ID Performer Location Encounter Start Date Encounter Closed Date Diagnosis/Indication Diagnosis SNOMED-CT Code Diagnosis ICD10 Code Diagnosis IMO Codes Diagnosis Note [id number] Toshia Morris MD [facility] [address] [place] [id number] 12/11/2021 18:54:22 05/08/2022 16:02:06 Exposure to carbon monoxide 85906377 Z77.128 Patient and evaluated for intermitte nt symptoms in conjunctio n with CO detector alarm sounding periodical ly. Alarm currently not sounding, patient currently asymptomat ic and vital signs are normal on today's evaluation . Counseling provided regarding safety steps if alarm should sound again in the future. In interim patient is safe to remain at home. [id number] Josee Meadows MD [facility] [address] [place] [id number] 01/21/2023 17:24:44 01/22/2023 13:18:43 Acute urinary tract infection 910632445 N39.0 [id number] ERYN MONTES MD Main - [facility] [address] [place] [id number] 10/08/2023 15:37:26 10/08/2023 22:18:45 Neck pain 66750848 M54.2 Evaluation in the field was performed by my industrial education teacher colleague, as noted above, I provided real-time [...] his neck. He sought medical attention at [place] [facility], where no interventi on was provided. [...] Ortiz Member ID Guarantor Name 10/08/2023 1 [facility] - DOS PRIOR TO 2022 - DUAL ELIGIBLE (MEDICARE REPLACEMENT/AD VANTAGE - HMO) Hiram Castro [id number] Hiram Castro 11/06/2023 1 [facility] - DOS ON OR AFTER 2022 - DUAL ELIGIBLE - GROUP HOME OPTIONS AND ONE CARE (MEDICARE REPLACEMENT/AD VANTAGE - HMO) Hiram Castro [id number] Hiram Castro Notes Date Note Type Note Provider Name and Address Organization Details Recorded Time 12/11/2021 text/html Request notes:Evaluate patient for reported nausea, headache and weakness. Patient concerned with housing as cause of exposure to something causing symptoms. Per industrial education teacher evaluation, noted to have intermittent symptoms for months, in concert with who is also having the same symptoms, that seem correlated to the carbon monoxide detector alarming periodically. Toshia Morris MD [address] [facility], [place], [address], [employer] 12/11/2021 22:11:23 01/21/2023 text/html HPI: ALLERGIES; None [...] ................... ................... ................... ................... ................... ................... ........ Medical Assisting Program Director Note From Rosendo Waters: pt requesting f/u [...] bactrim for 3 days with no effect. [facility] contacted. [facility] prescribed bactrim for 10 days. [facility] industrial education teacher gave pt first dose at visit. Pt educated on s/s warranting a 911 call/trip to the hospital. pt advised to f/u with PCP. ................... ................... ................... ................... ................... ................... ................... ........ Disposition: Dustin Josee Meadows MD [address] [facility],[address], [place], [address], [employer] 01/21/2023 18:08:48 10/08/2023 text/html ROS as noted in the HPI HPI: HX sleep apnea and hyperlipidemia. Patient with 3 day history or left sided neck pain. No accident or injury. No chest pain no numbness. Feels a tight ball in the back of the neck that comes and goes . ................... ................... ................... ................... ................... ................... ................... ........ CRC Nurse Triage Notes (Vimal Glass): Comments: HPI was reviewed by this life insurance underwriter - No further information needed at this time. Ghada CHRISTIANSEN ................... ................... ................... ................... ................... ................... ................... ........ Medical Assisting Program Director Note From Miriam Kearns: Upon arrival it [...] in tact. Pt stated he went to [facility] for the same issue and t harinder didn t do nothing. Vitals as noted. [facility] contacted and pt was administered 15mg of toradol in left arm w/o incident. Pt was sent prescription for flexeril. Pt was told that is he became SOB or starting feeling pain in his chest, to immediately call 911. Pt stated he understood. Call was then cleared. ................... ................... ................... ................... ................... ................... ................... ........ Disposition: Dustin MONTES MD [address] [facility],[address], [place], [address], [employer] 10/08/2023 16:05:27
--- OUTSIDE RECORDS SUMMARY | 2025-08-21 23:58 | XMS_ITS | Encounter Summary ---
Author Organization [employer] Address [address] [facility] [place] [facility] [address] [place] [address] Care Team Providers Care Deputy Sheriff K9 Handler Name Role Phone Dinora Childs [place] Primary Care Provider [phone] Reason for Visit * Reason Onset Date Comments Med Refill positive sdoh 12/15/2024 Encounter Details Date Type Department Care Team (Late st Contact Info) Description 12/15/2024 Refill [facility] [address] [place], [place] [phone] Dotty Troy DO 230 [place], [place] [phone] Social History Tobacco Use Types Packs/Day Years [...] Description 10/13/2025 3:45 PM EST Office Visit [facility] [address] [place] [address] Dinora Childs ANP [address] [place] [address] documented as of this encounter Visit Diagnoses Not on filedocumented in this encounter Additional Health Concerns Assessment Noted Time PHQ-9 Depression Total Score: 0 02/04/20 24 11:04 AM EDT documented as of this encounter Care Teams Deputy Sheriff K9 Handler Relationship Specialty Start Date End Date Dinora Childs ANP [address] [place] [address] PCP - General Family Medicine 10/04/21 documented as of this encounter
--- OUTSIDE RECORDS SUMMARY | 2025-08-21 23:58 | XMS_ITS | Encounter Summary ---
Author Organization [employer] Address [address] [facility] 7t [place] [address] Care Team Providers Care Fruit And Vegetable Factory Worker Name Role Phone Dinora Childs Primary Care Provider [phone] Reason for Visit * Reason Comments Med Refill Encounter Details Date Type Department Care Team (Late st Contact Info) Description 05/23/2023 Refill [facility] [address] [place] [address] [phone] Dinora Childs ANP [address] [place] [address] [phone] Prediabetes; BMI 50.0-59.9, adult (CMS/HCC); Class 3 [...] Description 10/13/2025 3:45 PM EST Office Visit [facility] [address] [place] [address] [phone] Dinora Childs ANP [address] [place] [address] [place] [address] documented as of this encounter Visit Diagnoses Diagnosis Prediabetes Other abnormal glucose BMI 50.0-59.9, adult (CMS/HCC) (HCC) Class 3 severe obesity with serious comorbidity and body mass index (BMI) of 50.0 to 59.9 in adult, unspecified obesity type ([facility]) documented in this encounter Additional Health Concerns Assessment Noted Time PHQ-9 Depression Total Score: 9 02/19/20 23 1:40 PM EDT documented as of this encounter Care Teams Fruit And Vegetable Factory Worker Relationship Specialty Start Date End Date Dinora Childs ANP [address] [place] [address] PCP - General Family Medicine 10/04/21 documented as of this encounter
--- OUTSIDE RECORDS SUMMARY | 2025-08-21 23:58 | XMS_ITS | Encounter Summary ---
Author Organization [employer] Address [address] 7t [place] [address] Care Team Providers Care Roll Filler Name Role Phone Luh Hogan [place] Primary Care Provider [phone] Encounter Details Date Type Department Care Team (Late st Contact Info) Description 08/21/2025 Orders Only GENERIC EXTERNAL DATA DEPARTMENT Provider, Generic External Data Social History Tobacco Use Types Packs/Day Years [...] Description 10/13/2025 3:45 PM EST Office Visit [facility] 230 [place], [place] [phone] Luh Hogan ANP [address] [place], [place] [phone] documented as of this encounter Procedures Procedure Name Priority Date/Time Associated Diagnosis Comments XR CHEST 2 VIEWS Routine 08/21/2025 11:2 1 PM EST INFLUENZA A B2 ID NOW ([employer]) Routine 08/21/2025 9:21 PM EST STREP A NUCLEIC ACID Routine 08/21/2025 9:21 PM EST COVID-19 ID NOW ([employer]) Routine 08/21/2025 9:21 PM EST documented in this encounter Results * XR Chest 2 Views (08/21/2025 11:21 PM EST) Anatomical Region Laterality Modality Chest Radiographic Yessenia ging 08/21/2025 11:2 1 PM EST Narrative 08/21/2025 11:22 PM EST [address] [address] XRay Report Signed Patient: Hiram Castro MR#: [id number] : 1965 Acct:[id number] Age/Sex: 60 / M ADM Date: 08/21/25 Loc: .ED Attending Dr: Ordering Physician: Generic ED Physician Date of Service: 08/21/25 Procedure(s): XR chest 2V Accession Number(s): [id number] cc: Generic ED Physician; LUH HOGAN NP [...] in OV> 08/21/252321 DD/ 20 TD/TT: 08/21/252320 Biodiesel Processing Technician: Procedure Note Donotuseinterpreter, Image - 08/21/[address] [address] XRay Report Signed Patient: Hiram Castro LMR#: [id number] : 1965Acct:[id number] Age/Sex: 60 / MADM Date: 08/21/25 Loc: .ED Attending Dr: Ordering Physician: Bambi ED Physician Date of Service: 08/21/25 Procedure(s): XR chest 2V Accession Number(s): [id number] cc: Generic ED Physician; LUH HOGAN NP [...] in OV> 08/21/252321 DD/ 20 TD/TT: 08/21/252320 Biodiesel Processing Technician: [facility] External Provider IMG XR PROCEDURES Edited Result - Final * Influenza A B2 ID NOW ([employer]) (08/21/2025 9:21 PM EST) [employer]NOW SERIAL# [id number] [facility] Influenza A Negative Negative [facility] Influenza B2 Negative Negative [facility] Influenza A B2 Note See Note [facility] Comment:The Andino ID NOW In fluenza [...] LAB MICROBIOLOGY - GENERAL ORDERABLES Final Result Performing Organization Address City/State/[facility] Co de Phone Number [facility] [address] [place] [phone] * Strep A Nucleic Acid (08/21/2025 9:21 PM EST) [employer] SERIAL# [id number] [facility] Strep A Nucleic Acid Negative Negative [facility] Comment:All test results mus t be [...] LAB MICROBIOLOGY - GENERAL ORDERABLES Final Result Performing Organization Address City/[facility]/ZIP Co de Phone Number [facility] [address] [place] [address] [phone] * COVID-19 ID NOW (ANDINO) (08/21/2025 9:21 PM EST) [employer]NOW SERIAL# [id number] [facility] COVID-19 TEST Negative Negative [facility] COVID-19 NOTE See Note [facility] Comment: Results are for the identification of SARS-CoV2 RNA. TheSARS-CoV2 RNA is generally detectable in respiratory samplesduring the acute phase of infection. Positive results areindicative of the presence of SARS-CoV-2 RNA; clinicalcorrelation with patient history and other diagnosticinformation is necessary to determine patient infectionstatus. Positive results do not rule out bacterial infectionor co- infection with other viruses.Testing facilities within the [facility] and [facility] are required to report [...] use by authorized laboratories.Testing performed on the Andino ID NOW utilizing [facility]. 08/21/2025 9:21 PM EST 08/21/2025 9:51 PM EST us Generic External Data Provider LAB MOLECULAR RICARDO GNOSTICS ORDERABLES Final Result [facility] [address] [place] [phone] documented in this encounter Visit Diagnoses Not on filedocumented in this encounter Additional Health Concerns Assessment Noted Time PHQ-9 Depression Total Score: 0 02/04/20 24 11:04 AM EDT documented as of this encounter Care Teams Roll Filler Relationship Specialty Start Date End Date Luh Hogan ANP [address] [place] [address] PCP - General Family Medicine 10/04/21 documented as of this encounter
--- OUTSIDE RECORDS SUMMARY | 2025-08-21 23:58 | XMS_ITS | Encounter Summary ---
Author Organization [employer] Address [address] [facility] 7t [place] [address] Care Team Providers Care Paper Ruler Name Role Phone Dinora Childs Primary Care Provider [phone] Encounter Details Date Type Department Care Team (Late st Contact Info) Description 12/27/2022 Orders Only [facility] [address] [place] [address] Dotty Herron LPN Social History Tobacco Use [...] 3:45 PM EST Office Visit [facility] [address] [place] [address] Dinora Childs ANP [address] [place] [address] documented as of this encounter Visit Diagnoses Not on filedocumented in this encounter Care Teams Paper Ruler Relationship Specialty Start Date End Date Dinora Childs ANP [address] [place] [address] PCP - General Family Medicine 10/04/21 documented as of this encounter
--- OUTSIDE RECORDS SUMMARY | 2025-08-21 23:58 | XMS_ITS | Encounter Summary ---
Author Organization [employer] Address [address] [facility] 7t [place] [address] Care Team Providers Care Human Performance Professor Name Role Phone iDnora Childs Primary Care Provider Encounter Details Date Type Department Care Team (Late st Contact Info) Description 01/11/[address] [facility] [address] [place] [address] [phone] Vida Burgos MD [address] [place], [place] [phone] Social History Tobacco Use Types Packs/Day Years [...] Description 10/13/2025 3:45 PM EST Office Visit [facility] [address] [place] [phone] Dinora Childs ANP 230 [place], [place] [phone] documented as of this encounter Visit Diagnoses Not on filedocumented in this encounter Care Teams Human Performance Professor Relationship Specialty Start Date End Date Dinora Childs ANP [address] [place] [address] PCP - General Family Medicine 10/04/21 documented as of this encounter
--- OUTSIDE RECORDS SUMMARY | 2025-08-21 23:58 | XMS_ITS | Encounter Summary ---
Author Organization [employer] Address [address] [facility] [address] [place] [address] Care Team Providers Care Rat Poisoner Name Role Phone Dinora Childs Primary Care Provider [phone] Reason for Visit * Reason Comments Med Refill Encounter Details Date Type Department Care Team (Late st Contact Info) Description 08/20/2025 Refill [facility] [address] [place], [place] [phone] Dinora Childs ANP [address] [place], [place] [phone] Social History Tobacco Use Types Packs/Day Years [...] Description 10/13/2025 3:45 PM EST Office Visit [facility] [address] [place] [phone] Dinora Childs ANP [address] [place] [address] documented as of this encounter Visit Diagnoses Not on filedocumented in this encounter Additional Health Concerns Assessment Noted Time PHQ-9 Depression Total Score: 0 02/04/20 24 11:04 AM EDT documented as of this encounter Care Teams Rat Poisoner Relationship Specialty Start Date End Date Dinora Childs ANP [address] [place] [phone] PCP - General Family Medicine 10/04/21 documented as of this encounter
[2025-08-22 02:06] VITALS: BP 117/78; PULSE 76; RESP 18; O2SAT 97
--- NOTE | 2025-08-22 02:16 | ED_ITS ---
HPI - URI/Sore Throat General Chief Complaint: Upper Respiratory Symptoms Stated Complaint: bronchitis ? Time Seen by Provider: 08/22/25 02:15 Source: patient Mode of arrival: ambulatory Limitations: no limitations History of Present Illness ED Provider: Eliazar LEDESMA HPI Narrative: The patient is a 60-year-old male presenting with 3?4?days of worsening cough, sore throat, frontal headache, sinus pressure, and nasal congestion making it difficult to breathe through the nose. Cough is intermittently productive of green sputum and increases his headache. The patient denies associated fever, chills, vomiting, or diarrhea. Patient reports experiencing nausea and mild abdominal cramping after eating lunch today, however these symptoms reportedly improved after drinking coffee. The patient has been taking Tylenol with minimal relief, last dose around 19:00. Denies known sick contacts but lives in an apartment building. The patient reports a history of asthma but denies smoking history or COPD diagnosis, patient reports he has been using his inhaler regularly but not with the increased frequency. Related Data Home Medications ?Medication ?Instructions ?Recorded ?Confirmed cholecalciferol (vitamin D3) 50 50 mcg PO DAILY 07/22/23 mcg (2,000 unit) capsule (Vitamin D3) lisinopril 10 mg tablet 10 mg PO DAILY 05/22/2203/08 pravastatin 40 mg tablet 40 mg PO DAILY PRN 05/22/22 07/22/23 sertraline 100 mg tablet 150 mg PO DAILY 04/10/2303/08 sildenafil 100 mg tablet (Viagra) 50 - 100 mg PO DAILY PRN 06/04/23 07/22/23 atorvastatin 20 mg tablet 20 mg PO DAILY 07/22/2303/08 buspirone 10 mg tablet 10 mg PO BID 09/26/23 psyllium husk 3.4 gram oral powder PO 09/26/23 packet (Metamucil Fiber (aspartame)) docusate sodium 100 mg capsule 100 mg PO BID 11/21/23 fluticasone propionate 220 inhalation 11/21/23 mcg/actuation HFA aerosol inhaler loratadine 10 mg tablet 10 mg PO DAILY 11/21/23 melatonin 10 mg tablet mg PO BEDTIME 11/21/23 Previous Rx's ?Medication ?Instructions ?Recorded albuterol sulfate 90 mcg/actuation 2 inh inhalation Q4 -6H PRN 09/29/22 breath activated powder inhaler shortness of breath or wheezing #1 ea dicyclomine 20 mg tablet 20 mg PO Q8-10H PRN abdomin al 09/08/23 pain #20 tabs bisacodyl 10 mg rectal suppository 10 mg [place] DAILY PRN constipation 09/26/23 (Dulcolax (bisacodyl)) #20 ea polyethylene glycol 3350 17 17 g PO DAILY #510 grams 0 09/26/23 gram/dose oral powder (Miralax) sennosides 8.6 mg capsule (senna) 8.6 mg PO DAILY cons tipation 30 09/26/23 days #30 caps ondansetron 4 mg disintegrating 4 mg PO DAILY #20 tabs 12/18/23 tablet pyridoxine (vitamin B6) 100 mg 100 mg PO DAILY 90 days #90 tabs 03/01/25 tablet ketorolac 10 mg tablet 10 mg PO Q8H PRN pain #12 ta bs 03/19/25 penicillin V potassium 500 mg 500 mg PO TID 7 days #21 tabs 03/19/25 tablet doxycycline hyclate 100 mg capsule 100 mg PO BID #13 c aps 05/07/25 Allergies Allergy/AdvReac Type Severity Reaction Status Date / Time No Known Allergies (No Known Allergy Verified 08/21/25 21:01 Allergies*) Review of Systems Review of Systems: Yes all other systems are reviewed and are negative [facility] Past Medical History Medical History High cholesterol Sleep apnea Hyperlipemia High blood pressure Asthma Surgical History No history of previous surgery Family History Family History Sister Seizures Sister Diabetes Mother Diabetes Father No problems noted. Social History Social History Household Members: Spouse Household Members Other:: , pet dog Alcohol intake: never Patient Tobacco Use Status: Former Tobacco user Advance Directives: No Advance Directives Information Provided: Yes Do you have a plan to hurt others: No Plan Current occupational status: employed Current occupation: [employer] Physical Exam Vital Signs: Vital Signs: Last Vital Signs Temp 97.6 F 08/21/25 23:56 Pulse 76 08/22/25 02:06 Resp 18 08/22/25 02:06 BP 117/78 08/22/25 02:06 Pulse Ox 97 08/22/25 02:06 O2 Del Method Room Air 08/22/25 02:06 BMI result Body Mass Index 47.3 CONSTITUTIONAL: The patient appears non-toxic, well nourished and in no acute distress. Vital signs as documented. HEAD: Atraumatic, normocephalic. EYES: EOMs grossly intact, pupils equal, conjunctiva clear, no exudate. ENT: Nares patent, no discharge. Airway patent, no audible stridor, visible mucosa is pink and moist without noted lesions. Posterior pharynx shows no tonsillar exudate, no tonsillar or peritonsillar swelling. Uvula is midline and nonedematous. NECK: Trachea is midline, no obvious masses or gross abnormalities. CHEST: Symmetric movement, normal appearance. LUNGS: LS present and CTAB, no w/r/r. Non-labored work of breathing. CARDIAC: Regular Rhythm, S1/S2 appreciated, no murmurs, rubs or gallops. ABDOMEN: Abdomen soft and non-tender x4 quadrants, no palpable masses or organomegaly. : Deferred. EXTREMITIES: Normal tone, moves all extremities spontaneously without reported pain. No obvious acute injury or deformity noted. NEURO: Alert and oriented x3, CN II-XII appear grossly intact. Cerebellar Functioning grossly intact. No obvious sensory or motor deficits. Speech clear and appropriate. PSYCH: normal affect, appropriate eye contact, fluid speech, with appropriate response to questioning. No reported suicidality or homicidality. SKIN: Warm, dry, color appropriate, normal turgor. No rashes noted. Medical Decision Making Medical Decision Making MDM Narrative: 2:32 AM 08/22/2025 (Martín LEDESMA): The patient is a 60-year-old male presenting with 3?4?days of worsening cough, sore throat, frontal headache, sinus pressure, and nasal congestion making it difficult to breathe through the nose. Cough is intermittently productive of green sputum and increases his headache. The patient denies associated fever, chills, vomiting, or diarrhea. Patient reports experiencing nausea and mild abdominal cramping after eating lunch today, however these symptoms reportedly improved after drinking coffee. The patient has been taking Tylenol with minimal relief, last dose around 19:00. Denies known sick contacts but lives in an apartment building. The patient reports a history of asthma but denies smoking history or COPD diagnosis, patient reports he has been using his inhaler regularly but not with the increased frequency. On exam the patient has no adventitious lung sounds, vital signs are reassuring, normotensive, no fever, hypoxia, tachypnea, or tachycardia. The patient is resting comfortably upon initiation of interview and exam. Posterior pharynx shows no swelling or other concerning findings. The patient's laboratory evaluation is negative for strep, influenza, and COVID. The patient's chest x- ray shows no focal consolidation. Patient is likely suffering from a viral bronchitis, no indication for admission or additional observation, patient will be discharged with supportive care. Admission/Observation Consideration of admission/observation: Escalation of care including admission/observation considered Lab Data MDM Lab Attestation statement: I reviewed the patient's lab results. Labs: Lab Results 08/21/25 Range/Units 21:21 COVID-19 ([facility]) Negative (Negative) COVID-19 Clin Com See Note Influenza Type A ([facility]) Negative (Negative) Influenza Type B ([facility]) Negative (Negative) Influenza A & B Note See Note S. pyogenes GrpA [facility] Negative (Negative) Radiology Impression Discussion of test interpretation with radiology: I have reviewed the radiologist's reading. Radiologist Impression: CLINICAL HISTORY: productive cough 2 view chest x-ray. Comparison: CR/SR - XR CHEST 2 VIEWS - 05/14/25 13:31 EDT CR/SR - XR CHEST 2 VIEWS - 12/18/24 15:02 EDT CR/SR - XR CHEST 2 VIEWS - 10/08/24 09:50 EST Findings: There is unchanged pleural-parenchymal scarring in the right lung laterally and in the right upper lobe. Lungs appear otherwise clear. Cardiomediastinal silhouette is within normal limits. IMPRESSION: No acute cardiopulmonary abnormality. This document has been electronically signed by: Rogelio Nunes MD on 08/21/2025 23:21:17 External Record Review External record reviewed: Outpatient record and Prior outpatient labs Prescription Management I considered prescription management with: Pain Medication Discharge Plan Discharge Clinical Impression: Upper respiratory infection Patient Disposition: Home, Self-Care Instructions: Acute Bronchitis (ED), Viral Syndrome (ED), Upper Respiratory Infection (ED) Additional Instructions: Thank you for choosing [facility] Emergency Department for your care today. Thankfully your viral swabs were negative for COVID and influenza, your chest x- ray shows no evidence of pneumonia, and your throat swab was negative for bacterial strep throat. At this time there is no indication for antibiotic treatment, admission to the hospital or continued ED observation, and it is safe to discharge you home. Your symptoms are likely secondary to a viral upper respiratory infection causing an exacerbation of your underlying asthma. Please continue using your inhaler as directed. You should take alternating (staggered) doses of ibuprofen 600mg and Tylenol 1000mg every 4 hours for congestion, discomfort, fever, and/or cough. Please stay well hydrated and get plenty of rest. Please follow up with your primary care physician for re-evaluation, additional management of your symptoms, and continued preventative care. If you do not have a primary care physician, please call the [facility] at [phone] to establish a new primary care physician. While waiting to establish your new primary care physician, you can call our [facility] at [phone] for non-emergency needs. Please return to the emergency department if you develop a severe or sudden change in your symptoms, a fever over 100.4 that does not improve with Tylenol or Ibuprofen, recurrent vomiting, or any other new or worsening symptoms or concerns. Prescriptions: No Action ondansetron 4 mg tablet,disintegrating 4 mg PO DAILY Qty: 20 0RF pyridoxine (vitamin B6) 100 mg tablet 100 mg PO DAILY 90 Days Qty: 90 1RF albuterol sulfate 90 mcg/actuation aerosol powdr breath activated 2 inh inhalation Q4-6H PRN (Reason: shortness of breath or wheezing) Qty: 1 0RF dicyclomine 20 mg tablet 20 mg PO Q8-10H PRN (Reason: abdominal pain) Qty: 20 0RF penicillin V potassium 500 mg tablet 500 mg PO TID 7 Days Qty: 21 0RF ketorolac 10 mg tablet 10 mg PO Q8H PRN (Reason: pain) Qty: 12 0RF Rx Instructions: do not use this medication with ibuprofen or NSAIDs, only Tylenol if needed doxycycline hyclate 100 mg capsule 100 mg PO BID Qty: 13 0RF cholecalciferol (vitamin D3) [Vitamin D3] 50 mcg (2,000 unit) capsule 50 mcg PO DAILY lisinopril 10 mg tablet 10 mg PO DAILY pravastatin 40 mg tablet 40 mg PO DAILY PRN sildenafil [Viagra] 100 mg tablet 50 - 100 mg PO DAILY PRN atorvastatin 20 mg tablet 20 mg PO DAILY buspirone 10 mg tablet 10 mg PO BID Metamucil Fiber (aspartame) 3.4 gram powder in packet PO bisacodyl [Dulcolax (bisacodyl)] 10 mg suppository 10 mg [place] DAILY PRN (Reason: constipation) Qty: 20 0RF polyethylene glycol 3350 [Miralax] 17 gram/dose powder 17 g PO DAILY Qty: 510 6RF senna 8.6 mg capsule 8.6 mg PO DAILY 30 Days Qty: 30 1RF fluticasone propionate 220 mcg/actuation HFA aerosol inhaler inhalation melatonin 10 mg tablet PO BEDTIME loratadine 10 mg tablet 10 mg PO DAILY docusate sodium 100 mg capsule 100 mg PO BID sertraline 100 mg tablet 150 mg PO DAILY Referrals: Dinora Childs COUPON CLERK [Primary Care Provider, Internal Medicine] Clinical Impression: Upper respiratory infection Print Language: Mauritanian
[2025-08-22 02:39] VITALS: BP 117/78; PULSE 76; RESP 18; TEMP 36.7; O2SAT 97
--- NOTE | 2025-08-22 02:39 | PC.NURSE ---
pt refused pain mediation, states i can take that at home pt did not want d/c paperwork. provider gave verbal discharge instructions at bedside
== END 2025-08-22 02:41 | disposition home or self-care (01) ==
PROVIDERS: Emergency Provider Emergency Medicine; PCP Nurse Practitioner Primary Care
DX: J06.9 Acute upper respiratory infection, unspecified (principal); R05.9 Cough, unspecified; J20.9 Acute bronchitis, unspecified; R51.9 Headache, unspecified; Z03.818 Encounter for observation for suspected exposure to other biological agents ruled out; I10 Essential (primary) hypertension; E78.5 Hyperlipidemia, unspecified; J45.909 Unspecified asthma, uncomplicated; Z79.899 Other long term (current) drug therapy; Z79.51 Long term (current) use of inhaled steroids
CPT/HCPCS: 71046; 87502; 87635; 87651; 99283

== ENCOUNTER → 2025-08-21 21:59 | Outpatient (BNV) | payer OTHER, SELFPAY | PROVIDERS: PCP Nurse Practitioner Primary Care; Visit Provider Radiology Diagnostic Radiology | DX: R05.9 Cough, unspecified (principal) | CPT/HCPCS: 71046 ==